=== PATIENT | male | born 1960 | race African-American/Black ===

== ENCOUNTER 2016-10-16 19:53 | Inpatient (IN) | payer MEDICAID ==
[~2016-10-16] VITALS: Ht 182.9 cm; Wt 82.1 kg
[2016-10-16] MEDS ORDERED: Piperacillin/Tazobactam 3.375 GM in NS 110 ML IV ONE (20:00)
[2016-10-16] MEDS ORDERED: Vancomycin 1 GM in NS 275 ML IV ONE (20:00)
[2016-10-16 20:05] VITALS: BP 108/70
[2016-10-16] MEDS ORDERED: Zosyn 3.375gm inj ONE (20:24)
[2016-10-16 20:42] LABS: APPEARANCE,URINE CLEAR; KETONES,URINE NEGATIVE (NEGATIVE); LEUKOCYTE ESTERASE ,URINE NEGATIVE (NEGATIVE); MEAN CORPUSCULAR HEMOGLOBIN 26.2 PG (27.0-31.0); MEAN CORPUSCULAR VOLUME 85 FL (80-99); MEAN PLATELET VOLUME 4.7 FL (6.5-10.1); NITRITE,URINE NEGATIVE (NEGATIVE); PH,URINE 6.5 (4.5-8.0); PLATELET COUNT 478 K/UL (150-450); PROTEIN,URINE 1+ (NEGATIVE); RED BLOOD COUNT 3.12 M/UL (4.70-6.10); UROBILINOGEN,URINE 1 MG/DL (0.0-1.0); WHITE BLOOD COUNT 16.2 K/UL (4.8-10.8)
[2016-10-16 20:55] LABS: BACTERIA,URINE FEW /HPF; RBC,URINE 0-2 /HPF (0 - 0); WBC,URINE 0-2 /HPF (0 - 0)
[2016-10-16 21:00] LABS: ALANINE AMINOTRANSFERASE 39 U/L (3-41); ALBUMIN/GLOBULIN RATIO 0.6 (1.0-2.7); ANION GAP 14 (5-15); ASPARTATE AMINO TRANSFERASE 47 U/L (5-40); CALCIUM 9.1 mg/dL (8.6-10.2); CARBON DIOXIDE 36 mEQ/L (20-30); CHLORIDE 89 mEQ/L (98-107); CREATININE 0.4 mg/dL (0.7-1.2); GLOMERULAR FILTRATION RATE > 60 mL/min (>60); HEMOLYSIS 3; POTASSIUM 2.8 mEQ/L (3.4-4.9); SODIUM 139 mEQ/L (135-145)
[2016-10-16] MEDS ORDERED: Vancomycin 1gm inj IVPB ONE (21:03)
[2016-10-16 21:22] LABS: ANISOCYTOSIS 1+; BAND NEUTROPHILS % (MANUAL) 4 % (0-8); BASOPHILS % (MANUAL) 0 % (0-2); EOSINOPHILS % (MANUAL) 3 % (0-3); HYPOCHROMASIA 1+; LYMPHOCYTES % (MANUAL) 7 % (20-45); NEUTROPHILS % (MANUAL) 80 % (45-75); PLATELET ESTIMATE INCREASED; PLATELET MORPHOLOGY NORMAL; TOTAL CELLS COUNTED 100
--- NOTE | 2016-10-16 21:30 | Emergency Room Report ---
History of Present Illness General Chief Complaint: General Complaint Source: Medical Record, PMD Present Illness HPI 56 YO M sent for evaluation for "worsening pneumonia." Patient aphasic, on trach/vent, not providing HPI. Per review of paperwork from SNF, PMD is Dr Fuentes. Patient on vanc/zosyn already for bibasilar PNA. Last leuks was 25K per Dr Fuentes. Allergies: Coded Allergies: No Known Allergies (Unverified , 10/16/16) Patient History Past Medical History: see triage record, old chart reviewed Past Surgical History: unable to obtain Pertinent Family History: unable to obtain Social History: Denies: alcohol use, drug use, smoking Immunizations: UTD Reviewed Nursing Documentation: PMH: Agreed, PSxH: Agreed Nursing Documentation-PMH Past Medical History: No History, Except For Hx Gastrointestinal Problems: Yes - G tube GERD Review of Systems All Other Systems: limited - unable to obtain, trach/vent Physical Exam Vital Signs Date Time Temp Pulse Resp B/P Pulse Ox O2 Delivery O2 Flow Rate FiO2 10/16/16 19:55 99.0 68 16 108/70 98 Mechanical Ventilator 7.0 10/16/16 20:04 50 Sp02 EP Interpretation: reviewed, normal General Appearance: normal inspection, well appearing, no apparent distress, alert, GCS 15, non-toxic Head: normocephalic, atraumatic Eyes: bilateral eye EOMI, bilateral eye PERRL ENT: normal ENT inspection, hearing grossly normal, normal voice Neck: normal inspection, full range of motion, supple, no bony tend, other - Trach in place. No air leak Respiratory: normal inspection, no respiratory distress, no retraction, no accessory muscle use, no wheezing, rales Cardiovascular #1: normal peripheral pulses, regular rate, rhythm, no edema Gastrointestinal: normal inspection, normal bowel sounds, non tender, soft, no guarding, no hernia, other - protuberant abdomen but not rigid; patient does not wince on palpatio Genitourinary: no CVA tenderness Musculoskeletal: normal inspection, back normal, normal range of motion, Ilda' s Sign negative Neurologic: normal inspection, oriented x3, responsive, furnace charger III-XII nml as tested, motor strength/tone normal, speech normal Psychiatric: normal inspection, judgement/insight normal, mood/affect normal Skin: normal inspection, normal color, no rash Medical Decision Making Medicare Attestation I Yamileth Koenig MD hereby attest that the medical record entry for date of service, 07/26/16 accurately reflects signatures/notations that I made in my capacity as MD when I treated/diagnosed the above listed Medicare beneficiary. I attest that this information is true, accurate and complete to the best of my knowledge. I understand that any falsification, omission, or concealment of material fact may subject me to administrative, civil, or criminal liability. This patient warrants hospital admission for extreme of age and has a condition that cannot be treated as outpatient. Diagnostic Impression: Primary Impression: Pneumonia Qualified Codes: J18.9 - Pneumonia, unspecified organism ER Course Bilateral PNA. CXR interval worse compared to previous despite vanc/zosyn VSS in ED Connected to ventilator Labs: Leuks 16k. H&H stable. K 2.8. UA negative for infection Vanc/zosyn given here K repleted Endorsed to Dr Fuentes for RUBI at 930pm EKG Diagnostic Results Rate: normal Rhythm: NSR ST Segments: no acute changes ASA given to the pt in ED: No Rhythm Strip Diag. Results EP Interpretation: yes Rate: 76 Rhythm: NSR, no PVC's, no ectopy Chest X-Ray Diagnostic Results EP Interpretation: Yes Findings: no pneumothorax, no acute cardiopulmonary disease, other - Bilateral PNA, Left > right Number of Views: 1 Last Vital Signs Date Time Temp Pulse Resp B/P Pulse Ox O2 Delivery O2 Flow Rate FiO2 10/16/16 20:40 98 25 50 10/16/16 20:05 99.0 108/70 98 Mechanical Ventilator 7.0 Status: improved Disposition: ADMITTED INPATIENT Condition: Serious Referrals: NON PHYSICIAN (PCP) YAMILETH KOENIG M.D. Oct 16, 2016 21:30
[2016-10-16] MEDS ORDERED: AMIKACIN IV STA (21:31)
[2016-10-16] MEDS ORDERED: NS IV STA (21:31)
[2016-10-16] MEDS ORDERED: Ertapenem (INVanz) Inj ONE (21:45)
[2016-10-16] MEDS ORDERED: Amikacin 500mg/2mL Inj ONE ×2 (21:45→23:09)
[2016-10-16] MEDS ORDERED: Ertapenem 1 GM in NS 55 ML IV ONE (21:45)
[2016-10-16] MEDS ORDERED: ALBUTEROL2.5 MG/3 M INH (21:51)
[2016-10-16] MEDS ORDERED: DULCOLAX10 MG RC (21:52)
[2016-10-16] MEDS ORDERED: COLACE100 MG ORAL (21:52)
[2016-10-16] MEDS ORDERED: EPOGEN20000 UNI1 SUBQ (21:53)
[2016-10-16] MEDS ORDERED: FERROUS SULFAT325 MG ORAL (21:53)
[2016-10-16] MEDS ORDERED: FLEET ENEMA133 ML RECTAL (21:54)
[2016-10-16] MEDS ORDERED: FUROSEMIDE20 M1 ORAL (21:54)
[2016-10-16] MEDS ORDERED: IRON325 M2 PO (21:54)
[2016-10-16] MEDS ORDERED: MILK OF MA400 MG/51 ORAL (21:55)
[2016-10-16] MEDS ORDERED: MIDODRINE HCL5 MG ORAL (21:55)
[2016-10-16] MEDS ORDERED: MULTIVITAMINS1 EAC8 ORAL (21:56)
[2016-10-16] MEDS ORDERED: PROTONIX40 MG ORAL (21:57)
[2016-10-16] MEDS ORDERED: NEURONTIN100 MG ORAL (21:57)
[2016-10-16] MEDS ORDERED: NORCO 10-325 T1 EACH ORAL (21:57)
[2016-10-16] MEDS ORDERED: ACETAMINOPHEN120 MG GT (21:58)
[2016-10-16] MEDS ORDERED: QUETIAPINE FUMA25 MG ORAL (21:58)
[2016-10-16] MEDS ORDERED: TRAMADOL HCL50 MG ORAL (21:58)
[2016-10-16] MEDS ORDERED: UTI-STAT L3875 MG/31 PO (21:59)
[2016-10-16] MEDS ORDERED: VIT C BIOFLAVO PO (22:00)
[2016-10-16] MEDS ORDERED: LOVENOX10 MG SUBQ (22:01)
[2016-10-16 22:13] VITALS: BP 115/81
[2016-10-17] VITALS: BP 116/79
[2016-10-17] MEDS ORDERED: ZOSYN 3.373.375 GM/1 IVPB (02:20)
[2016-10-17] MEDS ORDERED: tylenol liquid GT (02:20)
[2016-10-17] MEDS ORDERED: [UNRECOGNIZED DRUG - OTHER] GT (02:20)
[2016-10-17] MEDS ORDERED: VANCOMYCIN1 GM/2502 IVPB (02:20)
[2016-10-17] MEDS ORDERED: PROMOD946 ML GT (02:20)
[2016-10-17 04:00] VITALS: BP 118/70
[2016-10-17] MEDS ORDERED: KCl 10% 40mEq/30ml liquid NG ONE ×2 (07:00→11:00)
[2016-10-17] MEDS ORDERED: traMADol 50mg tab ORAL PRN ×2 (07:15→07:27)
[2016-10-17] MEDS ORDERED: Milk of Magnesia 30ml Ud ORAL PRN (07:15)
[2016-10-17] MEDS ORDERED: Albuterol ud Inhalation HHN PRN (07:30)
[2016-10-17] MEDS ORDERED: Norco 10mg/325mg tab ORAL PRN (07:30)
[2016-10-17 08:00] VITALS: BP 115/77
[2016-10-17] MEDS ORDERED: Fleet's Enema 133ml RECTAL SCH (09:00)
[2016-10-17] MEDS ORDERED: Fleet's Enema 133ml RECTAL PRN (09:15)
[2016-10-17] MEDS: Ferrous Sulfate 300 MG/5 ML UDC GT SCH ×3 (09:41→17:52)
[2016-10-17] MEDS: Enoxaparin 30mg Inj SUBQ SCH ×2 (09:41→21:53)
[2016-10-17] MEDS: Zinc Sulfate 220mg cap GT SCH (09:42)
[2016-10-17] MEDS: Multivitamin w/Minerals tab ORAL SCH (09:42)
[2016-10-17] MEDS: Ascorbic Acid 500mg tab GT SCH (09:43)
[2016-10-17] MEDS: Docusate 100mg cap ORAL SCH (09:50)
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
[2016-10-17 12:00] VITALS: BP 111/73
[2016-10-17] MEDS: Vancomycin 1 GM in D5W 275 ML IVPB SCH ×2 (12:02→20:00)
[2016-10-17] MEDS: Piperacillin/Tazobactam 3.375 GM in D5W 110 ML IVPB SCH ×2 (14:14→21:50)
[2016-10-17 16:12] VITALS: BP 112/70
[2016-10-17] MEDS ORDERED: Tubing IV Secondary IV ONE (16:22)
[2016-10-17] MEDS ORDERED: NS 275ml ONE (16:22)
--- NOTE | 2016-10-17 18:17 | Wound Care Consultation ---
Wound Assessment Wound Assessment : Wound Present on Admission: Yes New Wound: No Status Change of Wound: No Wound Location Body Site Modif: mid Wound Location Body Site: sacral Wound Type: pressure ulcer Adriana Test: Does not Adriana Pressure Ulcer Stage: IV/unstageable Wound Thickness: Full Thickness Wound Length: 9.0 Wound Width: 9.0 Wound Depth: utd Percent of Wound Wiggins/Red: 50 Percent of Wound Bed Yellow/Wh: 50 Wound Drainage Description: Serosanguineous Wound Drainage Amount: Moderate Wound Drainage Odor: None/Absent Tissue Surrounding Wound: Macerated Wound General Appearance: Reddened, Draining CARLOS RAINEY RN Oct 17, 2016 18:17
--- NOTE | 2016-10-17 18:45 | Wound Care Consultation ---
Wound Assessment Wound Assessment #1: Wound Present on Admission: Yes New Wound: No Status Change of Wound: No Wound Location Body Site Modif: mid Wound Location Body Site: sacral Wound Type: pressure ulcer Adriana Test: Does not Adriana Pressure Ulcer Stage: IV/unstageable Wound Thickness: Full Thickness Wound Length: 9.0 Wound Width: 9.0 Wound Depth: utd Percent of Wound [place]/Red: 50 Percent of Wound Bed Yellow/Wh: 50 Wound Drainage Description: Serosanguineous Wound Drainage Amount: Moderate Wound Drainage Odor: None/Absent Tissue Surrounding Wound: Macerated Wound Undermining at 3:00: 1.0 Wound Undermining at 9:00: 1.5 Wound General Appearance: Reddened, Draining Wound Assessment #2: Wound Number: #2 Wound Present on Admission: Yes New Wound: No Status Change of Wound: No Wound Location Body Site Modif: right Wound Location Body Site: heel Wound Type: pressure ulcer Adriana Test: Does not Adriana Pressure Ulcer Stage: deep tissue injury Wound Thickness: Full Thickness Wound Length: 4.5 Wound Width: 4.0 Wound Depth: utd Other Colors Identified: brownish Percentage Other Color: 100 Wound Drainage Amount: None Wound Drainage Odor: None/Absent Tissue Surrounding Wound: Intact Wound General Appearance: Asymptomatic Wound Assessment #3: Wound Number: #3 Wound Present on Admission: Yes New Wound: No Status Change of Wound: No Wound Location Body Site Modif: right, lower, lateral Wound Location Body Site: leg Wound Type: scar Adriana Test: Does not Adriana Wound Thickness: Full Thickness Wound Length: 14.5 Wound Width: 4.5 Wound Depth: utd Percent of Wound Black/Brown: 100 Wound Drainage Amount: None Wound Drainage Odor: None/Absent Tissue Surrounding Wound: Intact Wound General Appearance: Asymptomatic Wound Comment #1 Sacral stage IV/unstageable pressure ulcer #2 Right heel DTI pressure ulcer #3 Right lower lateral leg with scar tissue Recommendation -Sacral pressure ulcer Cleanse with saline, pat dry, apply Santyl to wound bed, apply calcium alginate , cover with Biatain silicone foam drg daily and PRN soiled/dislodged -Local wound care for DTI on right heel -Keep clean and dry -Turn and reposition -Offload both heels -Optimize nutrition -Low air loss mattress -Assess and f/u accordingly for any changes CARLOS RAINEY RN Oct 17, 2016 18:44
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
[2016-10-17 20:00] VITALS: BP 122/78
[2016-10-18] VITALS: BP 105/67
[2016-10-18] MEDS: Vancomycin 1 GM in D5W 275 ML IVPB SCH ×3 (03:37→20:20)
[2016-10-18 04:00] VITALS: BP 106/73
[2016-10-18] MEDS: Piperacillin/Tazobactam 3.375 GM in D5W 110 ML IVPB SCH ×3 (05:19→22:05)
[2016-10-18 08:00] VITALS: BP 105/71
--- NOTE | 2016-10-18 08:39 | Diagnostic Imaging Report ---
Indication: Dyspnea Comparison: None A single view chest radiograph was obtained. Findings: Extensive airspace disease noted in the left lung with some noted on the right. There is also prominent vascularity and heart is enlarged. Cervical fusion hardware noted extending into the upper thoracic spine. Bones are osteopenic. Impression: Bilateral airspace disease left worse than right probably on the basis of pulmonary edema although pneumonia is certainly possible. Please correlate clinically
[2016-10-18] MEDS: Multivitamin w/Minerals tab ORAL SCH (08:47)
[2016-10-18] MEDS: Zinc Sulfate 220mg cap GT SCH (08:47)
[2016-10-18] MEDS: Ascorbic Acid 500mg tab GT SCH (08:47)
[2016-10-18] MEDS: Ferrous Sulfate 300 MG/5 ML UDC GT SCH ×3 (08:47→18:22)
[2016-10-18] MEDS: Docusate 100mg cap ORAL SCH (08:48)
[2016-10-18] MEDS: Enoxaparin 30mg Inj SUBQ SCH ×2 (08:50→20:20)
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
--- NOTE | 2016-10-18 09:48 | Infectious Diseases Prog Note ---
Assessment/Plan Assessment/Plan A: Pneumonia VDRF Paraplegia Pressure ulcer Anemia P: continue Zosyn & Vancomycin will f/u culture Subjective ROS Limited/Unobtainable: Yes Constitutional: Reports: no symptoms Musculoskeletal: Reports: pain Allergies: Coded Allergies: No Known Allergies (Unverified , 10/16/16) Objective Vital Signs Last 24 Hour Vital Signs Date Time Temp Pulse Resp B/P Pulse Ox O2 Delivery O2 Flow Rate FiO2 10/18/16 09:03 71 26 50 10/18/16 06:33 74 25 50 10/18/16 05:50 82 23 50 10/18/16 04:00 50 10/18/16 04:00 99.3 73 20 106/73 98 Mechanical Ventilator 50 10/18/16 04:00 73 10/18/16 03:01 70 33 50 10/18/16 00:58 91 32 50 10/18/16 00:00 66 10/18/16 00:00 98.1 64 22 105/67 97 Mechanical Ventilator 50 10/18/16 00:00 50 10/17/16 23:10 81 28 50 10/17/16 21:00 68 33 50 10/17/16 20:00 98.1 71 18 122/78 99 Mechanical Ventilator 10/17/16 20:00 60 10/17/16 20:00 7.0 50 10/17/16 19:01 82 24 50 10/17/16 16:41 58 25 50 10/17/16 16:12 97.5 60 19 112/70 100 Mechanical Ventilator 50 10/17/16 15:38 61 10/17/16 15:38 7.0 50 10/17/16 15:17 61 26 50 10/17/16 13:19 93 27 50 10/17/16 12:13 7.0 50 10/17/16 12:00 97.7 69 27 111/73 97 Mechanical Ventilator 50 10/17/16 11:26 90 29 50 Height (Feet): 6 Height (Inches): 6.00 Weight (Pounds): 181 General Appearance: no acute distress HEENT: status post trach Respiratory/Chest: lungs clear, other - on ventilator Cardiovascular: normal rate Abdomen: soft, non tender, other - GT feeding Extremities: no edema Neurologic/Psychiatric: alert, responsive Microbiology Date/Time Source Procedure Growth Status 10/16/16 20:20 Blood Blood Culture - Preliminary NO GROWTH AFTER 24 HOURS Resulted 10/16/16 20:05 Blood Blood Culture - Preliminary NO GROWTH AFTER 24 HOURS Resulted 10/16/16 21:55 Nasal Nares MRSA Culture - Final NO METHICILLIN RESISTANT STAPH AUREUS... Complete 10/17/16 01:00 Sacral Wound Gram Stain Pending Resulted 10/17/16 01:00 Wound Culture - Preliminary Gram Negative Bacillus 1 Resulted 10/16/16 21:55 Rectum VRE Culture - Final NO VANCOMYCIN RESISTANT ENTEROCOCCUS ... Complete Laboratory Tests Test 10/17/16 10:45 Vancomycin Level Trough 6.9 ug/mL (5.0-12.0) Current Medications Medications (Trade) Dose Ordered Sig/Lucy Route PRN Reason Start Time Stop Time Status Last Admin Dose Admin Acetaminophen (Tylenol) 650 mg Q4H PRN GT Mild Pain/Temp > 100.5 10/17/16 07:45 11/16/16 07:44 Acetaminophen/ Hydrocodone Bitart ([place] 10/325) 1 ea Q4H PRN ORAL Severe Pain (Pain Scale 7-10) 10/17/16 07:30 10/24/16 07:29 Albuterol Sulfate (Proventil) 2.5 mg Q4H PRN HHN Shortness of Breath 10/17/16 07:30 10/22/16 07:29 Ascorbic Acid (Vitamin C) 500 mg DAILY GT 10/17/16 09:00 11/16/16 08:59 10/18/16 08:47 Bisacodyl (Dulcolax) 10 mg DAILY PRN RECTAL Constipation 10/17/16 07:30 11/16/16 07:29 Docusate Sodium (Colace) 100 mg DAILY ORAL 10/17/16 09:00 11/16/16 08:59 10/18/16 08:48 Enoxaparin Sodium (Lovenox) 30 mg EVERY 12 HOURS SUBQ 10/17/16 09:00 11/16/16 08:59 10/18/16 08:50 Ferrous Sulfate (Feosol) 300 mg THREE TIMES A DAY GT 10/17/16 09:00 11/16/16 08:59 10/18/16 08:47 Furosemide (Lasix) 10 mg BID ORAL 10/17/16 09:00 11/16/16 08:59 10/18/16 08:52 Gabapentin (Neurontin) 100 mg EVERY 8 HOURS ORAL 10/17/16 14:00 11/16/16 13:59 10/18/16 05:18 Heparin Sodium/ Sodium Chloride (Heparin 2000 units/Ns 1000ml premix) 2,000 unit ONCE ONCE IV 10/18/16 12:00 10/18/16 12:01 Lidocaine HCl (Xylocaine 1% 30ml) 30 ml ONCE ONCE INJ 10/18/16 12:00 10/18/16 12:01 Magnesium Hydroxide (Mom) 30 ml DAILY PRN ORAL Constipation 10/17/16 07:15 11/16/16 07:14 Midodrine (Pro-[place]) 5 mg THREE TIMES A DAY ORAL 10/17/16 09:00 11/16/16 08:59 10/18/16 08:48 Multivitamins Therapeutic (Therapeutic Multivitamin) 1 ea DAILY ORAL 10/17/16 09:00 11/16/16 08:59 10/18/16 08:47 Pantoprazole (Protonix) 40 mg DAILY ORAL 10/17/16 09:00 11/16/16 08:59 10/18/16 08:48 Piperacillin Sod/ Tazobactam Sod 3.375 gm/Dextrose 110 ml @ 27.5 mls/hr Q8HR IVPB 10/17/16 14:00 10/24/16 13:59 10/18/16 05:19 Quetiapine Fumarate (SEROquel) 25 mg BEDTIME ORAL 10/17/16 21:00 11/16/16 20:59 10/17/16 21:51 Sodium Phosphate (Fleet's Sodium Phosl Enema) 133 ml DAILY PRN RECTAL Constipation 10/17/16 09:15 11/16/16 09:14 Tramadol HCl 50 mg 50 mg Q6H PRN ORAL Moderate Pain (Pain Scale 4-6) 10/17/16 07:27 10/24/16 07:14 10/18/16 03:38 Vancomycin HCl/ Dextrose (Vancomycin/D5W) 275 ml @ 183.708 mls/hr Q8HR@0400,1200,2000 IVPB 10/17/16 12:00 10/22/16 11:59 10/18/16 03:37 Zinc Sulfate (Zinc Sulfate) 220 mg DAILY GT 10/17/16 09:00 10/30/16 09:01 10/18/16 08:47 ISRAEL LANIER Oct 18, 2016 09:48
--- NOTE | 2016-10-18 11:49 | Diagnostic Imaging Report ---
Indications: Shortness of breath Technique: Portable AP chest Findings: Comparison: 10/16/16 Inspiratory effort has improved. Cardiomegaly, pulmonary vascular redistribution, diffuse bilateral interstitial infiltrates, superimposed patchy alveolar consolidation in both lungs, left pleural effusion persists, not significantly changed. No new abnormality identified. IMPRESSION: Stable bilateral congestive changes Bilateral airspace opacities may represent alveolar pulmonary edema or superimposed pneumonias, unchanged
[2016-10-18 12:00] VITALS: BP 111/77
[2016-10-18] MEDS ORDERED: Heparin 2000 units/Ns 1000ml IV ONE (12:00)
[2016-10-18] MEDS ORDERED: Lidocaine 1% Plain 30 ml INJ ONE (12:00)
[2016-10-18 12:17] LABS: MEAN CORPUSCULAR HEMOGLOBIN 25.5 PG (27.0-31.0); MEAN CORPUSCULAR HGB CONC 30.2 G/DL (32.0-36.0); MEAN CORPUSCULAR VOLUME 84 FL (80-99); PLATELET COUNT 659 K/UL (150-450); RED BLOOD COUNT 3.15 M/UL (4.70-6.10); RED CELL DISTRIBUTION WIDTH 17.5 % (11.6-14.8); WHITE BLOOD COUNT 21.7 K/UL (4.8-10.8)
--- NOTE | 2016-10-18 12:36 | Diagnostic Imaging Report ---
Indications: Long-term central IV access required for multiple medications. Technique: The procedure indications, risks, and alternatives were explained to the patient's family who understands and gives consent to proceed. Procedure was performed at bedside. Strict aseptic technique was utilized, including hand washing, use of hat and mask, use of sterile gown and gloves, sterile ultrasound gel and probe cover, prepping of right arm skin with 2% chlorhexidine solution, and application of full body sterile barrier over this area. Skin and subcutaneous soft tissues were infiltrated with 1% lidocaine and sodium bicarbonate. A small dermatotomy was made, through which the larger of two patent, adequate size right brachial veins was punctured percutaneously under direct sonographic guidance with a 21-gauge needle. Exchange was made over a 0.018 inch guidewire for a 5 [place] peel-away sheath. A Bard Power-PICC 5 [place] dual lumen central venous catheter was cut to 40 cm, then advanced through the sheath over the guidewire. Guidewire and sheath were removed. Both catheter ports were aspirated, then flushed with heparinized saline. Catheter was secured the skin with adhesive dressing. Patient tolerated procedure well without immediate complications. Followup chest radiograph performed. Findings: Comparison: Chest radiograph 10/18/16 at 08 20 Both ports aspirate and flush freely. Tip of catheter resides at level of SVC-right atrial junction. No other change from earlier exam. IMPRESSION: Bedside placement of peripherally inserted central venous catheter via right brachial vein, working well, may be used.
[2016-10-18 12:48] LABS: ALANINE AMINOTRANSFERASE 27 U/L (3-41); ALBUMIN/GLOBULIN RATIO 0.7 (1.0-2.7); ANION GAP 9 (5-15); ASPARTATE AMINO TRANSFERASE 27 U/L (5-40); CALCIUM 8.8 mg/dL (8.6-10.2); CARBON DIOXIDE 38 mEQ/L (20-30); CHLORIDE 93 mEQ/L (98-107); CREATININE 0.4 mg/dL (0.7-1.2); GLOMERULAR FILTRATION RATE > 60 mL/min (>60); HEMOLYSIS 3; POTASSIUM 3.2 mEQ/L (3.4-4.9); SODIUM 140 mEQ/L (135-145); TOTAL PROTEIN 5.9 g/dL (6.6-8.7)
[2016-10-18 13:50] LABS: ANISOCYTOSIS 1+; BAND NEUTROPHILS % (MANUAL) 2 % (0-8); BASOPHILS % (MANUAL) 0 % (0-2); EOSINOPHILS % (MANUAL) 0 % (0-3); HYPOCHROMASIA 1+; LYMPHOCYTES % (MANUAL) 5 % (20-45); NEUTROPHILS % (MANUAL) 84 % (45-75); PLATELET ESTIMATE INCREASED; PLATELET MORPHOLOGY NORMAL; TOTAL CELLS COUNTED 100
[2016-10-18 16:00] VITALS: BP 143/79
[2016-10-18 18:15] VITALS: BP 103/72
[2016-10-19] VITALS (8 sets, daily range): BP systolic 95–112; BP diastolic 56–78
[2016-10-19] MEDS: Vancomycin 1 GM in D5W 275 ML IVPB SCH ×3 (04:00→20:41)
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
[2016-10-19 09:41] LABS: MEAN CORPUSCULAR HEMOGLOBIN 25.5 PG (27.0-31.0); MEAN CORPUSCULAR HGB CONC 30.3 G/DL (32.0-36.0); MEAN CORPUSCULAR VOLUME 84 FL (80-99); MEAN PLATELET VOLUME 4.9 FL (6.5-10.1); PLATELET COUNT 624 K/UL (150-450); RED BLOOD COUNT 2.98 M/UL (4.70-6.10); RED CELL DISTRIBUTION WIDTH 17.9 % (11.6-14.8)
[2016-10-19] MEDS: Multivitamin w/Minerals tab ORAL SCH (09:41)
[2016-10-19] MEDS: Docusate 100mg cap ORAL SCH (09:41)
[2016-10-19] MEDS: Ascorbic Acid 500mg tab GT SCH (09:41)
[2016-10-19] MEDS: Ferrous Sulfate 300 MG/5 ML UDC GT SCH ×3 (09:41→17:23)
[2016-10-19] MEDS: Zinc Sulfate 220mg cap GT SCH (09:41)
[2016-10-19] MEDS: Enoxaparin 30mg Inj SUBQ SCH ×2 (09:43→20:43)
[2016-10-19] MEDS: Piperacillin/Tazobactam 3.375 GM in D5W 110 ML IVPB SCH ×3 (09:44→21:23)
[2016-10-19 09:47] LABS: ANION GAP 8 (5-15); CARBON DIOXIDE 38 mEQ/L (20-30); CHLORIDE 93 mEQ/L (98-107); CREATININE 0.4 mg/dL (0.7-1.2); GLOMERULAR FILTRATION RATE > 60 mL/min (>60); HEMOLYSIS 1; POTASSIUM 3.2 mEQ/L (3.4-4.9); SODIUM 139 mEQ/L (135-145)
[2016-10-19 10:15] LABS: EOSINOPHILS % (MANUAL) 1 % (0-3); LYMPHOCYTES % (MANUAL) 5 % (20-45); NEUTROPHILS % (MANUAL) 87 % (45-75); TOTAL CELLS COUNTED 100
[2016-10-19 10:16] LABS: ANISOCYTOSIS 2+; BAND NEUTROPHILS % (MANUAL) 0 % (0-8); BASOPHILS % (MANUAL) 0 % (0-2); PLATELET ESTIMATE INCREASED; PLATELET MORPHOLOGY NORMAL
[2016-10-19 10:18] LABS: HYPOCHROMASIA 2+; STOMATOCYTES OCCASIONAL
--- NOTE | 2016-10-19 12:04 | Infectious Diseases Prog Note ---
Assessment/Plan Assessment/Plan antibiotics : vancomycin iv, zosyn A 1. pneumonia 2. increasing leucocytosis 3. respiratory failure 4. paraplegia P 1. continue vancomycin iv, zosyn 2. start flagyl 3. urine culture 4. sputum culture 5. stool for c.diff 6. will follow up cultures Subjective ROS Limited/Unobtainable: Yes Allergies: Coded Allergies: No Known Allergies (Unverified , 10/16/16) Objective Vital Signs Last 24 Hour Vital Signs Date Time Temp Pulse Resp B/P Pulse Ox O2 Delivery O2 Flow Rate FiO2 10/19/16 10:56 65 25 40 10/19/16 09:26 67 25 40 10/19/16 08:00 50 10/19/16 08:00 65 10/19/16 08:00 98.1 64 30 102/71 96 Mechanical Ventilator 40 10/19/16 07:00 71 24 40 10/19/16 04:56 70 26 40 10/19/16 04:00 68 10/19/16 04:00 50 10/19/16 04:00 98.0 74 29 95/56 96 Mechanical Ventilator 10/19/16 02:43 67 34 40 10/19/16 00:34 68 32 40 10/19/16 00:00 97.7 66 30 99/67 96 Mechanical Ventilator 10/19/16 00:00 50 10/18/16 23:32 66 28 40 10/18/16 23:04 98.2 10/18/16 21:23 67 30 40 10/18/16 20:00 50 10/18/16 20:00 72 10/18/16 19:01 61 32 40 10/18/16 18:15 103/72 10/18/16 17:16 62 32 40 10/18/16 16:35 50 10/18/16 16:00 98.1 66 16 143/79 98 Mechanical Ventilator 50 10/18/16 15:44 60 10/18/16 15:20 64 27 40 10/18/16 13:34 66 27 40 10/18/16 13:21 98.3 Height (Feet): 6 Height (Inches): 6.00 Weight (Pounds): 181 HEENT: status post trach Respiratory/Chest: crackles/rales, rhonchi - bilaterally Cardiovascular: normal rate, regular rhythm, no gallop/murmur Abdomen: soft, non tender, other - GT Extremities: no edema, other - right arm PICC Microbiology Date/Time Source Procedure Growth Status 10/16/16 20:20 Blood Blood Culture - Preliminary NO GROWTH AFTER 48 HOURS Resulted 10/16/16 20:05 Blood Blood Culture - Preliminary NO GROWTH AFTER 48 HOURS Resulted 10/16/16 21:55 Nasal Nares MRSA Culture - Final NO METHICILLIN RESISTANT STAPH AUREUS... Complete 10/17/16 01:00 Sacral Wound Gram Stain - Final Resulted 10/17/16 01:00 Wound Culture - Preliminary Morganella Morg Spp Morganii Resulted 10/16/16 21:55 Rectum VRE Culture - Final NO VANCOMYCIN RESISTANT ENTEROCOCCUS ... Complete Laboratory Tests Test 10/19/16 08:50 White Blood Count 24.0 K/UL (4.8-10.8) *H Red Blood Count 2.98 M/UL (4.70-6.10) L Hemoglobin 7.6 G/DL (14.2-18.0) L Hematocrit 25.0 % (42.0-52.0) L Mean Corpuscular Volume 84 FL (80-99) Mean Corpuscular Hemoglobin 25.5 PG (27.0-31.0) L Mean Corpuscular Hemoglobin Concent 30.3 G/DL (32.0-36.0) L Red Cell Distribution Width 17.9 % (11.6-14.8) H Platelet Count 624 K/UL (150-450) H Mean Platelet Volume 4.9 FL (6.5-10.1) L Neutrophils (%) (Auto) % (45.0-75.0) Lymphocytes (%) (Auto) % (20.0-45.0) Monocytes (%) (Auto) % (1.0-10.0) Eosinophils (%) (Auto) % (0.0-3.0) Basophils (%) (Auto) % (0.0-2.0) Differential Total Cells Counted 100 Neutrophils % (Manual) 87 % (45-75) H Lymphocytes % (Manual) 5 % (20-45) L Monocytes % (Manual) 7 % (1-10) Eosinophils % (Manual) 1 % (0-3) Basophils % (Manual) 0 % (0-2) Band Neutrophils 0 % (0-8) Platelet Estimate Increased H Platelet Morphology Normal Hypochromasia 2+ Anisocytosis 2+ Stomatocytes Occasional Sodium Level 139 mEQ/L (135-145) Potassium Level 3.2 mEQ/L (3.4-4.9) L Chloride Level 93 mEQ/L (98-107) L Carbon Dioxide Level 38 mEQ/L (20-30) H Anion Gap 8 (5-15) Blood Urea Nitrogen 10 mg/dL (7-23) Creatinine 0.4 mg/dL (0.7-1.2) L Estimat Glomerular Filtration Rate > 60 mL/min (>60) Glucose Level 121 mg/dL (74-106) H Calcium Level 9.0 mg/dL (8.6-10.2) SKYLER DUFFY Oct 19, 2016 12:04
[2016-10-19] MEDS ORDERED: Milk of Magnesia 30ml Ud GT PRN (13:26)
[2016-10-19] MEDS: metroNIDAZOLE 500mg tab GT SCH ×2 (14:29→21:23)
[2016-10-19] MEDS: Acetaminophen 650mg/20.3ml GT PRN (17:31)
[2016-10-19] MEDS ORDERED: traMADol 50mg tab GT PRN (19:27)
[2016-10-20] VITALS: BP 107/65
[2016-10-20] MEDS: Vancomycin 1 GM in D5W 275 ML IVPB SCH ×2 (03:50→12:20)
[2016-10-20 04:00] VITALS: BP 104/60
[2016-10-20] MEDS: Piperacillin/Tazobactam 3.375 GM in D5W 110 ML IVPB SCH ×2 (05:22→14:28)
[2016-10-20] MEDS: metroNIDAZOLE 500mg tab GT SCH ×3 (05:22→22:20)
[2016-10-20 05:57] LABS: MEAN CORPUSCULAR HEMOGLOBIN 26.4 PG (27.0-31.0); MEAN CORPUSCULAR HGB CONC 31.2 G/DL (32.0-36.0); MEAN CORPUSCULAR VOLUME 85 FL (80-99); MEAN PLATELET VOLUME 4.9 FL (6.5-10.1); PLATELET COUNT 628 K/UL (150-450); RED BLOOD COUNT 3.52 M/UL (4.70-6.10); RED CELL DISTRIBUTION WIDTH 16.6 % (11.6-14.8)
[2016-10-20 07:25] LABS: ANISOCYTOSIS 1+; BAND NEUTROPHILS % (MANUAL) 0 % (0-8); BASOPHILS % (MANUAL) 0 % (0-2); EOSINOPHILS % (MANUAL) 1 % (0-3); HYPOCHROMASIA 2+; LYMPHOCYTES % (MANUAL) 5 % (20-45); NEUTROPHILS % (MANUAL) 89 % (45-75); PLATELET ESTIMATE INCREASED; PLATELET MORPHOLOGY NORMAL; TOTAL CELLS COUNTED 100
[2016-10-20 07:35] LABS: ANION GAP 11 (5-15); CARBON DIOXIDE 37 mEQ/L (20-30); CHLORIDE 92 mEQ/L (98-107); CREATININE 0.4 mg/dL (0.7-1.2); GLOMERULAR FILTRATION RATE > 60 mL/min (>60); HEMOLYSIS 0; POTASSIUM 2.9 mEQ/L (3.4-4.9); SODIUM 140 mEQ/L (135-145)
[2016-10-20 08:00] VITALS: BP 101/65
[2016-10-20] MEDS: Zinc Sulfate 220mg cap GT SCH (09:27)
[2016-10-20] MEDS: Ascorbic Acid 500mg tab GT SCH (09:27)
[2016-10-20] MEDS: Ferrous Sulfate 300 MG/5 ML UDC GT SCH ×3 (09:27→19:04)
[2016-10-20] MEDS: Multivitamin 5ml Liquid GT SCH (09:28)
[2016-10-20] MEDS: Pantoprazole Inj IVP SCH (09:28)
[2016-10-20] MEDS: Docusate 100mg tablet GT SCH (09:28)
[2016-10-20] MEDS: Enoxaparin 30mg Inj SUBQ SCH ×2 (09:29→22:24)
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
[2016-10-20 12:00] VITALS: BP 110/75
--- NOTE | 2016-10-20 12:34 | Diagnostic Imaging Report ---
Indication: Dyspnea Comparison: 10/18/16 A single view chest radiograph was obtained. Findings: Interstitial and some lobular airspace disease noted with cardiomegaly and some vascular prominence. The findings appear improved and likely reflect CHF. PICC line has been placed. Tip is in the SVC in good position. Impression: PICC line in good position. CHF. Some improvement in this regard
--- NOTE | 2016-10-20 14:21 | Infectious Diseases Prog Note ---
Assessment/Plan Assessment/Plan A: Pneumonia with MDR pseudomonas VDRF Paraplegia Pressure ulcer Anemia P: discontinue Zosyn & Vancomycin start on Amikacin Subjective ROS Limited/Unobtainable: Yes Neurologic: Reports: confusion Allergies: Coded Allergies: No Known Allergies (Unverified , 10/16/16) Objective Vital Signs Last 24 Hour Vital Signs Date Time Temp Pulse Resp B/P Pulse Ox O2 Delivery O2 Flow Rate FiO2 10/20/16 13:23 73 30 40 10/20/16 12:00 98.4 66 23 110/75 98 Mechanical Ventilator 40 10/20/16 11:30 66 29 40 10/20/16 11:22 50 10/20/16 09:30 62 31 40 10/20/16 08:00 50 10/20/16 08:00 97.5 62 30 101/65 99 Mechanical Ventilator 40 10/20/16 08:00 62 10/20/16 07:30 61 21 40 10/20/16 06:21 99.5 10/20/16 05:23 61 27 40 10/20/16 04:00 50 10/20/16 04:00 98.8 63 25 104/60 100 Mechanical Ventilator 40 10/20/16 04:00 66 10/20/16 03:05 63 24 40 10/20/16 01:01 70 26 40 10/20/16 00:00 50 10/20/16 00:00 99.5 71 27 107/65 94 Mechanical Ventilator 40 10/20/16 00:00 70 10/19/16 23:03 75 24 40 10/19/16 21:30 72 24 40 10/19/16 20:00 69 10/19/16 20:00 98.2 72 18 112/69 98 Mechanical Ventilator 40 10/19/16 20:00 50 10/19/16 18:52 72 27 40 10/19/16 18:01 98.4 10/19/16 18:00 98.4 67 18 107/63 99 Mechanical Ventilator 40 10/19/16 17:30 97.1 66 18 110/78 98 Mechanical Ventilator 40 10/19/16 17:03 64 21 40 10/19/16 16:00 50 10/19/16 16:00 97.5 75 28 112/71 98 Mechanical Ventilator 40 10/19/16 16:00 82 10/19/16 15:23 67 22 40 Height (Feet): 6 Height (Inches): 6.00 Weight (Pounds): 181 HEENT: status post trach Respiratory/Chest: rhonchi - bilaterally, other - on ventilator Cardiovascular: normal rate Abdomen: distended, other - GT Extremities: other - R arm PICC line Neurologic/Psychiatric: alert, responsive, disoriented Microbiology Date/Time Source Procedure Growth Status 10/19/16 12:30 Sputum Gram Stain - Final Resulted 10/19/16 12:30 Sputum Sputum Culture Pending Resulted 10/17/16 21:10 Sputum Gram Stain - Final Resulted 10/17/16 21:10 Sputum Culture - Preliminary Pseudomonas Aeruginosa - Mdr Resulted 10/19/16 12:30 Stool Clostridium difficile Toxin Assay - Final Complete 10/19/16 12:30 Urine,Clean Catch Urine Culture - Preliminary NO GROWTH Resulted Laboratory Tests Test 10/20/16 05:00 White Blood Count 25.0 K/UL (4.8-10.8) *H Red Blood Count 3.52 M/UL (4.70-6.10) L Hemoglobin 9.3 G/DL (14.2-18.0) L Hematocrit 29.8 % (42.0-52.0) L Mean Corpuscular Volume 85 FL (80-99) Mean Corpuscular Hemoglobin 26.4 PG (27.0-31.0) L Mean Corpuscular Hemoglobin Concent 31.2 G/DL (32.0-36.0) L Red Cell Distribution Width 16.6 % (11.6-14.8) H Platelet Count 628 K/UL (150-450) H Mean Platelet Volume 4.9 FL (6.5-10.1) L Neutrophils (%) (Auto) % (45.0-75.0) Lymphocytes (%) (Auto) % (20.0-45.0) Monocytes (%) (Auto) % (1.0-10.0) Eosinophils (%) (Auto) % (0.0-3.0) Basophils (%) (Auto) % (0.0-2.0) Differential Total Cells Counted 100 Neutrophils % (Manual) 89 % (45-75) H Lymphocytes % (Manual) 5 % (20-45) L Monocytes % (Manual) 5 % (1-10) Eosinophils % (Manual) 1 % (0-3) Basophils % (Manual) 0 % (0-2) Band Neutrophils 0 % (0-8) Platelet Estimate Increased H Platelet Morphology Normal Hypochromasia 2+ Anisocytosis 1+ Sodium Level 140 mEQ/L (135-145) Potassium Level 2.9 mEQ/L (3.4-4.9) L Chloride Level 92 mEQ/L (98-107) L Carbon Dioxide Level 37 mEQ/L (20-30) H Anion Gap 11 (5-15) Blood Urea Nitrogen 9 mg/dL (7-23) Creatinine 0.4 mg/dL (0.7-1.2) L Estimat Glomerular Filtration Rate > 60 mL/min (>60) Glucose Level 94 mg/dL (74-106) Calcium Level 9.0 mg/dL (8.6-10.2) Current Medications Medications (Trade) Dose Ordered Sig/Lucy Route PRN Reason Start Time Stop Time Status Last Admin Dose Admin Acetaminophen (Tylenol) 650 mg Q4H PRN GT Mild Pain/Temp > 100.5 10/17/16 07:45 11/16/16 07:44 10/19/16 17:31 Acetaminophen/ Hydrocodone Bitart ([place] 10/325) 1 ea Q4H PRN GT Severe Pain (Pain Scale 7-10) 10/19/16 13:25 10/24/16 07:29 Albuterol Sulfate (Proventil) 2.5 mg Q4H PRN HHN Shortness of Breath 10/17/16 07:30 10/22/16 07:29 Ascorbic Acid (Vitamin C) 500 mg DAILY GT 10/17/16 09:00 11/16/16 08:59 10/20/16 09:27 Bisacodyl 10 mg 10 mg DAILY PRN RECTAL Constipation 10/17/16 07:30 11/16/16 07:29 Collagenase (Santyl) 1 applic DAILY TOPIC 10/20/16 12:00 11/19/16 11:59 10/20/16 12:00 Docusate Sodium (Colace) 100 mg DAILY GT 10/20/16 09:00 11/19/16 08:59 10/20/16 09:28 Enoxaparin Sodium (Lovenox) 30 mg EVERY 12 HOURS SUBQ 10/17/16 09:00 11/16/16 08:59 10/20/16 09:29 Ferrous Sulfate (Feosol) 300 mg THREE TIMES A DAY GT 10/17/16 09:00 11/16/16 08:59 10/20/16 09:27 Furosemide (Lasix) 10 mg BID GT 10/19/16 13:25 11/16/16 08:59 10/20/16 09:28 Gabapentin (Neurontin) 100 mg EVERY 8 HOURS GT 10/19/16 13:25 11/16/16 13:59 10/20/16 05:22 Magnesium Hydroxide (Mom) 30 ml DAILY PRN GT Constipation 10/19/16 13:26 11/16/16 07:14 Metronidazole (Flagyl) 500 mg Q8HR GT 10/19/16 14:00 10/26/16 13:59 10/20/16 05:22 Midodrine (Pro-Amatine) 5 mg THREE TIMES A DAY GT 10/19/16 13:26 11/16/16 08:59 10/20/16 09:27 Multivitamins (Multivitamin Hexavitamin) 5 ml DAILY GT 10/20/16 09:00 11/19/16 08:59 10/20/16 09:28 Pantoprazole (Protonix) 40 mg DAILY IVP 10/20/16 09:00 11/19/16 08:59 10/20/16 09:28 Piperacillin Sod/ Tazobactam Sod 3.375 gm/Dextrose 110 ml @ 27.5 mls/hr Q8HR IVPB 10/17/16 14:00 10/24/16 13:59 10/20/16 05:22 Quetiapine Fumarate (SEROquel) 25 mg BEDTIME GT 10/19/16 13:26 11/16/16 20:59 10/19/16 20:41 Sodium Phosphate (Fleet's Sodium Phosl Enema) 133 ml DAILY PRN RECTAL Constipation 10/17/16 09:15 11/16/16 09:14 Tramadol HCl (Ultram) 50 mg Q6H PRN GT Moderate Pain (Pain Scale 4-6) 10/19/16 19:27 10/24/16 07:14 Vancomycin HCl/ Dextrose (Vancomycin/D5W) 275 ml @ 183.708 mls/hr Q8HR@0400,1200,2000 IVPB 10/17/16 12:00 10/22/16 11:59 10/20/16 12:20 Zinc Sulfate (Zinc Sulfate) 220 mg DAILY GT 10/17/16 09:00 10/30/16 09:01 10/20/16 09:27 ISRAEL LANIER Oct 20, 2016 14:21
[2016-10-20] MEDS ORDERED: Amikacin Rx to dose MISC PRN (14:30)
[2016-10-20 16:00] VITALS: BP 116/77
[2016-10-20] MEDS ORDERED: D5W IV SCH (16:00)
[2016-10-20] MEDS ORDERED: AMIKACIN IV SCH (16:00)
[2016-10-20 19:00] VITALS: BP 141/93
[2016-10-20] MEDS: Norco 10mg/325mg tab GT PRN (19:47)
[2016-10-20] MEDS: Acetaminophen 650mg/20.3ml GT PRN (22:25)
[2016-10-21] VITALS: BP 101/70
[2016-10-21 04:00] VITALS: BP 119/76
[2016-10-21 06:25] LABS: BASOPHILS % (AUTO) 0.2 % (0.0-2.0); EOSINOPHILS % (AUTO) 1.1 % (0.0-3.0); LYMPHOCYTES % (AUTO) 9.3 % (20.0-45.0); MEAN CORPUSCULAR HEMOGLOBIN 26.2 PG (27.0-31.0); MEAN CORPUSCULAR HGB CONC 30.9 G/DL (32.0-36.0); MEAN CORPUSCULAR VOLUME 85 FL (80-99); MEAN PLATELET VOLUME 4.8 FL (6.5-10.1); MONOCYTES % (AUTO) 6.1 % (1.0-10.0); NEUTROPHILS % (AUTO) 83.2 % (45.0-75.0); PLATELET COUNT 698 K/UL (150-450); RED BLOOD COUNT 3.65 M/UL (4.70-6.10); WHITE BLOOD COUNT 16.2 K/UL (4.8-10.8)
[2016-10-21 06:44] LABS: ANION GAP 9 (5-15); CALCIUM 9.2 mg/dL (8.6-10.2); CARBON DIOXIDE 37 mEQ/L (20-30); CHLORIDE 94 mEQ/L (98-107); CREATININE 0.5 mg/dL (0.7-1.2); GLOMERULAR FILTRATION RATE > 60 mL/min (>60); HEMOLYSIS 1; POTASSIUM 3.2 mEQ/L (3.4-4.9); SODIUM 140 mEQ/L (135-145)
[2016-10-21] MEDS: metroNIDAZOLE 500mg tab GT SCH ×3 (06:58→21:44)
[2016-10-21 08:00] VITALS: BP 102/46
--- NOTE | 2016-10-21 08:29 | Cardiology Report ---
APPROVED REPORT EKG Measurement Heart [id number] Normal sinus rhythm Non-specific ST abnormality Borderline ECG
--- NOTE | 2016-10-21 08:55 | Infectious Diseases Prog Note ---
Assessment/Plan Assessment/Plan A: Pneumonia with MDR pseudomonas Leukocytosis VDRF Paraplegia Pressure ulcer Anemia P: Continue Amikacin Subjective ROS Limited/Unobtainable: Yes Allergies: Coded Allergies: No Known Allergies (Unverified , 10/16/16) Objective Vital Signs Last 24 Hour Vital Signs Date Time Temp Pulse Resp B/P Pulse Ox O2 Delivery O2 Flow Rate FiO2 10/21/16 04:59 64 26 40 10/21/16 04:00 97.7 70 32 119/76 98 Mechanical Ventilator 40 10/21/16 04:00 66 10/21/16 04:00 40 10/21/16 03:01 70 26 40 10/21/16 00:44 64 25 40 10/21/16 00:00 98.6 61 27 101/70 94 Mechanical Ventilator 40 10/21/16 00:00 65 10/21/16 00:00 40 10/20/16 22:55 84 24 40 10/20/16 21:11 89 21 40 10/20/16 20:00 40 10/20/16 20:00 80 10/20/16 19:25 82 26 40 10/20/16 19:00 101.5 84 20 141/93 98 Mechanical Ventilator 40 10/20/16 17:03 77 23 40 10/20/16 16:00 99.0 77 20 116/77 100 Mechanical Ventilator 40 10/20/16 16:00 80 10/20/16 16:00 40 10/20/16 14:52 77 31 40 10/20/16 13:23 73 30 40 10/20/16 12:00 98.4 66 23 110/75 98 Mechanical Ventilator 40 10/20/16 11:30 66 29 40 10/20/16 11:22 50 10/20/16 09:30 62 31 40 Height (Feet): 6 Height (Inches): 6.00 Weight (Pounds): 181 HEENT: status post trach Respiratory/Chest: rhonchi - bilaterally, expiratory wheezing, other - on ventilator Cardiovascular: normal rate Abdomen: soft, non tender, other - GT feeding Extremities: no edema, other - R arm PICC line Skin: ulcers Neurologic/Psychiatric: alert, responsive Microbiology Date/Time Source Procedure Growth Status 10/19/16 12:30 Sputum Gram Stain - Final Resulted 10/19/16 12:30 Sputum Sputum Culture Pending Resulted 10/19/16 12:30 Stool Clostridium difficile Toxin Assay - Final Complete 10/19/16 12:30 Urine,Clean Catch Urine Culture - Preliminary NO GROWTH Resulted Laboratory Tests Test 10/21/16 04:00 White Blood Count 16.2 K/UL (4.8-10.8) H Red Blood Count 3.65 M/UL (4.70-6.10) L Hemoglobin 9.6 G/DL (14.2-18.0) L Hematocrit 30.9 % (42.0-52.0) L Mean Corpuscular Volume 85 FL (80-99) Mean Corpuscular Hemoglobin 26.2 PG (27.0-31.0) L Mean Corpuscular Hemoglobin Concent 30.9 G/DL (32.0-36.0) L Red Cell Distribution Width 17.0 % (11.6-14.8) H Platelet Count 698 K/UL (150-450) H Mean Platelet Volume 4.8 FL (6.5-10.1) L Neutrophils (%) (Auto) 83.2 % (45.0-75.0) H Lymphocytes (%) (Auto) 9.3 % (20.0-45.0) L Monocytes (%) (Auto) 6.1 % (1.0-10.0) Eosinophils (%) (Auto) 1.1 % (0.0-3.0) Basophils (%) (Auto) 0.2 % (0.0-2.0) Sodium Level 140 mEQ/L (135-145) Potassium Level 3.2 mEQ/L (3.4-4.9) L Chloride Level 94 mEQ/L (98-107) L Carbon Dioxide Level 37 mEQ/L (20-30) H Anion Gap 9 (5-15) Blood Urea Nitrogen 10 mg/dL (7-23) Creatinine 0.5 mg/dL (0.7-1.2) L Estimat Glomerular Filtration Rate > 60 mL/min (>60) Glucose Level 106 mg/dL (74-106) Calcium Level 9.2 mg/dL (8.6-10.2) Random Amikacin Level 5.0 ug/mL Current Medications Medications (Trade) Dose Ordered Sig/Lucy Route PRN Reason Start Time Stop Time Status Last Admin Dose Admin Acetaminophen (Tylenol) 650 mg Q4H PRN GT Mild Pain/Temp > 100.5 10/17/16 07:45 11/16/16 07:44 10/20/16 22:25 Acetaminophen/ Hydrocodone Bitart ([place] 10/325) 1 ea Q4H PRN GT Severe Pain (Pain Scale 7-10) 10/19/16 13:25 10/24/16 07:29 10/20/16 19:47 Albuterol Sulfate (Proventil) 2.5 mg Q4H PRN HHN Shortness of Breath 10/17/16 07:30 10/22/16 07:29 Amikacin Protocol (Amikacin pharmacy to dose) 1 ea DAILY PRN MISC Per rx protocol 10/20/16 14:30 11/19/16 14:29 Ascorbic Acid (Vitamin C) 500 mg DAILY GT 10/17/16 09:00 11/16/16 08:59 10/20/16 09:27 Bisacodyl (Dulcolax) 10 mg DAILY PRN RECTAL Constipation 10/17/16 07:30 11/16/16 07:29 Collagenase (Santyl) 1 applic DAILY TOPIC 10/20/16 12:00 11/19/16 11:59 10/20/16 12:00 Docusate Sodium (Colace) 100 mg DAILY GT 10/20/16 09:00 11/19/16 08:59 10/20/16 09:28 Enoxaparin Sodium (Lovenox) 30 mg EVERY 12 HOURS SUBQ 10/17/16 09:00 11/16/16 08:59 10/20/16 22:24 Ferrous Sulfate (Feosol) 300 mg THREE TIMES A DAY GT 10/17/16 09:00 11/16/16 08:59 10/20/16 19:04 Furosemide (Lasix) 10 mg BID GT 10/19/16 13:25 11/16/16 08:59 10/20/16 19:05 Gabapentin (Neurontin) 100 mg EVERY 8 HOURS GT 10/19/16 13:25 11/16/16 13:59 10/21/16 06:57 Magnesium Hydroxide (Mom) 30 ml DAILY PRN GT Constipation 10/19/16 13:26 11/16/16 07:14 Metronidazole (Flagyl) 500 mg Q8HR GT 10/19/16 14:00 10/26/16 13:59 10/21/16 06:58 Midodrine (Pro-Amatine) 5 mg THREE TIMES A DAY GT 10/19/16 13:26 11/16/16 08:59 10/20/16 19:05 Multivitamins (Multivitamin Hexavitamin) 5 ml DAILY GT 10/20/16 09:00 11/19/16 08:59 10/20/16 09:28 Pantoprazole (Protonix) 40 mg DAILY IVP 10/20/16 09:00 11/19/16 08:59 10/20/16 09:28 Quetiapine Fumarate (SEROquel) 25 mg BEDTIME GT 10/19/16 13:26 11/16/16 20:59 10/20/16 22:18 Sodium Phosphate (Fleet's Sodium Phosl Enema) 133 ml DAILY PRN RECTAL Constipation 10/17/16 09:15 11/16/16 09:14 Tramadol HCl (Ultram) 50 mg Q6H PRN GT Moderate Pain (Pain Scale 4-6) 10/19/16 19:27 10/24/16 07:14 Zinc Sulfate (Zinc Sulfate) 220 mg DAILY GT 10/17/16 09:00 10/30/16 09:01 10/20/16 09:27 ISRAEL LANIER Oct 21, 2016 08:55
[2016-10-21] MEDS: Docusate 100mg tablet GT SCH (09:00)
[2016-10-21] MEDS: Enoxaparin 30mg Inj SUBQ SCH ×2 (10:20→21:03)
[2016-10-21] MEDS: Multivitamin 5ml Liquid GT SCH (10:21)
[2016-10-21] MEDS: Ascorbic Acid 500mg tab GT SCH (10:21)
[2016-10-21] MEDS: Pantoprazole Inj IVP SCH (10:21)
[2016-10-21] MEDS: Ferrous Sulfate 300 MG/5 ML UDC GT SCH ×3 (10:21→17:38)
[2016-10-21] MEDS: Zinc Sulfate 220mg cap GT SCH (10:21)
[2016-10-21] MEDS ORDERED: KCl 10% 40mEq/30ml liquid NG ONE (11:00)
[2016-10-21 12:00] VITALS: BP 114/59
[2016-10-21 16:00] VITALS: BP 99/62
[2016-10-21] MEDS: Norco 10mg/325mg tab GT PRN (17:41)
[2016-10-21] MEDS ORDERED: Amikacin 1,200 MG in NS 110 ML IV SCH (19:00)
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
[2016-10-21 20:00] VITALS: BP 108/57
[2016-10-22] VITALS: BP 105/63
[2016-10-22] MEDS: Norco 10mg/325mg tab GT PRN (00:08)
[2016-10-22] MEDS: LORazepam Inj 2mg/ml 1ml IVP PRN ×2 (02:52→19:40)
[2016-10-22 04:00] VITALS: BP 106/64
[2016-10-22] MEDS: metroNIDAZOLE 500mg tab GT SCH ×3 (06:58→21:15)
[2016-10-22 08:00] VITALS: BP 105/74
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
[2016-10-22] MEDS: Zinc Sulfate 220mg cap GT SCH (08:51)
[2016-10-22] MEDS: Ferrous Sulfate 300 MG/5 ML UDC GT SCH ×3 (08:51→18:37)
[2016-10-22] MEDS: Ascorbic Acid 500mg tab GT SCH (08:51)
[2016-10-22] MEDS: Pantoprazole Inj IVP SCH (08:51)
[2016-10-22] MEDS: Enoxaparin 30mg Inj SUBQ SCH ×2 (08:51→21:22)
[2016-10-22] MEDS: Multivitamin 5ml Liquid GT SCH (08:51)
[2016-10-22] MEDS: Docusate 100mg tablet GT SCH (09:00)
[2016-10-22 10:28] LABS: MEAN CORPUSCULAR HEMOGLOBIN 25.4 PG (27.0-31.0); MEAN CORPUSCULAR HGB CONC 29.4 G/DL (32.0-36.0); MEAN CORPUSCULAR VOLUME 86 FL (80-99); MEAN PLATELET VOLUME 4.8 FL (6.5-10.1); PLATELET COUNT 709 K/UL (150-450); RED BLOOD COUNT 3.44 M/UL (4.70-6.10); RED CELL DISTRIBUTION WIDTH 16.7 % (11.6-14.8)
[2016-10-22 10:35] LABS: WHITE BLOOD COUNT 33.3 K/UL (4.8-10.8)
[2016-10-22 10:59] LABS: ANISOCYTOSIS 1+; BAND NEUTROPHILS % (MANUAL) 3 % (0-8); BASOPHILS % (MANUAL) 0 % (0-2); EOSINOPHILS % (MANUAL) 0 % (0-3); HYPOCHROMASIA 1+; LYMPHOCYTES % (MANUAL) 1 % (20-45); NEUTROPHILS % (MANUAL) 92 % (45-75); PLATELET ESTIMATE INCREASED; PLATELET MORPHOLOGY NORMAL; TOTAL CELLS COUNTED 100
--- NOTE | 2016-10-22 11:29 | Infectious Diseases Prog Note ---
"Assessment/Plan Assessment/Plan antibiotics : amikacin A 1. pseudomonas | stenotrophomonas pneumonia 2. increasing leucocytosis 3. respiratory failure 4. paraplegia P 1. d/c amikacin iv 2. start inhaled amikacin, levoquin 3. will follow up cultures Subjective ROS Limited/Unobtainable: Yes Allergies: Coded Allergies: No Known Allergies (Unverified , 10/16/16) Objective Vital Signs Last 24 Hour Vital Signs Date Time Temp Pulse Resp B/P Pulse Ox O2 Delivery O2 Flow Rate FiO2 10/22/16 10:48 68 24 40 10/22/16 08:44 66 20 40 10/22/16 08:00 40 10/22/16 08:00 65 10/22/16 08:00 97.9 58 19 105/74 97 Mechanical Ventilator 40 10/22/16 06:30 73 24 40 10/22/16 05:21 67 26 40 10/22/16 04:00 40 10/22/16 04:00 67 10/22/16 04:00 98.0 61 35 106/64 95 Mechanical Ventilator 40 10/22/16 03:29 71 24 40 10/22/16 01:14 4 28 40 10/22/16 00:00 40 10/22/16 00:00 98.4 66 26 105/63 98 Mechanical Ventilator 40 10/21/16 23:11 72 25 40 10/21/16 22:43 98.8 10/21/16 21:28 69 24 40 10/21/16 20:00 98.8 66 18 108/57 95 Nasal Cannula 2.0 10/21/16 20:00 64 10/21/16 20:00 40 10/21/16 19:13 70 25 40 10/21/16 18:40 98.5 10/21/16 17:19 81 22 40 10/21/16 16:00 98.5 72 32 99/62 96 Mechanical Ventilator 40 10/21/16 16:00 40 10/21/16 16:00 73 10/21/16 15:06 72 29 40 10/21/16 13:05 67 31 40 10/21/16 12:00 40 10/21/16 12:00 97.3 62 25 114/59 97 Mechanical Ventilator 40 Height (Feet): 6 Height (Inches): 6.00 Weight (Pounds): 181 HEENT: status post trach Respiratory/Chest: crackles/rales, rhonchi - bilaterally Cardiovascular: normal rate, regular rhythm, no gallop/murmur Abdomen: soft, non tender, other - GT Extremities: no edema, other - right arm PICC Microbiology Date/Time Source Procedure Growth Status 10/19/16 12:30 Sputum Gram Stain - Final Resulted 10/19/16 12:30 Sputum Culture - Preliminary Pseudomonas Aeruginosa - Mdr Stenotrophomonas Maltophilia Resulted 10/19/16 12:30 Stool Clostridium difficile Toxin Assay - Final Complete 10/19/16 12:30 Urine,Clean Catch Urine Culture - Final NO GROWTH AFTER 48 HOURS Complete Laboratory Tests Test 10/22/16 08:30 White Blood Count 33.3 K/UL (4.8-10.8) #*H Red Blood Count 3.44 M/UL (4.70-6.10) L Hemoglobin 8.7 G/DL (14.2-18.0) L Hematocrit 29.7 % (42.0-52.0) L Mean Corpuscular Volume 86 FL (80-99) Mean Corpuscular Hemoglobin 25.4 PG (27.0-31.0) L Mean Corpuscular Hemoglobin Concent 29.4 G/DL (32.0-36.0) L Red Cell Distribution Width 16.7 % (11.6-14.8) H Platelet Count 709 K/UL (150-450) H Mean Platelet Volume 4.8 FL (6.5-10.1) L Neutrophils (%) (Auto) % (45.0-75.0) Lymphocytes (%) (Auto) % (20.0-45.0) Monocytes (%) (Auto) % (1.0-10.0) Eosinophils (%) (Auto) % (0.0-3.0) Basophils (%) (Auto) % (0.0-2.0) Differential Total Cells Counted 100 Neutrophils % (Manual) 92 % (45-75) H Lymphocytes % (Manual) 1 % (20-45) L Monocytes % (Manual) 4 % (1-10) Eosinophils % (Manual) 0 % (0-3) Basophils % (Manual) 0 % (0-2) Band Neutrophils 3 % (0-8) Platelet Estimate Increased H Platelet Morphology Normal Hypochromasia 1+ Anisocytosis 1+ CLIVE,SHAKUNTALA Oct 22, 2016 11:29"
[2016-10-22 12:00] VITALS: BP 105/94
[2016-10-22 16:00] VITALS: BP 115/73
--- NOTE | 2016-10-22 16:14 | Diagnostic Imaging Report ---
Indications: Shortness of breath Technique: Portable AP chest Findings: Comparison: 10/20/2016 Diffuse bilateral mixed interstitial and alveolar opacities, small bibasal pleural effusions unchanged. Mediastinal silhouette stable. Lines and tubes remain in place. No new abnormality identified. IMPRESSION: Stable bilateral congestive versus inflammatory changes.
[2016-10-22 20:00] VITALS: BP 126/74
[2016-10-23] VITALS: BP 109/61
[2016-10-23] MEDS: Amikacin for Inhalation 2ML INH SCH ×3 (00:15→21:27)
[2016-10-23 04:00] VITALS: BP 106/60
[2016-10-23] MEDS: metroNIDAZOLE 500mg tab GT SCH ×3 (05:24→21:16)
[2016-10-23 08:00] VITALS: BP 98/61
[2016-10-23] MEDS: Docusate 100mg tablet GT SCH (08:35)
[2016-10-23] MEDS: Ascorbic Acid 500mg tab GT SCH (08:35)
[2016-10-23] MEDS: Ferrous Sulfate 300 MG/5 ML UDC GT SCH ×3 (08:36→16:22)
[2016-10-23] MEDS: Multivitamin 5ml Liquid GT SCH (08:36)
[2016-10-23] MEDS: Pantoprazole Inj IVP SCH (08:36)
[2016-10-23] MEDS: Enoxaparin 30mg Inj SUBQ SCH ×2 (08:37→21:11)
[2016-10-23] MEDS: Zinc Sulfate 220mg cap GT SCH (08:39)
--- NOTE | 2016-10-23 10:58 | Infectious Diseases Prog Note ---
"Assessment/Plan Assessment/Plan antibiotics : inhaled amikacin, levoquin A 1. pseudomonas | stenotrophomonas pneumonia 2. leucocytosis 3. respiratory failure 4. paraplegia P 1. continue inhaled amikacin, levoquin 2. will follow up cultures Subjective ROS Limited/Unobtainable: Yes Allergies: Coded Allergies: No Known Allergies (Unverified , 10/16/16) Objective Vital Signs Last 24 Hour Vital Signs Date Time Temp Pulse Resp B/P Pulse Ox O2 Delivery O2 Flow Rate FiO2 10/23/16 10:47 40 10/23/16 10:47 69 19 100 Mechanical Ventilator 40 10/23/16 08:40 69 16 40 10/23/16 08:00 40 10/23/16 08:00 69 10/23/16 08:00 97.0 70 16 98/61 98 Mechanical Ventilator 98 10/23/16 06:50 69 14 40 10/23/16 06:24 98.4 10/23/16 04:45 73 18 40 10/23/16 04:00 65 10/23/16 04:00 40 10/23/16 04:00 97.0 72 18 106/60 99 Mechanical Ventilator 106.0 40 10/23/16 02:41 77 16 40 10/23/16 01:00 78 20 40 10/23/16 00:15 87 20 98 Mechanical Ventilator 40 10/23/16 00:15 88 20 98 Mechanical Ventilator 40 10/23/16 00:15 40 10/23/16 00:00 40 10/23/16 00:00 98.4 63 17 109/61 95 Mechanical Ventilator 40 10/23/16 00:00 68 10/22/16 23:00 79 21 40 10/22/16 20:39 76 20 40 10/22/16 20:00 40 10/22/16 20:00 75 10/22/16 20:00 99.1 70 24 126/74 100 Mechanical Ventilator 40 10/22/16 19:10 74 22 40 10/22/16 17:10 78 21 40 10/22/16 16:00 68 10/22/16 16:00 98.1 85 36 115/73 96 Mechanical Ventilator 40 10/22/16 16:00 40 10/22/16 14:30 70 26 40 10/22/16 12:50 79 19 40 10/22/16 12:00 98.1 66 26 105/94 94 Mechanical Ventilator 40 10/22/16 12:00 40 Height (Feet): 6 Height (Inches): 6.00 Weight (Pounds): 181 HEENT: status post trach Respiratory/Chest: rhonchi - bilaterally Cardiovascular: normal rate, regular rhythm, no gallop/murmur Abdomen: soft, non tender, other - GT Extremities: no edema, other - right arm PICC SKYLER DUFFY Oct 23, 2016 10:57"
[2016-10-23 12:00] VITALS: BP 112/76
[2016-10-23] MEDS ORDERED: NS 275ml ONE (14:43)
[2016-10-23] MEDS ORDERED: Tubing IV Secondary IV ONE (14:43)
[2016-10-23] MEDS ORDERED: D5NS 1000ml IV ONE (14:43)
[2016-10-23 16:56] VITALS: BP 101/74
[2016-10-23 20:00] VITALS: BP 125/83
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
[2016-10-23] MEDS: LORazepam Inj 2mg/ml 1ml IVP PRN (22:37)
[2016-10-24] VITALS: BP 110/65
[2016-10-24 04:00] VITALS: BP 98/66
[2016-10-24] MEDS: metroNIDAZOLE 500mg tab GT SCH ×3 (05:30→22:26)
[2016-10-24 08:00] VITALS: BP 113/70
[2016-10-24] MEDS: Ferrous Sulfate 300 MG/5 ML UDC GT SCH ×3 (09:18→18:32)
[2016-10-24] MEDS: Zinc Sulfate 220mg cap GT SCH (09:19)
[2016-10-24] MEDS: Ascorbic Acid 500mg tab GT SCH (09:21)
[2016-10-24] MEDS: Pantoprazole Inj IVP SCH (09:22)
[2016-10-24] MEDS: Docusate 100mg tablet GT SCH (09:23)
[2016-10-24] MEDS: Multivitamin 5ml Liquid GT SCH (09:28)
[2016-10-24] MEDS: Enoxaparin 30mg Inj SUBQ SCH ×2 (09:30→21:03)
[2016-10-24] MEDS: Amikacin for Inhalation 2ML INH SCH ×2 (09:57→22:15)
[2016-10-24 12:00] VITALS: BP 123/83
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
[2016-10-24 15:30] LABS: MEAN CORPUSCULAR HEMOGLOBIN 25.8 PG (27.0-31.0); MEAN CORPUSCULAR HGB CONC 29.6 G/DL (32.0-36.0); MEAN CORPUSCULAR VOLUME 87 FL (80-99); MEAN PLATELET VOLUME 4.7 FL (6.5-10.1); PLATELET COUNT 737 K/UL (150-450); RED BLOOD COUNT 3.45 M/UL (4.70-6.10); RED CELL DISTRIBUTION WIDTH 17.9 % (11.6-14.8)
[2016-10-24 16:00] VITALS: BP 117/79
[2016-10-24] MEDS: Acetaminophen 650mg/20.3ml GT PRN (16:32)
[2016-10-24 17:33] LABS: BAND NEUTROPHILS % (MANUAL) 1 % (0-8); LYMPHOCYTES % (MANUAL) 8 % (20-45); NEUTROPHILS % (MANUAL) 88 % (45-75); TOTAL CELLS COUNTED 100
[2016-10-24 17:34] LABS: ANISOCYTOSIS 1+; BASOPHILS % (MANUAL) 0 % (0-2); EOSINOPHILS % (MANUAL) 0 % (0-3); HYPOCHROMASIA 1+; PLATELET ESTIMATE INCREASED; PLATELET MORPHOLOGY NORMAL
[2016-10-24 20:00] VITALS: BP 137/84
[2016-10-25] VITALS (7 sets, daily range): BP systolic 94–125; BP diastolic 63–88
[2016-10-25] MEDS: Acetaminophen 650mg/20.3ml GT PRN ×2 (02:32→13:49)
[2016-10-25] MEDS: metroNIDAZOLE 500mg tab GT SCH ×3 (06:03→21:26)
[2016-10-25 06:13] LABS: MEAN CORPUSCULAR HEMOGLOBIN 25.6 PG (27.0-31.0); MEAN CORPUSCULAR HGB CONC 29.8 G/DL (32.0-36.0); MEAN CORPUSCULAR VOLUME 86 FL (80-99); MEAN PLATELET VOLUME 4.8 FL (6.5-10.1); PLATELET COUNT 745 K/UL (150-450); RED BLOOD COUNT 3.49 M/UL (4.70-6.10); RED CELL DISTRIBUTION WIDTH 17.3 % (11.6-14.8); WHITE BLOOD COUNT 16.1 K/UL (4.8-10.8)
[2016-10-25 06:45] LABS: CHLORIDE 102 mEQ/L (98-107); CREATININE 0.3 mg/dL (0.7-1.2); GLOMERULAR FILTRATION RATE > 60 mL/min (>60); HEMOLYSIS 3; POTASSIUM 3.3 mEQ/L (3.4-4.9); SODIUM 148 mEQ/L (135-145)
[2016-10-25 06:54] LABS: ANION GAP 8 (5-15); CARBON DIOXIDE 38 mEQ/L (20-30)
[2016-10-25 08:02] LABS: ANISOCYTOSIS 1+; BAND NEUTROPHILS % (MANUAL) 0 % (0-8); BASOPHILS % (MANUAL) 0 % (0-2); EOSINOPHILS % (MANUAL) 2 % (0-3); HYPOCHROMASIA 2+; LYMPHOCYTES % (MANUAL) 9 % (20-45); NEUTROPHILS % (MANUAL) 81 % (45-75); PLATELET ESTIMATE INCREASED; PLATELET MORPHOLOGY NORMAL; TOTAL CELLS COUNTED 100
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
[2016-10-25] MEDS: Pantoprazole Inj IVP SCH (09:07)
[2016-10-25] MEDS: Multivitamin 5ml Liquid GT SCH (09:07)
[2016-10-25] MEDS: Ferrous Sulfate 300 MG/5 ML UDC GT SCH ×3 (09:07→18:13)
[2016-10-25] MEDS: Enoxaparin 30mg Inj SUBQ SCH ×2 (09:07→21:31)
[2016-10-25] MEDS: Docusate 100mg tablet GT SCH (09:08)
[2016-10-25] MEDS: Zinc Sulfate 220mg cap GT SCH (09:08)
[2016-10-25] MEDS: Ascorbic Acid 500mg tab GT SCH (09:08)
--- NOTE | 2016-10-25 11:07 | Infectious Diseases Prog Note ---
"Assessment/Plan Assessment/Plan antibiotics : inhaled amikacin, levoquin, flagyl A 1. pseudomonas | stenotrophomonas pneumonia 2. leucocytosis improving 3. respiratory failure 4. paraplegia P 1. continue inhaled amikacin, levoquin, flagyl 3 more days 2. will follow up cultures Subjective ROS Limited/Unobtainable: Yes Allergies: Coded Allergies: No Known Allergies (Unverified , 10/16/16) Objective Vital Signs Last 24 Hour Vital Signs Date Time Temp Pulse Resp B/P Pulse Ox O2 Delivery O2 Flow Rate FiO2 10/25/16 08:00 96.8 56 24 108/69 99 Mechanical Ventilator 40 10/25/16 04:54 59 16 40 10/25/16 04:31 40 10/25/16 04:00 62 10/25/16 04:00 95.7 53 20 117/82 97 Mechanical Ventilator 10/25/16 02:50 61 26 40 10/25/16 00:45 62 25 40 10/25/16 00:17 40 10/25/16 00:00 96.1 58 20 121/88 99 Mechanical Ventilator 40 10/24/16 23:04 58 22 40 10/24/16 22:16 56 20 100 Mechanical Ventilator 40 10/24/16 22:00 58 20 97 Mechanical Ventilator 40 10/24/16 22:00 40 10/24/16 20:49 59 18 40 10/24/16 20:00 96.3 52 22 137/84 99 Mechanical Ventilator 10/24/16 20:00 59 10/24/16 18:50 58 23 40 10/24/16 17:25 59 19 40 10/24/16 17:00 40 10/24/16 16:30 40 10/24/16 16:00 97.7 62 27 117/79 99 Mechanical Ventilator 40 10/24/16 16:00 60 10/24/16 15:03 60 18 40 10/24/16 14:38 97.5 10/24/16 13:05 71 14 40 10/24/16 12:00 97.7 65 14 123/83 100 Mechanical Ventilator 40 10/24/16 12:00 40 10/24/16 12:00 64 Height (Feet): 6 Height (Inches): 6.00 Weight (Pounds): 181 HEENT: status post trach Respiratory/Chest: lungs clear Cardiovascular: normal rate, regular rhythm, no gallop/murmur Abdomen: soft, non tender, other - GT Extremities: no edema, other - right arm PICC Laboratory Tests Test 10/24/16 15:08 10/25/16 05:25 White Blood Count 22.0 K/UL (4.8-10.8) H 16.1 K/UL (4.8-10.8) H Red Blood Count 3.45 M/UL (4.70-6.10) L 3.49 M/UL (4.70-6.10) L Hemoglobin 8.9 G/DL (14.2-18.0) L 8.9 G/DL (14.2-18.0) L Hematocrit 30.1 % (42.0-52.0) L 30.0 % (42.0-52.0) L Mean Corpuscular Volume 87 FL (80-99) 86 FL (80-99) Mean Corpuscular Hemoglobin 25.8 PG (27.0-31.0) L 25.6 PG (27.0-31.0) L Mean Corpuscular Hemoglobin Concent 29.6 G/DL (32.0-36.0) L 29.8 G/DL (32.0-36.0) L Red Cell Distribution Width 17.9 % (11.6-14.8) H 17.3 % (11.6-14.8) H Platelet Count 737 K/UL (150-450) H 745 K/UL (150-450) H Mean Platelet Volume 4.7 FL (6.5-10.1) L 4.8 FL (6.5-10.1) L Neutrophils (%) (Auto) % (45.0-75.0) % (45.0-75.0) Lymphocytes (%) (Auto) % (20.0-45.0) % (20.0-45.0) Monocytes (%) (Auto) % (1.0-10.0) % (1.0-10.0) Eosinophils (%) (Auto) % (0.0-3.0) % (0.0-3.0) Basophils (%) (Auto) % (0.0-2.0) % (0.0-2.0) Differential Total Cells Counted 100 100 Neutrophils % (Manual) 88 % (45-75) H 81 % (45-75) H Lymphocytes % (Manual) 8 % (20-45) L 9 % (20-45) L Monocytes % (Manual) 3 % (1-10) 8 % (1-10) Eosinophils % (Manual) 0 % (0-3) 2 % (0-3) Basophils % (Manual) 0 % (0-2) 0 % (0-2) Band Neutrophils 1 % (0-8) 0 % (0-8) Platelet Estimate Increased H Increased H Platelet Morphology Normal Normal Hypochromasia 1+ 2+ Anisocytosis 1+ 1+ Sodium Level 148 mEQ/L (135-145) H Potassium Level 3.3 mEQ/L (3.4-4.9) L Chloride Level 102 mEQ/L (98-107) Carbon Dioxide Level 38 mEQ/L (20-30) H Anion Gap 8 (5-15) Blood Urea Nitrogen 15 mg/dL (7-23) Creatinine 0.3 mg/dL (0.7-1.2) L Estimat Glomerular Filtration Rate > 60 mL/min (>60) Glucose Level 123 mg/dL (74-106) H Calcium Level 9.0 mg/dL (8.6-10.2) SKYLER DUFFY Oct 25, 2016 11:07"
[2016-10-25] MEDS: Amikacin for Inhalation 2ML INH SCH ×2 (11:37→23:10)
--- NOTE | 2016-10-25 12:08 | Diagnostic Imaging Report ---
Indication: Dyspnea Comparison: 10/22/16 A single view chest radiograph was obtained. Findings: There is enlargement of the cardiac silhouette with pulmonary vascular redistribution and prominence, hazy vessel margins and the suggestion of interstitial edema consistent with CHF. There is suspicion of a left pleural effusion. A PICC line is stable. Tracheostomy again noted. Impression: No radiographically changed over last 3 days. Evidence of CHF
[2016-10-25] MEDS ORDERED: KCl 10% 40mEq/30ml liquid NG ONE (14:00)
[2016-10-25] MEDS: LORazepam Inj 2mg/ml 1ml IVP PRN (15:05)
[2016-10-26] VITALS: BP 124/78
[2016-10-26] MEDS: LORazepam Inj 2mg/ml 1ml IVP PRN ×2 (02:01→21:35)
[2016-10-26 04:00] VITALS: BP 110/76
[2016-10-26] MEDS: metroNIDAZOLE 500mg tab GT SCH ×3 (05:30→21:29)
[2016-10-26 05:53] LABS: BASOPHILS % (AUTO) 0.5 % (0.0-2.0); EOSINOPHILS % (AUTO) 0.4 % (0.0-3.0); LYMPHOCYTES % (AUTO) 18.1 % (20.0-45.0); MEAN CORPUSCULAR HEMOGLOBIN 25.5 PG (27.0-31.0); MEAN CORPUSCULAR HGB CONC 29.7 G/DL (32.0-36.0); MEAN CORPUSCULAR VOLUME 86 FL (80-99); MEAN PLATELET VOLUME 4.6 FL (6.5-10.1); MONOCYTES % (AUTO) 5.6 % (1.0-10.0); NEUTROPHILS % (AUTO) 75.5 % (45.0-75.0); PLATELET COUNT 779 K/UL (150-450); RED BLOOD COUNT 3.65 M/UL (4.70-6.10); RED CELL DISTRIBUTION WIDTH 17.8 % (11.6-14.8); WHITE BLOOD COUNT 10.8 K/UL (4.8-10.8)
[2016-10-26 08:00] VITALS: BP 110/71
[2016-10-26 08:43] LABS: CALCIUM 9.1 mg/dL (8.6-10.2); CHLORIDE 101 mEQ/L (98-107); CREATININE 0.4 mg/dL (0.7-1.2); GLOMERULAR FILTRATION RATE > 60 mL/min (>60); HEMOLYSIS 0; POTASSIUM 3.3 mEQ/L (3.4-4.9); SODIUM 148 mEQ/L (135-145)
[2016-10-26 08:54] LABS: ANION GAP 7 (5-15); CARBON DIOXIDE 40 mEQ/L (20-30)
[2016-10-26] MEDS: Amikacin for Inhalation 2ML INH SCH ×2 (09:27→21:22)
[2016-10-26] MEDS: Ferrous Sulfate 300 MG/5 ML UDC GT SCH ×3 (09:32→17:26)
[2016-10-26] MEDS: Ascorbic Acid 500mg tab GT SCH (09:32)
[2016-10-26] MEDS: Zinc Sulfate 220mg cap GT SCH (09:33)
[2016-10-26] MEDS: Docusate 100mg tablet GT SCH (09:33)
[2016-10-26] MEDS: Multivitamin 5ml Liquid GT SCH (09:33)
[2016-10-26] MEDS: Pantoprazole Inj IVP SCH (09:40)
[2016-10-26] MEDS: Enoxaparin 30mg Inj SUBQ SCH ×2 (09:42→21:37)
--- NOTE | 2016-10-26 10:09 | Wound Care Consultation ---
Wound Assessment Wound Assessment #1: Wound Present on Admission: Yes New Wound: No Status Change of Wound: No Wound Location Body Site Modif: right, lower, lateral Wound Location Body Site: leg Wound Type: scar Adriana Test: Does not Adriana Wound Thickness: Full Thickness Wound Drainage Amount: None Wound Drainage Odor: None/Absent Tissue Surrounding Wound: Intact Wound General Appearance: Open to air, Clean/Dry Wound Assessment #2: Wound Number: #2 Wound Present on Admission: Yes New Wound: No Status Change of Wound: No Wound Location Body Site Modif: right Wound Location Body Site: heel Wound Type: pressure ulcer Adriana Test: Does not Adriana Pressure Ulcer Stage: deep tissue injury Wound Thickness: Full Thickness Wound Length: 4.5 Wound Width: 4.0 Wound Depth: utd Other Colors Identified: kauffman , dry skin intact, soft Wound Drainage Amount: None Wound Drainage Odor: None/Absent Tissue Surrounding Wound: Intact Wound Assessment #3: Wound Number: #3 Wound Present on Admission: Yes New Wound: No Status Change of Wound: No Wound Location Body Site Modif: mid Wound Location Body Site: sacral Wound Type: pressure ulcer Adriana Test: Does not Adriana Pressure Ulcer Stage: IV/unstageable Wound Thickness: Full Thickness Wound Length: 9.0 Wound Width: 9.0 Wound Depth: utd Percent of Wound Petronila/Red: 60 Percent of Wound Bed Yellow/Wh: 40 Wound Drainage Description: Serosanguineous Wound Drainage Amount: Moderate Wound Drainage Odor: None/Absent Tissue Surrounding Wound: noted granulating tissue appearing to left side of wound bed , attaching. Wound Undermining at 12:00: 3.0 - noted decrease in slough to site . undermining to 12:00 is now visible. Wound Undermining at 3:00: 3.0 - noted decreae in slough to site , undermining is now visible. Undermining Location: 12-3 Wound General Appearance: Reddened, Draining, Necrotic Wound Assessment #4: Wound Number: #4 Wound Present on Admission: No New Wound: Yes Status Change of Wound: No Wound Location Body Site Modif: left, lower, lateral Wound Location Body Site: leg Wound Type: scab Adriana Test: Does not Adriana Wound Thickness: Partial Thickness Wound Length: 0.5 Wound Width: 0.5 Percent of Wound Petronila/Red: 50 Percent of Wound Black/Brown: 50 - dry scab. Wound Drainage Amount: None Wound Drainage Odor: None/Absent Tissue Surrounding Wound: Intact Wound General Appearance: Clean/Dry Wound Comment #1 Right heel Deep tissue injury. #2 Mid sacral pressure ulcer stage IV/Unstageable. #3 Right lower extremity intact scar tissue. #4 Left lower lateral leg dry scab. upon reassessment noted good progress to sacral wound site, noted decrease in slough present and increase in pink granulating tissue. noted left side of wound bed beginning to attach. no s/s of infection to site, no maroon color present, moderate serosanguineous drainage noted, no further deterioration noted , current wound care is effective, patient tolerated wound care well, no c/o pain at this time. patient pressure relief mattress intact working properly for wound and skin management. patient remains clean and dry at this time, repositioned to offload affected sacral site. upon reassessment of right heel noted site remains intact, decrease in maroon color , brown / kauffman color, no further deterioration present, current wound care remains effective, both heel offloaded, heel protectors intact. upon reassessment noted dry scab to left lower lateral leg, no s/s of infection , no odor, no drainage. no c/co pain to site, repositioned. keep site clean and dry. upon reassessment right lower leg scar remains intact. JEFFRY MOULTON Oct 26, 2016 10:08
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
--- NOTE | 2016-10-26 10:51 | Infectious Diseases Prog Note ---
"Assessment/Plan Assessment/Plan antibiotics : inhaled amikacin, levoquin, flagyl A 1. pseudomonas | stenotrophomonas pneumonia 2. leucocytosis improving 3. respiratory failure 4. paraplegia P 1. continue inhaled amikacin, flagyl 2 more days 2. d/c iv levoquin, start and continue po levoquin 2 more days 3. will follow up cultures Subjective ROS Limited/Unobtainable: Yes Allergies: Coded Allergies: No Known Allergies (Unverified , 10/16/16) Objective Vital Signs Last 24 Hour Vital Signs Date Time Temp Pulse Resp B/P Pulse Ox O2 Delivery O2 Flow Rate FiO2 10/26/16 09:28 78 20 40 10/26/16 09:28 78 20 97 Mechanical Ventilator 40 10/26/16 08:00 40 10/26/16 08:00 97.0 70 27 110/71 96 Mechanical Ventilator 40 10/26/16 07:14 78 19 40 10/26/16 05:14 68 18 40 10/26/16 04:00 98.1 83 21 110/76 95 Mechanical Ventilator 40 10/26/16 04:00 40 10/26/16 03:39 72 10/26/16 03:08 73 26 40 10/26/16 00:59 71 24 40 10/26/16 00:00 10.0 40 10/26/16 00:00 98.1 70 24 124/78 98 Mechanical Ventilator 40 10/25/16 23:58 68 10/25/16 23:12 69 20 99 Mechanical Ventilator 40 10/25/16 23:12 40 10/25/16 23:11 67 25 99 Mechanical Ventilator 40 10/25/16 23:10 71 22 40 10/25/16 20:41 98.1 64 24 125/82 99 Mechanical Ventilator 40 10/25/16 20:00 10.0 40 10/25/16 20:00 98.1 64 20 125/82 99 Mechanical Ventilator 40 10/25/16 19:55 68 10/25/16 19:14 64 20 40 10/25/16 17:10 69 18 40 10/25/16 16:04 40 10/25/16 16:00 96.8 62 18 94/63 100 Mechanical Ventilator 10/25/16 16:00 64 10/25/16 15:05 71 25 40 10/25/16 14:49 97.7 10/25/16 14:19 97.7 10/25/16 13:22 55 21 40 10/25/16 12:00 40 10/25/16 12:00 66 10/25/16 12:00 97.7 67 19 112/67 100 Mechanical Ventilator 40 Height (Feet): 6 Height (Inches): 6.00 Weight (Pounds): 181 HEENT: status post trach Respiratory/Chest: lungs clear Cardiovascular: normal rate, regular rhythm, no gallop/murmur Abdomen: soft, non tender, other - GT Extremities: no edema, other - right arm PICC Laboratory Tests Test 10/26/16 03:50 10/26/16 06:17 White Blood Count 10.8 K/UL (4.8-10.8) Red Blood Count 3.65 M/UL (4.70-6.10) L Hemoglobin 9.3 G/DL (14.2-18.0) L Hematocrit 31.3 % (42.0-52.0) L Mean Corpuscular Volume 86 FL (80-99) Mean Corpuscular Hemoglobin 25.5 PG (27.0-31.0) L Mean Corpuscular Hemoglobin Concent 29.7 G/DL (32.0-36.0) L Red Cell Distribution Width 17.8 % (11.6-14.8) H Platelet Count 779 K/UL (150-450) H Mean Platelet Volume 4.6 FL (6.5-10.1) L Neutrophils (%) (Auto) 75.5 % (45.0-75.0) H Lymphocytes (%) (Auto) 18.1 % (20.0-45.0) L Monocytes (%) (Auto) 5.6 % (1.0-10.0) Eosinophils (%) (Auto) 0.4 % (0.0-3.0) Basophils (%) (Auto) 0.5 % (0.0-2.0) Sodium Level 148 mEQ/L (135-145) H Potassium Level 3.3 mEQ/L (3.4-4.9) L Chloride Level 101 mEQ/L (98-107) Carbon Dioxide Level 40 mEQ/L (20-30) H Anion Gap 7 (5-15) Blood Urea Nitrogen 12 mg/dL (7-23) Creatinine 0.4 mg/dL (0.7-1.2) L Estimat Glomerular Filtration Rate > 60 mL/min (>60) Glucose Level 137 mg/dL (74-106) H Calcium Level 9.1 mg/dL (8.6-10.2) SKYLER DUFFY Oct 26, 2016 10:51"
[2016-10-26] MEDS ORDERED: Levofloxacin 500mg tab ORAL SCH (11:00)
[2016-10-26 12:00] VITALS: BP 118/77
[2016-10-26] MEDS ORDERED: KCl 10% 20 mEq/15ml liquid NG ONE (12:00)
[2016-10-26 16:00] VITALS: BP 145/93
[2016-10-26] MEDS ORDERED: NS 275ml ONE (16:49)
[2016-10-26] MEDS ORDERED: NS Irrig 1000ml ONE (16:49)
[2016-10-26 20:01] VITALS: BP 144/92
[2016-10-26] MEDS: Acetaminophen 650mg/20.3ml GT PRN (21:29)
--- NOTE | 2016-10-30 11:33 | Discharge Summary ---
Discharge Summary Hospital Course Date of Admission Oct 16, 2016 at 20:47 Date of Discharge Oct 27, 2016 at 00:07 Admitting Diagnosis Pneumonia HPI Kerwin Quezada is a 56 year old male who was admitted on Oct 16, 2016 at 20:47 for Pneumonia Hospital Course [id number] Discharge Discharge Disposition Patient was discharged to subacute Discharge Diagnoses: Milka Ortega NP Oct 30, 2016 11:33
== END 2016-10-27 00:07 | DRG 720 ==
LOC: EDBD 19:53 → EMR 20:30 → 2W 20:47 → EDBEDREQ 22:19 → 2W 23:06
DX: A41.9 Sepsis, unspecified organism (principal); Z99.11 Dependence on respirator [ventilator] status; J15.1 Pneumonia due to Pseudomonas; L89.154 Pressure ulcer of sacral region, stage 4; J96.10 Chronic respiratory failure, unspecified whether with hypoxia or hypercapnia; Z93.0 Tracheostomy status; Z93.1 Gastrostomy status; G82.20 Paraplegia, unspecified; I95.1 Orthostatic hypotension; F32.9 Major depressive disorder, single episode, unspecified; D64.9 Anemia, unspecified
CPT/HCPCS: 36415; 36569; 71010; 76937; 80048; 80053; 80150; 80202; 81003; 82962; 83605; 85007; 85025; 86850; 86900; 86901; 86920; 87040; 87070; 87081; 87086; 87181; 87205; 87493; 93005; 94002; 94003; 94640; J8499

== ENCOUNTER 2017-03-02 22:33 | Inpatient (IN) | payer MEDICAID ==
[~2017-03-02] VITALS: Ht 193 cm; Wt 96.2 kg
[~2017-03-02 22:33] MED LIST: ACETAMINOPHEN120 MG GT; ALBUTEROL2.5 MG/3 M INH; COLACE100 MG ORAL; DULCOLAX10 MG RC; EPOGEN20000 UNI1 SUBQ; FERROUS SULFAT325 MG ORAL; FLEET ENEMA133 ML RECTAL; FUROSEMIDE20 M1 ORAL; IRON325 M2 PO; LOVENOX10 MG SUBQ; MIDODRINE HCL5 MG ORAL; MILK OF MA400 MG/51 ORAL; MULTIVITAMINS1 EAC8 ORAL; NEURONTIN100 MG ORAL; NORCO 10-325 T1 EACH ORAL; PROMOD946 ML GT; PROTONIX40 MG ORAL; QUETIAPINE FUMA25 MG ORAL; TRAMADOL HCL50 MG ORAL; UTI-STAT L3875 MG/31 PO; VANCOMYCIN1 GM/2502 IVPB; VIT C BIOFLAVO PO; ZOSYN 3.373.375 GM/1 IVPB; [UNRECOGNIZED DRUG - OTHER] GT; tylenol liquid GT
[2017-03-02 22:35] VITALS: BP_SYST 73; BP_SYST 80; BP_DIAS 54; BP_DIAS 67
[2017-03-02] MEDS ORDERED: Cefepime HCl 1 GM in D5W 55 ML IVPB ONE (22:45)
[2017-03-02 23:51] LABS: MEAN CORPUSCULAR HEMOGLOBIN 26.1 PG (27.0-31.0); MEAN CORPUSCULAR HGB CONC 30.7 G/DL (32.0-36.0); MEAN CORPUSCULAR VOLUME 85 FL (80-99); MEAN PLATELET VOLUME 4.8 FL (6.5-10.1); PLATELET COUNT 432 K/UL (150-450); RED BLOOD COUNT 3.71 M/UL (4.70-6.10); RED CELL DISTRIBUTION WIDTH 15.9 % (11.6-14.8)
[2017-03-02 23:52] LABS: WHITE BLOOD COUNT 42.8 K/UL (4.8-10.8)
[2017-03-02 23:56] LABS: INR 1.1 (0.9-1.1)
[2017-03-03] VITALS (52 sets, daily range): BP systolic 69–144; BP diastolic 35–97
[2017-03-03] MEDS ORDERED: Cefepime 1gm vial ONE (00:10)
[2017-03-03] MEDS ORDERED: Amikacin 500mg/2mL Inj ONE ×2 (00:15→00:17)
[2017-03-03] MEDS: Amikacin 1,000 MG in NS 110 ML IV SCH ×3 (00:21→04:32)
[2017-03-03 00:24] LABS: REFLEX LACTIC ACID YES OR NO YES
[2017-03-03 00:26] LABS: ALBUMIN/GLOBULIN RATIO 0.7 (1.0-2.7); CALCIUM 8.7 mg/dL (8.6-10.2); CREATININE 2.2 mg/dL (0.7-1.2); GLOMERULAR FILTRATION RATE 37.5 mL/min (>60); POTASSIUM 3.7 mEQ/L (3.4-4.9); TROPONIN I < 0.30 ng/mL (<=0.30)
[2017-03-03 00:37] LABS: CKMB 12.1 ng/mL (< 6.7)
[2017-03-03 00:40] LABS: BAND NEUTROPHILS % (MANUAL) 30 % (0-8); BASOPHILS % (MANUAL) 0 % (0-2); EOSINOPHILS % (MANUAL) 0 % (0-3); LYMPHOCYTES % (MANUAL) 4 % (20-45); NEUTROPHILS % (MANUAL) 61 % (45-75); PLATELET ESTIMATE ADEQUATE; TOTAL CELLS COUNTED 100
[2017-03-03 00:41] LABS: ANISOCYTOSIS 1+; PLATELET MORPHOLOGY NORMAL; POIKILOCYTOSIS 1+
[2017-03-03] MEDS ORDERED: Levophed 4mg/4mL Inj IV ONE (01:10)
[2017-03-03 01:14] LABS: APPEARANCE,URINE TURBID; KETONES,URINE 1+ (NEGATIVE); LEUKOCYTE ESTERASE ,URINE 3+ (NEGATIVE); NITRITE,URINE NEGATIVE (NEGATIVE); PH,URINE 5 (4.5-8.0); PROTEIN,URINE 4+ (NEGATIVE); UROBILINOGEN,URINE 1 MG/DL (0.0-1.0)
[2017-03-03 01:23] LABS: BACTERIA,URINE MANY /HPF; ICTOTEST NEGATIVE; RBC,URINE TNTC /HPF (0 - 0); WBC,URINE TNTC /HPF (0 - 0)
[2017-03-03] MEDS ORDERED: LEVETIRACE100 MG/1 M GT (02:39)
[2017-03-03] MEDS ORDERED: ZINC SULFATE220 M1 ORAL (02:39)
[2017-03-03] MEDS ORDERED: PROMOD946 ML PO (02:39)
[2017-03-03] MEDS ORDERED: NORCO 10-325 T1 EACH ORAL (02:39)
[2017-03-03] MEDS ORDERED: SIMETHICONE80 MG ORAL (02:39)
[2017-03-03] MEDS ORDERED: LOTENSIN20 MG ORAL (02:39)
[2017-03-03] MEDS ORDERED: PRILOSEC OTC20 MG ORAL (02:39)
--- NOTE | 2017-03-03 02:40 | Emergency Room Report ---
History of Present Illness General Chief Complaint: Abnormal Labs Source: Medical Record, EMS Present Illness HPI Is a 56-year-old [facility] patient. He has multiple medical history. He is trach and also has a feeding tube. He presents with chief complaint of abnormal labs. WBC was elevated. On arrival he felt warm and was hypotensive. History is through the [facility] note and also prior hospital admission. Unable to anything else from him. No complaint of cough or congestion. Allergies: Coded Allergies: No Known Allergies (Unverified , 03/02/17) Patient History Past Medical History: see triage record, old chart reviewed Past Surgical History: other Pertinent Family History: other Social History: Denies: smoking Immunizations: other Reviewed Nursing Documentation: PMH: Agreed, PSxH: Agreed Nursing Documentation-PMH Past Medical History: No History, Except For Hx Cardiac Problems: No - sacral ulcer Hx COPD: Yes Hx Cancer: No Hx Gastrointestinal Problems: Yes Hx Neurological Problems: No Hx Cerebrovascular Accident: No - paraplegia Hx Transient Ischemic Attacks: No Hx Dementia: No Hx Alzheimer's Disease: No Hx Parkinson's Disease: No Hx Meningitis: No Hx Encephalitis: No Hx Seizures: No Hx Epilepsy: No Hx Multiple Sclerosis: No Hx Cerebral Palsy: No Hx Amyotrophic Lat Sclerosis: No Hx Guillian-Litt[place] Syndrome: No Hx Paralysis: No Hx Peripheral Neuropathy: No Hx Spinal Cord Injury: No Hx Head Trauma: No Hx Traumatic Brain Injury: No Hx Memory Loss: No Hx Concentration Difficulty: No Hx Speech Problem: No Hx Tremors: No Hx Vertigo: No Hx Dizziness: No Hx Syncope: No Hx Headaches: No Hx Aphasia: No Hx Dysphasia: No Hx Numbness: No Hx Weakness: Yes Hx Fatigue: No Hx Neurologic Surgery: No Hx Brain Shunt: No Review of Systems All Other Systems: limited - Secondary to condition. Patient is nonverbal. Physical Exam Vital Signs Date Time Temp Pulse Resp B/P Pulse Ox O2 Delivery O2 Flow Rate FiO2 03/02/17 22:35 87 25 73/67 100 Mechanical Ventilator 40 vitals with hypotension Sp02 EP Interpretation: reviewed, normal General Appearance: alert, mild distress Head: normocephalic, atraumatic Eyes: bilateral eye EOMI, bilateral eye PERRL ENT: hearing grossly normal, normal pharynx Neck: full range of motion, supple, no meningismus, other - Trach intact Respiratory: chest non-tender, respiratory distress - Mild, decreased breath sounds, rhonchi Cardiovascular #1: regular rate, rhythm, no murmur Gastrointestinal: normal bowel sounds, non tender, no mass, no organomegaly, no bruit, non-distended Musculoskeletal: other - Right-sided weakness Neurologic: alert Psychiatric: mood/affect normal Skin: warm/dry Procedures Critical Care Time Critical Care Time Critical care is mandated in this patient who presented with septic shock. Patient require my urgent intervention to attenuate the risks of metabolic collapse which may lead to cardiovascular collapse and . Critical care time is 75 minutes excluding any reportable procedure. Critical care time included evaluation, multiple reevaluation, looking at old charts, interpreting laboratory and diagnostic data, discussing case with patient and family and consultants, and charting. Central Line Central Line : Consent: Emergent Central Line Lumen: triple Maximal Sterile Barrier Tech: yes cap, yes mask, yes sterile gown, yes sterile gloves, yes large sterile sheet, yes hand hygiene, yes chlorhexidine prep Central Line Postion: femoral (R) Complications: none Central Line Post Position: sutured, good blood return Attempts: One Patient Tolerated: Well Complications: None Medical Decision Making Diagnostic Impression: Primary Impression: Septic shock Additional Impressions: Pneumonia Qualified Codes: J18.1 - Lobar pneumonia, unspecified organism UTI (urinary tract infection) Qualified Codes: N30.00 - Acute cystitis without hematuria Acute kidney failure Qualified Codes: N17.9 - Acute kidney failure, unspecified Anemia Qualified Codes: D64.9 - Anemia, unspecified Proteinuria Qualified Codes: R80.9 - Proteinuria, unspecified ER Course Patient presents with septic shock. Blood pressure does respond somewhat with IV fluid. He continue however to be low so I started him on Levophed. He grew out multidrug-resistant bugs under sputum last admission. Because of insurance , he would be made it to service of Dr. Weiner. Laboratory Tests Test 03/02/17 23:25 03/03/17 00:40 03/03/17 02:00 White Blood Count 42.8 K/UL (4.8-10.8) *H Red Blood Count 3.71 M/UL (4.70-6.10) L Hemoglobin 9.7 G/DL (14.2-18.0) L Hematocrit 31.6 % (42.0-52.0) L Mean Corpuscular Volume 85 FL (80-99) Mean Corpuscular Hemoglobin 26.1 PG (27.0-31.0) L Mean Corpuscular Hemoglobin Concent 30.7 G/DL (32.0-36.0) L Red Cell Distribution Width 15.9 % (11.6-14.8) H Platelet Count 432 K/UL (150-450) Mean Platelet Volume 4.8 FL (6.5-10.1) L Neutrophils (%) (Auto) % (45.0-75.0) Lymphocytes (%) (Auto) % (20.0-45.0) Monocytes (%) (Auto) % (1.0-10.0) Eosinophils (%) (Auto) % (0.0-3.0) Basophils (%) (Auto) % (0.0-2.0) Differential Total Cells Counted 100 Neutrophils % (Manual) 61 % (45-75) Lymphocytes % (Manual) 4 % (20-45) L Monocytes % (Manual) 5 % (1-10) Eosinophils % (Manual) 0 % (0-3) Basophils % (Manual) 0 % (0-2) Band Neutrophils 30 % (0-8) H Platelet Estimate Adequate Platelet Morphology Normal Poikilocytosis 1+ Anisocytosis 1+ Prothrombin Time 11.0 SEC (9.30-11.50) Prothromb Time International Ratio 1.1 (0.9-1.1) Activated Partial Thromboplast Time 31 SEC (23-33) Sodium Level 137 mEQ/L (135-145) Potassium Level 3.7 mEQ/L (3.4-4.9) Chloride Level 99 mEQ/L (98-107) Carbon Dioxide Level 22 mEQ/L (20-30) Anion Gap 16 (5-15) H Blood Urea Nitrogen 37 mg/dL (7-23) H Creatinine 2.2 mg/dL (0.7-1.2) H Estimat Glomerular Filtration Rate 37.5 mL/min (>60) Glucose Level 137 mg/dL (74-106) H Lactic Acid Level 2.20 mmol/L (0.66-2.22) 2.40 mmol/L (0.66-2.22) H Calcium Level 8.7 mg/dL (8.6-10.2) Total Bilirubin 0.3 mg/dL (0.0-1.2) Aspartate Amino Transf (AST/SGOT) 44 U/L (5-40) H Alanine Aminotransferase (ALT/SGPT) 21 U/L (3-41) Alkaline Phosphatase 127 U/L (40-129) Total Creatine Kinase 885 U/L (38-174) H Creatine Kinase MB 12.1 ng/mL (< 6.7) H Creatine Kinase MB Relative Index 1.3 Troponin I < 0.30 ng/mL (<=0.30) Total Protein 7.0 g/dL (6.6-8.7) Albumin 3.1 g/dL (3.5-5.2) L Globulin 3.9 g/dL Albumin/Globulin Ratio 0.7 (1.0-2.7) L Urine Color Brown Urine Appearance Turbid Urine pH 5 (4.5-8.0) Urine Specific [place] 1.020 (1.005-1.035) Urine Protein 4+ (NEGATIVE) H Urine Glucose (UA) Negative (NEGATIVE) Urine Ketones 1+ (NEGATIVE) H Urine Occult Blood 5+ (NEGATIVE) H Urine Nitrite Negative (NEGATIVE) Urine Bilirubin 1+ (NEGATIVE) H Urine Ictotest Negative Urine Urobilinogen 1 MG/DL (0.0-1.0) H Urine Leukocyte Esterase 3+ (NEGATIVE) H Urine RBC Tntc /HPF (0 - 0) H Urine WBC Tntc /HPF (0 - 0) H Urine Squamous Epithelial Cells None /LPF (NONE/OCC) Urine Bacteria Many /HPF (NONE) H Lab Results Impression labs with severe leukocytosis and bandemia EKG Diagnostic Results EKG Time: 02:38 Rate: normal Rhythm: NSR ST Segments: no acute changes Rhythm Strip Diag. Results Rhythm Strip Time: 02:38 EP Interpretation: yes Rate: 102 Rhythm: NSR, no PVC's Chest X-Ray Diagnostic Results Chest X-Ray Diagnostic Results : Chest X-Ray Ordered: Yes # of Views/Limited/Complete: 1 View Indication: Shortness of Breath EP Interpretation: Yes Interpretation: no effusion, no pneumothorax, other - rll atelectasis/ infiltrate Impression: Other - atelectasis, infiltrate Interpreting ER Provider: Electronically signed by Edson Cee MD Last Vital Signs Date Time Temp Pulse Resp B/P Pulse Ox O2 Delivery O2 Flow Rate FiO2 03/03/17 02:04 78/61 03/03/17 01:11 94 22 98 Mechanical Ventilator 40 Status: improved Disposition: ADMITTED INPATIENT Condition: Critical Referrals: NON PHYSICIAN (PCP) EDSON CEE M.D. Mar 03, 2017 02:40
[2017-03-03 06:21] LABS: REFLEX LACTIC ACID YES OR NO YES
[2017-03-03] MEDS ORDERED: LORazepam Inj 2mg/ml 1ml IV PRN (06:30)
[2017-03-03] MEDS ORDERED: Miralax 17gm pkt ORAL PRN (06:30)
[2017-03-03] MEDS ORDERED: DuoNeb 0.5-3(2.5)mg/3ml neb HHN PRN (06:30)
[2017-03-03] MEDS ORDERED: Amikacin Rx to dose MISC PRN (07:15)
[2017-03-03] MEDS: Pantoprazole Inj IVP SCH (08:20)
[2017-03-03] MEDS: levETIRAcetam 500mg/5ml Liquid GT SCH ×2 (08:21→17:45)
[2017-03-03] MEDS: Morphine Sulfate 4mg/ml Inj IVP PRN ×4 (08:22→22:42)
[2017-03-03] MEDS: Heparin 5000 units/ml inj SUBQ SCH ×2 (08:24→20:44)
[2017-03-03] MEDS: Ertapenem 1 GM in NS 55 ML IV SCH (08:30)
--- NOTE | 2017-03-03 08:42 | Diagnostic Imaging Report ---
Indications: AMS Technique: Portable AP chest Findings: Comparison: 10/25/16 Cardiac silhouette has decreased in size, now within normal limits. Pulmonary vascular redistribution, bilateral interstitial infiltrates, bibasal pleural effusions have virtually resolved. Mildly increased interstitial markings persist in both lung bases. Linear density and associated focal hazy opacity persists in the right lung base with associated downward retraction of the right minor fissure, decreased in prominence. Linear density is now also noted in the left lung base. PICC has been removed. Tracheostomy tube remains in place. Cervicothoracic fusion hardware again noted. No other interval change. IMPRESSION: Virtual resolution of previous bilateral congestive changes. Residual bibasal interstitial prominence is nonspecific and may be chronic. Persistent subsegmental atelectasis with volume loss right lung base, decreased. Associated focal pneumonia not entirely excludable. Development versus unmasking of subsegmental atelectasis versus scarring left lung base PICC removal
[2017-03-03] MEDS ORDERED: Vancomycin 1.5 GM/D5W 250ML IVPB ONE (09:00)
[2017-03-03 09:28] LABS: MEAN CORPUSCULAR HEMOGLOBIN 25.8 PG (27.0-31.0); MEAN CORPUSCULAR VOLUME 86 FL (80-99); MEAN PLATELET VOLUME 5.2 FL (6.5-10.1); PLATELET COUNT 362 K/UL (150-450); RED BLOOD COUNT 3.54 M/UL (4.70-6.10); WHITE BLOOD COUNT 44.3 K/UL (4.8-10.8)
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
[2017-03-03 10:05] LABS: ALBUMIN/GLOBULIN RATIO 0.8 (1.0-2.7); CALCIUM 8.5 mg/dL (8.6-10.2); CREATININE 1.7 mg/dL (0.7-1.2); GLOMERULAR FILTRATION RATE 50.4 mL/min (>60); MAGNESIUM 1.5 mg/dL (1.7-2.5); PHOSPHORUS 4.3 mg/dL (2.5-4.8); POTASSIUM 3.3 mEQ/L (3.4-4.9); TOTAL PROTEIN 6.5 g/dL (6.6-8.7)
[2017-03-03 10:28] LABS: ANISOCYTOSIS 1+; BAND NEUTROPHILS % (MANUAL) 13 % (0-8); BASOPHILS % (MANUAL) 0 % (0-2); EOSINOPHILS % (MANUAL) 0 % (0-3); HYPOCHROMASIA 1+; LYMPHOCYTES % (MANUAL) 3 % (20-45); MYELOCYTES % 3 % (0-0); NEUTROPHILS % (MANUAL) 78 % (45-75); PLATELET ESTIMATE ADEQUATE; PLATELET MORPHOLOGY NORMAL; TOTAL CELLS COUNTED 100
[2017-03-03] MEDS: metroNIDAZOLE 500mg 100 ML IVPB SCH ×2 (11:00→17:46)
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
[2017-03-03] MEDS ORDERED: KCl 10% 20 mEq/15ml liquid NG ONE (12:00)
[2017-03-03 12:09] LABS: ABG BASE EXCESS -2.8; ABG PCO2 42.5 mmHg (35.0-45.0)
[2017-03-03] MEDS: D5 1/2NS w/KCl 20mEq 1,000 ML IV SCH ×2 (13:00→22:04)
[2017-03-03 13:14] LABS: MEAN CORPUSCULAR HEMOGLOBIN 24.9 PG (27.0-31.0); MEAN CORPUSCULAR HGB CONC 29.2 G/DL (32.0-36.0); MEAN CORPUSCULAR VOLUME 85 FL (80-99); MEAN PLATELET VOLUME 4.8 FL (6.5-10.1); PLATELET COUNT 339 K/UL (150-450); RED BLOOD COUNT 3.67 M/UL (4.70-6.10); RED CELL DISTRIBUTION WIDTH 15.4 % (11.6-14.8)
[2017-03-03 13:19] LABS: WHITE BLOOD COUNT 43.3 K/UL (4.8-10.8)
[2017-03-03 13:29] LABS: INR 1.2 (0.9-1.1); PROTHROMBIN TIME 12.6 SEC (9.30-11.50)
[2017-03-03 13:30] LABS: CALCIUM 8.1 mg/dL (8.6-10.2); CREATININE 1.6 mg/dL (0.7-1.2); GLOMERULAR FILTRATION RATE 54.1 mL/min (>60); MAGNESIUM 1.5 mg/dL (1.7-2.5); PHOSPHORUS 4.2 mg/dL (2.5-4.8); POTASSIUM 3.3 mEQ/L (3.4-4.9)
[2017-03-03 13:39] LABS: ANISOCYTOSIS 1+; BAND NEUTROPHILS % (MANUAL) 16 % (0-8); BASOPHILS % (MANUAL) 0 % (0-2); EOSINOPHILS % (MANUAL) 0 % (0-3); HYPOCHROMASIA 1+; LYMPHOCYTES % (MANUAL) 4 % (20-45); MYELOCYTES % 1 % (0-0); NEUTROPHILS % (MANUAL) 73 % (45-75); PLATELET ESTIMATE ADEQUATE; PLATELET MORPHOLOGY NORMAL; TOTAL CELLS COUNTED 100
[2017-03-03] MEDS: Acetaminophen 650mg/20.3ml NG PRN ×2 (14:02→17:45)
--- NOTE | 2017-03-03 18:41 | Consultation ---
Consult Note Consult Note ID dic# [id number] DAVID GILBERT M.D. Mar 03, 2017 18:41
[2017-03-03] MEDS: Vancomycin 750mg/D5W 275ml IVPB SCH ×2 (20:43)
[2017-03-03] MEDS ORDERED: Vancomycin 1 GM in D5W 275 ML IV SCH (23:45)
[2017-03-04] VITALS (60 sets, daily range): BP systolic 73–174; BP diastolic 40–100
--- NOTE | 2017-03-04 00:23 | Wound Care Consultation ---
Wound Assessment Wound Assessment #1: Wound Number: #1 Wound Present on Admission: Yes New Wound: No Status Change of Wound: No Wound Location Body Site Modif: left Wound Location Body Site: ischial tuberosity Wound Type: pressure ulcer Adriana Test: Does not Adriana Pressure Ulcer Stage: II Wound Thickness: Partial Thickness Wound Length: 2.0 Wound Width: 2.0 Wound Depth: less than 0.1 Percent of Wound [place]/Red: 100 Wound Drainage Description: Serosanguineous Wound Drainage Amount: Scant Wound Drainage Odor: None/Absent Tissue Surrounding Wound: Erythemic Wound General Appearance: Reddened Wound Assessment #2: Wound Number: #2 Wound Present on Admission: Yes New Wound: No Status Change of Wound: No Wound Location Body Site Modif: mid Wound Location Body Site: sacral Wound Type: pressure ulcer Adriana Test: Does not Adriana Pressure Ulcer Stage: IV/unstageable Wound Thickness: Full Thickness Wound Length: 9.5 Wound Width: 9.5 Wound Depth: 1.5 Percent of Wound [place]/Red: 100 Wound Drainage Description: Serosanguineous Wound Drainage Amount: Moderate Wound Drainage Odor: None/Absent Tissue Surrounding Wound: Macerated Wound General Appearance: Reddened, Draining, Muscle Visible Wound Assessment #3: Wound Number: #3 Wound Present on Admission: Yes New Wound: No Status Change of Wound: No Wound Location Body Site Modif: left, mid, lateral Wound Location Body Site: foot Wound Type: pressure ulcer Adriana Test: Does not Adriana Pressure Ulcer Stage: deep tissue injury Wound Thickness: Full Thickness Wound Length: 3.0 Wound Width: 3.0 Wound Depth: utd Percent of Wound Bed Yellow/Wh: 100 Wound Drainage Amount: None Wound Drainage Odor: None/Absent Tissue Surrounding Wound: Intact Wound Assessment #4: Wound Number: #4 Wound Present on Admission: Yes New Wound: No Status Change of Wound: No Wound Location Body Site Modif: right, lower Wound Location Body Site: leg Wound Type: lesion-etiology unknown Adriana Test: Does not Adriana Wound Thickness: Full Thickness Percent of Wound [place]/Red: 100 Wound Drainage Description: Serosanguineous Wound Drainage Amount: Scant Wound Drainage Odor: None/Absent Tissue Surrounding Wound: Macerated Wound General Appearance: Reddened, Draining Wound Comment #1 Left Ischial tuberosity stage II pressure ulcer #2 Sacral stage IV pressure ulcer #3 Left mid lateral DTI pressure ulcer #4 Left mid lateral DTI pressure ulcer #5 Rash on back Recommendation -Left Ischial tuberosity stage II pressure ulcer and Left mid lateral DTI pressure ulcer Cleanse with saline, pat dry, apply Triad cream, cover with bordered gauze daily and PRN soiled/dislodged -Sacral stage IV pressure ulcer Cleans with saline, pat dry, apply Hydrogel, apply calcium alginate, cover with 4x4, secure with bordered gauze daily and PRN soiled/dislodged -Left mid lateral DTI pressure ulcer and rash on back Local wound care per protocol for DTI -Keep clean and dry -Optimize nutrition -Turn and reposition -Offload both heels -Low air loss mattress -Heel protector on both heels -Assess and f/u accordingly for any changes CARLOS RAINEY RN Mar 04, 2017 00:23
[2017-03-04 05:17] LABS: MEAN CORPUSCULAR HGB CONC 30.3 G/DL (32.0-36.0); MEAN CORPUSCULAR VOLUME 86 FL (80-99); MEAN PLATELET VOLUME 5.2 FL (6.5-10.1); PLATELET COUNT 275 K/UL (150-450); RED BLOOD COUNT 3.52 M/UL (4.70-6.10); RED CELL DISTRIBUTION WIDTH 15.9 % (11.6-14.8)
[2017-03-04] MEDS: Acetaminophen 650mg/20.3ml NG PRN ×2 (05:18→16:50)
[2017-03-04 05:22] LABS: INR 1.1 (0.9-1.1); PROTHROMBIN TIME 11.9 SEC (9.30-11.50)
[2017-03-04 05:37] LABS: ALANINE AMINOTRANSFERASE 19 U/L (3-41); ALBUMIN/GLOBULIN RATIO 0.6 (1.0-2.7); ANION GAP 12 (5-15); ASPARTATE AMINO TRANSFERASE 38 U/L (5-40); CALCIUM 8.7 mg/dL (8.6-10.2); CARBON DIOXIDE 22 mEQ/L (20-30); CHLORIDE 100 mEQ/L (98-107); CREATININE 1.4 mg/dL (0.7-1.2); GLOMERULAR FILTRATION RATE > 60 mL/min (>60); HEMOLYSIS 5; POTASSIUM 3.7 mEQ/L (3.4-4.9); SODIUM 134 mEQ/L (135-145); TOTAL PROTEIN 6.5 g/dL (6.6-8.7)
[2017-03-04 05:41] LABS: MAGNESIUM 1.9 mg/dL (1.7-2.5); PHOSPHORUS 3.3 mg/dL (2.5-4.8)
[2017-03-04 05:43] LABS: WHITE BLOOD COUNT 37.4 K/UL (4.8-10.8)
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
[2017-03-04] MEDS: D5NS 1,000 ML IV SCH ×2 (07:15→20:48)
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
[2017-03-04 07:54] LABS: ABG ALLEN TEST POSITIVE; ABG BASE EXCESS -5.1; ABG PCO2 37.7 mmHg (35.0-45.0)
[2017-03-04 08:02] LABS: ANISOCYTOSIS 1+; BAND NEUTROPHILS % (MANUAL) 12 % (0-8); BASOPHILS % (MANUAL) 0 % (0-2); EOSINOPHILS % (MANUAL) 0 % (0-3); HYPOCHROMASIA 1+; LYMPHOCYTES % (MANUAL) 1 % (20-45); NEUTROPHILS % (MANUAL) 83 % (45-75); PLATELET ESTIMATE ADEQUATE; PLATELET MORPHOLOGY NORMAL; TOTAL CELLS COUNTED 100
--- NOTE | 2017-03-04 08:17 | Infectious Diseases Prog Note ---
Assessment/Plan Assessment/Plan ASSESSMENT: 56 y/o male with: // GNR UTI - UCx pending // GNR bacteremia, m/l urinary source - C&S pending // h/o recurrent PSA PNA - CXR 03/02: Persistent subsegmental atelectasis with volume loss right lung base, decreased. Associated focal pneumonia not entirely excludable. // Negative C.difficile 03/03 // Sepsis // Leukocytosis - improved // Fever - improved // Chronic VDRF SP trach, PEG // Paraplegia // ARF - improved // Chronic FOBT(+) anemia // NKDA // Full Code PLAN: - continue amikacin, invanz d# 2, DC IV vancomycin d# 2 ( no GP orgs identified ) - f/u cultures, adjust ABX accordingly - monitor CBC, temperatures - monitor BMP - monitor CXR - vent support / trach care / aspiration precautions Subjective Allergies: Coded Allergies: No Known Allergies (Unverified , 03/02/17) Subjective fevers improved, on vent BCx, UCx GNR Objective Vital Signs Last 24 Hour Vital Signs Date Time Temp Pulse Resp B/P Pulse Ox O2 Delivery O2 Flow Rate FiO2 03/04/17 07:00 99.1 75 20 123/48 99 Mechanical Ventilator 03/04/17 06:45 75 20 117/57 99 Mechanical Ventilator 03/04/17 06:43 75 20 30 03/04/17 06:30 75 20 106/69 99 Mechanical Ventilator 03/04/17 06:15 76 20 98/70 99 Mechanical Ventilator 03/04/17 06:00 99.7 75 20 102/64 99 Mechanical Ventilator 03/04/17 05:48 99.9 03/04/17 05:45 78 20 103/67 99 Mechanical Ventilator 03/04/17 05:30 100.0 84 20 121/78 99 Mechanical Ventilator 03/04/17 05:15 77 20 104/71 99 Mechanical Ventilator 30 03/04/17 05:13 82 25 30 03/04/17 05:00 100.2 79 20 98/61 99 Mechanical Ventilator 03/04/17 04:45 89 20 113/83 99 Mechanical Ventilator 03/04/17 04:30 82 20 109/75 99 Mechanical Ventilator 03/04/17 04:15 78 20 112/78 99 Mechanical Ventilator 30 03/04/17 04:00 73 03/04/17 04:00 100.0 75 20 93/70 99 Mechanical Ventilator 30 03/04/17 04:00 30 03/04/17 03:45 76 20 113/50 99 Mechanical Ventilator 30 03/04/17 03:30 77 20 108/63 99 Mechanical Ventilator 30 03/04/17 03:26 74 22 30 03/04/17 03:15 75 20 101/55 99 Mechanical Ventilator 30 03/04/17 03:00 74 20 111/74 99 Mechanical Ventilator 30 03/04/17 02:45 72 20 88/51 99 Mechanical Ventilator 30 03/04/17 02:30 98.9 83 20 99/62 99 Mechanical Ventilator 30 03/04/17 02:15 72 20 101/60 99 Mechanical Ventilator 30 03/04/17 02:00 73 20 105/69 99 Mechanical Ventilator 30 03/04/17 01:45 75 20 101/55 99 Mechanical Ventilator 30 03/04/17 01:30 78 20 106/55 99 Mechanical Ventilator 30 03/04/17 01:24 78 22 30 03/04/17 01:15 77 20 124/82 99 Mechanical Ventilator 30 03/04/17 01:08 110/67 03/04/17 01:00 99.3 83 22 110/67 97 Mechanical Ventilator 30 03/04/17 00:45 78 20 98/82 99 Mechanical Ventilator 30 03/04/17 00:30 81 20 106/70 99 Mechanical Ventilator 30 03/04/17 00:15 75 20 104/68 99 Mechanical Ventilator 30 03/04/17 00:00 72 03/04/17 00:00 30 03/04/17 00:00 99.5 85 23 106/60 100 Mechanical Ventilator 30 03/03/17 23:45 75 20 89/70 99 Mechanical Ventilator 30 03/03/17 23:30 74 20 98/62 98 Mechanical Ventilator 30 03/03/17 23:20 73 17 30 03/03/17 23:15 71 20 91/58 99 Mechanical Ventilator 30 03/03/17 23:12 99.5 03/03/17 23:00 73 20 101/76 99 Mechanical Ventilator 30 03/03/17 22:45 78 20 108/76 99 Mechanical Ventilator 30 03/03/17 22:30 81 20 69/35 100 Mechanical Ventilator 30 03/03/17 22:15 77 20 108/76 100 Mechanical Ventilator 30 03/03/17 22:00 75 20 100/65 100 Mechanical Ventilator 30 03/03/17 21:45 99.5 81 23 101/77 100 Mechanical Ventilator 30 03/03/17 21:30 74 20 98/62 100 Mechanical Ventilator 30 03/03/17 21:25 75 18 30 17 21:15 79 20 100/61 100 Mechanical Ventilator 30 03/03/17 21:00 76 20 101/64 100 Mechanical Ventilator 30 03/03/17 20:45 99.7 79 20 104/64 100 Mechanical Ventilator 30 03/03/17 20:30 76 20 104/64 100 Mechanical Ventilator 30 03/03/17 20:15 77 20 101/63 100 Mechanical Ventilator 30 03/03/17 20:03 90/51 03/03/17 20:00 79 03/03/17 20:00 30 03/03/17 20:00 99.9 76 19 101/63 99 Mechanical Ventilator 30 03/03/17 19:45 77 17 97/60 99 Mechanical Ventilator 30 03/03/17 19:30 76 16 107/67 97 Mechanical Ventilator 30 03/03/17 19:18 75 18 30 03/03/17 19:15 78 20 102/55 100 Mechanical Ventilator 40 03/03/17 19:00 100.1 80 20 87/61 100 Mechanical Ventilator 40 03/03/17 18:30 78 20 102/55 100 Mechanical Ventilator 40 03/03/17 18:00 86 20 100/61 100 Mechanical Ventilator 40 03/03/17 17:30 86 19 136/62 100 Mechanical Ventilator 40 03/03/17 17:04 81 20 40 03/03/17 17:00 95 19 121/61 100 Mechanical Ventilator 40 03/03/17 16:00 92 03/03/17 16:00 100.7 90 19 111/61 100 Mechanical Ventilator 40 03/03/17 16:00 40 03/03/17 15:05 87 23 40 03/03/17 15:00 92 19 105/61 100 Mechanical Ventilator 40 03/03/ 14:00 87 20 110/61 100 Mechanical Ventilator 40 03/03/17 13:30 87 19 89/53 100 Mechanical Ventilator 40 03/03/17 13:00 90 21 96/61 100 Mechanical Ventilator 40 03/03/17 12:49 93 22 40 7/13/17 12:30 100.9 90 20 109/74 100 Mechanical Ventilator 40 03/03/17 12:00 90 20 75/47 100 Mechanical Ventilator 40 03/03/17 12:00 90 03/03/17 12:00 101/56 03/03/17 12:00 40 03/03/17 11:30 96 20 123/73 100 Mechanical Ventilator 40 03/03/17 11:00 101.6 93 25 109/61 99 Mechanical Ventilator 40 03/03/17 10:58 96 19 40 03/03/17 10:00 101.7 96 23 104/64 100 Mechanical Ventilator 40 03/03/17 09:20 101.8 03/03/17 09:00 101.8 99 23 99/64 100 Mechanical Ventilator 40 03/03/17 08:50 88 24 40 Height (Feet): 6 Height (Inches): 5.00 Weight (Pounds): 192 General Appearance: no acute distress HEENT: status post trach Respiratory/Chest: decreased breath sounds Cardiovascular: normal rate, regular rhythm Abdomen: normal bowel sounds, soft, non tender, non distended Microbiology Date/Time Source Procedure Growth Status 03/02/17 23:25 Blood Blood Culture - Preliminary Gram Negative Bacillus 1 Resulted 03/02/17 23:20 Blood Blood Culture - Preliminary Gram Negative Bacillus 1 Resulted 03/03/17 03:00 Stool Clostridium difficile Toxin Assay - Final Complete 03/03/17 00:40 Urine,Clean Catch Urine Culture - Preliminary Gram Negative Bacillus 1 Resulted Laboratory Tests Test 03/03/17 09:40 03/03/17 11:40 03/03/17 12:45 03/04/17 04:15 Stool Occult Blood Positive (NEGATIVE) Arterial Blood pH 7.350 (7.350-7.450) Arterial Blood Partial Pressure CO2 42.5 mmHg (35.0-45.0) Arterial Blood Partial Pressure O2 103.3 mmHg (75.0-100.0) H Arterial Blood HCO3 22.7 mmol/L (22.0-26.0) Arterial Blood Oxygen Saturation 97.6 % (92.0-98.0) Arterial Blood Base Excess -2.8 Andrea Test White Blood Count 43.3 K/UL (4.8-10.8) *H 37.4 K/UL (4.8-10.8) *H Red Blood Count 3.67 M/UL (4.70-6.10) L 3.52 M/UL (4.70-6.10) L Hemoglobin 9.1 G/DL (14.2-18.0) L 9.1 G/DL (14.2-18.0) L Hematocrit 31.3 % (42.0-52.0) L 30.2 % (42.0-52.0) L Mean Corpuscular Volume 85 FL (80-99) 86 FL (80-99) Mean Corpuscular Hemoglobin 24.9 PG (27.0-31.0) L 26.0 PG (27.0-31.0) L Mean Corpuscular Hemoglobin Concent 29.2 G/DL (32.0-36.0) L 30.3 G/DL (32.0-36.0) L Red Cell Distribution Width 15.4 % (11.6-14.8) H 15.9 % (11.6-14.8) H Platelet Count 339 K/UL (150-450) 275 K/UL (150-450) Mean Platelet Volume 4.8 FL (6.5-10.1) L 5.2 FL (6.5-10.1) L Neutrophils (%) (Auto) % (45.0-75.0) % (45.0-75.0) Lymphocytes (%) (Auto) % (20.0-45.0) % (20.0-45.0) Monocytes (%) (Auto) % (1.0-10.0) % (1.0-10.0) Eosinophils (%) (Auto) % (0.0-3.0) % (0.0-3.0) Basophils (%) (Auto) % (0.0-2.0) % (0.0-2.0) Differential Total Cells Counted 100 100 Neutrophils % (Manual) 73 % (45-75) 83 % (45-75) H Lymphocytes % (Manual) 4 % (20-45) L 1 % (20-45) L Monocytes % (Manual) 6 % (1-10) 4 % (1-10) Eosinophils % (Manual) 0 % (0-3) 0 % (0-3) Basophils % (Manual) 0 % (0-2) 0 % (0-2) Myelocytes % 1 % (0-0) H Band Neutrophils 16 % (0-8) H 12 % (0-8) H Platelet Estimate Adequate Adequate Platelet Morphology Normal Normal Hypochromasia 1+ 1+ Anisocytosis 1+ 1+ Prothrombin Time 12.6 SEC (9.30-11.50) H 11.9 SEC (9.30-11.50) H Prothromb Time International Ratio 1.2 (0.9-1.1) H 1.1 (0.9-1.1) Activated Partial Thromboplast Time 42 SEC (23-33) H 44 SEC (23-33) H Sodium Level 142 mEQ/L (135-145) 134 mEQ/L (135-145) L Potassium Level 3.3 mEQ/L (3.4-4.9) L 3.7 mEQ/L (3.4-4.9) Chloride Level 105 mEQ/L (98-107) 100 mEQ/L (98-107) Carbon Dioxide Level 22 mEQ/L (20-30) 22 mEQ/L (20-30) Anion Gap 15 (5-15) 12 (5-15) Blood Urea Nitrogen 34 mg/dL (7-23) H 31 mg/dL (7-23) H Creatinine 1.6 mg/dL (0.7-1.2) H 1.4 mg/dL (0.7-1.2) H Estimat Glomerular Filtration Rate 54.1 mL/min (>60) > 60 mL/min (>60) Glucose Level 75 mg/dL (74-106) 92 mg/dL (74-106) Lactic Acid Level 1.30 mmol/L (0.66-2.22) Calcium Level 8.1 mg/dL (8.6-10.2) L 8.7 mg/dL (8.6-10.2) Phosphorus Level 4.2 mg/dL (2.5-4.8) 3.3 mg/dL (2.5-4.8) Magnesium Level 1.5 mg/dL (1.7-2.5) L 1.9 mg/dL (1.7-2.5) Random Amikacin Level 10.3 ug/mL Erythrocyte Sedimentation Rate Pending Reticulocyte Count Pending Iron Level 11 ug/dL (59-158) L Total Iron Binding Capacity 215 ug/dL (250-400) L Percent Iron Saturation 5 % (15-50) L Unsaturated Iron Binding 204 ug/dL (112-346) Total Bilirubin 0.3 mg/dL (0.0-1.2) Aspartate Amino Transf (AST/SGOT) 38 U/L (5-40) Alanine Aminotransferase (ALT/SGPT) 19 U/L (3-41) Alkaline Phosphatase 155 U/L (40-129) H Lactate Dehydrogenase 428 U/L (135-230) H Total Protein 6.5 g/dL (6.6-8.7) L Albumin 2.6 g/dL (3.5-5.2) L Globulin 3.9 g/dL Albumin/Globulin Ratio 0.6 (1.0-2.7) L Carcinoembryonic Antigen 3.7 ng/mL H Vitamin B12 Level 370 pg/mL (211-946) Folate Pending Thyroid Stimulating Hormone (TSH) 1.220 uIU/mL (0.300-4.500) Random Vancomycin Level 18.1 ug/mL Test 03/04/17 07:39 Arterial Blood pH 7.345 (7.350-7.450) Arterial Blood Partial Pressure CO2 37.7 mmHg (35.0-45.0) Arterial Blood Partial Pressure O2 86.8 mmHg (75.0-100.0) Arterial Blood HCO3 20.1 mmol/L (22.0-26.0) L Arterial Blood Oxygen Saturation 96.4 % (92.0-98.0) Arterial Blood Base Excess -5.1 Andrea Test Positive Current Medications Medications (Trade) Dose Ordered Sig/Lucy Route PRN Reason Start Time Stop Time Status Last Admin Dose Admin Acetaminophen 650 mg 650 mg Q4H PRN NG Mild Pain/Temp > 100.5 03/03/17 13:15 04/02/17 13:14 03/04/17 05:18 Albuterol/ Ipratropium 3 ml 3 ml Q4H PRN HHN Shortness of Breath 03/03/17 06:30 03/08/17 06:29 Amikacin Protocol (Amikacin pharmacy to dose) 1 ea DAILY PRN MISC . 03/03/17 07:15 04/02/17 07:14 Amikacin Sulfate/ Sodium Chloride (Amikin/Sodium Chloride) 115 ml @ 230 mls/hr Q36H IV 03/04/17 12:00 03/11/17 11:59 Chlorhexidine Gluconate 1 applic 1 applic BEDTIME TOPIC 03/04/17 21:00 04/03/17 20:59 Dextrose (Dextrose 50%) 50 ml STAT PRN IV Hypoglycemia 03/03/17 12:00 04/02/17 11:59 03/03/17 12:50 Dextrose/Sodium Chloride (D5ns) 1,000 ml @ 75 mls/hr [id number] IV 03/04/17 07:15 04/03/17 07:14 Ertapenem 1 gm/ Sodium Chloride 55 ml @ 110 mls/hr Q24H IV 03/03/17 08:30 03/08/17 08:29 03/03/17 08:30 Heparin Sodium (Porcine) (Heparin 5000 units/ml) 5,000 units EVERY 12 HOURS SUBQ 03/03/17 09:00 04/02/17 08:59 03/03/17 20:44 Levetiracetam (Keppra) 500 mg BID GT 03/03/17 09:00 04/02/17 08:59 03/03/17 17:45 Lorazepam 2 mg 2 mg EVERY 2 HOURS PRN IV For Anxiety 03/03/17 06:30 03/10/17 06:29 Morphine Sulfate (Morphine Sulfate) 4 mg Q4H PRN IVP Severe Pain (Pain Scale 7-10) 03/03/17 06:30 03/10/17 06:29 03/03/17 22:42 Norepinephrine Bitartrate/ Dextrose (Levophed/D5W) 254 ml @ 0 mls/hr Q24H IV 03/03/17 06:30 04/02/17 06:29 03/04/17 01:08 Nystatin (Nystop Powder) 1 applic THREE TIMES A DAY TOPIC 03/04/17 09:00 04/03/17 08:59 Ondansetron HCl (Zofran) 4 mg Q6H PRN IVP Nausea & Vomiting 03/03/17 06:30 04/02/17 06:29 03/03/17 08:21 Pantoprazole (Protonix) 40 mg DAILY IVP 03/03/17 09:00 04/02/17 08:59 03/03/17 08:20 Polyethylene Glycol (Miralax) 17 gm DAILYPRN PRN ORAL Constipation 03/03/17 06:30 04/02/17 06:29 Vancomycin HCl (Vanco rx to dose) 1 ea DAILY PRN MISC . 03/03/17 07:30 04/02/17 07:29 Vancomycin HCl/ Dextrose (Vancomycin/D5W) 275 ml @ 183.708 mls/hr Q12HR IVPB 03/03/17 21:00 03/08/17 20:59 03/03/17 20:43 NA GREGG Mar 04, 2017 08:17
[2017-03-04 08:24] LABS: ERYTHROCYTE SEDIMENTATION RATE 80 MM/HR (0-20); PATH BLOOD SMEAR/OMC SENT TO PATHOLOGIST
[2017-03-04 08:40] LABS: CRP QUANT 34.8 mg/dL (< 0.5); URIC ACID 7.4 mg/dL (3.0-7.5)
[2017-03-04 08:46] LABS: RETICULOCYTE COUNT 0.7 % (0.0-2.0)
[2017-03-04 08:47] LABS: FERRITIN 470 ng/mL (10-230)
[2017-03-04 09:27] LABS: OTHERS PATHOLOGIST COMMENT
--- NOTE | 2017-03-04 10:41 | Diagnostic Imaging Report ---
Indication: DYSPNEA Technique: One view of the chest Comparison: 03/02/2017 Findings: The heart is enlarged. There is increasing interstitial and alveolar parenchymal opacity in the right mid and lower lung. There is suggestion of new or increased right-sided pleural effusion. There is diffusely increased interstitial opacity throughout the left lung. Cervical spine fusion hardware is again demonstrated. Tracheostomy is again demonstrated. Impression: Worsening generalized interstitial congestion, right mid and lower lung parenchymal infiltrates, over 2 days New or increased right-sided pleural effusion Cardiomegaly, more apparent on current than on prior exam, may be in part artifact of different rotation. Other stable findings as described
[2017-03-04] MEDS: Morphine Sulfate 4mg/ml Inj IVP PRN ×2 (11:17→21:13)
[2017-03-04] MEDS: Pantoprazole Inj IVP SCH (11:17)
[2017-03-04] MEDS: Ertapenem 1 GM in NS 55 ML IV SCH (11:17)
[2017-03-04] MEDS: Vancomycin 750mg/D5W 275ml IVPB SCH ×2 (11:17)
[2017-03-04] MEDS: levETIRAcetam 500mg/5ml Liquid GT SCH ×2 (11:18→20:49)
[2017-03-04] MEDS: Heparin 5000 units/ml inj SUBQ SCH ×2 (11:19→20:50)
[2017-03-04] MEDS: Nystatin Powder 100,000 units/gm 15gm TOPIC SCH ×3 (11:21→16:48)
[2017-03-04] MEDS: Amikacin 1,250 MG in NS 110 ML IV SCH (11:55)
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
[2017-03-04 13:03] LABS: OTHERS PATHOLOGIST COMMENT
--- NOTE | 2017-03-04 14:04 | Diagnostic Imaging Report ---
Indication: Abdominal pain and distention Technique: Supine view of the abdomen Comparison: none Findings: There is a nasogastric tube in place. Is in good position, tip projected at the level gastric body. There is extensive gas within large and small bowel, which are all upper limits of normal in caliber but not frankly dilated. There is a right groin central venous catheter, and what is presumably a Whalen catheter in place. No unusual masses or calcifications Impression: Diffusely gas filled upper limits of normal caliber small and large bowel, probably reflects ileus. Satisfactory position of nasogastric tube Findings discussed with ICU nurseReinaldo, at the time of interpretation Other findings as noted
--- NOTE | 2017-03-04 14:11 | GI Initial Consult Note ---
History of Present Illness General Date patient seen: Mar 04, 2017 Time patient seen: 13:57 Reason for Hospitalization: Abnormal Labs Referring physician: AWA NOBLE Reason for Consultation: ABDOMINAL DISTENTION Present Illness HPI Is a 56-year-old care home patient. He has multiple medical history. He is trach and also has a feeding tube. He presents with chief complaint of abnormal labs. WBC was elevated. On arrival he felt warm and was hypotensive. History is through the care home note and also prior hospital admission. Unable to anything else from him. No complaint of cough or congestion. GI Consult. HPI as noted above. GI consulted for abdominal distention. ROS limited, pt seen in ICU. Abdomen distended and firm. Hypoactive bowel sounds present all quads. Pt noted by RN to be passing flatus and producing stool. Presents today with leukocytosis WBC > 37, anemia with positive occult blood stool, hypoalbuminemia and iron deficiency. Unknown history of endoscopic procedures. Noted patient, has NGT and rectal tube present. Home Meds Reported Medications Zinc Sulfate (ZINC SULFATE*) 220 Mg Capsule, 220 MG ORAL DAILY, CAP 0 Refills 03/03/17 Simethicone* (SIMETHICONE*) 80 Mg Tab.chew, 30 MG ORAL Q8H Y for GAS PAIN, #20 TAB 0 Refills 03/03/17 Protein Supplement (PROMOD) 946 Ml Liquid, 946 ML PO, ML 03/03/17 Omeprazole Magnesium (PRILOSEC OTC) 20 Mg Tablet.dr, 20 MG ORAL DAILY, TAB 03/03/17 Hydrocodone Bit/Acetaminophen 10-325* (NORCO 10-325*) 1 Each Tablet, 1 TAB ORAL Q6H Y for For Pain, #10 TAB 0 Refills PRN PAIN 03/03/17 Benazepril Hcl* (LOTENSIN*) 20 Mg Tablet, 5 MG ORAL DAILY, TAB 03/03/17 Levetiracetam* (LEVETIRACETAM*) 100 Mg/1 Ml Solution, 500 MG GT BID 03/03/17 [iron tab combination] No Conflict Check, 325 MG GT DAILY 10/17/16 [tylenol liquid] No Conflict Check, 640 MG GT Q4HR Y for Fever/Headache/Mild Pain 10/17/16 Protein Supplement (PROMOD) 946 Ml Liquid, 30 ML GT BID, ML 10/17/16 Vancomycin Hcl/D5w (VANCOMYCIN-D5W 1 G/250 ML) 1 Gm/250 Ml Plast..bag, 750 GM IVPB Q12HR, BAG 10/17/16 Ggjrohmkajvn-Moeq-Xzijvlph,Iso (ZOSYN 3.375 GM PRE MIX-BAG) 3.375 Gm/50 Ml Froz.piggy, 3.375 GM IVPB Q6HR, BAG 10/17/16 Ascorbic Acid/Bioflavonoids (VIT C-BIOFLAVONOIDS TAB SA) 1 Each Tablet.er, 1 EACH PO DAILY, TAB 10/16/16 Cran/Vitc/Mannose/Inulin/Brom (UTI-STAT LIQUID) 3,875 Mg/30 Ml Liquid, 30 ML PO , ML 10/16/16 Tramadol Hcl* (ULTRAM*) 50 Mg Tablet, 50 MG ORAL Q6H Y for For Pain, #30 TAB 0 Refills 10/16/16 Quetiapine Fumarate* (SEROQUEL*) 25 Mg Tablet, 25 MG ORAL BEDTIME, TAB 10/16/16 Pantoprazole* (PROTONIX*) 40 Mg Tablet.dr, 40 MG ORAL DAILY, TAB 10/16/16 Hydrocodone Bit/Acetaminophen 10-325* (NORCO 10-325*) 1 Each Tablet, 1 TAB ORAL Q4H Y for For Pain, TAB 0 Refills PRN PAIN 10/16/16 Gabapentin* (NEURONTIN*) 100 Mg Capsule, 100 MG ORAL EVERY 8 HOURS, #15 CAP 0 Refills 10/16/16 Multivitamin With Minerals (MULTIVITAMINS WITH MINERALS*) 1 Each Tablet, 1 TAB ORAL DAILY, TAB 10/16/16 Magnesium Hydroxide* (MILK OF MAGNESIA*) 400 Mg/5 Ml Oral.susp, 30 ML ORAL DAILY Y for Constipation, ML 10/16/16 Midodrine* (PROAMATINE*) 5 Mg Tablet, 5 MG ORAL THREE TIMES A DAY, TAB 10/16/16 Furosemide* (LASIX*) 20 Mg Tablet, 10 MG ORAL BID, TAB 10/16/16 Na Phos,M-B/Na Phos,Di-Ba* (FLEET ENEMA*) 133 Ml Enema, 118 ML RECTAL DAILY, ML 0 Refills 10/16/16 Epoetin Juan (EPOGEN) 20,000 Unit/2 Ml Vial, 22733 UNIT SUBQ TWICE A WEEK, VIAL 10/16/16 Bisacodyl (DULCOLAX) 10 Mg Supp.rect, 10 MG RC DAILY Y for Constipation, SUPP 10/16/16 Docusate Sodium* (COLACE*) 100 Mg Capsule, 100 MG ORAL DAILY, CAP 10/16/16 Albuterol Sulfate* (ALBUTEROL SULFATE HHN*) 2.5 Mg/3 Ml Vial.neb, 3 ML INH Q4H Y for Shortness of Breath, EA 10/16/16 Med list reviewed/reconciled: Yes Allergies: Coded Allergies: No Known Allergies (Unverified , 03/02/17) Patient History History Provided By: Patient PMH Narrative Past Medical History: see triage record, old chart reviewed Past Surgical History: other Pertinent Family History: other Social History: Denies: smoking Immunizations: other Reviewed Nursing Documentation: PMH: Agreed, PSxH: Agreed Nursing Documentation-PMH Past Medical History: No History, Except For Hx Cardiac Problems: No - sacral ulcer Hx COPD: Yes Hx Cancer: No Hx Gastrointestinal Problems: Yes Hx Neurological Problems: No Hx Cerebrovascular Accident: No - paraplegia Hx Transient Ischemic Attacks: No Hx Dementia: No Hx Alzheimer's Disease: No Hx Parkinson's Disease: No Hx Meningitis: No Hx Encephalitis: No Hx Seizures: No Hx Epilepsy: No Hx Multiple Sclerosis: No Hx Cerebral Palsy: No Hx Amyotrophic Lat Sclerosis: No Hx [place] Syndrome: No Hx Paralysis: No Hx Peripheral Neuropathy: No Hx Spinal Cord Injury: No Hx Head Trauma: No Hx Traumatic Brain Injury: No Hx Memory Loss: No Hx Concentration Difficulty: No Hx Speech Problem: No Hx Tremors: No Hx Vertigo: No Hx Dizziness: No Hx Syncope: No Hx Headaches: No Hx Aphasia: No Hx Dysphasia: No Hx Numbness: No Hx Weakness: Yes Hx Fatigue: No Hx Neurologic Surgery: No Hx Brain Shunt: No Review of Systems All Other Systems: limited Physical Exam Vital Signs Date Time Temp Pulse Resp B/P Pulse Ox O2 Delivery O2 Flow Rate FiO2 03/02/17 22:35 87 25 73/67 100 Mechanical Ventilator 40 03/03/17 02:20 98.9 Sp02 EP Interpretation: reviewed Labs Laboratory Tests Test 03/04/17 04:15 03/04/17 07:39 White Blood Count 37.4 K/UL (4.8-10.8) *H Red Blood Count 3.52 M/UL (4.70-6.10) L Hemoglobin 9.1 G/DL (14.2-18.0) L Hematocrit 30.2 % (42.0-52.0) L Mean Corpuscular Volume 86 FL (80-99) Mean Corpuscular Hemoglobin 26.0 PG (27.0-31.0) L Mean Corpuscular Hemoglobin Concent 30.3 G/DL (32.0-36.0) L Red Cell Distribution Width 15.9 % (11.6-14.8) H Platelet Count 275 K/UL (150-450) Mean Platelet Volume 5.2 FL (6.5-10.1) L Neutrophils (%) (Auto) % (45.0-75.0) Lymphocytes (%) (Auto) % (20.0-45.0) Monocytes (%) (Auto) % (1.0-10.0) Eosinophils (%) (Auto) % (0.0-3.0) Basophils (%) (Auto) % (0.0-2.0) Differential Total Cells Counted 100 Neutrophils % (Manual) 83 % (45-75) H Lymphocytes % (Manual) 1 % (20-45) L Monocytes % (Manual) 4 % (1-10) Eosinophils % (Manual) 0 % (0-3) Basophils % (Manual) 0 % (0-2) Band Neutrophils 12 % (0-8) H Other Cell Type Pathologist comment Platelet Estimate Adequate Platelet Morphology Normal Hypochromasia 1+ Anisocytosis 1+ Erythrocyte Sedimentation Rate 80 MM/HR (0-20) H Reticulocyte Count 0.7 % (0.0-2.0) Prothrombin Time 11.9 SEC (9.30-11.50) H Prothromb Time International Ratio 1.1 (0.9-1.1) Activated Partial Thromboplast Time 44 SEC (23-33) H Sodium Level 134 mEQ/L (135-145) L Potassium Level 3.7 mEQ/L (3.4-4.9) Chloride Level 100 mEQ/L (98-107) Carbon Dioxide Level 22 mEQ/L (20-30) Anion Gap 12 (5-15) Blood Urea Nitrogen 31 mg/dL (7-23) H Creatinine 1.4 mg/dL (0.7-1.2) H Estimat Glomerular Filtration Rate > 60 mL/min (>60) Glucose Level 92 mg/dL (74-106) Uric Acid 7.4 mg/dL (3.0-7.5) Calcium Level 8.7 mg/dL (8.6-10.2) Phosphorus Level 3.3 mg/dL (2.5-4.8) Magnesium Level 1.9 mg/dL (1.7-2.5) Iron Level 11 ug/dL (59-158) L Total Iron Binding Capacity 215 ug/dL (250-400) L Percent Iron Saturation 5 % (15-50) L Unsaturated Iron Binding 204 ug/dL (112-346) Ferritin 465 ng/mL (10-230) H Total Bilirubin 0.3 mg/dL (0.0-1.2) Gamma Glutamyl Transpeptidase 60 U/L (8-61) Aspartate Amino Transf (AST/SGOT) 38 U/L (5-40) Alanine Aminotransferase (ALT/SGPT) 19 U/L (3-41) Alkaline Phosphatase 155 U/L (40-129) H Lactate Dehydrogenase 428 U/L (135-230) H Total Creatine Kinase 249 U/L (38-174) H C-Reactive Protein, Quantitative 34.8 mg/dL (< 0.5) H Pro-B-Type Natriuretic Peptide 12178 pg/mL (0-125) H Total Protein 6.5 g/dL (6.6-8.7) L Albumin 2.6 g/dL (3.5-5.2) L Globulin 3.9 g/dL Albumin/Globulin Ratio 0.6 (1.0-2.7) L Carcinoembryonic Antigen 3.7 ng/mL H Vitamin B12 Level 370 pg/mL (211-946) Folate Pending Thyroid Stimulating Hormone (TSH) 1.220 uIU/mL (0.300-4.500) Cortisol AM Sample 46.0 ug/dL (6.0-20.0) H Random Vancomycin Level 18.1 ug/mL Arterial Blood pH 7.345 (7.350-7.450) Arterial Blood Partial Pressure CO2 37.7 mmHg (35.0-45.0) Arterial Blood Partial Pressure O2 86.8 mmHg (75.0-100.0) Arterial Blood HCO3 20.1 mmol/L (22.0-26.0) L Arterial Blood Oxygen Saturation 96.4 % (92.0-98.0) Arterial Blood Base Excess -5.1 Andrea Test Positive General Appearance: no apparent distress Head: normocephalic EENT: normal ENT inspection Neck: supple Respiratory: normal breath sounds, no respiratory distress Cardiovascular: normal rate Gastrointestinal: distended - tympanic Rectal: deferred Musculoskeletal: back normal Skin: normal inspection, normal color, no rash, warm/dry Lymphatic: normal inspection, no adenopathy Current Medications Current Medications Medications (Trade) Dose Ordered Sig/Lucy Route PRN Reason Start Time Stop Time Status Last Admin Dose Admin Acetaminophen 650 mg 650 mg Q4H PRN NG Mild Pain/Temp > 100.5 03/03/17 13:15 04/02/17 13:14 03/04/17 05:18 Albuterol/ Ipratropium 3 ml 3 ml Q4H PRN HHN Shortness of Breath 03/03/17 06:30 03/08/17 06:29 Amikacin Protocol (Amikacin pharmacy to dose) 1 ea DAILY PRN MISC . 03/03/17 07:15 04/02/17 07:14 Amikacin Sulfate/ Sodium Chloride (Amikin/Sodium Chloride) 115 ml @ 230 mls/hr Q36H IV 03/04/17 12:00 03/11/17 11:59 03/04/17 11:55 Chlorhexidine Gluconate 1 applic 1 applic BEDTIME TOPIC 03/04/17 21:00 04/03/17 20:59 Dextrose (Dextrose 50%) 50 ml STAT PRN IV Hypoglycemia 03/03/17 12:00 04/02/17 11:59 03/03/17 12:50 Dextrose/Sodium Chloride (D5ns) 1,000 ml @ 75 mls/hr [id number] IV 03/04/17 07:15 04/03/17 07:14 03/04/17 07:15 Ertapenem 1 gm/ Sodium Chloride 55 ml @ 110 mls/hr Q24H IV 03/03/17 08:30 03/08/17 08:29 03/04/17 11:17 Heparin Sodium (Porcine) (Heparin 5000 units/ml) 5,000 units EVERY 12 HOURS SUBQ 03/03/17 09:00 04/02/17 08:59 03/04/17 11:19 Levetiracetam (Keppra) 500 mg Q12HR GT 03/04/17 21:00 04/03/17 20:59 Lorazepam 2 mg 2 mg EVERY 2 HOURS PRN IV For Anxiety 03/03/17 06:30 03/10/17 06:29 Morphine Sulfate (Morphine Sulfate) 4 mg Q4H PRN IVP Severe Pain (Pain Scale 7-10) 03/03/17 06:30 03/10/17 06:29 03/04/17 11:17 Norepinephrine Bitartrate/ Dextrose (Levophed/D5W) 254 ml @ 0 mls/hr Q24H IV 03/03/17 06:30 04/02/17 06:29 03/04/17 01:08 Nystatin (Nystop Powder) 1 applic THREE TIMES A DAY TOPIC 03/04/17 09:00 04/03/17 08:59 03/04/17 12:25 Ondansetron HCl (Zofran) 4 mg Q6H PRN IVP Nausea & Vomiting 03/03/17 06:30 04/02/17 06:29 03/04/17 11:17 Pantoprazole (Protonix) 40 mg DAILY IVP 03/03/17 09:00 04/02/17 08:59 03/04/17 11:17 Polyethylene Glycol (Miralax) 17 gm DAILYPRN PRN ORAL Constipation 03/03/17 06:30 04/02/17 06:29 Vancomycin HCl (Vanco rx to dose) 1 ea DAILY PRN MISC . 03/03/17 07:30 03/04/17 23:59 Vancomycin HCl/ Dextrose (Vancomycin/D5W) 275 ml @ 183.708 mls/hr Q12HR IVPB 03/03/17 21:00 03/04/17 23:59 03/04/17 11:17 GI: Plan Problems: (1) Ileus (2) Abdominal distension (3) Septic shock (4) Paraplegia (5) Anemia (6) Iron deficiency Plan abdominal distention most likely due to ileus 2/2 septic shock bowel rest and decompression >> NGT LCIS maintain NPO + IVFs + electrolyte replacement fu KUB pain mgmt turn patient q2 hours repeat imaging studies prn iron deficient >> venofer ppi fu labs Discussed with Dr. Thompson. Thank you for referring this patient, we will follow. Lou Cee N.P. Mar 04, 2017 14:11
[2017-03-04] MEDS: Iron Sucrose 100 MG in NS 55 ML IVPB SCH (20:49)
[2017-03-04] MEDS: Dyna-Hex 2% Top Sol 8oz TOPIC SCH (20:49)
[2017-03-05] VITALS (59 sets, daily range): BP systolic 82–128; BP diastolic 42–85
[2017-03-05] MEDS: Acetaminophen 650mg/20.3ml NG PRN ×3 (02:35→22:10)
[2017-03-05 05:30] LABS: MEAN CORPUSCULAR HEMOGLOBIN 26.2 PG (27.0-31.0); MEAN CORPUSCULAR HGB CONC 30.6 G/DL (32.0-36.0); MEAN CORPUSCULAR VOLUME 86 FL (80-99); MEAN PLATELET VOLUME 5.5 FL (6.5-10.1); PLATELET COUNT 185 K/UL (150-450); RED BLOOD COUNT 3.59 M/UL (4.70-6.10); RED CELL DISTRIBUTION WIDTH 16.2 % (11.6-14.8)
[2017-03-05 05:41] LABS: WHITE BLOOD COUNT 28.2 K/UL (4.8-10.8)
[2017-03-05 05:50] LABS: ALANINE AMINOTRANSFERASE 14 U/L (3-41); ALBUMIN/GLOBULIN RATIO 0.6 (1.0-2.7); ANION GAP 16 (5-15); ASPARTATE AMINO TRANSFERASE 29 U/L (5-40); CALCIUM 9.2 mg/dL (8.6-10.2); CARBON DIOXIDE 22 mEQ/L (20-30); CHLORIDE 105 mEQ/L (98-107); GLOMERULAR FILTRATION RATE > 60 mL/min (>60); HEMOLYSIS 0; MAGNESIUM 1.8 mg/dL (1.7-2.5); SODIUM 143 mEQ/L (135-145); TOTAL PROTEIN 6.6 g/dL (6.6-8.7)
[2017-03-05] MEDS: Morphine Sulfate 4mg/ml Inj IVP PRN ×3 (06:01→23:02)
[2017-03-05 06:50] LABS: BAND NEUTROPHILS % (MANUAL) 16 % (0-8); BASOPHILS % (MANUAL) 0 % (0-2); EOSINOPHILS % (MANUAL) 0 % (0-3); LYMPHOCYTES % (MANUAL) 3 % (20-45); NEUTROPHILS % (MANUAL) 81 % (45-75); PLATELET ESTIMATE ADEQUATE; PLATELET MORPHOLOGY NORMAL; TOTAL CELLS COUNTED 100
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
[2017-03-05] MEDS: Ertapenem 1 GM in NS 55 ML IV SCH (08:49)
[2017-03-05] MEDS: Pantoprazole Inj IVP SCH (08:50)
[2017-03-05] MEDS: levETIRAcetam 500mg/5ml Liquid GT SCH ×2 (08:50→20:59)
[2017-03-05] MEDS: Heparin 5000 units/ml inj SUBQ SCH ×2 (08:51→21:01)
[2017-03-05] MEDS: Nystatin Powder 100,000 units/gm 15gm TOPIC SCH ×3 (10:39→18:05)
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
--- NOTE | 2017-03-05 20:03 | Infectious Diseases Prog Note ---
Assessment/Plan Assessment/Plan ASSESSMENT: 56 y/o male with: // ESBL(+) E.coli UTI // ESBL(+) E.coli bacteremia, m/l urinary source - repeat BCx GNR - TTE(-) SBE // Probable recurrent HCAP - SCx GNR - CXR 03/04: Worsening generalized interstitial congestion, right mid and lower lung parenchymal infiltrates - h/o PSA // Multiple decubiti POA, not grossly infected - WCx S.aureus, GNR x2 = colonizers // Negative C.difficile 03/03 // Sepsis // Leukocytosis - improved // Fever - persistent // Chronic VDRF SP trach, PEG // Severe pulmonary HTN // Paraplegia // ARF - improved // Chronic FOBT(+) anemia // NKDA // Full Code PLAN: - continue amikacin, invanz d# 3 / 10-14 ( 03/04 SP IV vancomycin d# 2 ) - check echo - f/u cultures, adjust ABX accordingly - monitor CBC, temperatures - monitor BMP - monitor CXR - vent support / trach care / aspiration precautions - wound care Subjective Allergies: Coded Allergies: No Known Allergies (Unverified , 03/02/17) Subjective persistent fevers WBC improved cultures noted Objective Vital Signs Last 24 Hour Vital Signs Date Time Temp Pulse Resp B/P Pulse Ox O2 Delivery O2 Flow Rate FiO2 03/05/17 19:00 70 20 109/78 98 Mechanical Ventilator 03/05/17 18:55 74 23 30 03/05/17 18:30 74 22 92/75 98 Mechanical Ventilator 03/05/17 18:00 74 22 97/75 98 Mechanical Ventilator 03/05/17 17:30 70 19 98/67 97 Mechanical Ventilator 30 03/05/17 17:00 66 19 98/67 97 Mechanical Ventilator 30 03/05/17 16:45 74 20 30 03/05/17 16:30 99.9 73 21 96/58 97 Mechanical Ventilator 30 03/05/17 16:00 75 21 87/57 97 Mechanical Ventilator 30 03/05/17 16:00 73 03/05/17 16:00 30 03/05/17 15:30 73 22 95/58 98 Mechanical Ventilator 03/05/17 15:01 76 23 30 03/05/17 15:00 76 21 104/62 94 Mechanical Ventilator 30 03/05/17 14:30 74 20 102/63 97 Mechanical Ventilator 30 03/05/17 14:00 72 17 100/61 97 Mechanical Ventilator 30 03/05/17 13:14 100.8 03/05/17 13:08 72 20 30 03/05/17 13:00 72 18 95/50 99 Mechanical Ventilator 30 03/05/17 12:30 74 19 99/65 97 Mechanical Ventilator 30 03/05/17 12:00 101.0 78 24 98/63 98 Mechanical Ventilator 30 03/05/17 12:00 79 03/05/17 12:00 30 03/05/17 11:30 77 19 96/57 98 Mechanical Ventilator 30 03/05/17 11:11 76 21 30 03/05/17 11:00 81 24 119/68 98 Mechanical Ventilator 30 03/05/17 10:30 74 24 111/64 97 Mechanical Ventilator 30 03/05/17 10:00 75 25 120/72 97 Mechanical Ventilator 30 03/05/17 09:30 75 25 121/72 97 Mechanical Ventilator 30 03/05/17 09:02 79 21 30 03/05/17 09:00 78 24 119/70 98 Mechanical Ventilator 30 03/05/17 08:30 78 24 128/77 97 Mechanical Ventilator 30 03/05/17 08:15 77 24 115/67 97 Mechanical Ventilator 30 03/05/17 08:00 75 25 108/57 98 Mechanical Ventilator 30 03/05/17 08:00 30 03/05/17 08:00 74 03/05/17 07:45 78 24 95/59 99 Mechanical Ventilator 30 03/05/17 07:30 76 24 95/54 98 Mechanical Ventilator 30 03/05/17 07:15 99.0 75 24 83/48 98 Mechanical Ventilator 30 03/05/17 07:07 60 19 30 03/05/17 07:00 70 24 89/72 99 Mechanical Ventilator 30 03/05/17 06:45 68 24 96/54 99 Mechanical Ventilator 30 03/05/17 06:31 98.9 03/05/17 06:30 61 24 102/50 99 Mechanical Ventilator 30 03/05/17 06:15 68 24 108/68 99 Mechanical Ventilator 30 03/05/17 06:00 68 24 87/60 99 Mechanical Ventilator 30 03/05/17 05:45 71 24 88/57 99 Mechanical Ventilator 30 03/05/17 05:30 68 24 82/42 99 Mechanical Ventilator 30 03/05/17 05:15 98.9 73 24 92/60 99 Mechanical Ventilator 30 03/05/17 05:05 68 18 30 03/05/17 05:00 71 24 88/57 99 Mechanical Ventilator 30 03/05/17 04:45 71 24 87/57 99 Mechanical Ventilator 30 03/05/17 04:30 76 24 113/83 99 Mechanical Ventilator 30 03/05/17 04:15 70 24 100/68 99 Mechanical Ventilator 30 03/05/17 04:00 70 03/05/17 04:00 30 03/05/17 04:00 99.3 69 24 103/58 99 Mechanical Ventilator 30 03/05/17 03:45 70 24 106/68 99 Mechanical Ventilator 30 03/05/17 03:30 72 24 108/70 99 Mechanical Ventilator 30 03/05/17 03:15 70 24 107/71 99 Mechanical Ventilator 30 03/05/17 03:12 73 16 30 03/05/17 03:00 100.0 72 24 103/67 99 Mechanical Ventilator 30 03/05/17 02:45 72 24 98/61 99 Mechanical Ventilator 30 03/05/17 02:30 70 24 98/62 99 Mechanical Ventilator 30 03/05/17 02:15 77 24 96/79 99 Mechanical Ventilator 30 03/05/17 02:00 72 24 102/58 99 Mechanical Ventilator 30 03/05/17 01:45 71 24 97/62 99 Mechanical Ventilator 30 03/05/17 01:30 73 24 97/62 99 Mechanical Ventilator 30 03/05/17 01:15 72 24 108/61 99 Mechanical Ventilator 30 03/05/17 01:00 73 24 108/85 99 Mechanical Ventilator 30 03/05/17 01:00 67 18 30 03/05/17 00:45 70 24 113/66 99 Mechanical Ventilator 30 03/05/17 00:30 77 24 96/79 99 Mechanical Ventilator 30 03/05/17 00:15 68 24 94/75 99 Mechanical Ventilator 30 03/05/17 00:00 73 03/05/17 00:00 99.6 77 21 107/58 99 Mechanical Ventilator 30 03/05/17 00:00 30 03/04/17 23:45 73 24 108/85 99 Mechanical Ventilator 30 03/04/17 23:30 80 24 122/95 99 Mechanical Ventilator 30 03/04/17 23:15 74 24 109/58 99 Mechanical Ventilator 30 03/04/17 23:11 75 20 30 03/04/17 23:00 74 24 91/67 99 Mechanical Ventilator 30 03/04/17 22:45 77 24 99/62 99 Mechanical Ventilator 30 03/04/17 22:30 72 22 82/56 99 Mechanical Ventilator 30 03/04/17 22:15 99.6 77 21 107/58 99 Mechanical Ventilator 30 03/04/17 22:00 72 22 107/63 99 Mechanical Ventilator 30 03/04/17 21:45 71 22 107/58 99 Mechanical Ventilator 30 03/04/17 21:30 99.9 75 21 115/58 99 Mechanical Ventilator 30 03/04/17 21:15 73 22 73/40 99 Mechanical Ventilator 30 03/04/17 21:00 75 22 100/67 99 Mechanical Ventilator 30 03/04/17 21:00 100/67 03/04/17 20:51 76 17 30 03/04/17 20:51 85/42 03/04/17 20:45 76 21 106/60 99 Mechanical Ventilator 30 03/04/17 20:30 75 21 100/60 99 Mechanical Ventilator 30 03/04/17 20:15 76 22 85/42 99 Mechanical Ventilator 30 03/04/17 20:00 100.1 75 21 108/71 99 Mechanical Ventilator 30 03/04/17 20:00 80 03/04/17 20:00 30 Height (Feet): 6 Height (Inches): 5.00 Weight (Pounds): 197 General Appearance: no acute distress HEENT: status post trach Respiratory/Chest: decreased breath sounds Cardiovascular: normal rate, regular rhythm Abdomen: normal bowel sounds, soft, non tender, non distended Microbiology Date/Time Source Procedure Growth Status 03/03/17 12:45 Blood Blood Culture - Preliminary Gram Negative Maxx Resulted 03/03/17 12:30 Blood Blood Culture - Preliminary Gram Negative Maxx Resulted 03/02/17 23:25 Blood Blood Culture - Preliminary Escherichia Coli - Esbl Resulted 03/02/17 23:20 Blood Blood Culture - Preliminary Escherichia Coli - Esbl Resulted 03/03/17 10:00 Sputum Gram Stain - Final Resulted 03/03/17 10:00 Sputum Culture - Preliminary Gram Negative Bacillus 1 Resulted 03/03/17 02:30 Nasal Nares MRSA Culture - Final NO METHICILLIN RESISTANT STAPH AUREUS... Complete 03/03/17 03:00 Stool Clostridium difficile Toxin Assay - Final Complete 03/03/17 00:40 Urine,Clean Catch Urine Culture - Final Escherichia Coli - Esbl Complete 03/03/17 03:00 Sacral Wound Gram Stain - Final Resulted 03/03/17 03:00 Wound Culture - Preliminary Staphylococcus Aureus Gram Negative Bacillus 1 Gram Negative Bacillus 2 Resulted 03/03/17 02:30 Rectum VRE Culture - Final Enterococcus Faecium - Vre Complete Laboratory Tests Test 03/05/17 03:45 White Blood Count 28.2 K/UL (4.8-10.8) *H Red Blood Count 3.59 M/UL (4.70-6.10) L Hemoglobin 9.4 G/DL (14.2-18.0) L Hematocrit 30.7 % (42.0-52.0) L Mean Corpuscular Volume 86 FL (80-99) Mean Corpuscular Hemoglobin 26.2 PG (27.0-31.0) L Mean Corpuscular Hemoglobin Concent 30.6 G/DL (32.0-36.0) L Red Cell Distribution Width 16.2 % (11.6-14.8) H Platelet Count 185 K/UL (150-450) Mean Platelet Volume 5.5 FL (6.5-10.1) L Neutrophils (%) (Auto) % (45.0-75.0) Lymphocytes (%) (Auto) % (20.0-45.0) Monocytes (%) (Auto) % (1.0-10.0) Eosinophils (%) (Auto) % (0.0-3.0) Basophils (%) (Auto) % (0.0-2.0) Differential Total Cells Counted 100 Neutrophils % (Manual) 81 % (45-75) H Lymphocytes % (Manual) 3 % (20-45) L Monocytes % (Manual) 0 % (1-10) L Eosinophils % (Manual) 0 % (0-3) Basophils % (Manual) 0 % (0-2) Band Neutrophils 16 % (0-8) H Platelet Estimate Adequate Platelet Morphology Normal Red Blood Cell Morphology Normal Sodium Level 143 mEQ/L (135-145) Potassium Level 3.0 mEQ/L (3.4-4.9) L Chloride Level 105 mEQ/L (98-107) Carbon Dioxide Level 22 mEQ/L (20-30) Anion Gap 16 (5-15) H Blood Urea Nitrogen 27 mg/dL (7-23) H Creatinine 1.0 mg/dL (0.7-1.2) Estimat Glomerular Filtration Rate > 60 mL/min (>60) Glucose Level 87 mg/dL (74-106) Calcium Level 9.2 mg/dL (8.6-10.2) Magnesium Level 1.8 mg/dL (1.7-2.5) Total Bilirubin 0.4 mg/dL (0.0-1.2) Aspartate Amino Transf (AST/SGOT) 29 U/L (5-40) Alanine Aminotransferase (ALT/SGPT) 14 U/L (3-41) Alkaline Phosphatase 231 U/L (40-129) H Total Protein 6.6 g/dL (6.6-8.7) Albumin 2.6 g/dL (3.5-5.2) L Globulin 4.0 g/dL Albumin/Globulin Ratio 0.6 (1.0-2.7) L Current Medications Medications (Trade) Dose Ordered Sig/Lucy Route PRN Reason Start Time Stop Time Status Last Admin Dose Admin Acetaminophen (Tylenol) 650 mg Q4H PRN NG Mild Pain/Temp > 100.5 03/03/17 13:15 04/02/17 13:14 03/05/17 12:44 Albuterol/ Ipratropium 3 ml 3 ml Q4H PRN HHN Shortness of Breath 03/03/17 06:30 03/08/17 06:29 Amikacin Protocol (Amikacin pharmacy to dose) 1 ea DAILY PRN MISC . 03/03/17 07:15 04/02/17 07:14 Amikacin Sulfate/ Sodium Chloride (Amikin/Sodium Chloride) 115 ml @ 230 mls/hr Q36H IV 03/04/17 12:00 03/11/17 11:59 03/04/17 11:55 Chlorhexidine Gluconate (Kim-Hex 2%) 1 applic BEDTIME TOPIC 03/04/17 21:00 04/03/17 20:59 03/04/17 20:49 Dextrose (Dextrose 50%) 50 ml STAT PRN IV Hypoglycemia 03/03/17 12:00 04/02/17 11:59 03/03/17 12:50 Dextrose/ Electrolytes (D5NS W/KCl 20meq 1000ml) 1,000 ml @ 75 mls/hr [id number] IV 03/05/17 09:30 04/04/17 09:29 03/05/17 10:38 Ertapenem 1 gm/ Sodium Chloride 55 ml @ 110 mls/hr Q24H IV 03/03/17 08:30 03/08/17 08:29 03/05/17 08:49 Heparin Sodium (Porcine) (Heparin 5000 units/ml) 5,000 units EVERY 12 HOURS SUBQ 03/03/17 09:00 04/02/17 08:59 03/05/17 08:51 Iron Sucrose 100 mg/Sodium Chloride 60 ml @ 240 mls/hr BEDTIME IVPB 03/04/17 21:00 03/06/17 21:14 03/04/17 20:49 Levetiracetam 500 mg 500 mg Q12HR GT 03/04/17 21:00 04/03/17 20:59 03/05/17 08:50 Lorazepam 2 mg 2 mg EVERY 2 HOURS PRN IV For Anxiety 03/03/17 06:30 03/10/17 06:29 Morphine Sulfate (Morphine Sulfate) 4 mg Q4H PRN IVP Severe Pain (Pain Scale 7-10) 03/03/17 06:30 03/10/17 06:29 03/05/17 19:02 Norepinephrine Bitartrate/ Dextrose (Levophed/D5W) 254 ml @ 0 mls/hr Q24H IV 03/03/17 06:30 04/02/17 06:29 03/04/17 20:51 Nystatin (Nystop Powder) 1 applic THREE TIMES A DAY TOPIC 03/04/17 09:00 04/03/17 08:59 03/05/17 18:05 Ondansetron HCl (Zofran) 4 mg Q6H PRN IVP Nausea & Vomiting 03/03/17 06:30 04/02/17 06:29 03/04/17 11:17 Pantoprazole (Protonix) 40 mg DAILY IVP 03/03/17 09:00 04/02/17 08:59 03/05/17 08:50 Polyethylene Glycol (Miralax) 17 gm DAILYPRN PRN ORAL Constipation 03/03/17 06:30 04/02/17 06:29 NA GREGG Mar 05, 2017 20:02
[2017-03-05] MEDS: Iron Sucrose 100 MG in NS 55 ML IVPB SCH (21:00)
[2017-03-05] MEDS: Dyna-Hex 2% Top Sol 8oz TOPIC SCH (21:00)
[2017-03-06] VITALS (19 sets, daily range): BP systolic 91–130; BP diastolic 56–90
[2017-03-06] MEDS: Amikacin 1,250 MG in NS 110 ML IV SCH (00:01)
[2017-03-06] MEDS: Morphine Sulfate 4mg/ml Inj IVP PRN ×3 (03:09→19:30)
[2017-03-06 05:10] LABS: MEAN CORPUSCULAR HEMOGLOBIN 25.9 PG (27.0-31.0); MEAN CORPUSCULAR HGB CONC 30.2 G/DL (32.0-36.0); MEAN CORPUSCULAR VOLUME 86 FL (80-99); MEAN PLATELET VOLUME 6.1 FL (6.5-10.1); PLATELET COUNT 158 K/UL (150-450); RED CELL DISTRIBUTION WIDTH 15.8 % (11.6-14.8); WHITE BLOOD COUNT 13.9 K/UL (4.8-10.8)
[2017-03-06 06:01] LABS: ALANINE AMINOTRANSFERASE 12 U/L (3-41); ALBUMIN/GLOBULIN RATIO 0.6 (1.0-2.7); ANION GAP 11 (5-15); ASPARTATE AMINO TRANSFERASE 24 U/L (5-40); CALCIUM 8.8 mg/dL (8.6-10.2); CARBON DIOXIDE 23 mEQ/L (20-30); CHLORIDE 111 mEQ/L (98-107); GLOMERULAR FILTRATION RATE > 60 mL/min (>60); HEMOLYSIS 2; MAGNESIUM 1.7 mg/dL (1.7-2.5); POTASSIUM 3.5 mEQ/L (3.4-4.9); SODIUM 145 mEQ/L (135-145); TOTAL PROTEIN 6.1 g/dL (6.6-8.7)
[2017-03-06 06:02] LABS: CRP QUANT 18.6 mg/dL (< 0.5); PHOSPHORUS 2.8 mg/dL (2.5-4.8); URIC ACID 8.1 mg/dL (3.0-7.5)
--- NOTE | 2017-03-06 07:47 | Infectious Diseases Prog Note ---
Assessment/Plan Assessment/Plan ASSESSMENT: 56 y/o male with: // ESBL(+) E.coli UTI // ESBL(+) E.coli bacteremia, m/l urinary source - repeat BCx GNR - TTE(-) SBE // Probable recurrent HCAP - SCx GNR, ACB - CXR 03/04: Worsening generalized interstitial congestion, right mid and lower lung parenchymal infiltrates - h/o PSA // Multiple decubiti POA, not grossly infected - WCx S.aureus, GNR x2 = colonizers // Negative C.difficile 03/03 // Sepsis // Leukocytosis - improved // Fever - persistent, improved // Chronic VDRF SP trach, PEG // Severe pulmonary HTN // Paraplegia // ARF - improved // Chronic FOBT(+) anemia // NKDA // Full Code PLAN: - continue amikacin, invanz d# 4 / 10-14 ( 03/04 SP IV vancomycin d# 2 ) - f/u echo - f/u cultures - monitor CBC, temperatures - monitor BMP - monitor CXR - vent support / trach care / aspiration precautions - wound care Subjective Allergies: Coded Allergies: No Known Allergies (Unverified , 03/02/17) Subjective persistent fevers improving WBC improved cultures noted Objective Vital Signs Last 24 Hour Vital Signs Date Time Temp Pulse Resp B/P Pulse Ox O2 Delivery O2 Flow Rate FiO2 03/06/17 07:00 62 17 108/68 100 Mechanical Ventilator 30 03/06/17 06:58 66 19 30 03/06/17 06:30 91/58 03/06/17 06:00 63 17 91/58 98 Mechanical Ventilator 30 03/06/17 05:00 63 18 97/62 100 Mechanical Ventilator 30 03/06/17 04:52 60 21 30 03/06/17 04:00 59 03/06/17 04:00 98.7 59 16 95/57 95 Mechanical Ventilator 30 03/06/17 04:00 30 03/06/17 03:00 65 18 98/64 98 Mechanical Ventilator 30 03/06/17 02:37 61 19 30 03/06/17 02:00 61 17 111/57 100 Mechanical Ventilator 30 03/06/17 01:00 60 16 111/57 100 Mechanical Ventilator 30 03/06/17 00:46 61 17 30 03/06/17 00:00 61 03/06/17 00:00 98.6 61 16 92/56 96 Mechanical Ventilator 30 03/06/17 00:00 30 03/05/17 23:00 98.8 64 16 92/56 98 Mechanical Ventilator 30 03/05/17 22:00 60 18 100/70 100 Mechanical Ventilator 30 03/05/17 21:08 74 18 30 03/05/17 21:00 66 17 107/57 98 Mechanical Ventilator 30 03/05/17 20:00 70 03/05/17 20:00 99.1 74 18 102/72 96 Mechanical Ventilator 30 03/05/17 20:00 30 03/05/17 19:00 70 20 109/78 98 Mechanical Ventilator 30 03/05/17 18:55 74 23 30 03/05/17 18:30 74 22 92/75 98 Mechanical Ventilator 30 03/05/17 18:00 74 22 97/75 98 Mechanical Ventilator 30 03/05/17 17:30 70 19 98/67 97 Mechanical Ventilator 30 03/05/17 17:00 66 19 98/67 97 Mechanical Ventilator 30 03/05/17 16:45 74 20 30 03/05/17 16:30 99.9 73 21 96/58 97 Mechanical Ventilator 30 03/05/17 16:00 75 21 87/57 97 Mechanical Ventilator 30 03/05/17 16:00 73 03/05/17 16:00 30 03/05/17 15:30 73 22 95/58 98 Mechanical Ventilator 30 03/05/17 15:01 76 23 30 03/05/17 15:00 76 21 104/62 94 Mechanical Ventilator 30 03/05/17 14:30 74 20 102/63 97 Mechanical Ventilator 30 03/05/17 14:00 72 17 100/61 97 Mechanical Ventilator 30 03/05/17 13:14 100.8 03/05/17 13:08 72 20 30 03/05/17 13:00 72 18 95/50 99 Mechanical Ventilator 30 03/05/17 12:30 74 19 99/65 97 Mechanical Ventilator 30 03/05/17 12:00 101.0 78 24 98/63 98 Mechanical Ventilator 30 03/05/17 12:00 79 03/05/17 12:00 30 03/05/17 11:30 77 19 96/57 98 Mechanical Ventilator 30 03/05/17 11:11 76 21 30 03/05/17 11:00 81 24 119/68 98 Mechanical Ventilator 30 03/05/17 10:30 74 24 111/64 97 Mechanical Ventilator 30 03/05/17 10:00 75 25 120/72 97 Mechanical Ventilator 30 03/05/17 09:30 75 25 121/72 97 Mechanical Ventilator 30 03/05/17 09:02 79 21 30 03/05/17 09:00 78 24 119/70 98 Mechanical Ventilator 30 03/05/17 08:30 78 24 128/77 97 Mechanical Ventilator 30 03/05/17 08:15 77 24 115/67 97 Mechanical Ventilator 30 03/05/17 08:00 75 25 108/57 98 Mechanical Ventilator 30 03/05/17 08:00 30 03/05/17 08:00 74 Height (Feet): 6 Height (Inches): 5.00 Weight (Pounds): 197 General Appearance: no acute distress HEENT: status post trach Respiratory/Chest: decreased breath sounds Cardiovascular: normal rate, regular rhythm Abdomen: normal bowel sounds, soft, non tender, non distended Microbiology Date/Time Source Procedure Growth Status 03/03/17 12:45 Blood Blood Culture - Preliminary Gram Negative Maxx Resulted 03/03/17 12:30 Blood Blood Culture - Preliminary Gram Negative Maxx Resulted 03/03/17 10:00 Sputum Gram Stain - Final Resulted 03/03/17 10:00 Sputum Culture - Preliminary Acinetobacter Baumannii Complx Gram Positive Cocci Resulted Laboratory Tests Test 03/06/17 04:00 White Blood Count 13.9 K/UL (4.8-10.8) #H Red Blood Count 3.30 M/UL (4.70-6.10) L Hemoglobin 8.5 G/DL (14.2-18.0) L Hematocrit 28.3 % (42.0-52.0) L Mean Corpuscular Volume 86 FL (80-99) Mean Corpuscular Hemoglobin 25.9 PG (27.0-31.0) L Mean Corpuscular Hemoglobin Concent 30.2 G/DL (32.0-36.0) L Red Cell Distribution Width 15.8 % (11.6-14.8) H Platelet Count 158 K/UL (150-450) Mean Platelet Volume 6.1 FL (6.5-10.1) L Neutrophils (%) (Auto) % (45.0-75.0) Lymphocytes (%) (Auto) % (20.0-45.0) Monocytes (%) (Auto) % (1.0-10.0) Eosinophils (%) (Auto) % (0.0-3.0) Basophils (%) (Auto) % (0.0-2.0) Neutrophils % (Manual) Pending Lymphocytes % (Manual) Pending Platelet Estimate Pending Platelet Morphology Pending Sodium Level 145 mEQ/L (135-145) Potassium Level 3.5 mEQ/L (3.4-4.9) Chloride Level 111 mEQ/L (98-107) H Carbon Dioxide Level 23 mEQ/L (20-30) Anion Gap 11 (5-15) Blood Urea Nitrogen 24 mg/dL (7-23) H Creatinine 1.0 mg/dL (0.7-1.2) Estimat Glomerular Filtration Rate > 60 mL/min (>60) Glucose Level 89 mg/dL (74-106) Uric Acid 8.1 mg/dL (3.0-7.5) H Calcium Level 8.8 mg/dL (8.6-10.2) Phosphorus Level 2.8 mg/dL (2.5-4.8) Magnesium Level 1.7 mg/dL (1.7-2.5) Total Bilirubin 0.4 mg/dL (0.0-1.2) Aspartate Amino Transf (AST/SGOT) 24 U/L (5-40) Alanine Aminotransferase (ALT/SGPT) 12 U/L (3-41) Alkaline Phosphatase 151 U/L (40-129) H C-Reactive Protein, Quantitative 18.6 mg/dL (< 0.5) H Pro-B-Type Natriuretic Peptide 12538 pg/mL (0-125) H Total Protein 6.1 g/dL (6.6-8.7) L Albumin 2.5 g/dL (3.5-5.2) L Globulin 3.6 g/dL Albumin/Globulin Ratio 0.6 (1.0-2.7) L Current Medications Medications (Trade) Dose Ordered Sig/Lucy Route PRN Reason Start Time Stop Time Status Last Admin Dose Admin Acetaminophen (Tylenol) 650 mg Q4H PRN NG Mild Pain/Temp > 100.5 03/03/17 13:15 04/02/17 13:14 03/05/17 22:10 Albuterol/ Ipratropium 3 ml 3 ml Q4H PRN HHN Shortness of Breath 03/03/17 06:30 03/08/17 06:29 Amikacin Protocol (Amikacin pharmacy to dose) 1 ea DAILY PRN MISC . 03/03/17 07:15 04/02/17 07:14 Amikacin Sulfate/ Sodium Chloride (Amikin/Sodium Chloride) 115 ml @ 230 mls/hr Q36H IV 03/04/17 12:00 03/11/17 11:59 03/06/17 00:01 Chlorhexidine Gluconate (Kim-Hex 2%) 1 applic BEDTIME TOPIC 03/04/17 21:00 04/03/17 20:59 03/05/17 21:00 Dextrose (Dextrose 50%) 50 ml STAT PRN IV Hypoglycemia 03/03/17 12:00 04/02/17 11:59 03/03/17 12:50 Dextrose/ Electrolytes (D5NS W/KCl 20meq 1000ml) 1,000 ml @ 75 mls/hr [id number] IV 03/05/17 09:30 04/04/17 09:29 03/05/17 23:02 Ertapenem 1 gm/ Sodium Chloride 55 ml @ 110 mls/hr Q24H IV 03/03/17 08:30 03/08/17 08:29 03/05/17 08:49 Heparin Sodium (Porcine) (Heparin 5000 units/ml) 5,000 units EVERY 12 HOURS SUBQ 03/03/17 09:00 04/02/17 08:59 03/05/17 21:01 Iron Sucrose 100 mg/Sodium Chloride 60 ml @ 240 mls/hr BEDTIME IVPB 03/04/17 21:00 03/06/17 21:14 03/05/17 21:00 Levetiracetam 500 mg 500 mg Q12HR GT 03/04/17 21:00 04/03/17 20:59 03/05/17 20:59 Lorazepam 2 mg 2 mg EVERY 2 HOURS PRN IV For Anxiety 03/03/17 06:30 03/10/17 06:29 Morphine Sulfate (Morphine Sulfate) 4 mg Q4H PRN IVP Severe Pain (Pain Scale 7-10) 03/03/17 06:30 03/10/17 06:29 03/06/17 03:09 Norepinephrine Bitartrate/ Dextrose (Levophed/D5W) 254 ml @ 0 mls/hr Q24H IV 03/03/17 06:30 04/02/17 06:29 03/04/17 20:51 Nystatin (Nystop Powder) 1 applic THREE TIMES A DAY TOPIC 03/04/17 09:00 04/03/17 08:59 03/05/17 18:05 Ondansetron HCl (Zofran) 4 mg Q6H PRN IVP Nausea & Vomiting 03/03/17 06:30 04/02/17 06:29 03/04/17 11:17 Pantoprazole (Protonix) 40 mg DAILY IVP 03/03/17 09:00 04/02/17 08:59 03/05/17 08:50 Polyethylene Glycol (Miralax) 17 gm DAILYPRN PRN ORAL Constipation 03/03/17 06:30 04/02/17 06:29 NA GREGG Mar 06, 2017 07:47
[2017-03-06 08:04] LABS: ANISOCYTOSIS 1+; BAND NEUTROPHILS % (MANUAL) 5 % (0-8); BASOPHILS % (MANUAL) 0 % (0-2); EOSINOPHILS % (MANUAL) 0 % (0-3); HYPOCHROMASIA 1+; LYMPHOCYTES % (MANUAL) 1 % (20-45); NEUTROPHILS % (MANUAL) 91 % (45-75); PLATELET ESTIMATE ADEQUATE; PLATELET MORPHOLOGY NORMAL; TOTAL CELLS COUNTED 100
[2017-03-06] MEDS: levETIRAcetam 500mg/5ml Liquid GT SCH ×2 (08:13→20:29)
[2017-03-06] MEDS: Ertapenem 1 GM in NS 55 ML IV SCH (08:13)
[2017-03-06] MEDS: Nystatin Powder 100,000 units/gm 15gm TOPIC SCH ×3 (08:14→17:16)
[2017-03-06] MEDS: Pantoprazole Inj IVP SCH (08:14)
[2017-03-06] MEDS: Heparin 5000 units/ml inj SUBQ SCH ×2 (08:14→20:30)
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
[2017-03-06 09:25] LABS: ABG ALLEN TEST POSITIVE; ABG BASE EXCESS -2.8; ABG PCO2 45.9 mmHg (35.0-45.0)
[2017-03-06] MEDS ORDERED: DuoNeb 0.5-3(2.5)mg/3ml neb HHN PRN ×2 (09:30→16:36)
[2017-03-06] MEDS ORDERED: D5NS 1000ml IV ONE (11:17)
[2017-03-06] MEDS ORDERED: Tubing IV Secondary IV ONE ×2 (11:17→15:14)
[2017-03-06] MEDS ORDERED: NS 275ml ONE ×3 (11:17→15:14)
[2017-03-06] MEDS ORDERED: Tubing IV Blood Pump IV ONE (11:18)
[2017-03-06] MEDS ORDERED: Sterile Water Irrig 1000ml IRRIG ONE (11:18)
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
[2017-03-06] MEDS ORDERED: Potassium Phosphate 20 MM in NS 275 ML IV ONE ×2 (13:15→17:00)
[2017-03-06] MEDS ORDERED: Acetaminophen 650mg/20.3ml NG PRN (16:35)
[2017-03-06] MEDS ORDERED: Amikacin Rx to dose MISC PRN (16:36)
[2017-03-06] MEDS ORDERED: Miralax 17gm pkt ORAL PRN (16:37)
[2017-03-06] MEDS: Dyna-Hex 2% Top Sol 8oz TOPIC SCH (20:28)
[2017-03-06] MEDS ORDERED: Iron Sucrose 100 MG in NS 55 ML IVPB SCH (21:00)
[2017-03-06] MEDS: LORazepam Inj 2mg/ml 1ml IV PRN (23:02)
[2017-03-07] MEDS: LORazepam Inj 2mg/ml 1ml IV PRN (02:07)
[2017-03-07 04:00] VITALS: BP 128/88
[2017-03-07 04:28] LABS: MEAN CORPUSCULAR HEMOGLOBIN 26.1 PG (27.0-31.0); MEAN CORPUSCULAR HGB CONC 30.4 G/DL (32.0-36.0); MEAN CORPUSCULAR VOLUME 86 FL (80-99); PLATELET COUNT 155 K/UL (150-450); RED BLOOD COUNT 3.59 M/UL (4.70-6.10); RED CELL DISTRIBUTION WIDTH 15.9 % (11.6-14.8); WHITE BLOOD COUNT 12.5 K/UL (4.8-10.8)
[2017-03-07 04:35] LABS: ANION GAP 14 (5-15); CALCIUM 8.9 mg/dL (8.6-10.2); CARBON DIOXIDE 23 mEQ/L (20-30); CHLORIDE 112 mEQ/L (98-107); CREATININE 0.8 mg/dL (0.7-1.2); GLOMERULAR FILTRATION RATE > 60 mL/min (>60); HEMOLYSIS 0; POTASSIUM 3.5 mEQ/L (3.4-4.9); SODIUM 149 mEQ/L (135-145)
[2017-03-07 07:42] LABS: ANISOCYTOSIS 1+; BAND NEUTROPHILS % (MANUAL) 0 % (0-8); BASOPHILS % (MANUAL) 0 % (0-2); EOSINOPHILS % (MANUAL) 0 % (0-3); HYPOCHROMASIA 1+; LYMPHOCYTES % (MANUAL) 9 % (20-45); NEUTROPHILS % (MANUAL) 86 % (45-75); PLATELET ESTIMATE ADEQUATE; PLATELET MORPHOLOGY NORMAL; TOTAL CELLS COUNTED 100
[2017-03-07] MEDS: Heparin 5000 units/ml inj SUBQ SCH ×2 (07:53→21:53)
[2017-03-07 07:57] LABS: ABG BASE EXCESS -1.5; ABG PCO2 46.3 mmHg (35.0-45.0)
[2017-03-07 07:58] LABS: ABG ALLEN TEST POSITIVE
[2017-03-07 08:00] VITALS: BP 116/81
[2017-03-07] MEDS ORDERED: Lidocaine 1% Plain 30 ml INJ ONE (08:00)
[2017-03-07] MEDS ORDERED: Heparin 2000 units/Ns 1000ml INJ ONE (08:00)
[2017-03-07] MEDS ORDERED: Ertapenem 1 GM in NS 55 ML IV SCH (08:30)
--- NOTE | 2017-03-07 08:40 | Diagnostic Imaging Report ---
Indication: Shortness of breath Technique: XRAY CHEST 1 V Comparison: 03/04/17 Findings: Rotation limits evaluation. Tracheostomy and nasogastric tube are again seen. Cardiomediastinal silhouette is grossly stable given rotation. Bilateral interstitial opacities are seen. There is a left basilar atelectasis. Right basilar volume loss and consolidation or small pleural effusion are present. Osseous structures are stable. Impression: Patient rotation limiting evaluation. Slightly increased consolidation or effusion in the right base. Otherwise stable chest.
[2017-03-07] MEDS: Pantoprazole Inj IVP SCH (08:44)
[2017-03-07] MEDS: Nystatin Powder 100,000 units/gm 15gm TOPIC SCH ×3 (08:44→17:28)
[2017-03-07] MEDS: levETIRAcetam 500mg/5ml Liquid GT SCH ×2 (08:44→21:52)
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
--- NOTE | 2017-03-07 10:58 | Infectious Diseases Prog Note ---
Assessment/Plan Assessment/Plan ASSESSMENT: 56 y/o male with: // ESBL(+) E.coli UTI // ESBL(+) E.coli bacteremia, m/l urinary source - repeat BCx: ESBL(+) E.coli - TTE(-) SBE // Probable recurrent HCAP - SCx MRSA , ACB - CXR 03/04: Worsening generalized interstitial congestion, right mid and lower lung parenchymal infiltrates - h/o PSA // Multiple decubiti POA, not grossly infected - WCx S.aureus, GNR x2 = colonizers // Negative C.difficile 03/03 // Sepsis // Leukocytosis - improved // Fever // Chronic VDRF SP trach, PEG // Severe pulmonary HTN // Paraplegia // ARF - improved // Chronic FOBT(+) anemia // NKDA // Full Code PLAN: - start Merrem , IV Vanco and Colistin INH d# 1 , DC Amikacin, Invanz d# 5 ( 03/04 SP IV vancomycin d# 2 ) - f/u echo - monitor CBC, temperatures - monitor BMP - monitor CXR - vent support / trach care / aspiration precautions - wound care - repeat Cx ( Blood ans Urine ) Subjective Constitutional: Denies: anorexia, chills, drenching sweats, fatigue, fever, no symptoms, other Allergies: Coded Allergies: No Known Allergies (Unverified , 03/02/17) Objective Vital Signs Last 24 Hour Vital Signs Date Time Temp Pulse Resp B/P Pulse Ox O2 Delivery O2 Flow Rate FiO2 03/07/17 08:57 51 21 30 03/07/17 08:00 56 03/07/17 08:00 95.4 54 20 116/81 99 Mechanical Ventilator 30 03/07/17 08:00 30 03/07/17 06:50 54 22 30 03/07/17 05:10 52 20 30 03/07/17 04:00 30 03/07/17 04:00 97.0 56 16 128/88 97 Mechanical Ventilator 30 03/07/17 04:00 63 03/07/17 03:21 53 18 30 03/07/17 00:51 56 20 30 03/07/17 00:00 30 03/07/17 00:00 58 03/06/17 23:54 95.7 58 14 130/90 97 Mechanical Ventilator 30 03/06/17 23:07 60 20 30 03/06/17 21:28 80 22 30 03/06/17 21:00 99.0 03/06/17 20:00 30 03/06/17 20:00 97.3 03/06/17 20:00 79 03/06/17 20:00 101.0 75 19 125/84 97 Mechanical Ventilator 30 03/06/17 19:41 72 24 Mechanical Ventilator 30 03/06/17 19:30 75 23 30 03/06/17 17:18 79 22 30 03/06/17 16:00 30 03/06/17 16:00 97.3 75 19 125/72 100 Mechanical Ventilator 30 03/06/17 16:00 70 03/06/17 15:28 67 22 30 03/06/17 15:00 68 19 116/68 100 Mechanical Ventilator 30 03/06/17 14:00 66 19 114/73 100 Mechanical Ventilator 30 03/06/17 13:20 69 21 30 03/06/17 13:00 69 19 110/86 100 Mechanical Ventilator 30 03/06/17 12:00 62 03/06/17 12:00 99.0 64 15 106/74 100 Mechanical Ventilator 30 03/06/17 12:00 30 03/06/17 11:20 69 20 30 03/06/17 11:00 67 19 91/56 100 Mechanical Ventilator 30 Height (Feet): 6 Height (Inches): 5.00 Weight (Pounds): 197 HEENT: atraumatic Respiratory/Chest: lungs clear Cardiovascular: normal rate Abdomen: non distended Laboratory Tests Test 03/06/17 12:00 03/07/17 03:00 03/07/17 07:46 Amikacin Level Trough 15.8 ug/mL (10.0-15.0) H White Blood Count 12.5 K/UL (4.8-10.8) H Red Blood Count 3.59 M/UL (4.70-6.10) L Hemoglobin 9.4 G/DL (14.2-18.0) L Hematocrit 30.9 % (42.0-52.0) L Mean Corpuscular Volume 86 FL (80-99) Mean Corpuscular Hemoglobin 26.1 PG (27.0-31.0) L Mean Corpuscular Hemoglobin Concent 30.4 G/DL (32.0-36.0) L Red Cell Distribution Width 15.9 % (11.6-14.8) H Platelet Count 155 K/UL (150-450) Mean Platelet Volume 6.0 FL (6.5-10.1) L Neutrophils (%) (Auto) % (45.0-75.0) Lymphocytes (%) (Auto) % (20.0-45.0) Monocytes (%) (Auto) % (1.0-10.0) Eosinophils (%) (Auto) % (0.0-3.0) Basophils (%) (Auto) % (0.0-2.0) Differential Total Cells Counted 100 Neutrophils % (Manual) 86 % (45-75) H Lymphocytes % (Manual) 9 % (20-45) L Monocytes % (Manual) 5 % (1-10) Eosinophils % (Manual) 0 % (0-3) Basophils % (Manual) 0 % (0-2) Band Neutrophils 0 % (0-8) Platelet Estimate Adequate Platelet Morphology Normal Hypochromasia 1+ Anisocytosis 1+ Sodium Level 149 mEQ/L (135-145) H Potassium Level 3.5 mEQ/L (3.4-4.9) Chloride Level 112 mEQ/L (98-107) H Carbon Dioxide Level 23 mEQ/L (20-30) Anion Gap 14 (5-15) Blood Urea Nitrogen 21 mg/dL (7-23) Creatinine 0.8 mg/dL (0.7-1.2) Estimat Glomerular Filtration Rate > 60 mL/min (>60) Glucose Level 112 mg/dL (74-106) H Calcium Level 8.9 mg/dL (8.6-10.2) Arterial Blood pH 7.339 (7.350-7.450) Arterial Blood Partial Pressure CO2 46.3 mmHg (35.0-45.0) H Arterial Blood Partial Pressure O2 76.9 mmHg (75.0-100.0) Arterial Blood HCO3 24.4 mmol/L (22.0-26.0) Arterial Blood Oxygen Saturation 93.9 % (92.0-98.0) Arterial Blood Base Excess -1.5 Andrea Test Positive Current Medications Medications (Trade) Dose Ordered Sig/Lucy Route PRN Reason Start Time Stop Time Status Last Admin Dose Admin Acetaminophen (Tylenol) 650 mg Q4H PRN NG Mild Pain/Temp > 100.5 03/06/17 16:35 04/05/17 16:34 03/06/17 20:28 Albuterol/ Ipratropium (DuoNeb 0.5-3(2.5)mg/3ml) 3 ml Q4H PRN HHN Shortness of Breath 03/06/17 16:36 03/11/17 16:35 Amikacin Protocol (Amikacin pharmacy to dose) 1 ea DAILY PRN MISC .PRN RX PROTOCOL 03/06/17 16:36 04/05/17 16:35 Amikacin Sulfate 1250 mg/Sodium Chloride 115 ml @ 230 mls/hr Q36H IV 03/07/17 12:00 03/14/17 11:59 Chlorhexidine Gluconate (Kim-Hex 2%) 1 applic BEDTIME TOPIC 03/06/17 21:00 04/05/17 20:59 03/06/17 20:28 Dextrose (D5W 1000ml) 1,000 ml @ 75 mls/hr [id number] IV 03/07/17 10:00 04/06/17 09:59 03/07/17 09:35 Dextrose (Dextrose 50%) 50 ml STAT PRN IV Hypoglycemia 03/06/17 16:36 04/05/17 16:35 Ertapenem/Sodium Chloride (INVanz/Sodium Chloride) 55 ml @ 110 mls/hr Q24H IV 03/07/17 08:30 03/12/17 08:29 03/07/17 08:43 Heparin Sodium (Porcine) (Heparin 5000 units/ml) 5,000 units EVERY 12 HOURS SUBQ 03/06/17 21:00 04/05/17 20:59 03/06/17 20:30 Levetiracetam (Keppra) 500 mg Q12HR GT 03/06/17 21:00 04/05/17 20:59 03/07/17 08:44 Lorazepam (Ativan 2mg/ml 1ml) 2 mg Q2H PRN IV For Anxiety 03/06/17 16:00 03/13/17 15:59 03/07/17 02:07 Morphine Sulfate (Morphine Sulfate) 4 mg Q4H PRN IVP Severe Pain (Pain Scale 7-10) 03/06/17 16:37 03/13/17 16:36 03/06/17 19:30 Nystatin (Nystop Powder) 1 applic THREE TIMES A DAY TOPIC 03/06/17 18:00 04/05/17 17:59 03/07/17 08:44 Ondansetron HCl (Zofran) 4 mg Q6H PRN IVP Nausea & Vomiting 03/06/17 16:38 04/05/17 16:37 Pantoprazole (Protonix) 40 mg DAILY IVP 03/07/17 09:00 04/06/17 08:59 03/07/17 08:44 Polyethylene Glycol 17 gm 17 gm DAILYPRN PRN ORAL Constipation 03/06/17 16:37 04/05/17 16:36 DAVID GILBERT M.D. Mar 07, 2017 10:58
[2017-03-07 12:00] VITALS: BP 151/86
[2017-03-07] MEDS ORDERED: Amikacin 1,250 MG in NS 110 ML IV SCH (12:00)
--- NOTE | 2017-03-07 12:51 | Diagnostic Imaging Report ---
Indication: Dyspnea Comparison: 03/06/17 A single view chest radiograph was obtained. Findings: Moderate interstitial edema appears worse. Evidence of right pleural effusion. Cardiomegaly is stable. Impression: Interstitial edema with some worsening
[2017-03-07] MEDS: Meropenem 1 GM in NS 110 ML IVPB SCH ×2 (13:08→21:52)
--- NOTE | 2017-03-07 13:17 | GI Progress Note ---
Assessment/Plan Problems: (1) Iron deficiency ICD Codes: E61.1 - Iron deficiency SNOMED: 88908030 (2) Ileus ICD Codes: K56.7 - Ileus, unspecified SNOMED: 359537056 (3) Abdominal distension ICD Codes: R14.0 - Abdominal distension (gaseous) SNOMED: 68544080 (4) Septic shock ICD Codes: A41.9 - Sepsis, unspecified organism; R65.21 - Severe sepsis with septic shock SNOMED: 09725160 (5) Paraplegia ICD Codes: G82.20 - Paraplegia, unspecified SNOMED: 38065679 (6) Anemia ICD Codes: D64.9 - Anemia, unspecified SNOMED: 716874930 Qualifiers: Qualified Codes: D64.9 - Anemia, unspecified Status: unchanged Status Narrative Discussed with Dr. Thompson. Assessment/Plan KUB reviewed >> ileus abdominal distention most likely due to ileus 2/2 septic shock bowel rest and decompression >> NGT LCIS, low output will monitor for one more day NPO + IVFs + electrolyte replacement video swallow today, consider TPN if patient does not pass pain mgmt turn patient q2 hours iron deficient >> venofer ppi fu labs Subjective Subjective limited Objective Last 24 Hour Vital Signs Date Time Temp Pulse Resp B/P Pulse Ox O2 Delivery O2 Flow Rate FiO2 03/07/17 12:55 53 18 30 03/07/17 12:00 30 03/07/17 12:00 95.4 51 22 151/86 98 Mechanical Ventilator 30 03/07/17 11:11 53 21 30 03/07/17 08:57 51 21 30 03/07/17 08:00 56 03/07/17 08:00 95.4 54 20 116/81 99 Mechanical Ventilator 30 03/07/17 08:00 30 03/07/17 06:50 54 22 30 03/07/17 05:10 52 20 30 03/07/17 04:00 30 03/07/17 04:00 97.0 56 16 128/88 97 Mechanical Ventilator 30 03/07/17 04:00 63 03/07/17 03:21 53 18 30 03/07/17 00:51 56 20 30 03/07/17 00:00 30 03/07/17 00:00 58 03/06/17 23:54 95.7 58 14 130/90 97 Mechanical Ventilator 30 03/06/17 23:07 60 20 30 03/06/17 21:28 80 22 30 03/06/17 21:00 99.0 03/06/17 20:00 30 03/06/17 20:00 97.3 03/06/17 20:00 79 03/06/17 20:00 101.0 75 19 125/84 97 Mechanical Ventilator 30 03/06/17 19:41 72 24 Mechanical Ventilator 03/06/17 19:30 75 23 30 03/06/17 17:18 79 22 30 03/06/17 16:00 30 03/06/17 16:00 97.3 75 19 125/72 100 Mechanical Ventilator 30 03/06/17 16:00 70 03/06/17 15:28 67 22 30 03/06/17 15:00 68 19 116/68 100 Mechanical Ventilator 30 03/06/17 14:00 66 19 114/73 100 Mechanical Ventilator 30 03/06/17 13:20 69 21 30 Intake and Output 03/06/17 03/07/17 19:00 07:00 Intake Total 830.832 ml 958.944 ml Output Total 890 ml 1100 ml Balance -59.168 ml -141.056 ml IV Total 830.832 ml 958.944 ml Output Urine Total 890 ml 1000 ml Stool Total 100 ml Laboratory Tests Test 03/07/17 03:00 03/07/17 07:46 White Blood Count 12.5 K/UL (4.8-10.8) H Red Blood Count 3.59 M/UL (4.70-6.10) L Hemoglobin 9.4 G/DL (14.2-18.0) L Hematocrit 30.9 % (42.0-52.0) L Mean Corpuscular Volume 86 FL (80-99) Mean Corpuscular Hemoglobin 26.1 PG (27.0-31.0) L Mean Corpuscular Hemoglobin Concent 30.4 G/DL (32.0-36.0) L Red Cell Distribution Width 15.9 % (11.6-14.8) H Platelet Count 155 K/UL (150-450) Mean Platelet Volume 6.0 FL (6.5-10.1) L Neutrophils (%) (Auto) % (45.0-75.0) Lymphocytes (%) (Auto) % (20.0-45.0) Monocytes (%) (Auto) % (1.0-10.0) Eosinophils (%) (Auto) % (0.0-3.0) Basophils (%) (Auto) % (0.0-2.0) Differential Total Cells Counted 100 Neutrophils % (Manual) 86 % (45-75) H Lymphocytes % (Manual) 9 % (20-45) L Monocytes % (Manual) 5 % (1-10) Eosinophils % (Manual) 0 % (0-3) Basophils % (Manual) 0 % (0-2) Band Neutrophils 0 % (0-8) Platelet Estimate Adequate Platelet Morphology Normal Hypochromasia 1+ Anisocytosis 1+ Sodium Level 149 mEQ/L (135-145) H Potassium Level 3.5 mEQ/L (3.4-4.9) Chloride Level 112 mEQ/L (98-107) H Carbon Dioxide Level 23 mEQ/L (20-30) Anion Gap 14 (5-15) Blood Urea Nitrogen 21 mg/dL (7-23) Creatinine 0.8 mg/dL (0.7-1.2) Estimat Glomerular Filtration Rate > 60 mL/min (>60) Glucose Level 112 mg/dL (74-106) H Calcium Level 8.9 mg/dL (8.6-10.2) Arterial Blood pH 7.339 (7.350-7.450) Arterial Blood Partial Pressure CO2 46.3 mmHg (35.0-45.0) H Arterial Blood Partial Pressure O2 76.9 mmHg (75.0-100.0) Arterial Blood HCO3 24.4 mmol/L (22.0-26.0) Arterial Blood Oxygen Saturation 93.9 % (92.0-98.0) Arterial Blood Base Excess -1.5 Andrea Test Positive Height (Feet): 6 Height (Inches): 5.00 Weight (Pounds): 197 General Appearance: alert Cardiovascular: normal rate Respiratory/Chest: other - mech vent Abdominal Exam: normal bowel sounds, non tender, soft, distended - better Genitourinary/Rectal: normal rectal exam Lou Cee N.P. Mar 07, 2017 13:17
[2017-03-07] MEDS: Colistin for inhalation INH SCH ×2 (13:37→21:06)
[2017-03-07] MEDS: Vancomycin 1.5 GM/D5W 250ML IVPB SCH (13:53)
[2017-03-07] MEDS ORDERED: Tubing IV Secondary IV ONE (14:43)
[2017-03-07 16:00] VITALS: BP 152/82
[2017-03-07] MEDS: Morphine Sulfate 4mg/ml Inj IVP PRN (19:03)
--- NOTE | 2017-03-07 19:03 | Cardiology Report ---
APPROVED REPORT EKG Measurement Heart [id number] 140P69 [id number] Sinus rhythm with premature atrial complexes ST elevation, probably due to early repolarization Borderline ECG
[2017-03-07 19:42] VITALS: BP 129/73
[2017-03-07] MEDS: Dyna-Hex 2% Top Sol 8oz TOPIC SCH (21:51)
[2017-03-07 23:08] VITALS: BP 102/63
[2017-03-08] MEDS: Vancomycin 1.5 GM/D5W 250ML IVPB SCH ×2 (02:40→16:00)
[2017-03-08] MEDS: Morphine Sulfate 4mg/ml Inj IVP PRN (03:00)
[2017-03-08 03:43] VITALS: BP 114/77
[2017-03-08] MEDS: Meropenem 1 GM in NS 110 ML IVPB SCH ×3 (05:26→22:06)
[2017-03-08 05:35] LABS: BASOPHILS % (AUTO) 0.9 % (0.0-2.0); EOSINOPHILS % (AUTO) 0.2 % (0.0-3.0); LYMPHOCYTES % (AUTO) 6.6 % (20.0-45.0); MEAN CORPUSCULAR HEMOGLOBIN 27.1 PG (27.0-31.0); MEAN CORPUSCULAR VOLUME 87 FL (80-99); MEAN PLATELET VOLUME 6.2 FL (6.5-10.1); MONOCYTES % (AUTO) 8.3 % (1.0-10.0); PLATELET COUNT 152 K/UL (150-450); RED BLOOD COUNT 3.04 M/UL (4.70-6.10); RED CELL DISTRIBUTION WIDTH 16.2 % (11.6-14.8); WHITE BLOOD COUNT 11.5 K/UL (4.8-10.8)
[2017-03-08 06:05] LABS: ALANINE AMINOTRANSFERASE 6 U/L (3-41); ALBUMIN/GLOBULIN RATIO 0.6 (1.0-2.7); ANION GAP 14 (5-15); ASPARTATE AMINO TRANSFERASE 12 U/L (5-40); CALCIUM 8.2 mg/dL (8.6-10.2); CARBON DIOXIDE 23 mEQ/L (20-30); CHLORIDE 99 mEQ/L (98-107); CREATININE 0.7 mg/dL (0.7-1.2); GLOMERULAR FILTRATION RATE > 60 mL/min (>60); HEMOLYSIS 0; MAGNESIUM 1.2 mg/dL (1.7-2.5); PHOSPHORUS 2.9 mg/dL (2.5-4.8); POTASSIUM 2.9 mEQ/L (3.4-4.9); SODIUM 136 mEQ/L (135-145); TOTAL PROTEIN 5.9 g/dL (6.6-8.7)
[2017-03-08] MEDS: Colistin for inhalation INH SCH ×2 (07:28→22:39)
[2017-03-08 08:00] VITALS: BP 130/80
--- NOTE | 2017-03-08 08:25 | Diagnostic Imaging Report ---
Indication: terminal gauger venous access Findings: After the indications, procedure, risks, complications, and alternatives of the procedure were explained, written informed consent was obtained. The right upper extremity was prepped with alcohol. All elements of maximal sterile barrier technique were followed including usage of a cap, mask, sterile gown, sterile gloves, hand hygiene and a large sterile sheet. Sonographic evaluation of the upper extremity was performed demonstrating a patent and compressible brachial vein. Access was obtained under real-time ultrasound guidance and digital image was saved and archived. An .018 wire was introduced. Needle exchanged for a 5 [place] peel-away sheath. Measurements were obtained. A 5 [place] dual-lumen Power PICC line catheter was cut to 35 cm and introduced over the wire. Peel-away sheath and wire were removed.Catheter was secured to the skin using 2-0 Prolene suture. Both ports aspirate and flush easily. Post procedure chest x-ray demonstrates good position of the PICC line catheter within the SVC. Impression: Successful placement of an upper extremity PICC line catheter
[2017-03-08] MEDS: Nystatin Powder 100,000 units/gm 15gm TOPIC SCH ×3 (09:00→17:06)
[2017-03-08] MEDS: levETIRAcetam 500mg/5ml Liquid GT SCH ×2 (09:00→21:57)
[2017-03-08] MEDS: Pantoprazole Inj IVP SCH (09:30)
[2017-03-08] MEDS: Heparin 5000 units/ml inj SUBQ SCH ×2 (09:35→22:01)
--- NOTE | 2017-03-08 11:34 | Cardiology Report ---
APPROVED REPORT EXAM: Two-dimensional and M-mode echocardiogram with Doppler and color Doppler. INDICATION Left Ventricular Function M-Mode DIMENSIONS IVSd1.0 (0.7-1.1cm)Left Atrium (MM)4.3 (1.6-4.0cm) LVDd5.5 (3.5-5.6cm)Aortic Root3.0 (2.0-3.7cm) PWd1.4 (0.7-1.1cm)Aortic Cusp Exc.1.9 (1.5-2.0cm) LVDs2.6 (2.5-4.0cm) PWs1.8 cm Normal left ventricular chamber size, systolic function and wall motion. Left ventricular ejection fraction estimated to be 55 %. Mild left ventricular hypertrophy. No evidence of pericardial fat or effusion. Mild right atrial and right ventricular enlargement. Left atrial cardiac chamber size is within normal limits. Focal aortic valve sclerosis with adequate cusp excursion. Thickened mitral valve leaflets with normal excursion. Mitral annulus and aortic root calcification. Normal pulmonic valve structure. Normal tricuspid valve structure. IVC dilated at 2.2 cm with physiologic collapse, estimated RAP is 15 mmHg. A color flow and spectral Doppler study was performed and revealed: No aortic regurgitation. No mitral regurgitation. Mitral inflow velocities indicates normal left ventricular diastolic function. Trace tricuspid regurgitation. Tricuspid systolic velocities suggests peak right ventricular systolic pressure of 64 mmHg, consistent with severe pulmonary hypertension. No pulmonic regurgitation present.
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
[2017-03-08 12:00] VITALS: BP 125/80
--- NOTE | 2017-03-08 12:29 | Infectious Diseases Prog Note ---
Assessment/Plan Assessment/Plan ASSESSMENT: 56 y/o male with: // ESBL(+) E.coli UTI // ESBL(+) E.coli bacteremia, m/l urinary source - repeat BCx: ESBL(+) E.coli - TTE(-) SBE // Probable recurrent HCAP - SCx MRSA , ACB - CXR 03/04: Worsening generalized interstitial congestion, right mid and lower lung parenchymal infiltrates - h/o PSA // Multiple decubiti POA, not grossly infected - WCx S.aureus, GNR x2 = colonizers // Negative C.difficile 03/03 // Sepsis // Leukocytosis - improved // Fever improving // Chronic VDRF SP trach, PEG // Severe pulmonary HTN // Paraplegia // ARF - improved // Chronic FOBT(+) anemia // NKDA // Full Code PLAN: - start Merrem , IV Vanco and Colistin INH d# 2 / ( 03/07 SP Amikacin, Invanz d# 5 ) ( 03/04 SP IV vancomycin d# 2 ) - f/u echo - monitor CBC, temperatures - monitor BMP - monitor CXR - vent support / trach care / aspiration precautions - wound care - repeat Cx ( Blood ans Urine ) Subjective Constitutional: Denies: anorexia, chills, drenching sweats, fatigue, fever, no symptoms, other Allergies: Coded Allergies: No Known Allergies (Unverified , 03/02/17) Objective Vital Signs Last 24 Hour Vital Signs Date Time Temp Pulse Resp B/P Pulse Ox O2 Delivery O2 Flow Rate FiO2 03/08/17 11:15 60 16 30 03/08/17 09:20 64 16 30 03/08/17 08:00 30 03/08/17 08:00 57 03/08/17 08:00 97.7 56 23 130/80 96 Mechanical Ventilator 30 03/08/17 07:36 57 12 100 Mechanical Ventilator 30 03/08/17 07:28 59 14 30 03/08/17 07:15 52 15 96 Mechanical Ventilator 30 03/08/17 07:15 30 03/08/17 05:22 66 25 30 03/08/17 04:00 69 03/08/17 04:00 30 03/08/17 03:43 97.7 61 22 114/77 99 Mechanical Ventilator 03/08/17 03:30 97.7 03/08/17 02:54 66 29 30 03/08/17 01:17 65 21 30 03/08/17 00:00 59 03/08/17 00:00 30 03/07/17 23:08 96.3 59 18 102/63 97 Mechanical Ventilator 03/07/17 23:07 61 23 30 03/07/17 21:16 60 18 100 Mechanical Ventilator 30 03/07/17 21:06 59 20 96 Mechanical Ventilator 30 03/07/17 21:06 30 03/07/17 21:05 59 21 30 03/07/17 20:00 56 03/07/17 20:00 30 03/07/17 19:45 56 23 30 03/07/17 19:42 79 15 30 03/07/17 19:42 96.9 57 20 129/73 98 Mechanical Ventilator 03/07/17 17:10 57 18 30 03/07/17 16:09 64 18 30 03/07/17 16:00 57 03/07/17 16:00 30 03/07/17 16:00 96.1 55 19 152/82 100 Mechanical Ventilator 30 03/07/17 13:34 53 18 100 Mechanical Ventilator 30 03/07/17 13:31 30 03/07/17 13:31 53 19 100 Mechanical Ventilator 30 03/07/17 12:55 53 18 30 Height (Feet): 6 Height (Inches): 5.00 Weight (Pounds): 238 HEENT: anicteric Respiratory/Chest: no accessory muscle use Cardiovascular: regularly irregular Abdomen: no organomegaly Laboratory Tests Test 03/08/17 04:00 White Blood Count 11.5 K/UL (4.8-10.8) H Red Blood Count 3.04 M/UL (4.70-6.10) L Hemoglobin 8.2 G/DL (14.2-18.0) L Hematocrit 26.6 % (42.0-52.0) L Mean Corpuscular Volume 87 FL (80-99) Mean Corpuscular Hemoglobin 27.1 PG (27.0-31.0) Mean Corpuscular Hemoglobin Concent 31.0 G/DL (32.0-36.0) L Red Cell Distribution Width 16.2 % (11.6-14.8) H Platelet Count 152 K/UL (150-450) Mean Platelet Volume 6.2 FL (6.5-10.1) L Neutrophils (%) (Auto) 84.0 % (45.0-75.0) H Lymphocytes (%) (Auto) 6.6 % (20.0-45.0) L Monocytes (%) (Auto) 8.3 % (1.0-10.0) Eosinophils (%) (Auto) 0.2 % (0.0-3.0) Basophils (%) (Auto) 0.9 % (0.0-2.0) Sodium Level 136 mEQ/L (135-145) Potassium Level 2.9 mEQ/L (3.4-4.9) L Chloride Level 99 mEQ/L (98-107) Carbon Dioxide Level 23 mEQ/L (20-30) Anion Gap 14 (5-15) Blood Urea Nitrogen 17 mg/dL (7-23) Creatinine 0.7 mg/dL (0.7-1.2) Estimat Glomerular Filtration Rate > 60 mL/min (>60) Glucose Level 443 mg/dL (74-106) #H Calcium Level 8.2 mg/dL (8.6-10.2) L Phosphorus Level 2.9 mg/dL (2.5-4.8) Magnesium Level 1.2 mg/dL (1.7-2.5) L Total Bilirubin 0.3 mg/dL (0.0-1.2) Aspartate Amino Transf (AST/SGOT) 12 U/L (5-40) Alanine Aminotransferase (ALT/SGPT) 6 U/L (3-41) Alkaline Phosphatase 113 U/L (40-129) Total Protein 5.9 g/dL (6.6-8.7) L Albumin 2.3 g/dL (3.5-5.2) L Globulin 3.6 g/dL Albumin/Globulin Ratio 0.6 (1.0-2.7) L Current Medications Medications (Trade) Dose Ordered Sig/Lucy Route PRN Reason Start Time Stop Time Status Last Admin Dose Admin Acetaminophen (Tylenol) 650 mg Q4H PRN NG Mild Pain/Temp > 100.5 03/06/17 16:35 04/05/17 16:34 03/06/17 20:28 Albuterol/ Ipratropium (DuoNeb 0.5-3(2.5)mg/3ml) 3 ml Q4H PRN HHN Shortness of Breath 03/06/17 16:36 03/11/17 16:35 Chlorhexidine Gluconate (Kim-Hex 2%) 1 applic BEDTIME TOPIC 03/06/17 21:00 04/05/17 20:59 03/07/17 21:51 Colistimethate Sodium 150 mg 150 mg Q12HR@10,22 INH 03/07/17 12:00 03/14/17 11:59 03/08/17 07:28 Dextrose 1,000 ml @ 75 mls/hr [id number] IV 03/07/17 10:00 04/06/17 09:59 03/07/17 21:55 Dextrose (Dextrose 50%) 50 ml STAT PRN IV Hypoglycemia 03/06/17 16:36 04/05/17 16:35 Heparin Sodium (Porcine) (Heparin 5000 units/ml) 5,000 units EVERY 12 HOURS SUBQ 03/06/17 21:00 04/05/17 20:59 03/08/17 09:35 Levetiracetam (Keppra) 500 mg Q12HR GT 03/06/17 21:00 04/05/17 20:59 03/08/17 09:00 Lorazepam (Ativan 2mg/ml 1ml) 2 mg Q2H PRN IV For Anxiety 03/06/17 16:00 03/13/17 15:59 03/07/17 02:07 Magnesium Sulfate 100 ml @ 100 mls/hr Q1H IVPB 03/08/17 09:30 03/08/17 13:29 03/08/17 12:15 Meropenem/Sodium Chloride (Merrem/Sodium Chloride) 110 ml @ 220 mls/hr Q8HR IVPB 03/07/17 14:00 03/12/17 13:59 03/08/17 05:26 Morphine Sulfate (Morphine Sulfate) 4 mg Q4H PRN IVP Severe Pain (Pain Scale 7-10) 03/06/17 16:37 03/13/17 16:36 03/08/17 03:00 Nystatin (Nystop Powder) 1 applic THREE TIMES A DAY TOPIC 03/06/17 18:00 04/05/17 17:59 03/08/17 09:00 Ondansetron HCl (Zofran) 4 mg Q6H PRN IVP Nausea & Vomiting 03/06/17 16:38 04/05/17 16:37 Pantoprazole (Protonix) 40 mg DAILY IVP 03/07/17 09:00 04/06/17 08:59 03/08/17 09:30 Polyethylene Glycol 17 gm 17 gm DAILYPRN PRN ORAL Constipation 03/06/17 16:37 04/05/17 16:36 Potassium Chloride (KCl 20mEq/100ml Premix) 100 ml @ 50 mls/hr Q2H IVPB 03/08/17 09:30 03/08/17 13:29 03/08/17 12:16 Vancomycin HCl (Vanco rx to dose) 1 ea DAILY PRN MISC Per rx protocol 03/07/17 11:15 04/06/17 11:14 Vancomycin HCl/ Dextrose 250 ml @ 125 mls/hr Q12HR@0200,1400 IVPB 03/07/17 14:00 03/12/17 13:59 03/08/17 02:40 DAVID GILBERT M.D. Mar 08, 2017 12:29
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
--- NOTE | 2017-03-08 14:33 | Diagnostic Imaging Report ---
Indication: Abdominal pain Comparison: 03/04/17 Single view of the abdomen obtained NG tube is present in good position. Bowel gas pattern is nonspecific with mild distention in a generalized fashion of both large and small bowel. Would consider a generalized ileus. There is a Whalen catheter present. Impression: Suspect generalized ileus. NG tube in good position. No significant change
[2017-03-08 16:00] VITALS: BP 143/94
--- NOTE | 2017-03-08 16:21 | GI Progress Note ---
Assessment/Plan Problems: (1) Iron deficiency ICD Codes: E61.1 - Iron deficiency SNOMED: 94359257 (2) Ileus ICD Codes: K56.7 - Ileus, unspecified SNOMED: 790938805 (3) Abdominal distension ICD Codes: R14.0 - Abdominal distension (gaseous) SNOMED: 93081443 (4) Septic shock ICD Codes: A41.9 - Sepsis, unspecified organism; R65.21 - Severe sepsis with septic shock SNOMED: 32752063 (5) Paraplegia ICD Codes: G82.20 - Paraplegia, unspecified SNOMED: 02344724 (6) Anemia ICD Codes: D64.9 - Anemia, unspecified SNOMED: 293578607 Qualifiers: Qualified Codes: D64.9 - Anemia, unspecified Status: unchanged Status Narrative Discussed with Dr. Thompson. Assessment/Plan KUB reviewed >> ileus still present abdominal distention most likely due to ileus 2/2 septic shock start TPN bowel rest and decompression >> NGT LCIS, low output NPO + IVFs + electrolyte replacement pain mgmt turn patient q2 hours iron deficient >> venofer ppi fu labs Subjective Subjective limited Objective Last 24 Hour Vital Signs Date Time Temp Pulse Resp B/P Pulse Ox O2 Delivery O2 Flow Rate FiO2 03/08/17 14:35 52 16 30 03/08/17 12:43 56 16 30 03/08/17 12:00 30 03/08/17 12:00 98.1 65 19 125/80 100 Mechanical Ventilator 30 03/08/17 12:00 65 03/08/17 11:15 60 16 30 03/08/17 09:20 64 16 30 03/08/17 08:00 30 03/08/17 08:00 57 03/08/17 08:00 97.7 56 23 130/80 96 Mechanical Ventilator 30 03/08/17 07:36 57 12 100 Mechanical Ventilator 30 03/08/17 07:28 59 14 30 03/08/17 07:15 52 15 96 Mechanical Ventilator 30 03/08/17 07:15 30 03/08/17 05:22 66 25 30 03/08/17 04:00 69 03/08/17 04:00 30 03/08/17 03:43 97.7 61 22 114/77 99 Mechanical Ventilator 03/08/17 03:30 97.7 03/08/17 02:54 66 29 30 03/08/17 01:17 65 21 30 03/08/17 00:00 59 03/08/17 00:00 30 03/07/17 23:08 96.3 59 18 102/63 97 Mechanical Ventilator 03/07/17 23:07 61 23 30 03/07/17 21:16 60 18 100 Mechanical Ventilator 30 03/07/17 21:06 59 20 96 Mechanical Ventilator 30 03/07/17 21:06 30 03/07/17 21:05 59 21 30 03/07/17 20:00 56 03/07/17 20:00 30 03/07/17 19:45 56 23 30 03/07/17 19:42 79 15 30 03/07/17 19:42 96.9 57 20 129/73 98 Mechanical Ventilator 03/07/17 17:10 57 18 30 Intake and Output 03/07/17 03/08/17 19:00 07:00 Intake Total 1390 ml 1050 ml Output Total 1000 ml 1400 ml Balance 390 ml -350 ml IV Total 1390 ml 1050 ml Output Urine Total 1000 ml 1300 ml Stool Total 100 ml Laboratory Tests Test 03/08/17 04:00 White Blood Count 11.5 K/UL (4.8-10.8) H Red Blood Count 3.04 M/UL (4.70-6.10) L Hemoglobin 8.2 G/DL (14.2-18.0) L Hematocrit 26.6 % (42.0-52.0) L Mean Corpuscular Volume 87 FL (80-99) Mean Corpuscular Hemoglobin 27.1 PG (27.0-31.0) Mean Corpuscular Hemoglobin Concent 31.0 G/DL (32.0-36.0) L Red Cell Distribution Width 16.2 % (11.6-14.8) H Platelet Count 152 K/UL (150-450) Mean Platelet Volume 6.2 FL (6.5-10.1) L Neutrophils (%) (Auto) 84.0 % (45.0-75.0) H Lymphocytes (%) (Auto) 6.6 % (20.0-45.0) L Monocytes (%) (Auto) 8.3 % (1.0-10.0) Eosinophils (%) (Auto) 0.2 % (0.0-3.0) Basophils (%) (Auto) 0.9 % (0.0-2.0) Sodium Level 136 mEQ/L (135-145) Potassium Level 2.9 mEQ/L (3.4-4.9) L Chloride Level 99 mEQ/L (98-107) Carbon Dioxide Level 23 mEQ/L (20-30) Anion Gap 14 (5-15) Blood Urea Nitrogen 17 mg/dL (7-23) Creatinine 0.7 mg/dL (0.7-1.2) Estimat Glomerular Filtration Rate > 60 mL/min (>60) Glucose Level 443 mg/dL (74-106) #H Calcium Level 8.2 mg/dL (8.6-10.2) L Phosphorus Level 2.9 mg/dL (2.5-4.8) Magnesium Level 1.2 mg/dL (1.7-2.5) L Total Bilirubin 0.3 mg/dL (0.0-1.2) Aspartate Amino Transf (AST/SGOT) 12 U/L (5-40) Alanine Aminotransferase (ALT/SGPT) 6 U/L (3-41) Alkaline Phosphatase 113 U/L (40-129) Total Protein 5.9 g/dL (6.6-8.7) L Albumin 2.3 g/dL (3.5-5.2) L Globulin 3.6 g/dL Albumin/Globulin Ratio 0.6 (1.0-2.7) L Height (Feet): 6 Height (Inches): 5.00 Weight (Pounds): 238 General Appearance: no apparent distress, alert Cardiovascular: normal rate Respiratory/Chest: other - mech vent Abdominal Exam: normal bowel sounds, non tender, soft, distended Lou Cee N.P. Mar 08, 2017 16:21
[2017-03-08 20:00] VITALS: BP 133/87
[2017-03-08] MEDS: Dyna-Hex 2% Top Sol 8oz TOPIC SCH (21:57)
[2017-03-09] VITALS: BP 141/76
[2017-03-09] MEDS: Vancomycin 1.5 GM/D5W 250ML IVPB SCH (01:43)
[2017-03-09] MEDS: Morphine Sulfate 4mg/ml Inj IVP PRN ×3 (01:44→14:47)
[2017-03-09 04:00] VITALS: BP 128/78
[2017-03-09] MEDS: Meropenem 1 GM in NS 110 ML IVPB SCH ×3 (05:22→22:08)
[2017-03-09 05:48] LABS: BASOPHILS % (AUTO) 0.9 % (0.0-2.0); EOSINOPHILS % (AUTO) 0.4 % (0.0-3.0); LYMPHOCYTES % (AUTO) 6.8 % (20.0-45.0); MEAN CORPUSCULAR HEMOGLOBIN 26.8 PG (27.0-31.0); MEAN CORPUSCULAR HGB CONC 31.1 G/DL (32.0-36.0); MEAN CORPUSCULAR VOLUME 86 FL (80-99); MEAN PLATELET VOLUME 6.1 FL (6.5-10.1); MONOCYTES % (AUTO) 6.9 % (1.0-10.0); NEUTROPHILS % (AUTO) 84.9 % (45.0-75.0); PLATELET COUNT 199 K/UL (150-450); RED BLOOD COUNT 3.22 M/UL (4.70-6.10); RED CELL DISTRIBUTION WIDTH 16.2 % (11.6-14.8); WHITE BLOOD COUNT 14.8 K/UL (4.8-10.8)
[2017-03-09 06:53] LABS: ALANINE AMINOTRANSFERASE 6 U/L (3-41); ALBUMIN/GLOBULIN RATIO 0.6 (1.0-2.7); ASPARTATE AMINO TRANSFERASE 10 U/L (5-40); CARBON DIOXIDE 25 mEQ/L (20-30); CHLORIDE 100 mEQ/L (98-107); CREATININE 0.7 mg/dL (0.7-1.2); GLOMERULAR FILTRATION RATE > 60 mL/min (>60); HEMOLYSIS 2; SODIUM 133 mEQ/L (135-145); TOTAL PROTEIN 5.6 g/dL (6.6-8.7)
[2017-03-09 07:07] LABS: ANION GAP 8 (5-15); POTASSIUM 2.8 mEQ/L (3.4-4.9)
--- NOTE | 2017-03-09 07:56 | Diagnostic Imaging Report ---
APPROVED REPORT CPT Code: 90399 Present Symptoms Comments: Chronic Respiratory Failure BILATERAL: Imaging reveals a patent deep venous system bilaterally. There is no evidence of thrombus within the femoral, popliteal or tibial segments. The greater saphenous veins are also within normal limits. Doppler indicates normal spontaneous flow within these segments.
[2017-03-09 08:00] VITALS: BP 137/83
[2017-03-09 08:49] LABS: MAGNESIUM 1.5 mg/dL (1.7-2.5)
[2017-03-09] MEDS ORDERED: D5NS w/KCl 40mEq 1000ml 1,000 ML IV SCH (09:00)
[2017-03-09] MEDS: levETIRAcetam 500mg/5ml Liquid GT SCH (09:06)
[2017-03-09] MEDS: Pantoprazole Inj IVP SCH (09:07)
[2017-03-09] MEDS: Heparin 5000 units/ml inj SUBQ SCH ×2 (09:11→20:56)
[2017-03-09] MEDS: Nystatin Powder 100,000 units/gm 15gm TOPIC SCH ×3 (09:28→17:43)
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
[2017-03-09] MEDS: Colistin for inhalation INH SCH ×2 (10:40→21:32)
--- NOTE | 2017-03-09 11:11 | GI Progress Note ---
Assessment/Plan Problems: (1) Iron deficiency ICD Codes: E61.1 - Iron deficiency SNOMED: 07987203 (2) Ileus ICD Codes: K56.7 - Ileus, unspecified SNOMED: 398837298 (3) Abdominal distension ICD Codes: R14.0 - Abdominal distension (gaseous) SNOMED: 79975608 (4) Septic shock ICD Codes: A41.9 - Sepsis, unspecified organism; R65.21 - Severe sepsis with septic shock SNOMED: 73950695 (5) Paraplegia ICD Codes: G82.20 - Paraplegia, unspecified SNOMED: 42459715 (6) Anemia ICD Codes: D64.9 - Anemia, unspecified SNOMED: 578881677 Qualifiers: Qualified Codes: D64.9 - Anemia, unspecified Status: unchanged Status Narrative Discussed with Dr. Thompson. Assessment/Plan KUB reviewed >> ileus still present abdominal distention most likely due to ileus 2/2 septic shock start TPN today bowel rest and decompression >> NGT LCIS, low output NPO + IVFs + electrolyte replacement pain mgmt turn patient q2 hours iron deficient >> venofer ppi fu labs Subjective Subjective limited Objective Last 24 Hour Vital Signs Date Time Temp Pulse Resp B/P Pulse Ox O2 Delivery O2 Flow Rate FiO2 03/09/17 10:40 54 17 100 Mechanical Ventilator 03/09/17 10:40 52 17 99 Mechanical Ventilator 03/09/17 10:38 52 17 30 03/09/17 09:08 55 17 30 03/09/17 08:00 98.3 61 21 137/83 98 Mechanical Ventilator 03/09/17 08:00 30 03/09/17 08:00 58 03/09/17 06:46 60 23 30 03/09/17 04:42 63 25 30 03/09/17 04:00 98.2 59 21 128/78 99 Mechanical Ventilator 03/09/17 04:00 30 03/09/17 04:00 64 03/09/17 03:30 64 34 30 03/09/17 02:14 97.9 03/09/17 01:30 64 23 30 03/09/17 00:00 30 03/09/17 00:00 97.9 61 20 141/76 98 Mechanical Ventilator 30 03/09/17 00:00 61 03/08/17 22:41 63 21 30 03/08/17 21:02 52 18 30 03/08/17 20:00 30 03/08/17 20:00 60 03/08/17 20:00 72 15 100 Mechanical Ventilator 30 03/08/17 20:00 74 15 100 Mechanical Ventilator 30 03/08/17 20:00 98.2 61 28 133/87 97 Mechanical Ventilator 30 03/08/17 19:30 60 23 30 03/08/17 16:40 61 17 30 03/08/17 16:00 30 03/08/17 16:00 97.7 66 20 143/94 100 Mechanical Ventilator 30 03/08/17 16:00 63 03/08/17 14:35 52 16 30 03/08/17 12:43 56 16 30 03/08/17 12:00 30 03/08/17 12:00 98.1 65 19 125/80 100 Mechanical Ventilator 30 03/08/17 12:00 65 03/08/17 11:15 60 16 30 Intake and Output 03/08/17 03/09/17 19:00 07:00 Intake Total 790 ml 616.25 ml Output Total 100 ml 2030 ml Balance 690 ml -1413.75 ml Free Water 30 ml IV Total 760 ml 616.25 ml Output Urine Total 2000 ml Gastric Drainage Total 100 ml 30 ml Laboratory Tests Test 03/09/17 01:40 03/09/17 05:15 Vancomycin Level Trough 21.7 ug/mL (5.0-12.0) H White Blood Count 14.8 K/UL (4.8-10.8) H Red Blood Count 3.22 M/UL (4.70-6.10) L Hemoglobin 8.6 G/DL (14.2-18.0) L Hematocrit 27.7 % (42.0-52.0) L Mean Corpuscular Volume 86 FL (80-99) Mean Corpuscular Hemoglobin 26.8 PG (27.0-31.0) L Mean Corpuscular Hemoglobin Concent 31.1 G/DL (32.0-36.0) L Red Cell Distribution Width 16.2 % (11.6-14.8) H Platelet Count 199 K/UL (150-450) Mean Platelet Volume 6.1 FL (6.5-10.1) L Neutrophils (%) (Auto) 84.9 % (45.0-75.0) H Lymphocytes (%) (Auto) 6.8 % (20.0-45.0) L Monocytes (%) (Auto) 6.9 % (1.0-10.0) Eosinophils (%) (Auto) 0.4 % (0.0-3.0) Basophils (%) (Auto) 0.9 % (0.0-2.0) Sodium Level 133 mEQ/L (135-145) L Potassium Level 2.8 mEQ/L (3.4-4.9) L Chloride Level 100 mEQ/L (98-107) Carbon Dioxide Level 25 mEQ/L (20-30) Anion Gap 8 (5-15) Blood Urea Nitrogen 12 mg/dL (7-23) Creatinine 0.7 mg/dL (0.7-1.2) Estimat Glomerular Filtration Rate > 60 mL/min (>60) Glucose Level 357 mg/dL (74-106) H Calcium Level 8.0 mg/dL (8.6-10.2) L Phosphorus Level 3.0 mg/dL (2.5-4.8) Magnesium Level 1.5 mg/dL (1.7-2.5) L Total Bilirubin 0.3 mg/dL (0.0-1.2) Aspartate Amino Transf (AST/SGOT) 10 U/L (5-40) Alanine Aminotransferase (ALT/SGPT) 6 U/L (3-41) Alkaline Phosphatase 151 U/L (40-129) H Pro-B-Type Natriuretic Peptide 7695 pg/mL (0-125) H Total Protein 5.6 g/dL (6.6-8.7) L Albumin 2.2 g/dL (3.5-5.2) L Globulin 3.4 g/dL Albumin/Globulin Ratio 0.6 (1.0-2.7) L Triglycerides Level 257 mg/dL (< 150) H Height (Feet): 6 Height (Inches): 5.00 Weight (Pounds): 210 General Appearance: no apparent distress, alert Cardiovascular: normal rate Respiratory/Chest: normal breath sounds, no respiratory distress, other - mech vent Abdominal Exam: other - NGT Lou Cee N.POliver Mar 09, 2017 11:10
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
[2017-03-09 12:00] VITALS: BP 128/87
[2017-03-09] MEDS ORDERED: NovoLOG Insulin Flexpen SUBQ SCH (12:30)
--- NOTE | 2017-03-09 13:27 | Diagnostic Imaging Report ---
Indication: DYSPNEA Technique: One view of the chest Comparison: 03/07/2017 post PICC radiograph Findings: Right arm PICC again demonstrated, tip projecting at level of the innominate venous confluence. Parenchymal opacities in left lung appear slightly less extensive than on the prior study. There is some patchy opacity at the right lung base this may be improved from the prior study, this is difficult to state due to less optimal inspiration currently. There is suggestion of decreased pleural fluid on the right.. There is persistent elevation right hemidiaphragm and probable right lung volume loss. Nasogastric tube is no longer evident. The heart is enlarged. Surgical fusion hardware is again demonstrated in the cervical and upper thoracic spine Impression: Possible decrease in right basilar pleural and parenchymal opacities, over 2 days. Improved but persistent left lung diffuse parenchymal disease. Other stable findings as described
[2017-03-09] MEDS: Vancomycin 1250mg/D5W 250ml IVPB SCH (14:47)
--- NOTE | 2017-03-09 14:55 | Diagnostic Imaging Report ---
Indication: Status post nasogastric tube placement Technique: Supine view of the abdomen Comparison: 1-1/2 hours earlier Findings: Nasogastric tube is visualized, tip projecting at the level of the fundal body junction, proximal port just beyond the expected region of the gastric esophageal junction. Impression: Position of nasogastric tube satisfactory for use, although slight advancement would be preferable. This was discussed with patient's nurse previously
[2017-03-09 16:00] VITALS: BP 136/79
--- NOTE | 2017-03-09 17:35 | Infectious Diseases Prog Note ---
Assessment/Plan Assessment/Plan ASSESSMENT: 56 y/o male with: // ESBL(+) E.coli UTI // ESBL(+) E.coli bacteremia, m/l urinary source - repeat BCx: ESBL(+) E.coli - TTE(-) SBE // Probable recurrent HCAP - SCx MRSA , ACB - CXR 03/04: Worsening generalized interstitial congestion, right mid and lower lung parenchymal infiltrates - h/o PSA // Multiple decubiti POA, not grossly infected - WCx S.aureus, GNR x2 = colonizers // Negative C.difficile 03/03 // Sepsis, SP // Leukocytosis - // Fever SP // Chronic VDRF SP trach, PEG // Severe pulmonary HTN // Paraplegia // ARF - improved // Chronic FOBT(+) anemia // NKDA // Full Code PLAN: - cont Merrem , IV Vanco and Colistin INH d# 3 / ( 03/07 SP Amikacin, Invanz d# 5 ) ( 03/04 SP IV vancomycin d# 2 ) - f/u echo - monitor CBC, temperatures - monitor BMP - monitor CXR - vent support / trach care / aspiration precautions - wound care - repeat Cx ( Blood ans Urine ) - on TPN Subjective Allergies: Coded Allergies: No Known Allergies (Unverified , 03/02/17) Subjective Afebrile , on TPN Objective Vital Signs Last 24 Hour Vital Signs Date Time Temp Pulse Resp B/P Pulse Ox O2 Delivery O2 Flow Rate FiO2 03/09/17 17:07 52 21 30 03/09/17 16:00 98.7 62 22 136/79 99 Mechanical Ventilator 30 03/09/17 16:00 30 03/09/17 15:48 67 03/09/17 14:59 58 17 30 03/09/17 13:00 60 19 30 03/09/17 12:00 98.6 57 22 128/87 98 Mechanical Ventilator 30 03/09/17 12:00 61 03/09/17 12:00 30 03/09/17 10:40 54 17 100 Mechanical Ventilator 30 03/09/17 10:40 52 17 99 Mechanical Ventilator 30 03/09/17 10:38 52 17 30 03/09/17 09:08 55 17 30 03/09/17 08:00 98.3 61 21 137/83 98 Mechanical Ventilator 30 03/09/17 08:00 30 03/09/17 08:00 58 03/09/17 06:46 60 23 30 03/09/17 04:42 63 25 30 03/09/17 04:00 98.2 59 21 128/78 99 Mechanical Ventilator 30 03/09/17 04:00 30 03/09/17 04:00 64 03/09/17 03:30 64 34 30 03/09/17 02:14 97.9 03/09/17 01:30 64 23 30 03/09/17 00:00 30 03/09/17 00:00 97.9 61 20 141/76 98 Mechanical Ventilator 30 03/09/17 00:00 61 03/08/17 22:41 63 21 30 03/08/17 21:02 52 18 30 03/08/17 20:00 30 03/08/17 20:00 60 03/08/17 20:00 72 15 100 Mechanical Ventilator 30 03/08/17 20:00 74 15 100 Mechanical Ventilator 30 03/08/17 20:00 98.2 61 28 133/87 97 Mechanical Ventilator 30 03/08/17 19:30 60 23 30 Height (Feet): 6 Height (Inches): 5.00 Weight (Pounds): 210 HEENT: PERRL Respiratory/Chest: normal breath sounds Cardiovascular: no gallop/murmur Abdomen: no organomegaly Laboratory Tests Test 03/09/17 01:40 03/09/17 05:15 Vancomycin Level Trough 21.7 ug/mL (5.0-12.0) H White Blood Count 14.8 K/UL (4.8-10.8) H Red Blood Count 3.22 M/UL (4.70-6.10) L Hemoglobin 8.6 G/DL (14.2-18.0) L Hematocrit 27.7 % (42.0-52.0) L Mean Corpuscular Volume 86 FL (80-99) Mean Corpuscular Hemoglobin 26.8 PG (27.0-31.0) L Mean Corpuscular Hemoglobin Concent 31.1 G/DL (32.0-36.0) L Red Cell Distribution Width 16.2 % (11.6-14.8) H Platelet Count 199 K/UL (150-450) Mean Platelet Volume 6.1 FL (6.5-10.1) L Neutrophils (%) (Auto) 84.9 % (45.0-75.0) H Lymphocytes (%) (Auto) 6.8 % (20.0-45.0) L Monocytes (%) (Auto) 6.9 % (1.0-10.0) Eosinophils (%) (Auto) 0.4 % (0.0-3.0) Basophils (%) (Auto) 0.9 % (0.0-2.0) Sodium Level 133 mEQ/L (135-145) L Potassium Level 2.8 mEQ/L (3.4-4.9) L Chloride Level 100 mEQ/L (98-107) Carbon Dioxide Level 25 mEQ/L (20-30) Anion Gap 8 (5-15) Blood Urea Nitrogen 12 mg/dL (7-23) Creatinine 0.7 mg/dL (0.7-1.2) Estimat Glomerular Filtration Rate > 60 mL/min (>60) Glucose Level 357 mg/dL (74-106) H Calcium Level 8.0 mg/dL (8.6-10.2) L Phosphorus Level 3.0 mg/dL (2.5-4.8) Magnesium Level 1.5 mg/dL (1.7-2.5) L Total Bilirubin 0.3 mg/dL (0.0-1.2) Aspartate Amino Transf (AST/SGOT) 10 U/L (5-40) Alanine Aminotransferase (ALT/SGPT) 6 U/L (3-41) Alkaline Phosphatase 151 U/L (40-129) H Pro-B-Type Natriuretic Peptide 7695 pg/mL (0-125) H Total Protein 5.6 g/dL (6.6-8.7) L Albumin 2.2 g/dL (3.5-5.2) L Globulin 3.4 g/dL Albumin/Globulin Ratio 0.6 (1.0-2.7) L Triglycerides Level 257 mg/dL (< 150) H Current Medications Medications (Trade) Dose Ordered Sig/Lucy Route PRN Reason Start Time Stop Time Status Last Admin Dose Admin Acetaminophen (Tylenol) 650 mg Q4H PRN NG Mild Pain/Temp > 100.5 03/06/17 16:35 04/05/17 16:34 03/06/17 20:28 Albuterol/ Ipratropium (DuoNeb 0.5-3(2.5)mg/3ml) 3 ml Q4H PRN HHN Shortness of Breath 03/06/17 16:36 03/11/17 16:35 Chlorhexidine Gluconate (Kim-Hex 2%) 1 applic BEDTIME TOPIC 03/06/17 21:00 04/05/17 20:59 03/08/17 21:57 Colistimethate Sodium 150 mg 150 mg Q12HR@10,22 INH 03/07/17 12:00 03/14/17 11:59 03/09/17 10:40 Dextrose 1,000 ml @ 75 mls/hr [id number] PRN IV IF TPN INTERRUPTED 03/09/17 21:00 04/08/17 20:59 Dextrose (Dextrose 50%) 50 ml STAT PRN IV Hypoglycemia 03/09/17 16:15 04/08/17 16:14 Fat Emulsion Intravenous/Amino Acids/ Electrolytes/ Dextrose (Intralipids/Tpn) 1,800 ml @ 75 mls/hr Q24H IV 03/09/17 21:00 04/07/17 20:59 Heparin Sodium (Porcine) (Heparin 5000 units/ml) 5,000 units EVERY 12 HOURS SUBQ 03/06/17 21:00 04/05/17 20:59 03/09/17 09:11 Insulin Aspart (NovoLOG) Q6HR SUBQ 03/09/17 18:00 04/08/17 17:59 Levetiracetam (Keppra) 500 mg Q12HR GT 03/06/17 21:00 04/05/17 20:59 03/09/17 09:06 Lorazepam (Ativan 2mg/ml 1ml) 2 mg Q2H PRN IV For Anxiety 03/06/17 16:00 03/13/17 15:59 03/07/17 02:07 Meropenem/Sodium Chloride (Merrem/Sodium Chloride) 110 ml @ 220 mls/hr Q8HR IVPB 03/07/17 14:00 03/12/17 13:59 03/09/17 14:46 Morphine Sulfate (Morphine Sulfate) 4 mg Q4H PRN IVP Severe Pain (Pain Scale 7-10) 03/06/17 16:37 03/13/17 16:36 03/09/17 14:47 Nystatin (Nystop Powder) 1 applic THREE TIMES A DAY TOPIC 03/06/17 18:00 04/05/17 17:59 03/09/17 12:21 Ondansetron HCl (Zofran) 4 mg Q6H PRN IVP Nausea & Vomiting 03/06/17 16:38 04/05/17 16:37 Pantoprazole (Protonix) 40 mg DAILY IVP 03/07/17 09:00 04/06/17 08:59 03/09/17 09:07 Phytonadione 10 mg 10 mg QWEEK SUBQ 03/09/17 21:00 04/07/17 20:59 Polyethylene Glycol 17 gm 17 gm DAILYPRN PRN ORAL Constipation 03/06/17 16:37 04/05/17 16:36 Vancomycin HCl (Vanco rx to dose) 1 ea DAILY PRN MISC Per rx protocol 03/07/17 11:15 04/06/17 11:14 Vancomycin HCl/ Dextrose (Vancomycin 1250mg/D5W 250ml) 250 ml @ 166.667 mls/hr Q12H IVPB 03/09/17 14:00 03/14/17 13:59 03/09/17 14:47 DAVID GILBERT M.D. Mar 09, 2017 17:35
[2017-03-09] MEDS: NovoLOG Insulin Flexpen SUBQ SCH ×2 (17:36→23:57)
[2017-03-09] MEDS: LORazepam Inj 2mg/ml 1ml IV PRN (17:37)
[2017-03-09 20:09] VITALS: BP 119/68
--- NOTE | 2017-03-09 20:21 | Cardiology Progress Note ---
Assessment/Plan Assessment/Plan [id number] possible vagal induce episodes of sig cyn and pauses durign turing avoid neg chronotropic agent avoid vagal induction watch trach Objective Last 24 Hour Vital Signs Date Time Temp Pulse Resp B/P Pulse Ox O2 Delivery O2 Flow Rate FiO2 03/09/17 19:25 62 25 30 03/09/17 17:07 52 21 30 03/09/17 16:00 98.7 62 22 136/79 99 Mechanical Ventilator 30 03/09/17 16:00 30 03/09/17 15:48 67 03/09/17 14:59 58 17 30 03/09/17 13:00 60 19 30 03/09/17 12:00 98.6 57 22 128/87 98 Mechanical Ventilator 30 03/09/17 12:00 61 03/09/17 12:00 30 03/09/17 10:40 54 17 100 Mechanical Ventilator 30 03/09/17 10:40 52 17 99 Mechanical Ventilator 30 03/09/17 10:38 52 17 30 03/09/17 09:08 55 17 30 03/09/17 08:00 98.3 61 21 137/83 98 Mechanical Ventilator 30 03/09/17 08:00 30 03/09/17 08:00 58 03/09/17 06:46 60 23 30 03/09/17 04:42 63 25 30 03/09/17 04:00 98.2 59 21 128/78 99 Mechanical Ventilator 30 03/09/17 04:00 30 03/09/17 04:00 64 03/09/17 03:30 64 34 30 03/09/17 02:14 97.9 03/09/17 01:30 64 23 30 03/09/17 00:00 30 03/09/17 00:00 97.9 61 20 141/76 98 Mechanical Ventilator 30 03/09/17 00:00 61 03/08/17 22:41 63 21 30 03/08/17 21:02 52 18 30 Intake and Output 03/08/17 03/09/17 19:00 07:00 Intake Total 790 ml 616.25 ml Output Total 100 ml 2030 ml Balance 690 ml -1413.75 ml Free Water 30 ml IV Total 760 ml 616.25 ml Output Urine Total 2000 ml Gastric Drainage Total 100 ml 30 ml Laboratory Tests Test 03/09/17 01:40 03/09/17 05:15 Vancomycin Level Trough 21.7 ug/mL (5.0-12.0) H White Blood Count 14.8 K/UL (4.8-10.8) H Red Blood Count 3.22 M/UL (4.70-6.10) L Hemoglobin 8.6 G/DL (14.2-18.0) L Hematocrit 27.7 % (42.0-52.0) L Mean Corpuscular Volume 86 FL (80-99) Mean Corpuscular Hemoglobin 26.8 PG (27.0-31.0) L Mean Corpuscular Hemoglobin Concent 31.1 G/DL (32.0-36.0) L Red Cell Distribution Width 16.2 % (11.6-14.8) H Platelet Count 199 K/UL (150-450) Mean Platelet Volume 6.1 FL (6.5-10.1) L Neutrophils (%) (Auto) 84.9 % (45.0-75.0) H Lymphocytes (%) (Auto) 6.8 % (20.0-45.0) L Monocytes (%) (Auto) 6.9 % (1.0-10.0) Eosinophils (%) (Auto) 0.4 % (0.0-3.0) Basophils (%) (Auto) 0.9 % (0.0-2.0) Sodium Level 133 mEQ/L (135-145) L Potassium Level 2.8 mEQ/L (3.4-4.9) L Chloride Level 100 mEQ/L (98-107) Carbon Dioxide Level 25 mEQ/L (20-30) Anion Gap 8 (5-15) Blood Urea Nitrogen 12 mg/dL (7-23) Creatinine 0.7 mg/dL (0.7-1.2) Estimat Glomerular Filtration Rate > 60 mL/min (>60) Glucose Level 357 mg/dL (74-106) H Calcium Level 8.0 mg/dL (8.6-10.2) L Phosphorus Level 3.0 mg/dL (2.5-4.8) Magnesium Level 1.5 mg/dL (1.7-2.5) L Total Bilirubin 0.3 mg/dL (0.0-1.2) Aspartate Amino Transf (AST/SGOT) 10 U/L (5-40) Alanine Aminotransferase (ALT/SGPT) 6 U/L (3-41) Alkaline Phosphatase 151 U/L (40-129) H Pro-B-Type Natriuretic Peptide 7695 pg/mL (0-125) H Total Protein 5.6 g/dL (6.6-8.7) L Albumin 2.2 g/dL (3.5-5.2) L Globulin 3.4 g/dL Albumin/Globulin Ratio 0.6 (1.0-2.7) L Triglycerides Level 257 mg/dL (< 150) H IHSAN WALLER Mar 09, 2017 20:21
[2017-03-09] MEDS: Dyna-Hex 2% Top Sol 8oz TOPIC SCH (20:53)
[2017-03-09] MEDS: Phytonadione 10 mg/mL 1ml amp SUBQ SCH (20:55)
[2017-03-09] MEDS ORDERED: FAT EMULSION 20% IV SCH (21:00)
[2017-03-09] MEDS ORDERED: Dextrose 10% 1,000 ML IV PRN (21:00)
[2017-03-09] MEDS ORDERED: TPN IV SCH (21:00)
[2017-03-09] MEDS: LEVETIRACETAM 500 MG IVPB SCH (21:16)
[2017-03-09 21:52] LABS: ABG ALLEN TEST POSITIVE; ABG BASE EXCESS 4.7
[2017-03-10 00:33] VITALS: BP 118/69
[2017-03-10] MEDS: Vancomycin 1250mg/D5W 250ml IVPB SCH ×2 (01:40→14:35)
[2017-03-10 04:00] VITALS: BP 129/80
[2017-03-10 05:10] LABS: MEAN CORPUSCULAR HEMOGLOBIN 28.7 PG (27.0-31.0); MEAN CORPUSCULAR HGB CONC 30.9 G/DL (32.0-36.0); MEAN CORPUSCULAR VOLUME 93 FL (80-99); MEAN PLATELET VOLUME 6.1 FL (6.5-10.1); PLATELET COUNT 227 K/UL (150-450); RED BLOOD COUNT 3.18 M/UL (4.70-6.10); WHITE BLOOD COUNT 16.9 K/UL (4.8-10.8)
[2017-03-10 05:35] LABS: ALBUMIN/GLOBULIN RATIO 0.7 (1.0-2.7); ANION GAP 9 (5-15); CALCIUM 8.4 mg/dL (8.6-10.2); CARBON DIOXIDE 28 mEQ/L (20-30); CHLORIDE 101 mEQ/L (98-107); CREATININE 0.7 mg/dL (0.7-1.2); CRP QUANT 9.4 mg/dL (< 0.5); GLOMERULAR FILTRATION RATE > 60 mL/min (>60); HEMOLYSIS 7; MAGNESIUM 1.8 mg/dL (1.7-2.5); PHOSPHORUS 5.8 mg/dL (2.5-4.8); POTASSIUM 4.8 mEQ/L (3.4-4.9); SODIUM 138 mEQ/L (135-145); URIC ACID 6.2 mg/dL (3.0-7.5)
[2017-03-10] MEDS: Meropenem 1 GM in NS 110 ML IVPB SCH ×3 (06:13→21:11)
[2017-03-10] MEDS: NovoLOG Insulin Flexpen SUBQ SCH ×4 (06:14→23:29)
[2017-03-10 06:18] LABS: ALANINE AMINOTRANSFERASE 5 U/L (3-41); ASPARTATE AMINO TRANSFERASE 9 U/L (5-40)
[2017-03-10 08:00] VITALS: BP 139/85
[2017-03-10] MEDS: Pantoprazole Inj IVP SCH (08:55)
[2017-03-10] MEDS: LEVETIRACETAM 500 MG IVPB SCH ×2 (08:55→20:22)
[2017-03-10] MEDS: Nystatin Powder 100,000 units/gm 15gm TOPIC SCH ×3 (08:57→17:47)
[2017-03-10] MEDS: Heparin 5000 units/ml inj SUBQ SCH ×2 (08:59→20:24)
--- NOTE | 2017-03-10 09:46 | Diagnostic Imaging Report ---
Indication: As well as nasogastric tube placement Technique: Supine view of the abdomen Comparison: 03/08/2017 Findings: Again demonstrated is a nasogastric tube, position of the distal end of which is difficult to visualize, probably at the level gastric fundus body junction with the proximal port at or just beyond the gastroesophageal junction. Considerable gas is seen in nondilated large and small bowel loops. Right-sided pleural effusion is again demonstrated. The tip of a central venous catheter is noted in the expected region of the superior vena cava Impression: Somewhat indeterminate but suspect slightly high position of nasogastric tube. Recommend repeat radiograph Other findings as noted
--- NOTE | 2017-03-10 09:50 | Cardiac Electrophysiology PN ---
Subjective Subjective EP consult dictated. Multiple pauses at 5.50 pm yesterday including an 8 second pause was positional while he was being turned to his left and likely vagal in view of his Ileus.Septic at this time and permanent pacer can not be done even if has recurrent episodes. If episodes continue to recur will place temporary pacer until infection resolves. GISELA Snider. [id number] Objective Last 24 Hour Vital Signs Date Time Temp Pulse Resp B/P Pulse Ox O2 Delivery O2 Flow Rate FiO2 03/10/17 09:11 70 21 45 03/10/17 08:00 67 03/10/17 08:00 98.4 65 20 139/85 99 Mechanical Ventilator 45 03/10/17 08:00 45 03/10/17 06:34 69 18 45 03/10/17 05:27 71 26 45 03/10/17 04:00 97.9 65 17 129/80 99 Mechanical Ventilator 03/10/17 04:00 30 03/10/17 04:00 69 03/10/17 03:15 62 20 45 03/10/17 01:11 68 20 45 03/10/17 00:33 97.5 67 16 118/69 97 Mechanical Ventilator 03/10/17 00:00 30 03/10/17 00:00 70 03/09/17 23:17 67 20 45 03/09/17 21:55 65 19 100 Mechanical Ventilator 30 03/09/17 21:32 64 24 96 Mechanical Ventilator 30 03/09/17 21:00 64 24 30 03/09/17 20:09 98.1 62 18 119/68 96 Mechanical Ventilator 03/09/17 20:00 30 03/09/17 20:00 66 03/09/17 19:25 62 25 30 03/09/17 17:07 52 21 30 03/09/17 16:00 98.7 62 22 136/79 99 Mechanical Ventilator 30 03/09/17 16:00 30 03/09/17 15:48 67 03/09/17 14:59 58 17 30 03/09/17 13:00 60 19 30 03/09/17 12:00 98.6 57 22 128/87 98 Mechanical Ventilator 30 03/09/17 12:00 61 03/09/17 12:00 30 03/09/17 10:40 54 17 100 Mechanical Ventilator 30 03/09/17 10:40 52 17 99 Mechanical Ventilator 30 03/09/17 10:38 52 17 30 Intake and Output 03/09/17 03/10/17 19:00 07:00 Intake Total 810.000 ml 1080 ml Output Total 1750 ml 1625 ml Balance -940.000 ml -545 ml IV Total 810.000 ml 1080 ml Output Urine Total 1750 ml 1625 ml # Voids 1 # Bowel Movements 1 Laboratory Tests Test 03/09/17 21:41 03/10/17 04:20 Arterial Blood pH 7.380 (7.350-7.450) Arterial Blood Partial Pressure CO2 53.0 mmHg (35.0-45.0) H Arterial Blood Partial Pressure O2 78.6 mmHg (75.0-100.0) Arterial Blood HCO3 30.6 mmol/L (22.0-26.0) H Arterial Blood Oxygen Saturation 94.0 % (92.0-98.0) Arterial Blood Base Excess 4.7 Andrea Test Positive White Blood Count 16.9 K/UL (4.8-10.8) H Red Blood Count 3.18 M/UL (4.70-6.10) L Hemoglobin 9.1 G/DL (14.2-18.0) L Hematocrit 29.5 % (42.0-52.0) L Mean Corpuscular Volume 93 FL (80-99) # Mean Corpuscular Hemoglobin 28.7 PG (27.0-31.0) Mean Corpuscular Hemoglobin Concent 30.9 G/DL (32.0-36.0) L Red Cell Distribution Width 17.0 % (11.6-14.8) H Platelet Count 227 K/UL (150-450) Mean Platelet Volume 6.1 FL (6.5-10.1) L Neutrophils (%) (Auto) % (45.0-75.0) Lymphocytes (%) (Auto) % (20.0-45.0) Monocytes (%) (Auto) % (1.0-10.0) Eosinophils (%) (Auto) % (0.0-3.0) Basophils (%) (Auto) % (0.0-2.0) Neutrophils % (Manual) Pending Lymphocytes % (Manual) Pending Platelet Estimate Pending Platelet Morphology Pending Sodium Level 138 mEQ/L (135-145) Potassium Level 4.8 mEQ/L (3.4-4.9) # Chloride Level 101 mEQ/L (98-107) Carbon Dioxide Level 28 mEQ/L (20-30) Anion Gap 9 (5-15) Blood Urea Nitrogen 11 mg/dL (7-23) Creatinine 0.7 mg/dL (0.7-1.2) Estimat Glomerular Filtration Rate > 60 mL/min (>60) Glucose Level 807 mg/dL (74-106) #*H Hemoglobin A1c 4.9 % (< 6.0) Uric Acid 6.2 mg/dL (3.0-7.5) Calcium Level 8.4 mg/dL (8.6-10.2) L Phosphorus Level 5.8 mg/dL (2.5-4.8) H Magnesium Level 1.8 mg/dL (1.7-2.5) Total Bilirubin 0.3 mg/dL (0.0-1.2) Aspartate Amino Transf (AST/SGOT) 9 U/L (5-40) Alanine Aminotransferase (ALT/SGPT) 5 U/L (3-41) Alkaline Phosphatase 106 U/L (40-129) C-Reactive Protein, Quantitative 9.4 mg/dL (< 0.5) H Pro-B-Type Natriuretic Peptide 8976 pg/mL (0-125) H Total Protein 6.0 g/dL (6.6-8.7) L Albumin 2.5 g/dL (3.5-5.2) L Globulin 3.5 g/dL Albumin/Globulin Ratio 0.7 (1.0-2.7) L ELIF ESCOBAR Mar 10, 2017 09:50
[2017-03-10 09:55] LABS: BAND NEUTROPHILS % (MANUAL) 1 % (0-8); BASOPHILS % (MANUAL) 0 % (0-2); EOSINOPHILS % (MANUAL) 2 % (0-3); LYMPHOCYTES % (MANUAL) 7 % (20-45); NEUTROPHILS % (MANUAL) 89 % (45-75); PLATELET ESTIMATE ADEQUATE; PLATELET MORPHOLOGY NORMAL; TOTAL CELLS COUNTED 100
[2017-03-10 09:56] LABS: HYPOCHROMASIA 2+
[2017-03-10 09:57] LABS: ANISOCYTOSIS 1+
[2017-03-10] MEDS: Colistin for inhalation INH SCH ×2 (10:41→21:05)
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
[2017-03-10] MEDS ORDERED: Tubing IV Secondary IV ONE (11:41)
[2017-03-10] MEDS ORDERED: NS 275ml ONE (11:41)
--- NOTE | 2017-03-10 11:48 | GI Progress Note ---
Assessment/Plan Problems: (1) Iron deficiency ICD Codes: E61.1 - Iron deficiency SNOMED: 38856294 (2) Ileus ICD Codes: K56.7 - Ileus, unspecified SNOMED: 836253398 (3) Abdominal distension ICD Codes: R14.0 - Abdominal distension (gaseous) SNOMED: 52786960 (4) Septic shock ICD Codes: A41.9 - Sepsis, unspecified organism; R65.21 - Severe sepsis with septic shock SNOMED: 08889281 (5) Paraplegia ICD Codes: G82.20 - Paraplegia, unspecified SNOMED: 59927690 (6) Anemia ICD Codes: D64.9 - Anemia, unspecified SNOMED: 648416027 Qualifiers: Qualified Codes: D64.9 - Anemia, unspecified Status: unchanged Status Narrative Discussed with Dr. Thompson. Assessment/Plan abdominal distention due to ileus 2/2 septic shock cont TPN bowel rest and decompression >> NGT LCIS, low output NPO + IVFs + electrolyte replacement pain mgmt iron deficient >> venofer ppi fu labs Subjective Subjective limited Objective Last 24 Hour Vital Signs Date Time Temp Pulse Resp B/P Pulse Ox O2 Delivery O2 Flow Rate FiO2 03/10/17 10:41 66 21 45 03/10/17 09:11 70 21 45 03/10/17 08:00 67 03/10/17 08:00 98.4 65 20 139/85 99 Mechanical Ventilator 45 03/10/17 08:00 45 03/10/17 06:34 69 18 45 03/10/17 05:27 71 26 45 03/10/17 04:00 97.9 65 17 129/80 99 Mechanical Ventilator 03/10/17 04:00 30 03/10/17 04:00 69 03/10/17 03:15 62 20 45 03/10/17 01:11 68 20 45 03/10/17 00:33 97.5 67 16 118/69 97 Mechanical Ventilator 03/10/17 00:00 30 03/10/17 00:00 70 03/09/17 23:17 67 20 45 03/09/17 21:55 65 19 100 Mechanical Ventilator 30 03/09/17 21:32 64 24 96 Mechanical Ventilator 30 03/09/17 21:00 64 24 30 03/09/17 20:09 98.1 62 18 119/68 96 Mechanical Ventilator 03/09/17 20:00 30 03/09/17 20:00 66 03/09/17 19:25 62 25 30 03/09/17 17:07 52 21 30 03/09/17 16:00 98.7 62 22 136/79 99 Mechanical Ventilator 30 03/09/17 16:00 30 03/09/17 15:48 67 03/09/17 14:59 58 17 30 03/09/17 13:00 60 19 30 03/09/17 12:00 98.6 57 22 128/87 98 Mechanical Ventilator 30 03/09/17 12:00 61 03/09/17 12:00 30 Intake and Output 03/09/17 03/10/17 19:00 07:00 Intake Total 810.000 ml 1190 ml Output Total 1750 ml 1625 ml Balance -940.000 ml -435 ml IV Total 810.000 ml 1190 ml Output Urine Total 1750 ml 1625 ml # Voids 1 # Bowel Movements 1 Laboratory Tests Test 03/09/17 21:41 03/10/17 04:20 Arterial Blood pH 7.380 (7.350-7.450) Arterial Blood Partial Pressure CO2 53.0 mmHg (35.0-45.0) H Arterial Blood Partial Pressure O2 78.6 mmHg (75.0-100.0) Arterial Blood HCO3 30.6 mmol/L (22.0-26.0) H Arterial Blood Oxygen Saturation 94.0 % (92.0-98.0) Arterial Blood Base Excess 4.7 Andrea Test Positive White Blood Count 16.9 K/UL (4.8-10.8) H Red Blood Count 3.18 M/UL (4.70-6.10) L Hemoglobin 9.1 G/DL (14.2-18.0) L Hematocrit 29.5 % (42.0-52.0) L Mean Corpuscular Volume 93 FL (80-99) # Mean Corpuscular Hemoglobin 28.7 PG (27.0-31.0) Mean Corpuscular Hemoglobin Concent 30.9 G/DL (32.0-36.0) L Red Cell Distribution Width 17.0 % (11.6-14.8) H Platelet Count 227 K/UL (150-450) Mean Platelet Volume 6.1 FL (6.5-10.1) L Neutrophils (%) (Auto) % (45.0-75.0) Lymphocytes (%) (Auto) % (20.0-45.0) Monocytes (%) (Auto) % (1.0-10.0) Eosinophils (%) (Auto) % (0.0-3.0) Basophils (%) (Auto) % (0.0-2.0) Differential Total Cells Counted 100 Neutrophils % (Manual) 89 % (45-75) H Lymphocytes % (Manual) 7 % (20-45) L Monocytes % (Manual) 1 % (1-10) Eosinophils % (Manual) 2 % (0-3) Basophils % (Manual) 0 % (0-2) Band Neutrophils 1 % (0-8) Platelet Estimate Adequate Platelet Morphology Normal Hypochromasia 2+ Anisocytosis 1+ Sodium Level 138 mEQ/L (135-145) Potassium Level 4.8 mEQ/L (3.4-4.9) # Chloride Level 101 mEQ/L (98-107) Carbon Dioxide Level 28 mEQ/L (20-30) Anion Gap 9 (5-15) Blood Urea Nitrogen 11 mg/dL (7-23) Creatinine 0.7 mg/dL (0.7-1.2) Estimat Glomerular Filtration Rate > 60 mL/min (>60) Glucose Level 807 mg/dL (74-106) #*H Hemoglobin A1c 4.9 % (< 6.0) Uric Acid 6.2 mg/dL (3.0-7.5) Calcium Level 8.4 mg/dL (8.6-10.2) L Phosphorus Level 5.8 mg/dL (2.5-4.8) H Magnesium Level 1.8 mg/dL (1.7-2.5) Total Bilirubin 0.3 mg/dL (0.0-1.2) Aspartate Amino Transf (AST/SGOT) 9 U/L (5-40) Alanine Aminotransferase (ALT/SGPT) 5 U/L (3-41) Alkaline Phosphatase 106 U/L (40-129) C-Reactive Protein, Quantitative 9.4 mg/dL (< 0.5) H Pro-B-Type Natriuretic Peptide 8976 pg/mL (0-125) H Total Protein 6.0 g/dL (6.6-8.7) L Albumin 2.5 g/dL (3.5-5.2) L Globulin 3.5 g/dL Albumin/Globulin Ratio 0.7 (1.0-2.7) L Height (Feet): 6 Height (Inches): 5.00 Weight (Pounds): 234 General Appearance: no apparent distress Cardiovascular: normal rate Respiratory/Chest: other - mech vent Abdominal Exam: distended Lou Cee N.P. Mar 10, 2017 11:48
[2017-03-10 12:00] VITALS: BP 155/97
--- NOTE | 2017-03-10 12:18 | Infectious Diseases Prog Note ---
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 , ACB - CXR 03/04: Worsening generalized interstitial congestion, right mid and lower lung parenchymal infiltrates - h/o PSA // Multiple decubiti POA, not grossly infected - WCx S.aureus, GNR x2 = colonizers // Negative C.difficile 03/03 // Sepsis, SP // Leukocytosis - // Fever SP // Chronic VDRF SP trach, PEG // Severe pulmonary HTN // Paraplegia // ARF - improved // Chronic FOBT(+) anemia // NKDA // Full Code PLAN: - cont Merrem , IV Vanco and Colistin INH d# 4 / ( 03/07 SP Amikacin, Invanz d# 5 ) ( 03/04 SP IV vancomycin d# 2 ) - monitor CBC, temperatures - monitor BMP - monitor CXR - vent support / trach care / aspiration precautions - wound care - on TPN Subjective Constitutional: Denies: anorexia, chills, drenching sweats, fatigue, fever, no symptoms, other Allergies: Coded Allergies: No Known Allergies (Unverified , 03/02/17) Subjective Afebrile , on TPN Objective Vital Signs Last 24 Hour Vital Signs Date Time Temp Pulse Resp B/P Pulse Ox O2 Delivery O2 Flow Rate FiO2 03/10/17 12:06 45 03/10/17 10:41 66 21 45 03/10/17 09:11 70 21 45 03/10/17 08:00 67 03/10/17 08:00 98.4 65 20 139/85 99 Mechanical Ventilator 45 03/10/17 08:00 45 03/10/17 06:34 69 18 45 03/10/17 05:27 71 26 45 03/10/17 04:00 97.9 65 17 129/80 99 Mechanical Ventilator 03/10/17 04:00 30 03/10/17 04:00 69 03/10/17 03:15 62 20 45 03/10/17 01:11 68 20 45 03/10/17 00:33 97.5 67 16 118/69 97 Mechanical Ventilator 03/10/17 00:00 30 03/10/17 00:00 70 03/09/17 23:17 67 20 45 03/09/17 21:55 65 19 100 Mechanical Ventilator 30 03/09/17 21:32 64 24 96 Mechanical Ventilator 30 03/09/17 21:00 64 24 30 03/09/17 20:09 98.1 62 18 119/68 96 Mechanical Ventilator 03/09/17 20:00 30 03/09/17 20:00 66 03/09/17 19:25 62 25 30 03/09/17 17:07 52 21 30 03/09/17 16:00 98.7 62 22 136/79 99 Mechanical Ventilator 30 03/09/17 16:00 30 03/09/17 15:48 67 03/09/17 14:59 58 17 30 03/09/17 13:00 60 19 30 Height (Feet): 6 Height (Inches): 5.00 Weight (Pounds): 234 HEENT: anicteric Respiratory/Chest: normal breath sounds Cardiovascular: no gallop/murmur Abdomen: no mass Laboratory Tests Test 03/09/17 21:41 03/10/17 04:20 Arterial Blood pH 7.380 (7.350-7.450) Arterial Blood Partial Pressure CO2 53.0 mmHg (35.0-45.0) H Arterial Blood Partial Pressure O2 78.6 mmHg (75.0-100.0) Arterial Blood HCO3 30.6 mmol/L (22.0-26.0) H Arterial Blood Oxygen Saturation 94.0 % (92.0-98.0) Arterial Blood Base Excess 4.7 Andrae Test Positive White Blood Count 16.9 K/UL (4.8-10.8) H Red Blood Count 3.18 M/UL (4.70-6.10) L Hemoglobin 9.1 G/DL (14.2-18.0) L Hematocrit 29.5 % (42.0-52.0) L Mean Corpuscular Volume 93 FL (80-99) # Mean Corpuscular Hemoglobin 28.7 PG (27.0-31.0) Mean Corpuscular Hemoglobin Concent 30.9 G/DL (32.0-36.0) L Red Cell Distribution Width 17.0 % (11.6-14.8) H Platelet Count 227 K/UL (150-450) Mean Platelet Volume 6.1 FL (6.5-10.1) L Neutrophils (%) (Auto) % (45.0-75.0) Lymphocytes (%) (Auto) % (20.0-45.0) Monocytes (%) (Auto) % (1.0-10.0) Eosinophils (%) (Auto) % (0.0-3.0) Basophils (%) (Auto) % (0.0-2.0) Differential Total Cells Counted 100 Neutrophils % (Manual) 89 % (45-75) H Lymphocytes % (Manual) 7 % (20-45) L Monocytes % (Manual) 1 % (1-10) Eosinophils % (Manual) 2 % (0-3) Basophils % (Manual) 0 % (0-2) Band Neutrophils 1 % (0-8) Platelet Estimate Adequate Platelet Morphology Normal Hypochromasia 2+ Anisocytosis 1+ Sodium Level 138 mEQ/L (135-145) Potassium Level 4.8 mEQ/L (3.4-4.9) # Chloride Level 101 mEQ/L (98-107) Carbon Dioxide Level 28 mEQ/L (20-30) Anion Gap 9 (5-15) Blood Urea Nitrogen 11 mg/dL (7-23) Creatinine 0.7 mg/dL (0.7-1.2) Estimat Glomerular Filtration Rate > 60 mL/min (>60) Glucose Level 807 mg/dL (74-106) #*H Hemoglobin A1c 4.9 % (< 6.0) Uric Acid 6.2 mg/dL (3.0-7.5) Calcium Level 8.4 mg/dL (8.6-10.2) L Phosphorus Level 5.8 mg/dL (2.5-4.8) H Magnesium Level 1.8 mg/dL (1.7-2.5) Total Bilirubin 0.3 mg/dL (0.0-1.2) Aspartate Amino Transf (AST/SGOT) 9 U/L (5-40) Alanine Aminotransferase (ALT/SGPT) 5 U/L (3-41) Alkaline Phosphatase 106 U/L (40-129) C-Reactive Protein, Quantitative 9.4 mg/dL (< 0.5) H Pro-B-Type Natriuretic Peptide 8976 pg/mL (0-125) H Total Protein 6.0 g/dL (6.6-8.7) L Albumin 2.5 g/dL (3.5-5.2) L Globulin 3.5 g/dL Albumin/Globulin Ratio 0.7 (1.0-2.7) L Current Medications Medications (Trade) Dose Ordered Sig/Lucy Route PRN Reason Start Time Stop Time Status Last Admin Dose Admin Acetaminophen (Tylenol) 650 mg Q4H PRN NG Mild Pain/Temp > 100.5 03/06/17 16:35 04/05/17 16:34 03/06/17 20:28 Albuterol/ Ipratropium (DuoNeb 0.5-3(2.5)mg/3ml) 3 ml Q4H PRN HHN Shortness of Breath 03/06/17 16:36 03/11/17 16:35 Chlorhexidine Gluconate (Kim-Hex 2%) 1 applic BEDTIME TOPIC 03/06/17 21:00 04/05/17 20:59 03/09/17 20:53 Colistimethate Sodium 150 mg 150 mg Q12HR@10,22 INH 03/07/17 12:00 03/14/17 11:59 03/10/17 10:41 Dextrose 1,000 ml @ 75 mls/hr [id number] PRN IV IF TPN INTERRUPTED 03/09/17 21:00 04/08/17 20:59 Dextrose 50 ml 50 ml STAT PRN IV Hypoglycemia 03/09/17 16:15 04/08/17 16:14 Fat Emulsion Intravenous/Amino Acids/ Electrolytes/ Dextrose (Intralipids/Tpn) 1,800 ml @ 75 mls/hr Q24H IV 03/09/17 21:00 04/07/17 20:59 03/09/17 20:55 Heparin Sodium (Porcine) (Heparin 5000 units/ml) 5,000 units EVERY 12 HOURS SUBQ 03/06/17 21:00 04/05/17 20:59 03/10/17 08:59 Insulin Aspart (NovoLOG) Q6HR SUBQ 03/09/17 18:00 04/08/17 17:59 03/10/17 11:43 Levetiracetam (Keppra 500mg Premix) 100 ml @ 400 mls/hr Q12HR IVPB 03/09/17 21:00 04/08/17 20:59 03/10/17 08:55 Lorazepam (Ativan 2mg/ml 1ml) 2 mg Q2H PRN IV For Anxiety 03/06/17 16:00 03/13/17 15:59 03/09/17 17:37 Meropenem/Sodium Chloride (Merrem/Sodium Chloride) 110 ml @ 220 mls/hr Q8HR IVPB 03/07/17 14:00 03/12/17 13:59 03/10/17 06:13 Morphine Sulfate (Morphine Sulfate) 4 mg Q4H PRN IVP Severe Pain (Pain Scale 7-10) 03/06/17 16:37 03/13/17 16:36 03/09/17 14:47 Nystatin (Nystop Powder) 1 applic THREE TIMES A DAY TOPIC 03/06/17 18:00 04/05/17 17:59 03/10/17 08:57 Ondansetron HCl (Zofran) 4 mg Q6H PRN IVP Nausea & Vomiting 03/06/17 16:38 04/05/17 16:37 Pantoprazole (Protonix) 40 mg DAILY IVP 03/07/17 09:00 04/06/17 08:59 03/10/17 08:55 Phytonadione 10 mg 10 mg QWEEK SUBQ 03/09/17 21:00 04/07/17 20:59 03/09/17 20:55 Polyethylene Glycol 17 gm 17 gm DAILYPRN PRN ORAL Constipation 03/06/17 16:37 04/05/17 16:36 Vancomycin HCl (Vanco rx to dose) 1 ea DAILY PRN MISC Per rx protocol 03/07/17 11:15 04/06/17 11:14 Vancomycin HCl/ Dextrose (Vancomycin 1250mg/D5W 250ml) 250 ml @ 166.667 mls/hr Q12H IVPB 03/09/17 14:00 03/14/17 13:59 03/10/17 01:40 DAVID GILBERT M.D. Mar 10, 2017 12:18
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
[2017-03-10 16:00] VITALS: BP 151/97
--- NOTE | 2017-03-10 16:03 | Diagnostic Imaging Report ---
Clinical Indication: Abdominal distention, sepsis Technique: No oral contrast utilized, referring physician request IV administration nonionic contrast. Venous phase spiral acquisition obtained through the abdomen and pelvis. Multiplanar reconstructions were generated. Total dose length product 1192 mGycm. CTDIvol(s) 19 mGy. Dose reduction achieved using automated exposure control Comparison: None Findings: Lack of enteric contrast limits assessment. There is considerable presacral edema. The sigmoid colon is gas-filled, somewhat distended. There is gradual tapering to normal caliber distal sigmoid, without evidence of obstructive pathology. The transverse colon is gas filled, upper limits of normal in caliber. Considerable stool is seen in the ascending colon. The appendix is normal. Small bowel loops are diffusely gas filled, nondilated. There is trace ascites fluid. No free intraperitoneal air. There is a rectal tube in place. The liver demonstrates a few cysts, as well as subcentimeter low-attenuation lesions which are too small to characterize. The gallbladder, bile ducts pancreas are unremarkable. The spleen demonstrates a peripheral somewhat irregular low-attenuation lesion that measures approximately 2.1 cm in diameter. A smaller similar lesion is also seen slightly more cephalad. The adrenals are unremarkable. The right kidney demonstrates somewhat heterogeneous somewhat diminished perfusion as compared to the left. Both kidneys demonstrate unusual appearing peripheral irregular areas of low attenuation. These are more numerous on the right than on the left. These are fairly well-circumscribed. The right kidney demonstrates a 6 mm nonobstructive calculus within the interpolar collecting system. There is a subcentimeter right lower pole low-attenuation lesion which is too small to characterize. The bladder is mildly distended. No pelvic mass or adenopathy. There is diffuse edema of the subcutaneous fat, particularly in the bilateral flanks and buttocks, as well is in the lumbar region. The included lung bases demonstrate bilateral pleural effusions. There is complete atelectasis of the right lower lobe. There is also complete atelectasis of the right middle lobe. There is evidence of endobronchial obstruction of the right bronchus intermedius at its origin, with low attenuation material, probably debris. There is consolidation and atelectasis of portions of the right upper lobe Some compressive atelectatic changes of the left lower lobe are also noted. Patchy consolidation is seen in the periphery of the left upper lobe. The bones are unremarkable. The tip of a PICC is seen in the superior vena cava Impression: Mildly distended sigmoid without evidence of distal obstruction. Diffusely gas-filled upper limits normal caliber colon and small bowel, without evidence of obstructive pathology. Suspect functional in nature or on the basis of ileus Unusual appearance of the kidneys, with overall somewhat relative decreased opacification of the right kidney, unusual irregular peripheral low-attenuation lesions bilaterally. Suspect that the peripheral lesions represent cysts in various stages of evolution, although the possibility of peripheral infarcts should also be considered. The generalized right renal abnormality could represent renal inflammation, such as pyelonephritis Anasarca, with bilateral pleural effusions, generalized subcutaneous soft tissue edema, trace ascites, edema of the presacral fat. Nonspecific low-attenuation splenic lesions. Possibly cysts but in view of the renal abnormalities of possibility of small splenic infarct should also be considered Complete atelectasis of the right pulmonary lower and middle lobes. Evidence of endobronchial obstruction, likely by debris, of the bronchus intermedius. Atelectatic changes of the left upper lobe and consolidative changes of the right upper lobe are also noted. Incidental f -- inding of liver cysts. In addition, there are subtle low-attenuation liver lesions, too small to characterize, most likely benign simple cysts or bile hamartomas. No further followup necessary Subcentimeter right lower pole renal lesion, too small to characterize, most likely benign simple cortical cysts. No further followup needed Other findings as noted, including PICC, nonobstructive right renal calculus, rectal tube The CT scanner at [facility] is accredited by the [employer] and the scans are performed using protocols designed to limit radiation exposure to as low as reasonably achievable to attain images of sufficient resolution adequate for diagnostic evaluation.
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
[2017-03-10 20:00] VITALS: BP 142/88
[2017-03-10] MEDS: Dyna-Hex 2% Top Sol 8oz TOPIC SCH (20:22)
[2017-03-10] MEDS: TPN IV SCH (20:59)
[2017-03-10] MEDS: FAT EMULSION 20% IV SCH (20:59)
[2017-03-11] VITALS: BP 144/83
[2017-03-11] MEDS: Vancomycin 1250mg/D5W 250ml IVPB SCH ×2 (02:01→15:00)
[2017-03-11 04:00] VITALS: BP 145/85
[2017-03-11 05:09] LABS: MEAN CORPUSCULAR HEMOGLOBIN 26.8 PG (27.0-31.0); MEAN CORPUSCULAR HGB CONC 31.3 G/DL (32.0-36.0); MEAN CORPUSCULAR VOLUME 86 FL (80-99); PLATELET COUNT 267 K/UL (150-450); RED BLOOD COUNT 3.44 M/UL (4.70-6.10); RED CELL DISTRIBUTION WIDTH 15.8 % (11.6-14.8); WHITE BLOOD COUNT 21.4 K/UL (4.8-10.8)
[2017-03-11] MEDS: Meropenem 1 GM in NS 110 ML IVPB SCH ×3 (05:21→21:40)
[2017-03-11] MEDS: NovoLOG Insulin Flexpen SUBQ SCH ×4 (05:24→23:11)
[2017-03-11 06:10] LABS: ALANINE AMINOTRANSFERASE 7 U/L (3-41); ALBUMIN/GLOBULIN RATIO 0.6 (1.0-2.7); ANION GAP 11 (5-15); ASPARTATE AMINO TRANSFERASE 14 U/L (5-40); CALCIUM 8.5 mg/dL (8.6-10.2); CARBON DIOXIDE 30 mEQ/L (20-30); CHLORIDE 105 mEQ/L (98-107); CREATININE 0.7 mg/dL (0.7-1.2); GLOMERULAR FILTRATION RATE > 60 mL/min (>60); HEMOLYSIS 8; POTASSIUM 2.9 mEQ/L (3.4-4.9); SODIUM 146 mEQ/L (135-145); TOTAL PROTEIN 6.6 g/dL (6.6-8.7)
[2017-03-11 07:49] LABS: BAND NEUTROPHILS % (MANUAL) 0 % (0-8); BASOPHILS % (MANUAL) 0 % (0-2); EOSINOPHILS % (MANUAL) 2 % (0-3); LYMPHOCYTES % (MANUAL) 8 % (20-45); NEUTROPHILS % (MANUAL) 85 % (45-75); PLATELET ESTIMATE ADEQUATE; PLATELET MORPHOLOGY NORMAL; TOTAL CELLS COUNTED 100
[2017-03-11 08:00] VITALS: BP 157/89
[2017-03-11 08:39] LABS: MAGNESIUM 1.4 mg/dL (1.7-2.5); PHOSPHORUS 2.9 mg/dL (2.5-4.8)
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
[2017-03-11] MEDS: Colistin for inhalation INH SCH ×2 (09:56→22:51)
[2017-03-11] MEDS: Pantoprazole Inj IVP SCH (10:05)
[2017-03-11] MEDS: LEVETIRACETAM 500 MG IVPB SCH ×2 (10:05→20:22)
[2017-03-11] MEDS: Nystatin Powder 100,000 units/gm 15gm TOPIC SCH ×3 (10:06→17:07)
[2017-03-11] MEDS: Heparin 5000 units/ml inj SUBQ SCH ×2 (10:08→20:27)
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
[2017-03-11 12:00] VITALS: BP 151/79
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
--- NOTE | 2017-03-11 13:53 | GI Progress Note ---
Assessment/Plan Problems: (1) Iron deficiency ICD Codes: E61.1 - Iron deficiency SNOMED: 29947147 (2) Ileus ICD Codes: K56.7 - Ileus, unspecified SNOMED: 644324264 (3) Abdominal distension ICD Codes: R14.0 - Abdominal distension (gaseous) SNOMED: 13241628 (4) Septic shock ICD Codes: A41.9 - Sepsis, unspecified organism; R65.21 - Severe sepsis with septic shock SNOMED: 60172995 (5) Paraplegia ICD Codes: G82.20 - Paraplegia, unspecified SNOMED: 64120807 (6) Anemia ICD Codes: D64.9 - Anemia, unspecified SNOMED: 723611822 Qualifiers: Qualified Codes: D64.9 - Anemia, unspecified Status: unchanged Status Narrative Discussed with Dr. Thompson. Assessment/Plan CT AP reviewed >> Mildly distended sigmoid without evidence of distal obstruction. Diffusely gas-filled upper limits normal caliber colon and small bowel, without evidence of obstructive pathology. Suspect functional in nature or on the basis of ileus abdominal distention due to ileus 2/2 septic shock cont TPN bowel rest and decompression >> NGT removed NPO + IVFs + electrolyte replacement >> will order ST evalu pain mgmt iron deficient >> venofer ppi fu labs Subjective Subjective limited, more alert today Objective Last 24 Hour Vital Signs Date Time Temp Pulse Resp B/P Pulse Ox O2 Delivery O2 Flow Rate FiO2 03/11/17 12:00 45 03/11/17 12:00 98.4 61 22 151/79 100 Mechanical Ventilator 45 03/11/17 11:52 63 03/11/17 11:10 60 18 45 03/11/17 10:12 64 19 99 Mechanical Ventilator 30 03/11/17 10:00 71 21 100 Mechanical Ventilator 45 03/11/17 08:40 49 16 45 03/11/17 08:00 30 03/11/17 08:00 98.2 55 18 157/89 100 Mechanical Ventilator 45 03/11/17 07:53 61 03/11/17 07:13 59 19 45 03/11/17 05:25 68 17 45 03/11/17 04:00 62 03/11/17 04:00 98.6 57 16 145/85 100 Mechanical Ventilator 45 03/11/17 04:00 45 03/11/17 03:10 63 17 45 03/11/17 01:07 63 18 45 03/11/17 00:00 45 03/11/17 00:00 98.7 62 22 144/83 100 Mechanical Ventilator 45 03/11/17 00:00 60 03/10/17 23:06 61 18 45 03/10/17 21:15 78 17 100 Mechanical Ventilator 30 03/10/17 21:05 63 19 100 Mechanical Ventilator 30 03/10/17 21:04 63 19 45 03/10/17 20:00 45 03/10/17 20:00 65 03/10/17 20:00 98.9 60 18 142/88 100 Mechanical Ventilator 45 03/10/17 19:48 62 18 45 03/10/17 17:28 63 19 45 03/10/17 16:00 98.1 64 21 151/97 100 Mechanical Ventilator 45 03/10/17 16:00 65 03/10/17 16:00 45 03/10/17 15:23 60 16 45 Intake and Output 03/10/17 03/11/17 19:00 07:00 Intake Total 1435.000 ml 1633.2 ml Output Total 3180 ml 2000 ml Balance -1745.000 ml -366.8 ml IV Total 1435.000 ml 1633.2 ml Output Urine Total 3000 ml 2000 ml Stool Total 180 ml Laboratory Tests Test 03/11/17 04:00 White Blood Count 21.4 K/UL (4.8-10.8) H Red Blood Count 3.44 M/UL (4.70-6.10) L Hemoglobin 9.2 G/DL (14.2-18.0) L Hematocrit 29.5 % (42.0-52.0) L Mean Corpuscular Volume 86 FL (80-99) Mean Corpuscular Hemoglobin 26.8 PG (27.0-31.0) L Mean Corpuscular Hemoglobin Concent 31.3 G/DL (32.0-36.0) L Red Cell Distribution Width 15.8 % (11.6-14.8) H Platelet Count 267 K/UL (150-450) Mean Platelet Volume 6.0 FL (6.5-10.1) L Neutrophils (%) (Auto) % (45.0-75.0) Lymphocytes (%) (Auto) % (20.0-45.0) Monocytes (%) (Auto) % (1.0-10.0) Eosinophils (%) (Auto) % (0.0-3.0) Basophils (%) (Auto) % (0.0-2.0) Differential Total Cells Counted 100 Neutrophils % (Manual) 85 % (45-75) H Lymphocytes % (Manual) 8 % (20-45) L Monocytes % (Manual) 5 % (1-10) Eosinophils % (Manual) 2 % (0-3) Basophils % (Manual) 0 % (0-2) Band Neutrophils 0 % (0-8) Platelet Estimate Adequate Platelet Morphology Normal Red Blood Cell Morphology Normal Sodium Level 146 mEQ/L (135-145) H Potassium Level 2.9 mEQ/L (3.4-4.9) L Chloride Level 105 mEQ/L (98-107) Carbon Dioxide Level 30 mEQ/L (20-30) Anion Gap 11 (5-15) Blood Urea Nitrogen 12 mg/dL (7-23) Creatinine 0.7 mg/dL (0.7-1.2) Estimat Glomerular Filtration Rate > 60 mL/min (>60) Glucose Level 115 mg/dL (74-106) #H Calcium Level 8.5 mg/dL (8.6-10.2) L Phosphorus Level 2.9 mg/dL (2.5-4.8) Magnesium Level 1.4 mg/dL (1.7-2.5) L Total Bilirubin 0.3 mg/dL (0.0-1.2) Aspartate Amino Transf (AST/SGOT) 14 U/L (5-40) Alanine Aminotransferase (ALT/SGPT) 7 U/L (3-41) Alkaline Phosphatase 102 U/L (40-129) Pro-B-Type Natriuretic Peptide 8018 pg/mL (0-125) H Total Protein 6.6 g/dL (6.6-8.7) Albumin 2.5 g/dL (3.5-5.2) L Globulin 4.1 g/dL Albumin/Globulin Ratio 0.6 (1.0-2.7) L Height (Feet): 6 Height (Inches): 5.00 Weight (Pounds): 230 General Appearance: no apparent distress, alert Cardiovascular: normal rate Respiratory/Chest: normal breath sounds, no respiratory distress, other - mech vent Abdominal Exam: distended Lou Cee N.P. Mar 11, 2017 13:53
--- NOTE | 2017-03-11 14:32 | Cardiac Electrophysiology PN ---
Assessment/Plan Assessment/Plan 1. Sinus arrest with multiple pauses of more than 3 seconds including pauses of 8 seconds. This happened only when the patient was being turned, likely vagal.Keep off any sinus claudette blocking agents. In view of the patient's current sepsis, on IV antibiotics. The patient is not a candidate at this time for permanent pacemaker implantation. 2. Ventilator-dependent respiratory failure, status post tracheostomy. 3. Status post septic shock. 4. Dysphagia with history of PEG placement in the past and currently does not have a PEG. He is on TPN. 5. Iron deficiency 6. Ileus with abdominal distention . DW Dr William Subjective Subjective No further Asystole. Lowest HR 45. On Vent. Objective Last 24 Hour Vital Signs Date Time Temp Pulse Resp B/P Pulse Ox O2 Delivery O2 Flow Rate FiO2 03/11/17 12:00 45 03/11/17 12:00 98.4 61 22 151/79 100 Mechanical Ventilator 45 03/11/17 11:52 63 03/11/17 11:10 60 18 45 03/11/17 10:12 64 19 99 Mechanical Ventilator 30 03/11/17 10:00 71 21 100 Mechanical Ventilator 45 03/11/17 08:40 49 16 45 03/11/17 08:00 30 03/11/17 08:00 98.2 55 18 157/89 100 Mechanical Ventilator 45 03/11/17 07:53 61 03/11/17 07:13 59 19 45 03/11/17 05:25 68 17 45 03/11/17 04:00 62 03/11/17 04:00 98.6 57 16 145/85 100 Mechanical Ventilator 45 03/11/17 04:00 45 03/11/17 03:10 63 17 45 03/11/17 01:07 63 18 45 03/11/17 00:00 45 03/11/17 00:00 98.7 62 22 144/83 100 Mechanical Ventilator 45 03/11/17 00:00 60 03/10/17 23:06 61 18 45 03/10/17 21:15 78 17 100 Mechanical Ventilator 30 03/10/17 21:05 63 19 100 Mechanical Ventilator 30 03/10/17 21:04 63 19 45 03/10/17 20:00 45 03/10/17 20:00 65 03/10/17 20:00 98.9 60 18 142/88 100 Mechanical Ventilator 45 03/10/17 19:48 62 18 45 03/10/17 17:28 63 19 45 03/10/17 16:00 98.1 64 21 151/97 100 Mechanical Ventilator 45 03/10/17 16:00 65 03/10/17 16:00 45 03/10/17 15:23 60 16 45 Intake and Output 03/10/17 03/11/17 19:00 07:00 Intake Total 1435.000 ml 1633.2 ml Output Total 3180 ml 2000 ml Balance -1745.000 ml -366.8 ml IV Total 1435.000 ml 1633.2 ml Output Urine Total 3000 ml 2000 ml Stool Total 180 ml Laboratory Tests Test 03/11/17 04:00 White Blood Count 21.4 K/UL (4.8-10.8) H Red Blood Count 3.44 M/UL (4.70-6.10) L Hemoglobin 9.2 G/DL (14.2-18.0) L Hematocrit 29.5 % (42.0-52.0) L Mean Corpuscular Volume 86 FL (80-99) Mean Corpuscular Hemoglobin 26.8 PG (27.0-31.0) L Mean Corpuscular Hemoglobin Concent 31.3 G/DL (32.0-36.0) L Red Cell Distribution Width 15.8 % (11.6-14.8) H Platelet Count 267 K/UL (150-450) Mean Platelet Volume 6.0 FL (6.5-10.1) L Neutrophils (%) (Auto) % (45.0-75.0) Lymphocytes (%) (Auto) % (20.0-45.0) Monocytes (%) (Auto) % (1.0-10.0) Eosinophils (%) (Auto) % (0.0-3.0) Basophils (%) (Auto) % (0.0-2.0) Differential Total Cells Counted 100 Neutrophils % (Manual) 85 % (45-75) H Lymphocytes % (Manual) 8 % (20-45) L Monocytes % (Manual) 5 % (1-10) Eosinophils % (Manual) 2 % (0-3) Basophils % (Manual) 0 % (0-2) Band Neutrophils 0 % (0-8) Platelet Estimate Adequate Platelet Morphology Normal Red Blood Cell Morphology Normal Sodium Level 146 mEQ/L (135-145) H Potassium Level 2.9 mEQ/L (3.4-4.9) L Chloride Level 105 mEQ/L (98-107) Carbon Dioxide Level 30 mEQ/L (20-30) Anion Gap 11 (5-15) Blood Urea Nitrogen 12 mg/dL (7-23) Creatinine 0.7 mg/dL (0.7-1.2) Estimat Glomerular Filtration Rate > 60 mL/min (>60) Glucose Level 115 mg/dL (74-106) #H Calcium Level 8.5 mg/dL (8.6-10.2) L Phosphorus Level 2.9 mg/dL (2.5-4.8) Magnesium Level 1.4 mg/dL (1.7-2.5) L Total Bilirubin 0.3 mg/dL (0.0-1.2) Aspartate Amino Transf (AST/SGOT) 14 U/L (5-40) Alanine Aminotransferase (ALT/SGPT) 7 U/L (3-41) Alkaline Phosphatase 102 U/L (40-129) Pro-B-Type Natriuretic Peptide 8018 pg/mL (0-125) H Total Protein 6.6 g/dL (6.6-8.7) Albumin 2.5 g/dL (3.5-5.2) L Globulin 4.1 g/dL Albumin/Globulin Ratio 0.6 (1.0-2.7) L Objective HEAD AND NECK: Shows no JVD. Tracheostomy. LUNGS: Have decreased breath sounds. CARDIOVASCULAR: Shows regular S1 and S2 with no gallop. ABDOMEN: Distended. EXTREMITIES: 2+ pitting edema. ELIF ESCOBAR Mar 11, 2017 14:32
[2017-03-11 16:00] VITALS: BP 142/83
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
[2017-03-11 20:00] VITALS: BP 153/89
[2017-03-11] MEDS: Dyna-Hex 2% Top Sol 8oz TOPIC SCH (20:22)
[2017-03-11] MEDS: Acetaminophen 650 MG SUPP RECTAL PRN (20:38)
[2017-03-11] MEDS: FAT EMULSION 20% IV SCH (21:01)
[2017-03-11] MEDS: TPN IV SCH (21:01)
--- NOTE | 2017-03-11 23:37 | Wound Nurse Progress Note ---
Wound RN Progress Note Wound Consult Reassessed this pt no further deterioration noted at his time. will cont same wound treatment #1 Left Ischial tuberosity stage II pressure ulcer. same in size and color #2 Sacral stage IV pressure ulcer. same in size and color #3 Left mid lateral DTI pressure ulcer. still intact #4 Left lower leg open wound. #5 Rash on back Recommendation -Left Ischial tuberosity stage II pressure ulcer and Left mid lateral DTI pressure ulcer Cleanse with saline, pat dry, apply Triad cream, cover with bordered gauze daily and PRN soiled/dislodged -Sacral stage IV pressure ulcer Cleans with saline, pat dry, apply Hydrogel, apply calcium alginate, cover with 4x4, secure with bordered gauze daily and PRN soiled/dislodged -Left mid lateral DTI pressure ulcer and rash on back Local wound care per protocol for DTI -Keep clean and dry -Optimize nutrition -Turn and reposition -Offload both heels -Low air loss mattress -Heel protector on both heels -Assess and f/u accordingly for any changes CARLOS RAINEY RN Mar 11, 2017 23:37
[2017-03-12] VITALS: BP 152/83
[2017-03-12] MEDS: Vancomycin 1250mg/D5W 250ml IVPB SCH ×2 (01:21→14:15)
[2017-03-12 04:00] VITALS: BP 150/75
[2017-03-12] MEDS: Meropenem 1 GM in NS 110 ML IVPB SCH ×3 (05:16→22:07)
[2017-03-12] MEDS: NovoLOG Insulin Flexpen SUBQ SCH ×4 (05:18→21:00)
[2017-03-12 08:00] VITALS: BP 139/95
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
[2017-03-12] MEDS: Pantoprazole Inj IVP SCH (09:25)
[2017-03-12] MEDS: LEVETIRACETAM 500 MG IVPB SCH ×2 (09:25→21:24)
[2017-03-12] MEDS: Nystatin Powder 100,000 units/gm 15gm TOPIC SCH ×3 (09:26→17:46)
[2017-03-12] MEDS: Heparin 5000 units/ml inj SUBQ SCH ×2 (09:27→21:24)
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
[2017-03-12] MEDS: Colistin for inhalation INH SCH ×2 (10:26→21:14)
[2017-03-12] MEDS ORDERED: Tubing IV Secondary IV ONE ×2 (11:15→16:14)
[2017-03-12] MEDS ORDERED: NS 275ml ONE ×2 (11:15→16:14)
[2017-03-12 11:16] LABS: MEAN CORPUSCULAR HGB CONC 30.9 G/DL (32.0-36.0); MEAN CORPUSCULAR VOLUME 84 FL (80-99); MEAN PLATELET VOLUME 6.6 FL (6.5-10.1); PLATELET COUNT 288 K/UL (150-450); RED BLOOD COUNT 3.85 M/UL (4.70-6.10); RED CELL DISTRIBUTION WIDTH 15.4 % (11.6-14.8); WHITE BLOOD COUNT 20.9 K/UL (4.8-10.8)
[2017-03-12 11:40] LABS: ALANINE AMINOTRANSFERASE 8 U/L (3-41); ALBUMIN/GLOBULIN RATIO 0.6 (1.0-2.7); ANION GAP 8 (5-15); ASPARTATE AMINO TRANSFERASE 21 U/L (5-40); CALCIUM 8.6 mg/dL (8.6-10.2); CARBON DIOXIDE 37 mEQ/L (20-30); CHLORIDE 101 mEQ/L (98-107); CREATININE 0.5 mg/dL (0.7-1.2); CRP QUANT 10.8 mg/dL (< 0.5); GLOMERULAR FILTRATION RATE > 60 mL/min (>60); HEMOLYSIS 2; MAGNESIUM 1.6 mg/dL (1.7-2.5); PHOSPHORUS 2.3 mg/dL (2.5-4.8); SODIUM 146 mEQ/L (135-145); TOTAL PROTEIN 6.9 g/dL (6.6-8.7); URIC ACID 4.7 mg/dL (3.0-7.5)
[2017-03-12 11:49] LABS: POTASSIUM 2.5 mEQ/L (3.4-4.9)
[2017-03-12 12:00] VITALS: BP 152/84
[2017-03-12 12:02] LABS: ANISOCYTOSIS 1+; BAND NEUTROPHILS % (MANUAL) 0 % (0-8); BASOPHILS % (MANUAL) 0 % (0-2); EOSINOPHILS % (MANUAL) 1 % (0-3); LYMPHOCYTES % (MANUAL) 10 % (20-45); NEUTROPHILS % (MANUAL) 87 % (45-75); PLATELET ESTIMATE ADEQUATE; PLATELET MORPHOLOGY NORMAL; TOTAL CELLS COUNTED 100
[2017-03-12 12:03] LABS: HYPOCHROMASIA 1+
--- NOTE | 2017-03-12 12:36 | Nephrology Progress Note ---
Assessment/Plan Problem List: (1) Hypokalemia (2) Hypomagnesemia (3) Ileus (4) Iron deficiency (5) Pneumonia (6) Acute kidney failure (7) Anemia Plan Replete K and Mag Increase K in TPN Discussed with Dr Thompson and RN follow labs Subjective Subjective In NAD Objective Objective Last 24 Hour Vital Signs Date Time Temp Pulse Resp B/P Pulse Ox O2 Delivery O2 Flow Rate FiO2 03/12/17 10:36 53 20 99 Mechanical Ventilator 45 03/12/17 10:30 53 16 45 03/12/17 10:26 53 16 100 Mechanical Ventilator 45 03/12/17 09:07 51 17 45 03/12/17 08:00 49 03/12/17 08:00 97.9 54 25 139/95 100 Mechanical Ventilator 45 03/12/17 08:00 45 03/12/17 07:10 57 18 45 03/12/17 04:42 54 19 45 03/12/17 04:00 45 03/12/17 04:00 99.5 70 20 150/75 Mechanical Ventilator 45 03/12/17 04:00 45 03/12/17 03:04 67 22 45 03/12/17 01:10 62 22 45 03/12/17 00:34 97.8 03/12/17 00:00 67 03/12/17 00:00 100.2 56 20 152/83 100 Mechanical Ventilator 45 03/12/17 00:00 45 03/11/17 23:30 64 20 99 Mechanical Ventilator 30 03/11/17 22:52 63 18 100 Mechanical Ventilator 45 03/11/17 22:50 58 18 45 03/11/17 21:08 98.9 03/11/17 21:08 98.9 03/11/17 20:45 62 22 Mechanical Ventilator 30 03/11/17 20:45 66 22 45 03/11/17 20:00 100.4 65 18 153/89 100 Mechanical Ventilator 45 03/11/17 20:00 45 03/11/17 20:00 72 03/11/17 19:01 67 23 45 03/11/17 17:14 61 21 45 03/11/17 16:00 99.1 60 18 142/83 100 Mechanical Ventilator 45 03/11/17 16:00 45 03/11/17 15:44 77 03/11/17 15:02 64 20 45 03/11/17 12:37 60 22 45 Intake and Output 03/11/17 03/12/17 19:00 07:00 Intake Total 1650.000 ml 1953.2 ml Output Total 1650 ml 3650 ml Balance 0 ml -1696.8 ml IV Total 1650.000 ml 1953.2 ml Output Urine Total 1500 ml 2950 ml Stool Total 150 ml 700 ml Laboratory Tests 03/12/17 10:15: White Blood Count 20.9H, Red Blood Count 3.85L, Hemoglobin 10.0L, Hematocrit 32.3L, Mean Corpuscular Volume 84, Mean Corpuscular Hemoglobin 26.0L, Mean Corpuscular Hemoglobin Concent 30.9L, Red Cell Distribution Width 15.4H, Platelet Count 288, Mean Platelet Volume 6.6, Neutrophils (%) (Auto) , Lymphocytes (%) (Auto) , Monocytes (%) (Auto) , Eosinophils (%) (Auto) , Basophils (%) (Auto) , Differential Total Cells Counted 100, Neutrophils % ( Manual) 87H, Lymphocytes % (Manual) 10L, Monocytes % (Manual) 2, Eosinophils % ( Manual) 1, Basophils % (Manual) 0, Band Neutrophils 0, Platelet Estimate Adequate, Platelet Morphology Normal, Hypochromasia 1+, Anisocytosis 1+, Sodium Level 146H, Potassium Level 2.5*L, Chloride Level 101, Carbon Dioxide Level 37H , Anion Gap 8, Blood Urea Nitrogen 14, Creatinine 0.5L, Estimat Glomerular Filtration Rate > 60, Glucose Level 102, Uric Acid 4.7, Calcium Level 8.6, Phosphorus Level 2.3L, Magnesium Level 1.6L, Total Bilirubin 0.3, Gamma Glutamyl Transpeptidase 43, Aspartate Amino Transf (AST/SGOT) 21, Alanine Aminotransferase (ALT/SGPT) 8, Alkaline Phosphatase 102, C-Reactive Protein, Quantitative 10.8H, Pro-B-Type Natriuretic Peptide 4625H, Total Protein 6.9, Albumin 2.8L, Globulin 4.1, Albumin/Globulin Ratio 0.6L Height (Feet): 6 Height (Inches): 5.00 Weight (Pounds): 219 Cardiovascular: normal rate Respiratory/Chest: rhonchi - bilaterally Extremities: trace edema, moderate edema REEMA LANIER Mar 12, 2017 12:36
--- NOTE | 2017-03-12 12:37 | General Surgery Progress Note ---
General Surgery-Progress Note Subjective Additional Comments pt seen and examined. no acute events. exam unchanged. leukocytosis 20k today Objective Last 24 Hour Vital Signs Date Time Temp Pulse Resp B/P Pulse Ox O2 Delivery O2 Flow Rate FiO2 03/12/17 10:36 53 20 99 Mechanical Ventilator 45 03/12/17 10:30 53 16 45 03/12/17 10:26 53 16 100 Mechanical Ventilator 45 03/12/17 09:07 51 17 45 03/12/17 08:00 49 03/12/17 08:00 97.9 54 25 139/95 100 Mechanical Ventilator 45 03/12/17 08:00 45 03/12/17 07:10 57 18 45 03/12/17 04:42 54 19 45 03/12/17 04:00 45 03/12/17 04:00 99.5 70 20 150/75 Mechanical Ventilator 45 03/12/17 04:00 45 03/12/17 03:04 67 22 45 03/12/17 01:10 62 22 45 03/12/17 00:34 97.8 03/12/17 00:00 67 03/12/17 00:00 100.2 56 20 152/83 100 Mechanical Ventilator 45 03/12/17 00:00 45 03/11/17 23:30 64 20 99 Mechanical Ventilator 30 03/11/17 22:52 63 18 100 Mechanical Ventilator 45 03/11/17 22:50 58 18 45 03/11/17 21:08 98.9 03/11/17 21:08 98.9 03/11/17 20:45 62 22 Mechanical Ventilator 30 03/11/17 20:45 66 22 45 03/11/17 20:00 100.4 65 18 153/89 100 Mechanical Ventilator 45 03/11/17 20:00 45 03/11/17 20:00 72 03/11/17 19:01 67 23 45 03/11/17 17:14 61 21 45 03/11/17 16:00 99.1 60 18 142/83 100 Mechanical Ventilator 45 03/11/17 16:00 45 03/11/17 15:44 77 03/11/17 15:02 64 20 45 03/11/17 12:37 60 22 45 I&O Intake and Output 03/11/17 03/12/17 19:00 07:00 Intake Total 1650.000 ml 1953.2 ml Output Total 1650 ml 3650 ml Balance 0 ml -1696.8 ml IV Total 1650.000 ml 1953.2 ml Output Urine Total 1500 ml 2950 ml Stool Total 150 ml 700 ml Cardiovascular: RSR Respiratory: clear Abdomen: soft, distended, non-tender, present bowel sounds Laboratory Tests Test 03/12/17 10:15 White Blood Count 20.9 K/UL (4.8-10.8) H Red Blood Count 3.85 M/UL (4.70-6.10) L Hemoglobin 10.0 G/DL (14.2-18.0) L Hematocrit 32.3 % (42.0-52.0) L Mean Corpuscular Volume 84 FL (80-99) Mean Corpuscular Hemoglobin 26.0 PG (27.0-31.0) L Mean Corpuscular Hemoglobin Concent 30.9 G/DL (32.0-36.0) L Red Cell Distribution Width 15.4 % (11.6-14.8) H Platelet Count 288 K/UL (150-450) Mean Platelet Volume 6.6 FL (6.5-10.1) Neutrophils (%) (Auto) % (45.0-75.0) Lymphocytes (%) (Auto) % (20.0-45.0) Monocytes (%) (Auto) % (1.0-10.0) Eosinophils (%) (Auto) % (0.0-3.0) Basophils (%) (Auto) % (0.0-2.0) Differential Total Cells Counted 100 Neutrophils % (Manual) 87 % (45-75) H Lymphocytes % (Manual) 10 % (20-45) L Monocytes % (Manual) 2 % (1-10) Eosinophils % (Manual) 1 % (0-3) Basophils % (Manual) 0 % (0-2) Band Neutrophils 0 % (0-8) Platelet Estimate Adequate Platelet Morphology Normal Hypochromasia 1+ Anisocytosis 1+ Sodium Level 146 mEQ/L (135-145) H Potassium Level 2.5 mEQ/L (3.4-4.9) *L Chloride Level 101 mEQ/L (98-107) Carbon Dioxide Level 37 mEQ/L (20-30) H Anion Gap 8 (5-15) Blood Urea Nitrogen 14 mg/dL (7-23) Creatinine 0.5 mg/dL (0.7-1.2) L Estimat Glomerular Filtration Rate > 60 mL/min (>60) Glucose Level 102 mg/dL (74-106) Uric Acid 4.7 mg/dL (3.0-7.5) Calcium Level 8.6 mg/dL (8.6-10.2) Phosphorus Level 2.3 mg/dL (2.5-4.8) L Magnesium Level 1.6 mg/dL (1.7-2.5) L Total Bilirubin 0.3 mg/dL (0.0-1.2) Gamma Glutamyl Transpeptidase 43 U/L (8-61) Aspartate Amino Transf (AST/SGOT) 21 U/L (5-40) Alanine Aminotransferase (ALT/SGPT) 8 U/L (3-41) Alkaline Phosphatase 102 U/L (40-129) C-Reactive Protein, Quantitative 10.8 mg/dL (< 0.5) H Pro-B-Type Natriuretic Peptide 4625 pg/mL (0-125) H Total Protein 6.9 g/dL (6.6-8.7) Albumin 2.8 g/dL (3.5-5.2) L Globulin 4.1 g/dL Albumin/Globulin Ratio 0.6 (1.0-2.7) L Plan Problems: (1) Ileus Assessment & Plan: 56M with likely ileus. CT scan ordered yesterday and reviewed. Some distention of sigmoid colon with caliber change. No obvious obstruction noted. Trial oral liquid diet Swallow study will follow with abdominal exams thank you for this consultation. Gian Gilmore Mar 12, 2017 12:37
--- NOTE | 2017-03-12 12:48 | Infectious Diseases Prog Note ---
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 , ACB - CXR 03/04: Worsening generalized interstitial congestion, right mid and lower lung parenchymal infiltrates - h/o PSA // Multiple decubiti POA, not grossly infected - WCx S.aureus, GNR x2 = colonizers // Negative C.difficile 03/03 // Sepsis, SP // Leukocytosis - persistent // Fever low grade // Chronic VDRF SP trach, PEG // Severe pulmonary HTN // Paraplegia // ARF - improved // Chronic FOBT(+) anemia // NKDA // Full Code PLAN: - cont Merrem , IV Vanco and Colistin INH d# 6 / ( 03/07 SP Amikacin, Invanz d# 5 ) ( 03/04 SP IV vancomycin d# 2 ) - monitor CBC, temperatures - monitor BMP - monitor CXR - vent support / trach care / aspiration precautions - wound care - on TPN - repeat Cx ( Bl,Ur ,SP ) Subjective Allergies: Coded Allergies: No Known Allergies (Unverified , 03/02/17) Subjective low garde fever Objective Vital Signs Last 24 Hour Vital Signs Date Time Temp Pulse Resp B/P Pulse Ox O2 Delivery O2 Flow Rate FiO2 03/12/17 12:00 45 03/12/17 10:36 53 20 99 Mechanical Ventilator 45 03/12/17 10:30 53 16 45 03/12/17 10:26 53 16 100 Mechanical Ventilator 45 03/12/17 09:07 51 17 45 03/12/17 08:00 49 03/12/17 08:00 97.9 54 25 139/95 100 Mechanical Ventilator 45 03/12/17 08:00 45 03/12/17 07:10 57 18 45 03/12/17 04:42 54 19 45 03/12/17 04:00 45 03/12/17 04:00 99.5 70 20 150/75 Mechanical Ventilator 45 03/12/17 04:00 45 03/12/17 03:04 67 22 45 03/12/17 01:10 62 22 45 03/12/17 00:34 97.8 03/12/17 00:00 67 03/12/17 00:00 100.2 56 20 152/83 100 Mechanical Ventilator 45 03/12/17 00:00 45 03/11/17 23:30 64 20 99 Mechanical Ventilator 30 03/11/17 22:52 63 18 100 Mechanical Ventilator 45 03/11/17 22:50 58 18 45 03/11/17 21:08 98.9 03/11/17 21:08 98.9 03/11/17 20:45 62 22 Mechanical Ventilator 30 03/11/17 20:45 66 22 45 03/11/17 20:00 100.4 65 18 153/89 100 Mechanical Ventilator 45 03/11/17 20:00 45 03/11/17 20:00 72 03/11/17 19:01 67 23 45 03/11/17 17:14 61 21 45 03/11/17 16:00 99.1 60 18 142/83 100 Mechanical Ventilator 45 03/11/17 16:00 45 03/11/17 15:44 77 03/11/17 15:02 64 20 45 Height (Feet): 6 Height (Inches): 5.00 Weight (Pounds): 219 HEENT: anicteric Respiratory/Chest: no accessory muscle use Cardiovascular: regular rhythm Abdomen: no organomegaly Laboratory Tests Test 03/12/17 10:15 White Blood Count 20.9 K/UL (4.8-10.8) H Red Blood Count 3.85 M/UL (4.70-6.10) L Hemoglobin 10.0 G/DL (14.2-18.0) L Hematocrit 32.3 % (42.0-52.0) L Mean Corpuscular Volume 84 FL (80-99) Mean Corpuscular Hemoglobin 26.0 PG (27.0-31.0) L Mean Corpuscular Hemoglobin Concent 30.9 G/DL (32.0-36.0) L Red Cell Distribution Width 15.4 % (11.6-14.8) H Platelet Count 288 K/UL (150-450) Mean Platelet Volume 6.6 FL (6.5-10.1) Neutrophils (%) (Auto) % (45.0-75.0) Lymphocytes (%) (Auto) % (20.0-45.0) Monocytes (%) (Auto) % (1.0-10.0) Eosinophils (%) (Auto) % (0.0-3.0) Basophils (%) (Auto) % (0.0-2.0) Differential Total Cells Counted 100 Neutrophils % (Manual) 87 % (45-75) H Lymphocytes % (Manual) 10 % (20-45) L Monocytes % (Manual) 2 % (1-10) Eosinophils % (Manual) 1 % (0-3) Basophils % (Manual) 0 % (0-2) Band Neutrophils 0 % (0-8) Platelet Estimate Adequate Platelet Morphology Normal Hypochromasia 1+ Anisocytosis 1+ Sodium Level 146 mEQ/L (135-145) H Potassium Level 2.5 mEQ/L (3.4-4.9) *L Chloride Level 101 mEQ/L (98-107) Carbon Dioxide Level 37 mEQ/L (20-30) H Anion Gap 8 (5-15) Blood Urea Nitrogen 14 mg/dL (7-23) Creatinine 0.5 mg/dL (0.7-1.2) L Estimat Glomerular Filtration Rate > 60 mL/min (>60) Glucose Level 102 mg/dL (74-106) Uric Acid 4.7 mg/dL (3.0-7.5) Calcium Level 8.6 mg/dL (8.6-10.2) Phosphorus Level 2.3 mg/dL (2.5-4.8) L Magnesium Level 1.6 mg/dL (1.7-2.5) L Total Bilirubin 0.3 mg/dL (0.0-1.2) Gamma Glutamyl Transpeptidase 43 U/L (8-61) Aspartate Amino Transf (AST/SGOT) 21 U/L (5-40) Alanine Aminotransferase (ALT/SGPT) 8 U/L (3-41) Alkaline Phosphatase 102 U/L (40-129) C-Reactive Protein, Quantitative 10.8 mg/dL (< 0.5) H Pro-B-Type Natriuretic Peptide 4625 pg/mL (0-125) H Total Protein 6.9 g/dL (6.6-8.7) Albumin 2.8 g/dL (3.5-5.2) L Globulin 4.1 g/dL Albumin/Globulin Ratio 0.6 (1.0-2.7) L Current Medications Medications (Trade) Dose Ordered Sig/Lucy Route PRN Reason Start Time Stop Time Status Last Admin Dose Admin Acetaminophen (Tylenol) 650 mg Q4H PRN RECTAL Mild Pain/Temp > 100.5 03/11/17 20:35 04/10/17 20:34 03/11/17 20:38 Chlorhexidine Gluconate (Kim-Hex 2%) 1 applic BEDTIME TOPIC 03/06/17 21:00 04/05/17 20:59 03/11/17 20:22 Colistimethate Sodium (Colistin *inhalation use only*) 150 mg Q12HR@10,22 INH 03/07/17 12:00 03/14/17 11:59 03/12/17 10:26 Dextrose 1,000 ml @ 75 mls/hr [id number] PRN IV IF TPN INTERRUPTED 03/09/17 21:00 04/08/17 20:59 Dextrose 50 ml 50 ml STAT PRN IV Hypoglycemia 03/09/17 16:15 04/08/17 16:14 Fat Emulsion Intravenous/Amino Acids/ Electrolytes/ Dextrose (Intralipids/Tpn) 1,800 ml @ 75 mls/hr Q24H IV 03/10/17 21:00 03/12/17 20:59 03/11/17 21:01 Fat Emulsion Intravenous/Amino Acids/ Electrolytes/ Dextrose (Intralipids/Tpn) 1,800 ml @ 75 mls/hr Q24H IV 03/12/17 21:00 04/11/17 20:59 Heparin Sodium (Porcine) (Heparin 5000 units/ml) 5,000 units EVERY 12 HOURS SUBQ 03/06/17 21:00 04/05/17 20:59 03/12/17 09:27 Insulin Aspart AC+HS SUBQ 03/12/17 11:30 04/11/17 11:29 Levetiracetam 100 ml @ 400 mls/hr Q12HR IVPB 03/09/17 21:00 04/08/17 20:59 03/12/17 09:25 Lorazepam (Ativan 2mg/ml 1ml) 2 mg Q2H PRN IV For Anxiety 03/06/17 16:00 03/13/17 15:59 03/09/17 17:37 Magnesium Sulfate 100 ml @ 100 mls/hr Q1H IV 03/12/17 13:30 03/12/17 16:29 UNV Meropenem/Sodium Chloride (Merrem/Sodium Chloride) 110 ml @ 220 mls/hr Q8HR IVPB 03/07/17 14:00 03/20/17 13:59 03/12/17 05:16 Morphine Sulfate (Morphine Sulfate) 4 mg Q4H PRN IVP Severe Pain (Pain Scale 7-10) 03/06/17 16:37 03/13/17 16:36 03/09/17 14:47 Nystatin (Nystop Powder) 1 applic THREE TIMES A DAY TOPIC 03/06/17 18:00 04/05/17 17:59 03/12/17 09:26 Ondansetron HCl (Zofran) 4 mg Q6H PRN IVP Nausea & Vomiting 03/06/17 16:38 04/05/17 16:37 Pantoprazole (Protonix) 40 mg DAILY IVP 03/07/17 09:00 04/06/17 08:59 03/12/17 09:25 Phytonadione 10 mg 10 mg QWEEK SUBQ 03/09/17 21:00 04/07/17 20:59 03/09/17 20:55 Polyethylene Glycol 17 gm 17 gm DAILYPRN PRN ORAL Constipation 03/06/17 16:37 04/05/17 16:36 Potassium Chloride 100 ml @ 50 mls/hr Q1H STAT IVPB 03/12/17 12:24 03/12/17 14:23 UNV Simethicone (Mylicon) 40 mg EVERY 6 HOURS ORAL 03/12/17 12:00 04/11/17 11:59 Vancomycin HCl (Vanco rx to dose) 1 ea DAILY PRN MISC Per rx protocol 03/07/17 11:15 04/06/17 11:14 Vancomycin HCl/ Dextrose (Vancomycin 1250mg/D5W 250ml) 250 ml @ 166.667 mls/hr Q12H IVPB 03/09/17 14:00 03/14/17 13:59 03/12/17 01:21 DAVID GILBERT M.D. Mar 12, 2017 12:48
[2017-03-12] MEDS: Simethicone Drops 80mg/1.2ml ORAL SCH ×2 (13:25→17:45)
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
[2017-03-12] MEDS: Morphine Sulfate 4mg/ml Inj IVP PRN ×2 (15:26→21:56)
[2017-03-12 16:00] VITALS: BP 109/69
--- NOTE | 2017-03-12 18:13 | Cardiology Progress Note ---
Assessment/Plan Assessment/Plan patient is stable from cardiac standpoint hypokaliemia is managed by nephrology will follow closely Subjective Subjective the patient is on vent and he has trach, he is alert and asking for food Objective Last 24 Hour Vital Signs Date Time Temp Pulse Resp B/P Pulse Ox O2 Delivery O2 Flow Rate FiO2 03/12/17 16:54 59 21 45 03/12/17 16:00 45 03/12/17 16:00 99.2 65 22 109/69 100 Mechanical Ventilator 45 03/12/17 16:00 69 03/12/17 14:53 65 23 45 03/12/17 12:35 58 16 45 03/12/17 12:00 97.5 55 16 152/84 100 Mechanical Ventilator 45 03/12/17 12:00 65 03/12/17 12:00 45 03/12/17 10:36 53 20 99 Mechanical Ventilator 45 03/12/17 10:30 53 16 45 03/12/17 10:26 53 16 100 Mechanical Ventilator 45 03/12/17 09:07 51 17 45 03/12/17 08:00 49 03/12/17 08:00 97.9 54 25 139/95 100 Mechanical Ventilator 45 03/12/17 08:00 45 03/12/17 07:10 57 18 45 03/12/17 04:42 54 19 45 03/12/17 04:00 45 03/12/17 04:00 99.5 70 20 150/75 Mechanical Ventilator 45 03/12/17 04:00 45 03/12/17 03:04 67 22 45 03/12/17 01:10 62 22 45 03/12/17 00:34 97.8 03/12/17 00:00 67 03/12/17 00:00 100.2 56 20 152/83 100 Mechanical Ventilator 45 03/12/17 00:00 45 03/11/17 23:30 64 20 99 Mechanical Ventilator 30 03/11/17 22:52 63 18 100 Mechanical Ventilator 45 03/11/17 22:50 58 18 45 03/11/17 21:08 98.9 03/11/17 21:08 98.9 03/11/17 20:45 62 22 Mechanical Ventilator 30 03/11/17 20:45 66 22 45 03/11/17 20:00 100.4 65 18 153/89 100 Mechanical Ventilator 45 03/11/17 20:00 45 03/11/17 20:00 72 03/11/17 19:01 67 23 45 General Appearance: alert, on vent EENT: PERRL/EOMI Neck: other - trach Rhythm: NSR Cardiovascular: normal rate Respiratory/Chest: crackles/rales Abdomen: decreased bowel sounds, distended - severe distention Intake and Output 03/11/17 03/12/17 19:00 07:00 Intake Total 1650.000 ml 1953.2 ml Output Total 1650 ml 3650 ml Balance 0 ml -1696.8 ml IV Total 1650.000 ml 1953.2 ml Output Urine Total 1500 ml 2950 ml Stool Total 150 ml 700 ml Laboratory Tests Test 03/12/17 10:15 White Blood Count 20.9 K/UL (4.8-10.8) H Red Blood Count 3.85 M/UL (4.70-6.10) L Hemoglobin 10.0 G/DL (14.2-18.0) L Hematocrit 32.3 % (42.0-52.0) L Mean Corpuscular Volume 84 FL (80-99) Mean Corpuscular Hemoglobin 26.0 PG (27.0-31.0) L Mean Corpuscular Hemoglobin Concent 30.9 G/DL (32.0-36.0) L Red Cell Distribution Width 15.4 % (11.6-14.8) H Platelet Count 288 K/UL (150-450) Mean Platelet Volume 6.6 FL (6.5-10.1) Neutrophils (%) (Auto) % (45.0-75.0) Lymphocytes (%) (Auto) % (20.0-45.0) Monocytes (%) (Auto) % (1.0-10.0) Eosinophils (%) (Auto) % (0.0-3.0) Basophils (%) (Auto) % (0.0-2.0) Differential Total Cells Counted 100 Neutrophils % (Manual) 87 % (45-75) H Lymphocytes % (Manual) 10 % (20-45) L Monocytes % (Manual) 2 % (1-10) Eosinophils % (Manual) 1 % (0-3) Basophils % (Manual) 0 % (0-2) Band Neutrophils 0 % (0-8) Platelet Estimate Adequate Platelet Morphology Normal Hypochromasia 1+ Anisocytosis 1+ Sodium Level 146 mEQ/L (135-145) H Potassium Level 2.5 mEQ/L (3.4-4.9) *L Chloride Level 101 mEQ/L (98-107) Carbon Dioxide Level 37 mEQ/L (20-30) H Anion Gap 8 (5-15) Blood Urea Nitrogen 14 mg/dL (7-23) Creatinine 0.5 mg/dL (0.7-1.2) L Estimat Glomerular Filtration Rate > 60 mL/min (>60) Glucose Level 102 mg/dL (74-106) Uric Acid 4.7 mg/dL (3.0-7.5) Calcium Level 8.6 mg/dL (8.6-10.2) Phosphorus Level 2.3 mg/dL (2.5-4.8) L Magnesium Level 1.6 mg/dL (1.7-2.5) L Total Bilirubin 0.3 mg/dL (0.0-1.2) Gamma Glutamyl Transpeptidase 43 U/L (8-61) Aspartate Amino Transf (AST/SGOT) 21 U/L (5-40) Alanine Aminotransferase (ALT/SGPT) 8 U/L (3-41) Alkaline Phosphatase 102 U/L (40-129) C-Reactive Protein, Quantitative 10.8 mg/dL (< 0.5) H Pro-B-Type Natriuretic Peptide 4625 pg/mL (0-125) H Total Protein 6.9 g/dL (6.6-8.7) Albumin 2.8 g/dL (3.5-5.2) L Globulin 4.1 g/dL Albumin/Globulin Ratio 0.6 (1.0-2.7) L noted sinus rhythm on telemetry LACEY CONNOR Mar 12, 2017 18:12
[2017-03-12 20:00] VITALS: BP 131/72
[2017-03-12] MEDS ORDERED: FAT EMULSION 20% IV SCH (21:00)
[2017-03-12] MEDS ORDERED: TPN IV SCH (21:00)
[2017-03-12] MEDS: Dyna-Hex 2% Top Sol 8oz TOPIC SCH (21:24)
[2017-03-13] MEDS: Simethicone Drops 80mg/1.2ml ORAL SCH ×5 (00:04→23:31)
[2017-03-13 00:20] VITALS: BP 137/87
[2017-03-13] MEDS: Vancomycin 1250mg/D5W 250ml IVPB SCH (02:00)
[2017-03-13] MEDS: Morphine Sulfate 4mg/ml Inj IVP PRN ×3 (02:12→21:38)
[2017-03-13 04:00] VITALS: BP 149/87
[2017-03-13 05:33] LABS: ANION GAP 4 (5-15); CALCIUM 8.7 mg/dL (8.6-10.2); CARBON DIOXIDE 37 mEQ/L (20-30); CHLORIDE 102 mEQ/L (98-107); CREATININE 0.5 mg/dL (0.7-1.2); GLOMERULAR FILTRATION RATE > 60 mL/min (>60); HEMOLYSIS 0; MAGNESIUM 1.6 mg/dL (1.7-2.5); PHOSPHORUS 1.8 mg/dL (2.5-4.8); POTASSIUM 3.3 mEQ/L (3.4-4.9); SODIUM 143 mEQ/L (135-145)
[2017-03-13] MEDS: Meropenem 1 GM in NS 110 ML IVPB SCH ×3 (06:23→21:35)
[2017-03-13] MEDS: NovoLOG Insulin Flexpen SUBQ SCH ×4 (06:24→20:36)
--- NOTE | 2017-03-13 07:48 | Infectious Diseases Prog Note ---
Assessment/Plan Assessment/Plan A; E coli sepsis E. coli UTI Pneumonia, MRSA & Acinetobacter VDRF Paraplegia Anemia P: ont Merrem , IV Vancomycin and Colistin INH d# Subjective ROS Limited/Unobtainable: Yes Constitutional: Reports: fever, other - Bsnb=699.3 Gastrointestinal/Abdominal: Reports: other - on TPN Allergies: Coded Allergies: No Known Allergies (Unverified , 03/02/17) Objective Vital Signs Last 24 Hour Vital Signs Date Time Temp Pulse Resp B/P Pulse Ox O2 Delivery O2 Flow Rate FiO2 03/13/17 05:03 67 17 45 03/13/17 04:00 63 03/13/17 04:00 99.0 74 18 149/87 100 Mechanical Ventilator 45 03/13/17 04:00 45 03/13/17 03:03 67 20 45 03/13/17 01:17 60 22 45 03/13/17 00:20 99.5 63 20 137/87 100 Mechanical Ventilator 45 03/13/17 00:00 77 03/13/17 00:00 45 03/12/17 23:17 70 22 45 03/12/17 21:31 74 21 100 Mechanical Ventilator 45 03/12/17 21:17 64 24 45 03/12/17 21:17 64 24 100 Mechanical Ventilator 45 03/12/17 20:00 30 03/12/17 20:00 68 03/12/17 20:00 100.3 63 25 131/72 100 Mechanical Ventilator 45 03/12/17 19:10 60 23 45 03/12/17 16:54 59 21 45 03/12/17 16:00 45 03/12/17 16:00 99.2 65 22 109/69 100 Mechanical Ventilator 45 03/12/17 16:00 69 03/12/17 14:53 65 23 45 03/12/17 12:35 58 16 45 03/12/17 12:00 97.5 55 16 152/84 100 Mechanical Ventilator 45 03/12/17 12:00 65 03/12/17 12:00 45 03/12/17 10:36 53 20 99 Mechanical Ventilator 45 03/12/17 10:30 53 16 45 03/12/17 10:26 53 16 100 Mechanical Ventilator 45 03/12/17 09:07 51 17 45 03/12/17 08:00 49 03/12/17 08:00 97.9 54 25 139/95 100 Mechanical Ventilator 45 03/12/17 08:00 45 Height (Feet): 6 Height (Inches): 5.00 Weight (Pounds): 224 General Appearance: no acute distress HEENT: status post trach Respiratory/Chest: lungs clear, other - on ventilator Cardiovascular: normal rate Abdomen: distended Extremities: other - edema of legs, R arm PICC line Neurologic/Psychiatric: alert, responsive Laboratory Tests Test 03/12/17 10:15 03/13/17 04:00 White Blood Count 20.9 K/UL (4.8-10.8) H Red Blood Count 3.85 M/UL (4.70-6.10) L Hemoglobin 10.0 G/DL (14.2-18.0) L Hematocrit 32.3 % (42.0-52.0) L Mean Corpuscular Volume 84 FL (80-99) Mean Corpuscular Hemoglobin 26.0 PG (27.0-31.0) L Mean Corpuscular Hemoglobin Concent 30.9 G/DL (32.0-36.0) L Red Cell Distribution Width 15.4 % (11.6-14.8) H Platelet Count 288 K/UL (150-450) Mean Platelet Volume 6.6 FL (6.5-10.1) Neutrophils (%) (Auto) % (45.0-75.0) Lymphocytes (%) (Auto) % (20.0-45.0) Monocytes (%) (Auto) % (1.0-10.0) Eosinophils (%) (Auto) % (0.0-3.0) Basophils (%) (Auto) % (0.0-2.0) Differential Total Cells Counted 100 Neutrophils % (Manual) 87 % (45-75) H Lymphocytes % (Manual) 10 % (20-45) L Monocytes % (Manual) 2 % (1-10) Eosinophils % (Manual) 1 % (0-3) Basophils % (Manual) 0 % (0-2) Band Neutrophils 0 % (0-8) Platelet Estimate Adequate Platelet Morphology Normal Hypochromasia 1+ Anisocytosis 1+ Sodium Level 146 mEQ/L (135-145) H 143 mEQ/L (135-145) Potassium Level 2.5 mEQ/L (3.4-4.9) *L 3.3 mEQ/L (3.4-4.9) L Chloride Level 101 mEQ/L (98-107) 102 mEQ/L (98-107) Carbon Dioxide Level 37 mEQ/L (20-30) H 37 mEQ/L (20-30) H Anion Gap 8 (5-15) 4 (5-15) L Blood Urea Nitrogen 14 mg/dL (7-23) 14 mg/dL (7-23) Creatinine 0.5 mg/dL (0.7-1.2) L 0.5 mg/dL (0.7-1.2) L Estimat Glomerular Filtration Rate > 60 mL/min (>60) > 60 mL/min (>60) Glucose Level 102 mg/dL (74-106) 101 mg/dL (74-106) Uric Acid 4.7 mg/dL (3.0-7.5) Calcium Level 8.6 mg/dL (8.6-10.2) 8.7 mg/dL (8.6-10.2) Phosphorus Level 2.3 mg/dL (2.5-4.8) L 1.8 mg/dL (2.5-4.8) L Magnesium Level 1.6 mg/dL (1.7-2.5) L 1.6 mg/dL (1.7-2.5) L Total Bilirubin 0.3 mg/dL (0.0-1.2) Gamma Glutamyl Transpeptidase 43 U/L (8-61) Aspartate Amino Transf (AST/SGOT) 21 U/L (5-40) Alanine Aminotransferase (ALT/SGPT) 8 U/L (3-41) Alkaline Phosphatase 102 U/L (40-129) C-Reactive Protein, Quantitative 10.8 mg/dL (< 0.5) H Pro-B-Type Natriuretic Peptide 4625 pg/mL (0-125) H Total Protein 6.9 g/dL (6.6-8.7) Albumin 2.8 g/dL (3.5-5.2) L Globulin 4.1 g/dL Albumin/Globulin Ratio 0.6 (1.0-2.7) L Current Medications Medications (Trade) Dose Ordered Sig/Lucy Route PRN Reason Start Time Stop Time Status Last Admin Dose Admin Acetaminophen (Tylenol) 650 mg Q4H PRN RECTAL Mild Pain/Temp > 100.5 03/11/17 20:35 04/10/17 20:34 03/11/17 20:38 Chlorhexidine Gluconate (Kim-Hex 2%) 1 applic BEDTIME TOPIC 03/06/17 21:00 04/05/17 20:59 03/12/17 21:24 Colistimethate Sodium (Colistin *inhalation use only*) 150 mg Q12HR@10,22 INH 03/07/17 12:00 03/19/17 11:59 03/12/17 21:14 Dextrose 1,000 ml @ 75 mls/hr [id number] PRN IV IF TPN INTERRUPTED 03/09/17 21:00 04/08/17 20:59 Dextrose 50 ml 50 ml STAT PRN IV Hypoglycemia 03/09/17 16:15 04/08/17 16:14 Fat Emulsion Intravenous 192 ml/Amino Acids/ Electrolytes/ Dextrose 1,800 ml @ 75 mls/hr Q24H IV 03/12/17 21:00 04/11/17 20:59 03/12/17 21:23 Heparin Sodium (Porcine) (Heparin 5000 units/ml) 5,000 units EVERY 12 HOURS SUBQ 03/06/17 21:00 04/05/17 20:59 03/12/17 21:24 Insulin Aspart AC+HS SUBQ 03/12/17 11:30 04/11/17 11:29 03/12/17 16:42 Levetiracetam (Keppra 500mg Premix) 100 ml @ 400 mls/hr Q12HR IVPB 03/09/17 21:00 04/08/17 20:59 03/12/17 21:24 Lorazepam (Ativan 2mg/ml 1ml) 2 mg Q2H PRN IV For Anxiety 03/06/17 16:00 03/13/17 15:59 03/09/17 17:37 Magnesium Sulfate (Magnesium Sulfate 1gm/100ml) 100 ml @ 100 mls/hr Q1H IVPB 03/13/17 09:00 03/13/17 10:59 Meropenem/Sodium Chloride (Merrem/Sodium Chloride) 110 ml @ 220 mls/hr Q8HR IVPB 03/07/17 14:00 03/20/17 13:59 03/13/17 06:23 Morphine Sulfate (Morphine Sulfate) 4 mg Q4H PRN IVP Severe Pain (Pain Scale 7-10) 03/06/17 16:37 03/13/17 16:36 03/13/17 02:12 Nystatin (Nystop Powder) 1 applic THREE TIMES A DAY TOPIC 03/06/17 18:00 04/05/17 17:59 03/12/17 17:46 Ondansetron HCl (Zofran) 4 mg Q6H PRN IVP Nausea & Vomiting 03/06/17 16:38 04/05/17 16:37 Pantoprazole (Protonix) 40 mg DAILY IVP 03/07/17 09:00 04/06/17 08:59 03/12/17 09:25 Phytonadione 10 mg 10 mg QWEEK SUBQ 03/09/17 21:00 04/07/17 20:59 03/09/17 20:55 Polyethylene Glycol 17 gm 17 gm DAILYPRN PRN ORAL Constipation 03/06/17 16:37 04/05/17 16:36 Potassium Phosphate 20 mm/ Sodium Chloride 281.6667 ml @ 46.944 m... ONCE ONCE IV 03/13/17 09:00 03/13/17 14:59 Simethicone (Mylicon) 40 mg EVERY 6 HOURS ORAL 03/12/17 12:00 04/11/17 11:59 03/13/17 06:23 Vancomycin HCl (Vanco rx to dose) 1 ea DAILY PRN MISC Per rx protocol 03/07/17 11:15 04/06/17 11:14 Vancomycin HCl/ Dextrose (Vancomycin 1250mg/D5W 250ml) 250 ml @ 166.667 mls/hr Q12H IVPB 03/09/17 14:00 03/19/17 13:59 03/13/17 02:00 ISRAEL LANIER Mar 13, 2017 07:47
[2017-03-13 08:00] VITALS: BP 119/76
[2017-03-13] MEDS ORDERED: Potassium Phosphate 20 MM in NS 275 ML IV ONE (09:00)
[2017-03-13] MEDS: LEVETIRACETAM 500 MG IVPB SCH ×2 (09:56→20:37)
[2017-03-13] MEDS: Pantoprazole Inj IVP SCH (09:56)
[2017-03-13] MEDS: Heparin 5000 units/ml inj SUBQ SCH ×2 (09:57→20:39)
[2017-03-13] MEDS: Nystatin Powder 100,000 units/gm 15gm TOPIC SCH ×3 (09:58→17:40)
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
[2017-03-13] MEDS: Colistin for inhalation INH SCH ×2 (10:33→22:28)
[2017-03-13] MEDS ORDERED: Tubing IV Secondary IV ONE (11:05)
[2017-03-13] MEDS ORDERED: NS 275ml ONE (11:05)
[2017-03-13 11:39] VITALS: BP 119/76
--- NOTE | 2017-03-13 13:59 | Nephrology Progress Note ---
Assessment/Plan Problem List: (1) Hypokalemia Assessment: better (2) Hypomagnesemia (3) Ileus (4) Iron deficiency (5) Pneumonia (6) Acute kidney failure (7) Anemia Plan Replete K cont TPN Discussed with Dr Thompson follow labs Subjective Subjective In NAD Objective Objective Last 24 Hour Vital Signs Date Time Temp Pulse Resp B/P Pulse Ox O2 Delivery O2 Flow Rate FiO2 03/13/17 13:14 51 16 45 03/13/17 11:39 98.2 64 16 119/76 100 Mechanical Ventilator 45 03/13/17 11:39 56 03/13/17 11:39 45 03/13/17 10:50 51 16 45 03/13/17 10:43 51 16 100 Mechanical Ventilator 45 03/13/17 10:33 51 16 100 Mechanical Ventilator 45 03/13/17 09:21 46 16 45 03/13/17 08:00 56 03/13/17 08:00 45 03/13/17 08:00 98.2 64 16 119/76 100 Mechanical Ventilator 45 03/13/17 07:15 53 16 45 03/13/17 05:03 67 17 45 03/13/17 04:00 63 03/13/17 04:00 99.0 74 18 149/87 100 Mechanical Ventilator 45 03/13/17 04:00 45 03/13/17 03:03 67 20 45 03/13/17 01:17 60 22 45 03/13/17 00:20 99.5 63 20 137/87 100 Mechanical Ventilator 45 03/13/17 00:00 77 03/13/17 00:00 45 03/12/17 23:17 70 22 45 03/12/17 21:31 74 21 100 Mechanical Ventilator 45 03/12/17 21:17 64 24 45 03/12/17 21:17 64 24 100 Mechanical Ventilator 45 03/12/17 20:00 30 03/12/17 20:00 68 03/12/17 20:00 100.3 63 25 131/72 100 Mechanical Ventilator 45 03/12/17 19:10 60 23 45 03/12/17 16:54 59 21 45 03/12/17 16:00 45 03/12/17 16:00 99.2 65 22 109/69 100 Mechanical Ventilator 45 03/12/17 16:00 69 03/12/17 14:53 65 23 45 Intake and Output 03/12/17 03/13/17 19:00 07:00 Intake Total 1980.000 ml 1861.250 ml Output Total 1725 ml 850 ml Balance 255.000 ml 1011.250 ml Intake Oral 220 ml 120 ml IV Total 1760.000 ml 1741.250 ml Output Urine Total 1725 ml 850 ml Laboratory Tests 03/13/17 04:00: Sodium Level 143, Potassium Level 3.3L, Chloride Level 102, Carbon Dioxide Level 37H, Anion Gap 4L, Blood Urea Nitrogen 14, Creatinine 0.5L, Estimat Glomerular Filtration Rate > 60, Glucose Level 101, Calcium Level 8.7, Phosphorus Level 1.8L, Magnesium Level 1.6L 03/13/17 13:30: Vancomycin Level Trough [Pending] Height (Feet): 6 Height (Inches): 5.00 Weight (Pounds): 224 Cardiovascular: normal rate Respiratory/Chest: rhonchi - bilaterally Extremities: moderate edema REEMA LANIER Mar 13, 2017 13:59
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
[2017-03-13 16:00] VITALS: BP 115/70
[2017-03-13] MEDS: Vancomycin 1gm in D5W 275ml IVPB SCH (20:00)
--- NOTE | 2017-03-13 20:28 | Cardiology Progress Note ---
Assessment/Plan Assessment/Plan K is managed by nephrology cardiac status unchanged Subjective Subjective the patient is on vent and he has trach, he is alert and asking for food Objective Last 24 Hour Vital Signs Date Time Temp Pulse Resp B/P Pulse Ox O2 Delivery O2 Flow Rate FiO2 03/13/17 18:54 63 21 45 03/13/17 16:42 69 18 45 03/13/17 16:00 99.1 77 20 115/70 100 Mechanical Ventilator 45 03/13/17 16:00 45 03/13/17 16:00 62 03/13/17 15:07 71 19 45 03/13/17 13:14 51 16 45 03/13/17 11:39 98.2 64 16 119/76 100 Mechanical Ventilator 45 03/13/17 11:39 56 03/13/17 11:39 45 03/13/17 10:50 51 16 45 03/13/17 10:43 51 16 100 Mechanical Ventilator 45 03/13/17 10:33 51 16 100 Mechanical Ventilator 45 03/13/17 09:21 46 16 45 03/13/17 08:00 56 03/13/17 08:00 45 03/13/17 08:00 98.2 64 16 119/76 100 Mechanical Ventilator 45 03/13/17 07:15 53 16 45 03/13/17 05:03 67 17 45 03/13/17 04:00 63 03/13/17 04:00 99.0 74 18 149/87 100 Mechanical Ventilator 45 03/13/17 04:00 45 03/13/17 03:03 67 20 45 03/13/17 01:17 60 22 45 03/13/17 00:20 99.5 63 20 137/87 100 Mechanical Ventilator 45 03/13/17 00:00 77 03/13/17 00:00 45 03/12/17 23:17 70 22 45 03/12/17 21:31 74 21 100 Mechanical Ventilator 45 03/12/17 21:17 64 24 45 03/12/17 21:17 64 24 100 Mechanical Ventilator 45 General Appearance: alert, other - on vent, trach EENT: PERRL/EOMI Cardiovascular: normal rate Respiratory/Chest: crackles/rales Abdomen: distended Extremities: non-pitting Intake and Output 03/12/17 03/13/17 19:00 07:00 Intake Total 1980.000 ml 1861.250 ml Output Total 1725 ml 850 ml Balance 255.000 ml 1011.250 ml Intake Oral 220 ml 120 ml IV Total 1760.000 ml 1741.250 ml Output Urine Total 1725 ml 850 ml Laboratory Tests Test 03/13/17 04:00 03/13/17 13:30 Sodium Level 143 mEQ/L (135-145) Potassium Level 3.3 mEQ/L (3.4-4.9) L Chloride Level 102 mEQ/L (98-107) Carbon Dioxide Level 37 mEQ/L (20-30) H Anion Gap 4 (5-15) L Blood Urea Nitrogen 14 mg/dL (7-23) Creatinine 0.5 mg/dL (0.7-1.2) L Estimat Glomerular Filtration Rate > 60 mL/min (>60) Glucose Level 101 mg/dL (74-106) Calcium Level 8.7 mg/dL (8.6-10.2) Phosphorus Level 1.8 mg/dL (2.5-4.8) L Magnesium Level 1.6 mg/dL (1.7-2.5) L Vancomycin Level Trough 20.2 ug/mL (5.0-12.0) H Microbiology Date/Time Source Procedure Growth Status 03/12/17 15:00 Sputum Gram Stain - Final Resulted 03/12/17 15:00 Sputum Sputum Culture Pending Resulted 03/12/17 15:00 Urine,Clean Catch Urine Culture - Preliminary Resulted LACEY CONNOR Mar 13, 2017 20:28
[2017-03-13] MEDS: Dyna-Hex 2% Top Sol 8oz TOPIC SCH (20:36)
[2017-03-13] MEDS: FAT EMULSION 20% IV SCH (20:41)
[2017-03-13] MEDS: TPN IV SCH (20:41)
[2017-03-13 20:56] VITALS: BP 132/75
[2017-03-14] VITALS: BP 156/87
[2017-03-14] MEDS: Morphine Sulfate 4mg/ml Inj IVP PRN ×3 (01:26→10:40)
[2017-03-14 04:00] VITALS: BP 128/79
[2017-03-14] MEDS: Meropenem 1 GM in NS 110 ML IVPB SCH ×3 (05:34→21:03)
[2017-03-14] MEDS: Simethicone Drops 80mg/1.2ml ORAL SCH ×4 (05:34→23:58)
[2017-03-14] MEDS: NovoLOG Insulin Flexpen SUBQ SCH ×4 (06:06→20:08)
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
[2017-03-14 08:00] VITALS: BP 134/64
[2017-03-14] MEDS: Vancomycin 1gm in D5W 275ml IVPB SCH ×2 (08:00→22:24)
[2017-03-14] MEDS: Pantoprazole Inj IVP SCH (08:57)
[2017-03-14] MEDS: Nystatin Powder 100,000 units/gm 15gm TOPIC SCH ×3 (08:58→17:01)
[2017-03-14] MEDS: LEVETIRACETAM 500 MG IVPB SCH ×2 (09:00→20:07)
--- NOTE | 2017-03-14 09:04 | General Surgery Progress Note ---
General Surgery-Progress Note Subjective Additional Comments no acute events. exam stable. Objective Last 24 Hour Vital Signs Date Time Temp Pulse Resp B/P Pulse Ox O2 Delivery O2 Flow Rate FiO2 03/14/17 08:37 45 03/14/17 06:58 52 16 45 03/14/17 05:21 54 16 45 03/14/17 04:00 45 03/14/17 04:00 59 03/14/17 04:00 98.1 58 16 128/79 100 Mechanical Ventilator 45 03/14/17 03:15 58 19 45 03/14/17 01:00 55 18 45 03/14/17 00:00 99.2 92 20 156/87 100 Mechanical Ventilator 45 03/14/17 00:00 45 03/13/17 23:36 64 03/13/17 23:22 56 18 45 03/13/17 22:42 53 16 100 Mechanical Ventilator 45 03/13/17 22:32 58 16 100 Mechanical Ventilator 45 03/13/17 21:11 53 19 45 03/13/17 20:56 99.1 53 20 132/75 100 Mechanical Ventilator 45 03/13/17 20:10 64 03/13/17 20:00 45 03/13/17 18:54 63 21 45 03/13/17 16:42 69 18 45 03/13/17 16:00 99.1 77 20 115/70 100 Mechanical Ventilator 45 03/13/17 16:00 45 03/13/17 16:00 62 03/13/17 15:07 71 19 45 03/13/17 13:14 51 16 45 03/13/17 11:39 98.2 64 16 119/76 100 Mechanical Ventilator 45 03/13/17 11:39 56 03/13/17 11:39 45 03/13/17 10:50 51 16 45 03/13/17 10:43 51 16 100 Mechanical Ventilator 45 03/13/17 10:33 51 16 100 Mechanical Ventilator 45 03/13/17 09:21 46 16 45 I&O Intake and Output 03/13/17 03/14/17 19:00 07:00 Intake Total 1240 ml 1760.000 ml Output Total 750 ml 2800 ml Balance 490 ml -1040.000 ml Intake Oral 240 ml 340 ml IV Total 1000 ml 1420.000 ml Output Urine Total 750 ml 2800 ml Cardiovascular: RSR Respiratory: decreased breath sounds Abdomen: soft, distended, non-tender, present bowel sounds Laboratory Tests Test 03/13/17 13:30 Vancomycin Level Trough 20.2 ug/mL (5.0-12.0) H Plan Problems: (1) Ileus Assessment & Plan: 56M with likely ileus. CT scan ordered pior and reviewed. Some distention of sigmoid colon with caliber change. No obvious obstruction noted. Barium enema to evaluate caliber change in sigmoid colon. Trial oral liquid diet Swallow study will follow with abdominal exams thank you for this consultation. Gian Gilmore Mar 14, 2017 09:04
--- NOTE | 2017-03-14 09:13 | Diagnostic Imaging Report ---
Indication: Dyspnea Comparison: 03/09/70 A single view chest radiograph was obtained. Findings: There is interstitial edema suspected. There is atelectasis of most of the right lung and concomitant suspected pleural effusion. Partial imaging of lower cervical upper thoracic fusion hardware and a right-sided PICC line are again noted. Impression: Increasing atelectasis of the right lung and suspected increasing pleural effusion. Interstitial pulmonary edema again noted grossly unchanged.
[2017-03-14] MEDS: Heparin 5000 units/ml inj SUBQ SCH ×2 (09:15→20:09)
[2017-03-14 09:33] LABS: ANION GAP 9 (5-15); CALCIUM 8.5 mg/dL (8.6-10.2); CARBON DIOXIDE 34 mEQ/L (20-30); CHLORIDE 98 mEQ/L (98-107); CREATININE 0.5 mg/dL (0.7-1.2); GLOMERULAR FILTRATION RATE > 60 mL/min (>60); HEMOLYSIS 6; PHOSPHORUS 2.4 mg/dL (2.5-4.8); POTASSIUM 4.5 mEQ/L (3.4-4.9); SODIUM 141 mEQ/L (135-145)
--- NOTE | 2017-03-14 10:00 | Infectious Diseases Prog Note ---
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 , ACB repeat Scx: GNR - CXR 03/04: Worsening generalized interstitial congestion, right mid and lower lung parenchymal infiltrates - h/o PSA // Multiple decubiti POA, not grossly infected - WCx S.aureus, GNR x2 = colonizers // Negative C.difficile 03/03 // Sepsis, SP // Leukocytosis - persistent // Fever low grade , SP // Chronic VDRF SP trach, PEG // Severe pulmonary HTN // Paraplegia // ARF - improved // Chronic FOBT(+) anemia // NKDA // Full Code PLAN: - cont Merrem , IV Vanco and Colistin INH d# 8 / ( 03/07 SP Amikacin, Invanz d# 5 ) ( 03/04 SP IV vancomycin d# 2 ) - monitor CBC, temperatures - monitor BMP - monitor CXR - vent support / trach care / aspiration precautions - wound care - on TPN - repeat Cx ( Bl,Ur ,SP ) Subjective Constitutional: Denies: anorexia, chills, drenching sweats, fatigue, fever, no symptoms, other Allergies: Coded Allergies: No Known Allergies (Unverified , 03/02/17) Subjective afebrile Objective Vital Signs Last 24 Hour Vital Signs Date Time Temp Pulse Resp B/P Pulse Ox O2 Delivery O2 Flow Rate FiO2 03/14/17 08:43 62 16 45 03/14/17 08:37 45 03/14/17 08:00 97.9 64 17 134/64 100 Mechanical Ventilator 45 03/14/17 06:58 52 16 45 03/14/17 05:21 54 16 45 03/14/17 04:00 45 03/14/17 04:00 59 03/14/17 04:00 98.1 58 16 128/79 100 Mechanical Ventilator 45 03/14/17 03:15 58 19 45 03/14/17 01:00 55 18 45 03/14/17 00:00 99.2 92 20 156/87 100 Mechanical Ventilator 45 03/14/17 00:00 45 03/13/17 23:36 64 03/13/17 23:22 56 18 45 03/13/17 22:42 53 16 100 Mechanical Ventilator 45 03/13/17 22:32 58 16 100 Mechanical Ventilator 45 03/13/17 21:11 53 19 45 03/13/17 20:56 99.1 53 20 132/75 100 Mechanical Ventilator 45 03/13/17 20:10 64 03/13/17 20:00 45 03/13/17 18:54 63 21 45 03/13/17 16:42 69 18 45 03/13/17 16:00 99.1 77 20 115/70 100 Mechanical Ventilator 45 03/13/17 16:00 45 03/13/17 16:00 62 03/13/17 15:07 71 19 45 03/13/17 13:14 51 16 45 03/13/17 11:39 98.2 64 16 119/76 100 Mechanical Ventilator 45 03/13/17 11:39 56 03/13/17 11:39 45 03/13/17 10:50 51 16 45 03/13/17 10:43 51 16 100 Mechanical Ventilator 45 03/13/17 10:33 51 16 100 Mechanical Ventilator 45 Height (Feet): 6 Height (Inches): 5.00 Weight (Pounds): 224 HEENT: anicteric Respiratory/Chest: normal breath sounds Cardiovascular: regular rhythm Abdomen: no organomegaly Microbiology Date/Time Source Procedure Growth Status 03/12/17 15:00 Blood Blood Culture - Preliminary NO GROWTH AFTER 24 HOURS Resulted 03/12/17 15:00 Blood Blood Culture - Preliminary NO GROWTH AFTER 24 HOURS Resulted 03/12/17 15:00 Sputum Gram Stain - Final Resulted 03/12/17 15:00 Sputum Culture - Preliminary Gram Negative Bacillus 1 Resulted 03/12/17 15:00 Urine,Clean Catch Urine Culture - Preliminary YEAST Resulted Laboratory Tests Test 03/13/17 13:30 03/14/17 05:45 Vancomycin Level Trough 20.2 ug/mL (5.0-12.0) H Pending Sodium Level 141 mEQ/L (135-145) Potassium Level 4.5 mEQ/L (3.4-4.9) Chloride Level 98 mEQ/L (98-107) Carbon Dioxide Level 34 mEQ/L (20-30) H Anion Gap 9 (5-15) Blood Urea Nitrogen 12 mg/dL (7-23) Creatinine 0.5 mg/dL (0.7-1.2) L Estimat Glomerular Filtration Rate > 60 mL/min (>60) Glucose Level 102 mg/dL (74-106) Calcium Level 8.5 mg/dL (8.6-10.2) L Phosphorus Level 2.4 mg/dL (2.5-4.8) L Magnesium Level 1.7 mg/dL (1.7-2.5) Current Medications Medications (Trade) Dose Ordered Sig/Lucy Route PRN Reason Start Time Stop Time Status Last Admin Dose Admin Acetaminophen (Tylenol) 650 mg Q4H PRN RECTAL Mild Pain/Temp > 100.5 03/11/17 20:35 04/10/17 20:34 03/11/17 20:38 Chlorhexidine Gluconate (Kim-Hex 2%) 1 applic BEDTIME TOPIC 03/06/17 21:00 04/05/17 20:59 03/13/17 20:36 Colistimethate Sodium (Colistin *inhalation use only*) 150 mg Q12HR@10,22 INH 03/07/17 12:00 03/19/17 11:59 03/13/17 22:28 Dextrose (D10w) 1,000 ml @ 75 mls/hr [id number] PRN IV IF TPN INTERRUPTED 03/09/17 21:00 04/08/17 20:59 Dextrose 50 ml 50 ml STAT PRN IV Hypoglycemia 03/09/17 16:15 04/08/17 16:14 Fat Emulsion Intravenous 192 ml/Amino Acids/ Electrolytes/ Dextrose 1,800 ml @ 75 mls/hr Q24H IV 03/13/17 21:00 04/12/17 20:59 03/13/17 20:41 Heparin Sodium (Porcine) (Heparin 5000 units/ml) 5,000 units EVERY 12 HOURS SUBQ 03/06/17 21:00 04/05/17 20:59 03/14/17 09:15 Insulin Aspart AC+HS SUBQ 03/12/17 11:30 04/11/17 11:29 03/12/17 16:42 Levetiracetam (Keppra 500mg Premix) 100 ml @ 400 mls/hr Q12HR IVPB 03/09/17 21:00 04/08/17 20:59 03/13/17 20:37 Meropenem/Sodium Chloride (Merrem/Sodium Chloride) 110 ml @ 220 mls/hr Q8HR IVPB 03/07/17 14:00 03/20/17 13:59 03/14/17 05:34 Morphine Sulfate (Morphine Sulfate) 4 mg Q4H PRN IVP Severe Pain (Pain Scale 7-10) 03/13/17 20:45 03/20/17 20:44 03/14/17 05:35 Nystatin (Nystop Powder) 1 applic THREE TIMES A DAY TOPIC 03/06/17 18:00 04/05/17 17:59 03/14/17 08:58 Ondansetron HCl (Zofran) 4 mg Q6H PRN IVP Nausea & Vomiting 03/06/17 16:38 04/05/17 16:37 Pantoprazole (Protonix) 40 mg DAILY IVP 03/07/17 09:00 04/06/17 08:59 03/14/17 08:57 Phytonadione 10 mg 10 mg QWEEK SUBQ 03/09/17 21:00 04/07/17 20:59 03/09/17 20:55 Polyethylene Glycol 17 gm 17 gm DAILYPRN PRN ORAL Constipation 03/06/17 16:37 04/05/17 16:36 Simethicone (Mylicon) 40 mg EVERY 6 HOURS ORAL 03/12/17 12:00 04/11/17 11:59 03/14/17 05:34 Vancomycin HCl (Vanco rx to dose) 1 ea DAILY PRN MISC Per rx protocol 03/07/17 11:15 04/06/17 11:14 Vancomycin HCl/ Dextrose (Vancomycin/D5W) 275 ml @ 183.708 mls/hr Q12H IVPB 03/13/17 20:00 03/18/17 19:59 03/14/17 08:00 DAVID GILBERT M.D. Mar 14, 2017 10:00
[2017-03-14] MEDS: Colistin for inhalation INH SCH ×2 (10:35→21:34)
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
--- NOTE | 2017-03-14 11:44 | GI Progress Note ---
Assessment/Plan Problems: (1) Iron deficiency ICD Codes: E61.1 - Iron deficiency SNOMED: 85081555 (2) Ileus ICD Codes: K56.7 - Ileus, unspecified SNOMED: 730775466 (3) Abdominal distension ICD Codes: R14.0 - Abdominal distension (gaseous) SNOMED: 30205573 (4) Septic shock ICD Codes: A41.9 - Sepsis, unspecified organism; R65.21 - Severe sepsis with septic shock SNOMED: 30397824 (5) Paraplegia ICD Codes: G82.20 - Paraplegia, unspecified SNOMED: 75399774 (6) Anemia ICD Codes: D64.9 - Anemia, unspecified SNOMED: 406570116 Qualifiers: Qualified Codes: D64.9 - Anemia, unspecified Status: unchanged Status Narrative Discussed with Dr. Thompson. Assessment/Plan CT AP reviewed >> Mildly distended sigmoid without evidence of distal obstruction. Diffusely gas-filled upper limits normal caliber colon and small bowel, without evidence of obstructive pathology. Suspect functional in nature or on the basis of ileus abdominal distention due to ileus 2/2 septic shock vs colonic ileus fu colonic barium enema >> will consider colonic decompression FLD ST swallow eval today cont TPN pain mgmt iron deficient >> venofer ppi fu labs Subjective Subjective limited, more alert today Objective Last 24 Hour Vital Signs Date Time Temp Pulse Resp B/P Pulse Ox O2 Delivery O2 Flow Rate FiO2 03/14/17 10:41 61 16 100 Mechanical Ventilator 45 03/14/17 10:33 62 16 100 Mechanical Ventilator 45 03/14/17 10:30 61 16 45 03/14/17 08:43 62 16 45 03/14/17 08:37 45 03/14/17 08:00 68 03/14/17 08:00 97.9 64 17 134/64 100 Mechanical Ventilator 45 03/14/17 06:58 52 16 45 03/14/17 05:21 54 16 45 03/14/17 04:00 45 03/14/17 04:00 59 03/14/17 04:00 98.1 58 16 128/79 100 Mechanical Ventilator 45 03/14/17 03:15 58 19 45 03/14/17 01:00 55 18 45 03/14/17 00:00 99.2 92 20 156/87 100 Mechanical Ventilator 45 03/14/17 00:00 45 03/13/17 23:36 64 03/13/17 23:22 56 18 45 03/13/17 22:42 53 16 100 Mechanical Ventilator 45 03/13/17 22:32 58 16 100 Mechanical Ventilator 45 03/13/17 21:11 53 19 45 03/13/17 20:56 99.1 53 20 132/75 100 Mechanical Ventilator 45 03/13/17 20:10 64 03/13/17 20:00 45 03/13/17 18:54 63 21 45 03/13/17 16:42 69 18 45 03/13/17 16:00 99.1 77 20 115/70 100 Mechanical Ventilator 45 03/13/17 16:00 45 03/13/17 16:00 62 03/13/17 15:07 71 19 45 03/13/17 13:14 51 16 45 Intake and Output 03/13/17 03/14/17 19:00 07:00 Intake Total 1240 ml 1760.000 ml Output Total 750 ml 2800 ml Balance 490 ml -1040.000 ml Intake Oral 240 ml 340 ml IV Total 1000 ml 1420.000 ml Output Urine Total 750 ml 2800 ml Laboratory Tests Test 03/13/17 13:30 03/14/17 05:45 Vancomycin Level Trough 20.2 ug/mL (5.0-12.0) H Pending Sodium Level 141 mEQ/L (135-145) Potassium Level 4.5 mEQ/L (3.4-4.9) Chloride Level 98 mEQ/L (98-107) Carbon Dioxide Level 34 mEQ/L (20-30) H Anion Gap 9 (5-15) Blood Urea Nitrogen 12 mg/dL (7-23) Creatinine 0.5 mg/dL (0.7-1.2) L Estimat Glomerular Filtration Rate > 60 mL/min (>60) Glucose Level 102 mg/dL (74-106) Calcium Level 8.5 mg/dL (8.6-10.2) L Phosphorus Level 2.4 mg/dL (2.5-4.8) L Magnesium Level 1.7 mg/dL (1.7-2.5) Height (Feet): 6 Height (Inches): 5.00 Weight (Pounds): 224 General Appearance: alert, lethargic Cardiovascular: normal rate Respiratory/Chest: other - trach Abdominal Exam: distended Lou Cee N.P. Mar 14, 2017 11:44
--- NOTE | 2017-03-14 12:16 | Diagnostic Imaging Report ---
Indication: Abdominal pain and distention Technique: Supine view of the abdomen Comparison: 03/09/2017 Findings: Previously demonstrated nasogastric tube as been removed. Again demonstrated is gas throughout upper limits of normal caliber large and small bowel, pattern unchanged. There is distention of the sigmoid, which is not definitely evident previously, although this the lower portions of the abdomen were excluded from the prior imaging volume Impression: Interim nasogastric tube removal Mildly dilated distal sigmoid Diffusely gas filled upper limits of normal caliber large and small bowel elsewhere
[2017-03-14 14:47] LABS: ABG BASE EXCESS 12.8; ABG PCO2 63.2 mmHg (35.0-45.0)
[2017-03-14 14:48] LABS: ABG ALLEN TEST POSITIVE
--- NOTE | 2017-03-14 15:34 | Diagnostic Imaging Report ---
Indication: Abdominal distention Technique: Water-soluble contrast instilled into the colon under fluoroscopic supervision. Spot images were obtained. Patient became unresponsive, however, before overhead images could be obtained, and the procedure was therefore aborted and patient returned to the nursing unit. Total fluoroscopy time 4.8 minutes. Total dose area product 408 dGycm2 Comparison: Space Engineer image compared to abdomen radiograph dated 03/13/2017 Findings: Space Engineer image again demonstrates dilated distal sigmoid, diffusely gas filled large and small bowel elsewhere. Contrast images are limited, due to very limited ability to position the patient, as well as large capacity and redundancy and overlap of the colonic structures. Contrast was slowly instilled as it passed retrograde, partially due to large capacity of the colon. However, contrast essentially filled the sigmoid colon, which is dilated, but demonstrates no evidence of distal obstructing lesion. Proximal sigmoid, ascending, transverse colon, all of which are upper limits normal in caliber or borderline dilated. A small amount of contrast is seen within the ascending colon, but this is sufficient to confirm absence obstruction to retrograde passage. As mentioned earlier, no overhead images could be obtained Impression: Very limited exam, as described. Upper limits of normal caliber to borderline distended transverse, descending, and proximal sigmoid colon. Dilated distal sigmoid, without evidence of distal anatomic obstructive lesion. Dilatation is presumed to be on a functional basis.
--- NOTE | 2017-03-14 15:46 | Diagnostic Imaging Report ---
Indication: Shortness of breath Technique: One view of the chest Comparison: 09/11/2016 Findings: Interim complete opacification of the right hemithorax.. Previously demonstrated minimal aerated lung is no longer evident. There is abrupt occlusion of the right mainstem bronchus. There is shift of mediastinum to the right. The left lung and pleural space are clear, and previously demonstrated interstitial opacities are no longer evident. Right arm PICC, tracheostomy, and cervical spine fusion hardware are again demonstrated. Impression: Now complete opacification of the right hemithorax, consistent with complete atelectasis of the right lung. Probably due to endobronchial occlusion at the right mainstem bronchus origin Other findings as noted Dr. Weiner notified at the time of interpretation
--- NOTE | 2017-03-14 15:55 | Cardiac Electrophysiology PN ---
Assessment/Plan Assessment/Plan 1. Sinus arrest with multiple pauses of more than 3 seconds including pauses of 8 seconds. This happened only when the patient was being turned, likely vagal.Off any sinus claudette blocking agents. In view of the patient's current sepsis, on IV antibiotics. The patient is not a candidate at this time for permanent pacemaker implantation. 2. Ventilator-dependent respiratory failure, status post tracheostomy. 3. Status post septic shock. 4. Dysphagia with history of PEG placement in the past and currently does not have a PEG. He is on TPN. 5. Iron deficiency 6. Ileus with abdominal distention .S/P Barium enema today. GISELA RN Subjective Subjective Started vomiting after Barium enema. Now back on RUBI on Vent. Objective Last 24 Hour Vital Signs Date Time Temp Pulse Resp B/P Pulse Ox O2 Delivery O2 Flow Rate FiO2 03/14/17 14:30 65 18 45 03/14/17 13:50 45 03/14/17 13:30 65 18 45 03/14/17 10:41 61 16 100 Mechanical Ventilator 45 03/14/17 10:33 62 16 100 Mechanical Ventilator 45 03/14/17 10:30 61 16 45 03/14/17 08:43 62 16 45 03/14/17 08:37 45 03/14/17 08:00 68 03/14/17 08:00 97.9 64 17 134/64 100 Mechanical Ventilator 45 03/14/17 06:58 52 16 45 03/14/17 05:21 54 16 45 03/14/17 04:00 45 03/14/17 04:00 59 03/14/17 04:00 98.1 58 16 128/79 100 Mechanical Ventilator 45 03/14/17 03:15 58 19 45 03/14/17 01:00 55 18 45 03/14/17 00:00 99.2 92 20 156/87 100 Mechanical Ventilator 45 03/14/17 00:00 45 03/13/17 23:36 64 03/13/17 23:22 56 18 45 03/13/17 22:42 53 16 100 Mechanical Ventilator 45 03/13/17 22:32 58 16 100 Mechanical Ventilator 45 03/13/17 21:11 53 19 45 03/13/17 20:56 99.1 53 20 132/75 100 Mechanical Ventilator 45 03/13/17 20:10 64 03/13/17 20:00 45 03/13/17 18:54 63 21 45 03/13/17 16:42 69 18 45 03/13/17 16:00 99.1 77 20 115/70 100 Mechanical Ventilator 45 03/13/17 16:00 45 03/13/17 16:00 62 Intake and Output 03/13/17 03/14/17 19:00 07:00 Intake Total 1240 ml 1760.000 ml Output Total 750 ml 2800 ml Balance 490 ml -1040.000 ml Intake Oral 240 ml 340 ml IV Total 1000 ml 1420.000 ml Output Urine Total 750 ml 2800 ml Laboratory Tests Test 03/14/17 05:45 03/14/17 14:35 Sodium Level 141 mEQ/L (135-145) Potassium Level 4.5 mEQ/L (3.4-4.9) Chloride Level 98 mEQ/L (98-107) Carbon Dioxide Level 34 mEQ/L (20-30) H Anion Gap 9 (5-15) Blood Urea Nitrogen 12 mg/dL (7-23) Creatinine 0.5 mg/dL (0.7-1.2) L Estimat Glomerular Filtration Rate > 60 mL/min (>60) Glucose Level 102 mg/dL (74-106) Calcium Level 8.5 mg/dL (8.6-10.2) L Phosphorus Level 2.4 mg/dL (2.5-4.8) L Magnesium Level 1.7 mg/dL (1.7-2.5) Vancomycin Level Trough Pending Arterial Blood pH 7.410 (7.350-7.450) Arterial Blood Partial Pressure CO2 63.2 mmHg (35.0-45.0) *H Arterial Blood Partial Pressure O2 97.5 mmHg (75.0-100.0) Arterial Blood HCO3 39.3 mmol/L (22.0-26.0) H Arterial Blood Oxygen Saturation 97.1 % (92.0-98.0) Arterial Blood Base Excess 12.8 Andrea Test Positive Microbiology Date/Time Source Procedure Growth Status 03/12/17 15:00 Blood Blood Culture - Preliminary NO GROWTH AFTER 24 HOURS Resulted 03/12/17 15:00 Blood Blood Culture - Preliminary NO GROWTH AFTER 24 HOURS Resulted 03/12/17 15:00 Sputum Gram Stain - Final Resulted 03/12/17 15:00 Sputum Culture - Preliminary Gram Negative Bacillus 1 Resulted 03/12/17 15:00 Urine,Clean Catch Urine Culture - Preliminary YEAST Resulted 03/13/17 05:00 Rectal Mucosa Gram Stain - Final Resulted 03/13/17 05:00 Aerobic Culture - Preliminary Gram Negative Bacillus 1 Resulted Objective HEAD AND NECK: Shows no JVD. Tracheostomy. LUNGS: Have decreased breath sounds. CARDIOVASCULAR: Shows regular S1 and S2 with no gallop. ABDOMEN: Distended. EXTREMITIES: 2+ pitting edema. ELIF ESCOBAR Mar 14, 2017 15:55
[2017-03-14 16:16] VITALS: BP 133/83
[2017-03-14] MEDS ORDERED: Tubing IV Secondary IV ONE (16:25)
[2017-03-14] MEDS ORDERED: NS 275ml ONE (16:25)
--- NOTE | 2017-03-14 16:48 | Nephrology Progress Note ---
Assessment/Plan Problem List: (1) Hypokalemia Assessment: ok (2) Hypomagnesemia (3) Ileus (4) Iron deficiency (5) Pneumonia (6) Acute kidney failure (7) Anemia Plan follow BMP cont TPN Subjective Subjective In NAD Objective Objective Last 24 Hour Vital Signs Date Time Temp Pulse Resp B/P Pulse Ox O2 Delivery O2 Flow Rate FiO2 03/14/17 16:16 97.7 52 16 133/83 100 03/14/17 16:10 45 03/14/17 14:30 65 18 45 03/14/17 13:50 45 03/14/17 13:30 65 18 45 03/14/17 12:00 59 03/14/17 10:41 61 16 100 Mechanical Ventilator 45 03/14/17 10:33 62 16 100 Mechanical Ventilator 45 03/14/17 10:30 61 16 45 03/14/17 08:43 62 16 45 03/14/17 08:37 45 03/14/17 08:00 68 03/14/17 08:00 97.9 64 17 134/64 100 Mechanical Ventilator 45 03/14/17 06:58 52 16 45 03/14/17 05:21 54 16 45 03/14/17 04:00 45 03/14/17 04:00 59 03/14/17 04:00 98.1 58 16 128/79 100 Mechanical Ventilator 45 03/14/17 03:15 58 19 45 03/14/17 01:00 55 18 45 03/14/17 00:00 99.2 92 20 156/87 100 Mechanical Ventilator 45 03/14/17 00:00 45 03/13/17 23:36 64 03/13/17 23:22 56 18 45 03/13/17 22:42 53 16 100 Mechanical Ventilator 45 03/13/17 22:32 58 16 100 Mechanical Ventilator 45 03/13/17 21:11 53 19 45 03/13/17 20:56 99.1 53 20 132/75 100 Mechanical Ventilator 45 03/13/17 20:10 64 03/13/17 20:00 45 03/13/17 18:54 63 21 45 Intake and Output 03/13/17 03/14/17 19:00 07:00 Intake Total 1240 ml 1760.000 ml Output Total 750 ml 2800 ml Balance 490 ml -1040.000 ml Intake Oral 240 ml 340 ml IV Total 1000 ml 1420.000 ml Output Urine Total 750 ml 2800 ml Laboratory Tests 03/14/17 05:45: Sodium Level 141, Potassium Level 4.5, Chloride Level 98, Carbon Dioxide Level 34H, Anion Gap 9, Blood Urea Nitrogen 12, Creatinine 0.5L, Estimat Glomerular Filtration Rate > 60, Glucose Level 102, Calcium Level 8.5L, Phosphorus Level 2.4L, Magnesium Level 1.7, Vancomycin Level Trough [Pending] 03/14/17 14:35: Arterial Blood pH 7.410, Arterial Blood Partial Pressure CO2 63.2*H, Arterial Blood Partial Pressure O2 97.5, Arterial Blood HCO3 39.3H, Arterial Blood Oxygen Saturation 97.1, Arterial Blood Base Excess 12.8, Andrea Test Positive Height (Feet): 6 Height (Inches): 5.00 Weight (Pounds): 224 Cardiovascular: normal rate Respiratory/Chest: lungs clear Extremities: moderate edema REEMA LANIER Mar 14, 2017 16:48
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
[2017-03-14 20:00] VITALS: BP 142/86
[2017-03-14] MEDS: Dyna-Hex 2% Top Sol 8oz TOPIC SCH (20:06)
[2017-03-14] MEDS: TPN IV SCH (21:02)
[2017-03-14] MEDS: FAT EMULSION 20% IV SCH (21:02)
[2017-03-15] VITALS: BP 132/88
[2017-03-15 04:00] VITALS: BP 128/76
[2017-03-15] MEDS: Simethicone Drops 80mg/1.2ml ORAL SCH ×4 (05:30→23:01)
[2017-03-15] MEDS: Meropenem 1 GM in NS 110 ML IVPB SCH ×3 (05:30→22:58)
[2017-03-15] MEDS: NovoLOG Insulin Flexpen SUBQ SCH ×4 (05:32→20:14)
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
[2017-03-15 06:33] LABS: EOSINOPHILS % (AUTO) 2.2 % (0.0-3.0); LYMPHOCYTES % (AUTO) 13.4 % (20.0-45.0); MEAN CORPUSCULAR HEMOGLOBIN 25.7 PG (27.0-31.0); MEAN CORPUSCULAR HGB CONC 30.1 G/DL (32.0-36.0); MEAN CORPUSCULAR VOLUME 85 FL (80-99); MEAN PLATELET VOLUME 6.3 FL (6.5-10.1); MONOCYTES % (AUTO) 9.3 % (1.0-10.0); NEUTROPHILS % (AUTO) 74.1 % (45.0-75.0); PLATELET COUNT 349 K/UL (150-450); RED BLOOD COUNT 3.63 M/UL (4.70-6.10); RED CELL DISTRIBUTION WIDTH 15.3 % (11.6-14.8); WHITE BLOOD COUNT 8.6 K/UL (4.8-10.8)
[2017-03-15 07:14] LABS: ANION GAP 8 (5-15); CALCIUM 9.3 mg/dL (8.6-10.2); CARBON DIOXIDE 33 mEQ/L (20-30); CHLORIDE 103 mEQ/L (98-107); CREATININE 0.5 mg/dL (0.7-1.2); GLOMERULAR FILTRATION RATE > 60 mL/min (>60); HEMOLYSIS 4; MAGNESIUM 1.5 mg/dL (1.7-2.5); PHOSPHORUS 2.4 mg/dL (2.5-4.8); POTASSIUM 4.3 mEQ/L (3.4-4.9); SODIUM 144 mEQ/L (135-145)
--- NOTE | 2017-03-15 07:35 | General Progress Note ---
Progress Note Progress Note Lethargic, no obvious pain or tenderness Abdomen: distended, tympanitic, BS hypoactive but present, no mass or tenderness. Awaiting swallow study, resolution of ileus. WAQAS PEREZ Mar 15, 2017 07:35
[2017-03-15 08:17] VITALS: BP 157/97
[2017-03-15] MEDS: LEVETIRACETAM 500 MG IVPB SCH ×2 (08:21→20:15)
[2017-03-15] MEDS: Pantoprazole Inj IVP SCH (08:21)
[2017-03-15] MEDS: Heparin 5000 units/ml inj SUBQ SCH ×2 (08:22→20:20)
[2017-03-15] MEDS: Nystatin Powder 100,000 units/gm 15gm TOPIC SCH ×3 (08:23→18:14)
--- NOTE | 2017-03-15 08:37 | Infectious Diseases Prog Note ---
Assessment/Plan Assessment/Plan A; E coli sepsis E. coli UTI Pneumonia, MRSA & Acinetobacter VDRF Paraplegia Anemia Ileus R lung atelectasis P: Continue Merrem , IV Vancomycin and Colistin INH d# 9 / Subjective ROS Limited/Unobtainable: Yes Gastrointestinal/Abdominal: Reports: other - pain, on TPN Allergies: Coded Allergies: No Known Allergies (Unverified , 03/02/17) Objective Vital Signs Last 24 Hour Vital Signs Date Time Temp Pulse Resp B/P Pulse Ox O2 Delivery O2 Flow Rate FiO2 03/15/17 08:17 98.2 57 16 157/97 100 03/15/17 07:20 44 16 45 03/15/17 04:45 59 16 45 03/15/17 04:00 98.2 71 17 128/76 100 03/15/17 04:00 45 03/15/17 04:00 61 03/15/17 03:07 83 17 45 03/15/17 01:13 57 16 45 03/15/17 00:00 45 03/15/17 00:00 60 03/15/17 00:00 97.6 68 17 132/88 100 03/14/17 23:01 51 16 45 03/14/17 21:34 60 16 100 Mechanical Ventilator 45 03/14/17 21:34 61 16 100 Mechanical Ventilator 45 03/14/17 21:21 54 16 45 03/14/17 20:00 45 03/14/17 20:00 60 03/14/17 20:00 97.2 62 17 142/86 100 03/14/17 19:03 60 16 45 03/14/17 17:28 61 18 45 03/14/17 16:30 63 18 45 03/14/17 16:16 97.7 52 16 133/83 100 03/14/17 16:10 45 03/14/17 16:00 57 03/14/17 14:30 65 18 45 03/14/17 13:50 45 03/14/17 13:30 65 18 45 03/14/17 12:00 59 03/14/17 10:41 61 16 100 Mechanical Ventilator 45 03/14/17 10:33 62 16 100 Mechanical Ventilator 45 03/14/17 10:30 61 16 45 03/14/17 08:43 62 16 45 03/14/17 08:37 45 Height (Feet): 6 Height (Inches): 5.00 Weight (Pounds): 225 HEENT: status post trach Respiratory/Chest: rhonchi - bilaterally, other - on ventilator Cardiovascular: normal rate Abdomen: distended Extremities: no edema, other - R arm PICC line Microbiology Date/Time Source Procedure Growth Status 03/12/17 15:00 Blood Blood Culture - Preliminary NO GROWTH AFTER 48 HOURS Resulted 03/12/17 15:00 Blood Blood Culture - Preliminary NO GROWTH AFTER 48 HOURS Resulted 03/12/17 15:00 Sputum Gram Stain - Final Resulted 03/12/17 15:00 Sputum Culture - Preliminary Gram Negative Bacillus 1 Resulted 03/12/17 15:00 Urine,Clean Catch Urine Culture - Final Ale Albicans Complete 03/13/17 05:00 Rectal Mucosa Gram Stain - Final Resulted 03/13/17 05:00 Aerobic Culture - Preliminary Gram Negative Bacillus 1 Resulted Laboratory Tests Test 03/14/17 14:35 03/14/17 21:25 03/15/17 05:50 Arterial Blood pH 7.410 (7.350-7.450) Arterial Blood Partial Pressure CO2 63.2 mmHg (35.0-45.0) *H Arterial Blood Partial Pressure O2 97.5 mmHg (75.0-100.0) Arterial Blood HCO3 39.3 mmol/L (22.0-26.0) H Arterial Blood Oxygen Saturation 97.1 % (92.0-98.0) Arterial Blood Base Excess 12.8 Andrea Test Positive Vancomycin Level Trough 18.6 ug/mL (5.0-12.0) H White Blood Count 8.6 K/UL (4.8-10.8) Red Blood Count 3.63 M/UL (4.70-6.10) L Hemoglobin 9.3 G/DL (14.2-18.0) L Hematocrit 31.0 % (42.0-52.0) L Mean Corpuscular Volume 85 FL (80-99) Mean Corpuscular Hemoglobin 25.7 PG (27.0-31.0) L Mean Corpuscular Hemoglobin Concent 30.1 G/DL (32.0-36.0) L Red Cell Distribution Width 15.3 % (11.6-14.8) H Platelet Count 349 K/UL (150-450) Mean Platelet Volume 6.3 FL (6.5-10.1) L Neutrophils (%) (Auto) 74.1 % (45.0-75.0) Lymphocytes (%) (Auto) 13.4 % (20.0-45.0) L Monocytes (%) (Auto) 9.3 % (1.0-10.0) Eosinophils (%) (Auto) 2.2 % (0.0-3.0) Basophils (%) (Auto) 1.0 % (0.0-2.0) Sodium Level 144 mEQ/L (135-145) Potassium Level 4.3 mEQ/L (3.4-4.9) Chloride Level 103 mEQ/L (98-107) Carbon Dioxide Level 33 mEQ/L (20-30) H Anion Gap 8 (5-15) Blood Urea Nitrogen 14 mg/dL (7-23) Creatinine 0.5 mg/dL (0.7-1.2) L Estimat Glomerular Filtration Rate > 60 mL/min (>60) Glucose Level 109 mg/dL (74-106) H Calcium Level 9.3 mg/dL (8.6-10.2) Phosphorus Level 2.4 mg/dL (2.5-4.8) L Magnesium Level 1.5 mg/dL (1.7-2.5) L Current Medications Medications (Trade) Dose Ordered Sig/Lucy Route PRN Reason Start Time Stop Time Status Last Admin Dose Admin Acetaminophen (Tylenol) 650 mg Q4H PRN RECTAL Mild Pain/Temp > 100.5 03/11/17 20:35 04/10/17 20:34 03/11/17 20:38 Chlorhexidine Gluconate (Kim-Hex 2%) 1 applic BEDTIME TOPIC 03/06/17 21:00 04/05/17 20:59 03/14/17 20:06 Colistimethate Sodium (Colistin *inhalation use only*) 150 mg Q12HR@10,22 INH 03/07/17 12:00 03/19/17 11:59 03/14/17 21:34 Dextrose (D10w) 1,000 ml @ 75 mls/hr [id number] PRN IV IF TPN INTERRUPTED 03/09/17 21:00 04/08/17 20:59 Dextrose 50 ml 50 ml STAT PRN IV Hypoglycemia 03/09/17 16:15 04/08/17 16:14 Fat Emulsion Intravenous/Amino Acids/ Electrolytes/ Dextrose (Intralipids/Tpn) 1,800 ml @ 75 mls/hr Q24H IV 03/13/17 21:00 04/12/17 20:59 03/14/17 21:02 Heparin Sodium (Porcine) (Heparin 5000 units/ml) 5,000 units EVERY 12 HOURS SUBQ 03/06/17 21:00 04/05/17 20:59 03/15/17 08:22 Insulin Aspart AC+HS SUBQ 03/12/17 11:30 04/11/17 11:29 03/15/17 05:32 Levetiracetam (Keppra 500mg Premix) 100 ml @ 400 mls/hr Q12HR IVPB 03/09/17 21:00 04/08/17 20:59 03/15/17 08:21 Meropenem/Sodium Chloride (Merrem/Sodium Chloride) 110 ml @ 220 mls/hr Q8HR IVPB 03/07/17 14:00 03/20/17 13:59 03/15/17 05:30 Morphine Sulfate 4 mg 4 mg Q4H PRN IVP Severe Pain (Pain Scale 7-10) 03/13/17 20:45 03/20/17 20:44 03/14/17 10:40 Nystatin (Nystop Powder) 1 applic THREE TIMES A DAY TOPIC 03/06/17 18:00 04/05/17 17:59 03/15/17 08:23 Ondansetron HCl (Zofran) 4 mg Q6H PRN IVP Nausea & Vomiting 03/06/17 16:38 04/05/17 16:37 Pantoprazole (Protonix) 40 mg DAILY IVP 03/07/17 09:00 04/06/17 08:59 03/15/17 08:21 Phytonadione 10 mg 10 mg QWEEK SUBQ 03/09/17 21:00 04/07/17 20:59 03/09/17 20:55 Polyethylene Glycol 17 gm 17 gm DAILYPRN PRN ORAL Constipation 03/06/17 16:37 04/05/17 16:36 Simethicone (Mylicon) 40 mg EVERY 6 HOURS ORAL 03/12/17 12:00 04/11/17 11:59 03/15/17 05:30 Vancomycin HCl (Vanco rx to dose) 1 ea DAILY PRN MISC Per rx protocol 03/07/17 11:15 04/06/17 11:14 Vancomycin HCl/ Dextrose (Vancomycin/D5W) 275 ml @ 183.708 mls/hr Q12H IVPB 03/15/17 10:00 03/20/17 09:59 ISRAEL LANIER Mar 15, 2017 08:37
[2017-03-15] MEDS ORDERED: Vancomycin 1gm in D5W 275ml IVPB SCH (10:00)
[2017-03-15] MEDS: Colistin for inhalation INH SCH ×2 (11:07→22:33)
--- NOTE | 2017-03-15 11:57 | Diagnostic Imaging Report ---
Indication: Shortness of breath Technique: One view of the chest Comparison: 03/14/2017 Findings: Interim partial reexpansion of the right lung. However, there is still significant right hemithorax opacity, likely reflecting combination of pleural fluid and atelectasis. The heart borders obscured, heart size indeterminate. Tracheostomy, cervical spine fusion hardware remain. Left lung and pleural space remain clear. Impression: Partial reexpansion of the right lung, since previous days exam Still significant right lung opacity, likely combination of parenchymal volume loss and pleural fluid
[2017-03-15 12:00] VITALS: BP 137/100
--- NOTE | 2017-03-15 14:57 | GI Progress Note ---
Assessment/Plan Problems: (1) Iron deficiency ICD Codes: E61.1 - Iron deficiency SNOMED: 49342114 (2) Ileus ICD Codes: K56.7 - Ileus, unspecified SNOMED: 137433459 (3) Abdominal distension ICD Codes: R14.0 - Abdominal distension (gaseous) SNOMED: 11133636 (4) Septic shock ICD Codes: A41.9 - Sepsis, unspecified organism; R65.21 - Severe sepsis with septic shock SNOMED: 96191960 (5) Paraplegia ICD Codes: G82.20 - Paraplegia, unspecified SNOMED: 05332825 (6) Anemia ICD Codes: D64.9 - Anemia, unspecified SNOMED: 900049264 Qualifiers: Qualified Codes: D64.9 - Anemia, unspecified Status: unchanged Status Narrative Discussed with Dr. Thompson. Assessment/Plan CT AP reviewed >> Mildly distended sigmoid without evidence of distal obstruction. Diffusely gas-filled upper limits normal caliber colon and small bowel, without evidence of obstructive pathology. Suspect functional in nature or on the basis of ileus fu colonic barium enema >> Dilated distal sigmoid, without evidence of distal anatomic obstructive lesion. abdominal distention due to ileus 2/2 septic shock vs colonic ileus rectal tube for colonic decompression pending ST eval cont TPN pain mgmt iron deficient >> venofer ppi fu labs Subjective Subjective limited, more alert today Objective Last 24 Hour Vital Signs Date Time Temp Pulse Resp B/P Pulse Ox O2 Delivery O2 Flow Rate FiO2 03/15/17 14:10 35 03/15/17 12:50 89 21 45 03/15/17 12:00 97.8 57 17 137/100 100 03/15/17 12:00 35 03/15/17 11:17 55 16 100 Mechanical Ventilator 35 03/15/17 11:07 58 16 100 Mechanical Ventilator 35 03/15/17 11:07 58 16 45 03/15/17 09:27 53 16 45 03/15/17 08:17 98.2 57 16 157/97 100 03/15/17 08:00 40 03/15/17 07:53 52 03/15/17 07:20 44 16 45 03/15/17 04:45 59 16 45 03/15/17 04:00 98.2 71 17 128/76 100 03/15/17 04:00 45 03/15/17 04:00 61 03/15/17 03:07 83 17 45 03/15/17 01:13 57 16 45 03/15/17 00:00 45 03/15/17 00:00 60 03/15/17 00:00 97.6 68 17 132/88 100 03/14/17 23:01 51 16 45 03/14/17 21:34 60 16 100 Mechanical Ventilator 45 03/14/17 21:34 61 16 100 Mechanical Ventilator 45 03/14/17 21:21 54 16 45 03/14/17 20:00 45 03/14/17 20:00 60 03/14/17 20:00 97.2 62 17 142/86 100 03/14/17 19:03 60 16 45 03/14/17 17:28 61 18 45 03/14/17 16:30 63 18 45 03/14/17 16:16 97.7 52 16 133/83 100 03/14/17 16:10 45 03/14/17 16:00 57 Intake and Output 03/14/17 03/15/17 19:00 07:00 Intake Total 370 ml 2450 ml Output Total 1300 ml 5740 ml Balance -930 ml -3290 ml Intake Oral 100 ml Free Water 100 ml IV Total 75 ml 900 ml Tube Feeding 45 ml Other 150 ml 1450 ml Output Urine Total 1300 ml 1740 ml Other 4000 ml # Bowel Movements 1 2 Laboratory Tests Test 03/14/17 21:25 03/15/17 05:50 Vancomycin Level Trough 18.6 ug/mL (5.0-12.0) H White Blood Count 8.6 K/UL (4.8-10.8) Red Blood Count 3.63 M/UL (4.70-6.10) L Hemoglobin 9.3 G/DL (14.2-18.0) L Hematocrit 31.0 % (42.0-52.0) L Mean Corpuscular Volume 85 FL (80-99) Mean Corpuscular Hemoglobin 25.7 PG (27.0-31.0) L Mean Corpuscular Hemoglobin Concent 30.1 G/DL (32.0-36.0) L Red Cell Distribution Width 15.3 % (11.6-14.8) H Platelet Count 349 K/UL (150-450) Mean Platelet Volume 6.3 FL (6.5-10.1) L Neutrophils (%) (Auto) 74.1 % (45.0-75.0) Lymphocytes (%) (Auto) 13.4 % (20.0-45.0) L Monocytes (%) (Auto) 9.3 % (1.0-10.0) Eosinophils (%) (Auto) 2.2 % (0.0-3.0) Basophils (%) (Auto) 1.0 % (0.0-2.0) Sodium Level 144 mEQ/L (135-145) Potassium Level 4.3 mEQ/L (3.4-4.9) Chloride Level 103 mEQ/L (98-107) Carbon Dioxide Level 33 mEQ/L (20-30) H Anion Gap 8 (5-15) Blood Urea Nitrogen 14 mg/dL (7-23) Creatinine 0.5 mg/dL (0.7-1.2) L Estimat Glomerular Filtration Rate > 60 mL/min (>60) Glucose Level 109 mg/dL (74-106) H Calcium Level 9.3 mg/dL (8.6-10.2) Phosphorus Level 2.4 mg/dL (2.5-4.8) L Magnesium Level 1.5 mg/dL (1.7-2.5) L Height (Feet): 6 Height (Inches): 5.00 Weight (Pounds): 225 General Appearance: alert Cardiovascular: normal rate [facility]: [facility] Ab[facility] Exam: other - TPN Lou Cee N.P. Mar 15, 2017 14:57
--- NOTE | 2017-03-15 15:30 | Nephrology Progress Note ---
Assessment/Plan Problem List: (1) Hypokalemia Assessment: ok (2) Hypomagnesemia (3) Ileus (4) Iron deficiency (5) Pneumonia (6) Acute kidney failure (7) Anemia Plan Replete Mag follow BMP cont TPN Discussed with pharmacist Subjective Subjective C/O SOB Objective Objective Last 24 Hour Vital Signs Date Time Temp Pulse Resp B/P Pulse Ox O2 Delivery O2 Flow Rate FiO2 03/15/17 14:10 35 03/15/17 12:50 89 21 45 03/15/17 12:00 97.8 57 17 137/100 100 03/15/17 12:00 35 03/15/17 12:00 67 03/15/17 11:17 55 16 100 Mechanical Ventilator 35 03/15/17 11:07 58 16 100 Mechanical Ventilator 35 03/15/17 11:07 58 16 45 03/15/17 09:27 53 16 45 03/15/17 08:17 98.2 57 16 157/97 100 03/15/17 08:00 40 03/15/17 07:53 52 03/15/17 07:20 44 16 45 03/15/17 04:45 59 16 45 03/15/17 04:00 98.2 71 17 128/76 100 03/15/17 04:00 45 03/15/17 04:00 61 03/15/17 03:07 83 17 45 03/15/17 01:13 57 16 45 03/15/17 00:00 45 03/15/17 00:00 60 03/15/17 00:00 97.6 68 17 132/88 100 03/14/17 23:01 51 16 45 03/14/17 21:34 60 16 100 Mechanical Ventilator 45 03/14/17 21:34 61 16 100 Mechanical Ventilator 45 03/14/17 21:21 54 16 45 03/14/17 20:00 45 03/14/17 20:00 60 03/14/17 20:00 97.2 62 17 142/86 100 03/14/17 19:03 60 16 45 03/14/17 17:28 61 18 45 03/14/17 16:30 63 18 45 03/14/17 16:16 97.7 52 16 133/83 100 03/14/17 16:10 45 03/14/17 16:00 57 Intake and Output 03/14/17 03/15/17 19:00 07:00 Intake Total 370 ml 2450 ml Output Total 1300 ml 5740 ml Balance -930 ml -3290 ml Intake Oral 100 ml Free Water 100 ml IV Total 75 ml 900 ml Tube Feeding 45 ml Other 150 ml 1450 ml Output Urine Total 1300 ml 1740 ml Other 4000 ml # Bowel Movements 1 2 Laboratory Tests 03/14/17 21:25: Vancomycin Level Trough 18.6H 03/15/17 05:50: White Blood Count 8.6, Red Blood Count 3.63L, Hemoglobin 9.3L, Hematocrit 31.0L , Mean Corpuscular Volume 85, Mean Corpuscular Hemoglobin 25.7L, Mean Corpuscular Hemoglobin Concent 30.1L, Red Cell Distribution Width 15.3H, Platelet Count 349, Mean Platelet Volume 6.3L, Neutrophils (%) (Auto) 74.1, Lymphocytes (%) (Auto) 13.4L, Monocytes (%) (Auto) 9.3, Eosinophils (%) (Auto) 2.2, Basophils (%) (Auto) 1.0, Sodium Level 144, Potassium Level 4.3, Chloride Level 103, Carbon Dioxide Level 33H, Anion Gap 8, Blood Urea Nitrogen 14, Creatinine 0.5L, Estimat Glomerular Filtration Rate > 60, Glucose Level 109H, Calcium Level 9.3, Phosphorus Level 2.4L, Magnesium Level 1.5L Height (Feet): 6 Height (Inches): 5.00 Weight (Pounds): 225 Cardiovascular: normal rate Respiratory/Chest: rhonchi - bilaterally Extremities: moderate edema REEMA LANIER Mar 15, 2017 15:30
[2017-03-15 16:00] VITALS: BP_SYST 151; BP_SYST 152; BP_DIAS 101; BP_DIAS 87
--- NOTE | 2017-03-15 17:13 | Cardiac Electrophysiology PN ---
Assessment/Plan Assessment/Plan 1. Sinus arrest with multiple pauses of more than 3 seconds including pauses of 8 seconds. This happened only when the patient was being turned, likely vagal.Off any sinus claudette blocking agents. In view of the patient's current sepsis, on IV antibiotics. The patient is not a candidate at this time for permanent pacemaker implantation. No recurrence. 2. Ventilator-dependent respiratory failure, status post tracheostomy. 3. Status post septic shock. 4. Dysphagia with history of PEG placement in the past and currently does not have a PEG. He is on TPN. 5. Iron deficiency 6. Ileus with abdominal distention .S/P Barium enema yesterday DW RN Subjective Subjective No further bradycardia. Alert in NAD on Vent. Responsive. Objective Last 24 Hour Vital Signs Date Time Temp Pulse Resp B/P Pulse Ox O2 Delivery O2 Flow Rate FiO2 03/15/17 15:20 80 23 45 03/15/17 15:00 69 03/15/17 14:10 35 03/15/17 12:50 89 21 45 03/15/17 12:00 97.8 57 17 137/100 100 03/15/17 12:00 35 03/15/17 12:00 67 03/15/17 11:17 55 16 100 Mechanical Ventilator 35 03/15/17 11:07 58 16 100 Mechanical Ventilator 35 03/15/17 11:07 58 16 45 03/15/17 09:27 53 16 45 03/15/17 08:17 98.2 57 16 157/97 100 03/15/17 08:00 40 03/15/17 07:53 52 03/15/17 07:20 44 16 45 03/15/17 04:45 59 16 45 03/15/17 04:00 98.2 71 17 128/76 100 03/15/17 04:00 45 03/15/17 04:00 61 03/15/17 03:07 83 17 45 03/15/17 01:13 57 16 45 03/15/17 00:00 45 03/15/17 00:00 60 03/15/17 00:00 97.6 68 17 132/88 100 03/14/17 23:01 51 16 45 03/14/17 21:34 60 16 100 Mechanical Ventilator 45 03/14/17 21:34 61 16 100 Mechanical Ventilator 45 7/24/17 21:21 54 16 45 03/14/17 20:00 45 03/14/17 20:00 60 03/14/17 20:00 97.2 62 17 142/86 100 03/14/17 19:03 60 16 45 03/14/17 17:28 61 18 45 Intake and Output 03/14/17 03/15/17 19:00 07:00 Intake Total 370 ml 2450 ml Output Total 1300 ml 5740 ml Balance -930 ml -3290 ml Intake Oral 100 ml Free Water 100 ml IV Total 75 ml 900 ml Tube Feeding 45 ml Other 150 ml 1450 ml Output Urine Total 1300 ml 1740 ml Other 4000 ml # Bowel Movements 1 2 Laboratory Tests Test 03/14/17 21:25 03/15/17 05:50 Vancomycin Level Trough 18.6 ug/mL (5.0-12.0) H White Blood Count 8.6 K/UL (4.8-10.8) Red Blood Count 3.63 M/UL (4.70-6.10) L Hemoglobin 9.3 G/DL (14.2-18.0) L Hematocrit 31.0 % (42.0-52.0) L Mean Corpuscular Volume 85 FL (80-99) Mean Corpuscular Hemoglobin 25.7 PG (27.0-31.0) L Mean Corpuscular Hemoglobin Concent 30.1 G/DL (32.0-36.0) L Red Cell Distribution Width 15.3 % (11.6-14.8) H Platelet Count 349 K/UL (150-450) Mean Platelet Volume 6.3 FL (6.5-10.1) L Neutrophils (%) (Auto) 74.1 % (45.0-75.0) Lymphocytes (%) (Auto) 13.4 % (20.0-45.0) L Monocytes (%) (Auto) 9.3 % (1.0-10.0) Eosinophils (%) (Auto) 2.2 % (0.0-3.0) Basophils (%) (Auto) 1.0 % (0.0-2.0) Sodium Level 144 mEQ/L (135-145) Potassium Level 4.3 mEQ/L (3.4-4.9) Chloride Level 103 mEQ/L (98-107) Carbon Dioxide Level 33 mEQ/L (20-30) H Anion Gap 8 (5-15) Blood Urea Nitrogen 14 mg/dL (7-23) Creatinine 0.5 mg/dL (0.7-1.2) L Estimat Glomerular Filtration Rate > 60 mL/min (>60) Glucose Level 109 mg/dL (74-106) H Calcium Level 9.3 mg/dL (8.6-10.2) Phosphorus Level 2.4 mg/dL (2.5-4.8) L Magnesium Level 1.5 mg/dL (1.7-2.5) L Microbiology Date/Time Source Procedure Growth Status 03/13/17 05:00 Rectal Mucosa Gram Stain - Final Resulted 03/13/17 05:00 Aerobic Culture - Preliminary Klebsiella Pneumoniae Gram Negative Bacillus 2 Strep Species, Gamma-Hemolytic Resulted Objective HEAD AND NECK: Shows no JVD. Tracheostomy. LUNGS: Have decreased breath sounds. CARDIOVASCULAR: Shows regular S1 and S2 with no gallop. ABDOMEN: Distended. EXTREMITIES: 2+ pitting edema. ELIF ESCOBAR Mar 15, 2017 17:13
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
[2017-03-15 20:00] VITALS: BP 142/85
[2017-03-15] MEDS: Dyna-Hex 2% Top Sol 8oz TOPIC SCH (20:15)
[2017-03-15] MEDS: TPN IV SCH (21:10)
[2017-03-15] MEDS: FAT EMULSION 20% IV SCH (21:10)
[2017-03-15] MEDS: Vancomycin 750 MG in D5W 275 ML IVPB SCH (21:18)
[2017-03-16] VITALS: BP 138/82
[2017-03-16 04:00] VITALS: BP 132/88
[2017-03-16] MEDS: Meropenem 1 GM in NS 110 ML IVPB SCH ×3 (05:01→21:36)
[2017-03-16] MEDS: Simethicone Drops 80mg/1.2ml ORAL SCH ×4 (05:01→23:44)
[2017-03-16] MEDS: NovoLOG Insulin Flexpen SUBQ SCH ×4 (05:30→21:00)
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
[2017-03-16 08:00] VITALS: BP 145/91
--- NOTE | 2017-03-16 08:27 | Infectious Diseases Prog Note ---
Assessment/Plan Assessment/Plan A; E coli sepsis E. coli UTI Pneumonia, Achromobacter VDRF Paraplegia Anemia Ileus R lung atelectasis P: Continue Merrem , IV Vancomycin and Colistin INH d# 10 / Subjective ROS Limited/Unobtainable: Yes Allergies: Coded Allergies: No Known Allergies (Unverified , 03/02/17) Objective Vital Signs Last 24 Hour Vital Signs Date Time Temp Pulse Resp B/P Pulse Ox O2 Delivery O2 Flow Rate FiO2 03/16/17 08:00 97.7 56 18 145/91 100 45 03/16/17 08:00 35 03/16/17 07:30 55 15 35 03/16/17 05:17 56 15 45 03/16/17 04:00 98.6 62 18 132/88 100 03/16/17 04:00 35 03/16/17 04:00 62 03/16/17 03:16 64 17 45 03/16/17 01:15 57 16 45 03/16/17 00:00 35 03/16/17 00:00 66 03/16/17 00:00 98.1 68 18 138/82 100 03/15/17 23:20 64 16 45 03/15/17 22:45 62 16 100 Mechanical Ventilator 35 03/15/17 22:34 61 16 100 Mechanical Ventilator 35 03/15/17 21:21 55 17 45 03/15/17 20:00 72 03/15/17 20:00 97.9 65 20 142/85 100 03/15/17 20:00 35 03/15/17 19:26 59 16 45 03/15/17 17:26 65 15 45 03/15/17 16:00 97.7 68 20 152/87 100 03/15/17 15:20 80 23 45 03/15/17 15:00 69 03/15/17 14:10 35 03/15/17 12:50 89 21 45 03/15/17 12:00 97.8 57 17 137/100 100 03/15/17 12:00 35 03/15/17 12:00 67 03/15/17 11:17 55 16 100 Mechanical Ventilator 35 03/15/17 11:07 58 16 100 Mechanical Ventilator 35 03/15/17 11:07 58 16 45 03/15/17 09:27 53 16 45 Height (Feet): 6 Height (Inches): 5.00 Weight (Pounds): 224 General Appearance: no acute distress HEENT: status post trach Respiratory/Chest: decreased breath sounds, other - on ventilator Cardiovascular: bradycardia Abdomen: soft, non tender, other - GT feeding Extremities: no edema, other - R arm PICC line Neurologic/Psychiatric: other - sleeping Current Medications Medications (Trade) Dose Ordered Sig/Lucy Route PRN Reason Start Time Stop Time Status Last Admin Dose Admin Acetaminophen (Tylenol) 650 mg Q4H PRN RECTAL Mild Pain/Temp > 100.5 03/11/17 20:35 04/10/17 20:34 03/11/17 20:38 Chlorhexidine Gluconate (Kim-Hex 2%) 1 applic BEDTIME TOPIC 03/06/17 21:00 04/05/17 20:59 03/15/17 20:15 Colistimethate Sodium (Colistin *inhalation use only*) 150 mg Q12HR@10,22 INH 03/07/17 12:00 03/19/17 11:59 03/15/17 22:33 Dextrose (D10w) 1,000 ml @ 75 mls/hr [id number] PRN IV IF TPN INTERRUPTED 03/09/17 21:00 04/08/17 20:59 Dextrose 50 ml 50 ml STAT PRN IV Hypoglycemia 03/09/17 16:15 04/08/17 16:14 Fat Emulsion Intravenous/Amino Acids/ Electrolytes/ Dextrose (Intralipids/Tpn) 1,800 ml @ 75 mls/hr Q24H IV 03/13/17 21:00 04/12/17 20:59 03/15/17 21:10 Heparin Sodium (Porcine) (Heparin 5000 units/ml) 5,000 units EVERY 12 HOURS SUBQ 03/06/17 21:00 04/05/17 20:59 03/15/17 20:20 Insulin Aspart AC+HS SUBQ 03/12/17 11:30 04/11/17 11:29 03/15/17 05:32 Levetiracetam (Keppra 500mg Premix) 100 ml @ 400 mls/hr Q12HR IVPB 03/09/17 21:00 04/08/17 20:59 03/15/17 20:15 Meropenem/Sodium Chloride (Merrem/Sodium Chloride) 110 ml @ 220 mls/hr Q8HR IVPB 03/07/17 14:00 03/20/17 13:59 03/16/17 05:01 Morphine Sulfate 4 mg 4 mg Q4H PRN IVP Severe Pain (Pain Scale 7-10) 03/13/17 20:45 03/20/17 20:44 03/14/17 10:40 Nystatin (Nystop Powder) 1 applic THREE TIMES A DAY TOPIC 03/06/17 18:00 04/05/17 17:59 03/15/17 18:14 Ondansetron HCl (Zofran) 4 mg Q6H PRN IVP Nausea & Vomiting 03/06/17 16:38 04/05/17 16:37 Pantoprazole (Protonix) 40 mg DAILY IVP 03/07/17 09:00 04/06/17 08:59 03/15/17 08:21 Phytonadione 10 mg 10 mg QWEEK SUBQ 03/09/17 21:00 04/07/17 20:59 03/09/17 20:55 Polyethylene Glycol 17 gm 17 gm DAILYPRN PRN ORAL Constipation 03/06/17 16:37 04/05/17 16:36 Simethicone (Mylicon) 40 mg EVERY 6 HOURS ORAL 03/12/17 12:00 04/11/17 11:59 03/16/17 05:01 Vancomycin HCl (Vanco rx to dose) 1 ea DAILY PRN MISC Per rx protocol 03/07/17 11:15 04/06/17 11:14 Vancomycin HCl/ Dextrose (Vancomycin/D5W) 275 ml @ 183.708 mls/hr Q12HR IVPB 03/15/17 21:00 03/20/17 20:59 03/15/17 21:18 ISRAEL LANIER Mar 16, 2017 08:27
[2017-03-16] MEDS: Pantoprazole Inj IVP SCH (08:54)
[2017-03-16] MEDS: LEVETIRACETAM 500 MG IVPB SCH ×2 (08:54→20:30)
[2017-03-16 09:19] LABS: BASOPHILS % (AUTO) 1.4 % (0.0-2.0); EOSINOPHILS % (AUTO) 3.1 % (0.0-3.0); MEAN CORPUSCULAR HEMOGLOBIN 25.9 PG (27.0-31.0); MEAN CORPUSCULAR HGB CONC 31.2 G/DL (32.0-36.0); MEAN CORPUSCULAR VOLUME 83 FL (80-99); MEAN PLATELET VOLUME 5.8 FL (6.5-10.1); MONOCYTES % (AUTO) 6.9 % (1.0-10.0); NEUTROPHILS % (AUTO) 70.6 % (45.0-75.0); PLATELET COUNT 400 K/UL (150-450); RED BLOOD COUNT 3.58 M/UL (4.70-6.10); RED CELL DISTRIBUTION WIDTH 14.6 % (11.6-14.8); WHITE BLOOD COUNT 9.8 K/UL (4.8-10.8)
[2017-03-16] MEDS: Vancomycin 750 MG in D5W 275 ML IVPB SCH ×2 (09:29→20:30)
[2017-03-16] MEDS: Heparin 5000 units/ml inj SUBQ SCH ×2 (09:30→20:32)
[2017-03-16] MEDS: Nystatin Powder 100,000 units/gm 15gm TOPIC SCH ×3 (09:30→17:34)
[2017-03-16 09:39] LABS: ALANINE AMINOTRANSFERASE 13 U/L (3-41); ALBUMIN/GLOBULIN RATIO 0.6 (1.0-2.7); ANION GAP 12 (5-15); ASPARTATE AMINO TRANSFERASE 28 U/L (5-40); CALCIUM 9.7 mg/dL (8.6-10.2); CARBON DIOXIDE 29 mEQ/L (20-30); CHLORIDE 101 mEQ/L (98-107); CREATININE 0.6 mg/dL (0.7-1.2); GLOMERULAR FILTRATION RATE > 60 mL/min (>60); HEMOLYSIS 12; POTASSIUM 4.4 mEQ/L (3.4-4.9); SODIUM 142 mEQ/L (135-145); TOTAL PROTEIN 7.9 g/dL (6.6-8.7)
--- NOTE | 2017-03-16 10:26 | Diagnostic Imaging Report ---
Indication: DYSPNEA Technique: One view of the chest Comparison: 03/15/2017 Findings: There is slightly decreased pleural fluid on the right and slightly improved aeration of the right lung. Considerable right lung volume loss persists, however, and there is persistent rightward mediastinal shift. Probably chronic prominent interstitial opacities persists on the left, without focal airspace consolidation. The left pleural space remains clear. Tracheostomy, right arm PICC, spine fusion hardware are unchanged Impression: Slightly decreased right pleural fluid and slightly decreased right lung volume loss, over one day Other stable findings as described
--- NOTE | 2017-03-16 10:36 | General Progress Note ---
Progress Note Progress Note Pt needs video swallow study, then likely po feeds if all OK. Passing some flatus, less distention. WAQAS PEREZ Mar 16, 2017 10:36
[2017-03-16 10:55] LABS: MAGNESIUM 1.8 mg/dL (1.7-2.5)
--- NOTE | 2017-03-16 11:35 | Nephrology Progress Note ---
Assessment/Plan Problem List: (1) Hypokalemia Assessment: ok (2) Hypomagnesemia (3) Ileus (4) Iron deficiency (5) Pneumonia (6) Acute kidney failure (7) Anemia Plan Await swallowing study cont TPN follow labs Subjective Subjective In NAD Objective Objective Last 24 Hour Vital Signs Date Time Temp Pulse Resp B/P Pulse Ox O2 Delivery O2 Flow Rate FiO2 03/16/17 09:03 51 16 03/16/17 08:00 62 03/16/17 08:00 97.7 56 18 145/91 100 45 03/16/17 08:00 35 03/16/17 07:30 55 15 35 03/16/17 05:17 56 15 45 03/16/17 04:00 98.6 62 18 132/88 100 03/16/17 04:00 35 03/16/17 04:00 62 03/16/17 03:16 64 17 45 03/16/17 01:15 57 16 45 03/16/17 00:00 35 03/16/17 00:00 66 03/16/17 00:00 98.1 68 18 138/82 100 03/15/17 23:20 64 16 45 03/15/17 22:45 62 16 100 Mechanical Ventilator 35 03/15/17 22:34 61 16 100 Mechanical Ventilator 35 03/15/17 21:21 55 17 45 03/15/17 20:00 72 03/15/17 20:00 97.9 65 20 142/85 100 03/15/17 20:00 35 03/15/17 19:26 59 16 45 03/15/17 17:26 65 15 45 03/15/17 16:00 97.7 68 20 152/87 100 03/15/17 15:20 80 23 45 03/15/17 15:00 69 03/15/17 14:10 35 03/15/17 12:50 89 21 45 03/15/17 12:00 97.8 57 17 137/100 100 03/15/17 12:00 35 03/15/17 12:00 67 Intake and Output 03/15/17 03/16/17 19:00 07:00 Intake Total 1585.000 ml 895 ml Output Total 1370 ml 2680 ml Balance 215.000 ml -1785 ml IV Total 1585.000 ml 895 ml Output Urine Total 1250 ml 2350 ml Stool Total 120 ml 330 ml # Bowel Movements 3 3 Laboratory Tests 03/16/17 08:30: White Blood Count 9.8, Red Blood Count 3.58L, Hemoglobin 9.3L, Hematocrit 29.7L , Mean Corpuscular Volume 83, Mean Corpuscular Hemoglobin 25.9L, Mean Corpuscular Hemoglobin Concent 31.2L, Red Cell Distribution Width 14.6, Platelet Count 400, Mean Platelet Volume 5.8L, Neutrophils (%) (Auto) 70.6, Lymphocytes (%) (Auto) 18.0L, Monocytes (%) (Auto) 6.9, Eosinophils (%) (Auto) 3.1H, Basophils (%) (Auto) 1.4, Sodium Level 142, Potassium Level 4.4, Chloride Level 101, Carbon Dioxide Level 29, Anion Gap 12, Blood Urea Nitrogen 14, Creatinine 0.6L, Estimat Glomerular Filtration Rate > 60, Glucose Level 100, Calcium Level 9.7, Phosphorus Level 3.0, Magnesium Level 1.8, Total Bilirubin 0.4, Aspartate Amino Transf (AST/SGOT) 28, Alanine Aminotransferase (ALT/SGPT) 13, Alkaline Phosphatase 110, Pro-B-Type Natriuretic Peptide 2071H, Total Protein 7.9, Albumin 3.0L, Globulin 4.9, Albumin/Globulin Ratio 0.6L Height (Feet): 6 Height (Inches): 5.00 Weight (Pounds): 224 Cardiovascular: normal rate Respiratory/Chest: rhonchi - bilaterally Extremities: moderate edema REEMA LANIER Mar 16, 2017 11:34
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
[2017-03-16 12:02] VITALS: BP 122/82
--- NOTE | 2017-03-16 12:02 | GI Progress Note ---
Assessment/Plan Problems: (1) Iron deficiency ICD Codes: E61.1 - Iron deficiency SNOMED: 12771067 (2) Ileus ICD Codes: K56.7 - Ileus, unspecified SNOMED: 643079920 (3) Abdominal distension ICD Codes: R14.0 - Abdominal distension (gaseous) SNOMED: 77960072 (4) Septic shock ICD Codes: A41.9 - Sepsis, unspecified organism; R65.21 - Severe sepsis with septic shock SNOMED: 59641671 (5) Paraplegia ICD Codes: G82.20 - Paraplegia, unspecified SNOMED: 99132735 (6) Anemia ICD Codes: D64.9 - Anemia, unspecified SNOMED: 360507283 Qualifiers: Qualified Codes: D64.9 - Anemia, unspecified Status: progressing Status Narrative Discussed with Dr. Thompson. Assessment/Plan CT AP reviewed >> Mildly distended sigmoid without evidence of distal obstruction. Diffusely gas-filled upper limits normal caliber colon and small bowel, without evidence of obstructive pathology. Suspect functional in nature or on the basis of ileus fu colonic barium enema >> Dilated distal sigmoid, without evidence of distal anatomic obstructive lesion. abdominal distention due to ileus 2/2 septic shock vs colonic ileus rectal tube for colonic decompression ST eval >> ok to start diet, see note. cont TPN pain mgmt iron deficient >> venofer ppi fu labs Subjective Subjective limited, more alert today Objective Last 24 Hour Vital Signs Date Time Temp Pulse Resp B/P Pulse Ox O2 Delivery O2 Flow Rate FiO2 03/16/17 09:03 51 16 03/16/17 08:00 62 03/16/17 08:00 97.7 56 18 145/91 100 45 03/16/17 08:00 35 03/16/17 07:30 55 15 35 03/16/17 05:17 56 15 45 03/16/17 04:00 98.6 62 18 132/88 100 03/16/17 04:00 35 03/16/17 04:00 62 03/16/17 03:16 64 17 45 03/16/17 01:15 57 16 45 03/16/17 00:00 35 03/16/17 00:00 66 03/16/17 00:00 98.1 68 18 138/82 100 03/15/17 23:20 64 16 45 03/15/17 22:45 62 16 100 Mechanical Ventilator 35 03/15/17 22:34 61 16 100 Mechanical Ventilator 35 03/15/17 21:21 55 17 45 03/15/17 20:00 72 03/15/17 20:00 97.9 65 20 142/85 100 03/15/17 20:00 35 03/15/17 19:26 59 16 45 03/15/17 17:26 65 15 45 03/15/17 16:00 97.7 68 20 152/87 100 03/15/17 15:20 80 23 45 03/15/17 15:00 69 03/15/17 14:10 35 03/15/17 12:50 89 21 45 Intake and Output 03/15/17 03/16/17 19:00 07:00 Intake Total 1585.000 ml 895 ml Output Total 1370 ml 2680 ml Balance 215.000 ml -1785 ml IV Total 1585.000 ml 895 ml Output Urine Total 1250 ml 2350 ml Stool Total 120 ml 330 ml # Bowel Movements 3 3 Laboratory Tests Test 03/16/17 08:30 White Blood Count 9.8 K/UL (4.8-10.8) Red Blood Count 3.58 M/UL (4.70-6.10) L Hemoglobin 9.3 G/DL (14.2-18.0) L Hematocrit 29.7 % (42.0-52.0) L Mean Corpuscular Volume 83 FL (80-99) Mean Corpuscular Hemoglobin 25.9 PG (27.0-31.0) L Mean Corpuscular Hemoglobin Concent 31.2 G/DL (32.0-36.0) L Red Cell Distribution Width 14.6 % (11.6-14.8) Platelet Count 400 K/UL (150-450) Mean Platelet Volume 5.8 FL (6.5-10.1) L Neutrophils (%) (Auto) 70.6 % (45.0-75.0) Lymphocytes (%) (Auto) 18.0 % (20.0-45.0) L Monocytes (%) (Auto) 6.9 % (1.0-10.0) Eosinophils (%) (Auto) 3.1 % (0.0-3.0) H Basophils (%) (Auto) 1.4 % (0.0-2.0) Sodium Level 142 mEQ/L (135-145) Potassium Level 4.4 mEQ/L (3.4-4.9) Chloride Level 101 mEQ/L (98-107) Carbon Dioxide Level 29 mEQ/L (20-30) Anion Gap 12 (5-15) Blood Urea Nitrogen 14 mg/dL (7-23) Creatinine 0.6 mg/dL (0.7-1.2) L Estimat Glomerular Filtration Rate > 60 mL/min (>60) Glucose Level 100 mg/dL (74-106) Calcium Level 9.7 mg/dL (8.6-10.2) Phosphorus Level 3.0 mg/dL (2.5-4.8) Magnesium Level 1.8 mg/dL (1.7-2.5) Total Bilirubin 0.4 mg/dL (0.0-1.2) Aspartate Amino Transf (AST/SGOT) 28 U/L (5-40) Alanine Aminotransferase (ALT/SGPT) 13 U/L (3-41) Alkaline Phosphatase 110 U/L (40-129) Pro-B-Type Natriuretic Peptide 2071 pg/mL (0-125) H Total Protein 7.9 g/dL (6.6-8.7) Albumin 3.0 g/dL (3.5-5.2) L Globulin 4.9 g/dL Albumin/Globulin Ratio 0.6 (1.0-2.7) L Height (Feet): 6 Height (Inches): 5.00 Weight (Pounds): 224 General Appearance: no apparent distress, alert Cardiovascular: normal rate [facility] Ab[facility] Exam: distended Lou Cee N.POliver Mar 16, 2017 12:02
[2017-03-16] MEDS: Colistin for inhalation INH SCH ×2 (12:03→22:57)
[2017-03-16] MEDS ORDERED: D5 1/2NS 1000ml IV ONE (14:23)
[2017-03-16] MEDS ORDERED: NS 275ml ONE (14:23)
[2017-03-16] MEDS ORDERED: Tubing IV Secondary IV ONE (14:23)
[2017-03-16 16:02] VITALS: BP 122/86
[2017-03-16] MEDS: Morphine Sulfate 4mg/ml Inj IVP PRN ×2 (16:15→20:17)
--- NOTE | 2017-03-16 16:27 | Cardiac Electrophysiology PN ---
Assessment/Plan Assessment/Plan 1. Sinus arrest with multiple pauses of more than 3 seconds including pauses of 8 seconds. This happened only when the patient was being turned, likely vagal.Off any sinus claudette blocking agents. No recurrence. Watch on tele. 2. Ventilator-dependent respiratory failure, status post tracheostomy.Off Vent today on T Tube. 3. Status post septic shock. 4. Dysphagia with history of PEG placement in the past and currently does not have a PEG on TPN. 5. Iron deficiency 6. Ileus with abdominal distention. GISELA RN Subjective Subjective No further bradycardia episodes overnight. Alert in NAD. Off Vent and on T tube. On TPN. Objective Last 24 Hour Vital Signs Date Time Temp Pulse Resp B/P Pulse Ox O2 Delivery O2 Flow Rate FiO2 03/16/17 16:07 35 03/16/17 16:02 97.5 66 18 122/86 94 35 03/16/17 15:00 51 15 03/16/17 13:02 55 16 03/16/17 12:14 55 16 98 Trach Collar 10.0 35 03/16/17 12:05 67 03/16/17 12:04 35 03/16/17 12:03 66 16 97 Trach Collar 10.0 35 03/16/17 12:02 98.7 68 16 122/82 98 35 03/16/17 12:00 62 03/16/17 11:30 66 16 03/16/17 09:03 51 16 03/16/17 08:00 62 03/16/17 08:00 97.7 56 18 145/91 100 45 03/16/17 08:00 35 03/16/17 07:30 55 15 35 03/16/17 05:17 56 15 45 03/16/17 04:00 98.6 62 18 132/88 100 03/16/17 04:00 35 03/16/17 04:00 62 03/16/17 03:16 64 17 45 03/16/17 01:15 57 16 45 03/16/17 00:00 35 03/16/17 00:00 66 03/16/17 00:00 98.1 68 18 138/82 100 03/15/17 23:20 64 16 45 03/15/17 22:45 62 16 100 Mechanical Ventilator 35 03/15/17 22:34 61 16 100 Mechanical Ventilator 35 03/15/17 21:21 55 17 45 7/25/17 20:00 72 03/15/17 20:00 97.9 65 20 142/85 100 03/15/17 20:00 35 03/15/17 19:26 59 16 45 03/15/17 17:26 65 15 45 Intake and Output 03/15/17 03/16/17 19:00 07:00 Intake Total 1585.000 ml 895 ml Output Total 1370 ml 2680 ml Balance 215.000 ml -1785 ml IV Total 1585.000 ml 895 ml Output Urine Total 1250 ml 2350 ml Stool Total 120 ml 330 ml # Bowel Movements 3 3 Laboratory Tests Test 03/16/17 08:30 White Blood Count 9.8 K/UL (4.8-10.8) Red Blood Count 3.58 M/UL (4.70-6.10) L Hemoglobin 9.3 G/DL (14.2-18.0) L Hematocrit 29.7 % (42.0-52.0) L Mean Corpuscular Volume 83 FL (80-99) Mean Corpuscular Hemoglobin 25.9 PG (27.0-31.0) L Mean Corpuscular Hemoglobin Concent 31.2 G/DL (32.0-36.0) L Red Cell Distribution Width 14.6 % (11.6-14.8) Platelet Count 400 K/UL (150-450) Mean Platelet Volume 5.8 FL (6.5-10.1) L Neutrophils (%) (Auto) 70.6 % (45.0-75.0) Lymphocytes (%) (Auto) 18.0 % (20.0-45.0) L Monocytes (%) (Auto) 6.9 % (1.0-10.0) Eosinophils (%) (Auto) 3.1 % (0.0-3.0) H Basophils (%) (Auto) 1.4 % (0.0-2.0) Sodium Level 142 mEQ/L (135-145) Potassium Level 4.4 mEQ/L (3.4-4.9) Chloride Level 101 mEQ/L (98-107) Carbon Dioxide Level 29 mEQ/L (20-30) Anion Gap 12 (5-15) Blood Urea Nitrogen 14 mg/dL (7-23) Creatinine 0.6 mg/dL (0.7-1.2) L Estimat Glomerular Filtration Rate > 60 mL/min (>60) Glucose Level 100 mg/dL (74-106) Calcium Level 9.7 mg/dL (8.6-10.2) Phosphorus Level 3.0 mg/dL (2.5-4.8) Magnesium Level 1.8 mg/dL (1.7-2.5) Total Bilirubin 0.4 mg/dL (0.0-1.2) Aspartate Amino Transf (AST/SGOT) 28 U/L (5-40) Alanine Aminotransferase (ALT/SGPT) 13 U/L (3-41) Alkaline Phosphatase 110 U/L (40-129) Pro-B-Type Natriuretic Peptide 2071 pg/mL (0-125) H Total Protein 7.9 g/dL (6.6-8.7) Albumin 3.0 g/dL (3.5-5.2) L Globulin 4.9 g/dL Albumin/Globulin Ratio 0.6 (1.0-2.7) L Objective HEAD AND NECK: Shows no JVD. Tracheostomy. LUNGS: Have decreased breath sounds. CARDIOVASCULAR: Shows regular S1 and S2 with no gallop. ABDOMEN: Distended. EXTREMITIES: 2+ pitting edema. ELIF ESCOBAR Mar 16, 2017 16:27
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
[2017-03-16 20:00] VITALS: BP 122/74
[2017-03-16] MEDS: Dyna-Hex 2% Top Sol 8oz TOPIC SCH (20:31)
[2017-03-16] MEDS: Phytonadione 10 mg/mL 1ml amp SUBQ SCH (20:31)
[2017-03-16] MEDS: FAT EMULSION 20% IV SCH (20:56)
[2017-03-16] MEDS: TPN IV SCH (20:56)
[2017-03-17] VITALS: BP 147/95
[2017-03-17 04:00] VITALS: BP 150/96
[2017-03-17] MEDS: Morphine Sulfate 4mg/ml Inj IVP PRN ×3 (04:39→15:13)
[2017-03-17] MEDS: Meropenem 1 GM in NS 110 ML IVPB SCH ×3 (05:41→21:14)
[2017-03-17] MEDS: Simethicone Drops 80mg/1.2ml ORAL SCH ×3 (05:41→17:31)
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
[2017-03-17] MEDS: NovoLOG Insulin Flexpen SUBQ SCH ×4 (06:30→20:31)
[2017-03-17 07:58] VITALS: BP 130/70
[2017-03-17] MEDS: Colistin for inhalation INH SCH ×2 (09:26→21:25)
[2017-03-17] MEDS: LEVETIRACETAM 500 MG IVPB SCH ×2 (09:34→20:28)
[2017-03-17] MEDS: Pantoprazole Inj IVP SCH (09:34)
[2017-03-17] MEDS: Vancomycin 750 MG in D5W 275 ML IVPB SCH ×2 (09:34→20:28)
[2017-03-17] MEDS: Heparin 5000 units/ml inj SUBQ SCH ×2 (09:41→20:30)
[2017-03-17] MEDS: Nystatin Powder 100,000 units/gm 15gm TOPIC SCH ×3 (09:42→17:28)
[2017-03-17 10:07] LABS: BASOPHILS % (AUTO) 1.1 % (0.0-2.0); EOSINOPHILS % (AUTO) 3.6 % (0.0-3.0); LYMPHOCYTES % (AUTO) 16.3 % (20.0-45.0); MEAN CORPUSCULAR HEMOGLOBIN 25.2 PG (27.0-31.0); MEAN CORPUSCULAR HGB CONC 29.7 G/DL (32.0-36.0); MEAN CORPUSCULAR VOLUME 85 FL (80-99); MEAN PLATELET VOLUME 6.1 FL (6.5-10.1); MONOCYTES % (AUTO) 6.9 % (1.0-10.0); NEUTROPHILS % (AUTO) 72.1 % (45.0-75.0); PLATELET COUNT 485 K/UL (150-450); RED BLOOD COUNT 3.97 M/UL (4.70-6.10); RED CELL DISTRIBUTION WIDTH 15.2 % (11.6-14.8); WHITE BLOOD COUNT 9.6 K/UL (4.8-10.8)
[2017-03-17 10:29] LABS: ALANINE AMINOTRANSFERASE 13 U/L (3-41); ALBUMIN/GLOBULIN RATIO 0.6 (1.0-2.7); ANION GAP 9 (5-15); ASPARTATE AMINO TRANSFERASE 23 U/L (5-40); CALCIUM 10.1 mg/dL (8.6-10.2); CARBON DIOXIDE 30 mEQ/L (20-30); CHLORIDE 99 mEQ/L (98-107); CREATININE 0.6 mg/dL (0.7-1.2); GLOMERULAR FILTRATION RATE > 60 mL/min (>60); HEMOLYSIS 11; PHOSPHORUS 3.8 mg/dL (2.5-4.8); POTASSIUM 5.2 mEQ/L (3.4-4.9); SODIUM 138 mEQ/L (135-145); TOTAL PROTEIN 7.9 g/dL (6.6-8.7)
[2017-03-17 11:24] VITALS: BP 120/68
--- NOTE | 2017-03-17 11:43 | GI Progress Note ---
Assessment/Plan Problems: (1) Iron deficiency ICD Codes: E61.1 - Iron deficiency SNOMED: 75668901 (2) Ileus ICD Codes: K56.7 - Ileus, unspecified SNOMED: 717651628 (3) Abdominal distension ICD Codes: R14.0 - Abdominal distension (gaseous) SNOMED: 06921428 (4) Septic shock ICD Codes: A41.9 - Sepsis, unspecified organism; R65.21 - Severe sepsis with septic shock SNOMED: 89525024 (5) Paraplegia ICD Codes: G82.20 - Paraplegia, unspecified SNOMED: 62527263 (6) Anemia ICD Codes: D64.9 - Anemia, unspecified SNOMED: 351492939 Qualifiers: Qualified Codes: D64.9 - Anemia, unspecified Status: unchanged Status Narrative Discussed with Dr. Thompson. Assessment/Plan CT AP reviewed >> Mildly distended sigmoid without evidence of distal obstruction. Diffusely gas-filled upper limits normal caliber colon and small bowel, without evidence of obstructive pathology. Suspect functional in nature or on the basis of ileus fu colonic barium enema >> Dilated distal sigmoid, without evidence of distal anatomic obstructive lesion. PO intake >> 100% this morning abdominal distention due to ileus 2/2 septic shock vs colonic ileus rectal tube for colonic decompression ST eval >> LIQUIFIED PUREED, LIKE HONEY THICK SOUP CONSISTENCY. STRICT ASPIRATION/REFLUX PRECAUTIONS WITH 1TO1 FEEDING. taper TPN pain mgmt iron deficient >> venofer ppi fu labs Subjective Subjective hungry Objective Last 24 Hour Vital Signs Date Time Temp Pulse Resp B/P Pulse Ox O2 Delivery O2 Flow Rate FiO2 03/17/17 11:24 97.9 63 18 120/68 98 Mechanical Ventilator 03/17/17 09:54 62 22 35 03/17/17 09:51 71 19 100 Mechanical Ventilator 03/17/17 09:26 61 21 100 Mechanical Ventilator 03/17/17 08:00 56 03/17/17 07:58 97.0 50 14 130/70 100 Mechanical Ventilator 03/17/17 07:42 Mechanical Ventilator 03/17/17 07:41 100 Mechanical Ventilator 03/17/17 07:29 59 14 35 03/17/17 06:05 55 17 35 03/17/17 06:00 35 03/17/17 05:09 97.3 03/17/17 04:00 97.5 57 20 150/96 100 Trach Collar 35 03/17/17 04:00 8.0 03/17/17 04:00 67 03/17/17 01:26 100 Trach Collar 8.0 35 03/17/17 01:26 Trach Collar 8.0 35 03/17/17 00:00 97.3 55 20 147/95 100 Trach Collar 35 03/17/17 00:00 59 03/17/17 00:00 8.0 03/16/17 23:10 59 16 100 Trach Collar 10.0 35 03/16/17 22:57 60 16 100 Trach Collar 10.0 35 03/16/17 20:07 60 18 Trach Collar 8.0 35 03/16/17 20:00 97.5 57 18 122/74 93 Trach Collar 35 03/16/17 20:00 8.0 03/16/17 20:00 58 03/16/17 19:36 98 Trach Collar 8.0 35 03/16/17 19:36 Trach Collar 8.0 35 03/16/17 17:11 63 16 03/16/17 16:07 35 03/16/17 16:02 97.5 66 18 122/86 94 35 03/16/17 16:00 63 03/16/17 15:00 51 15 03/16/17 13:02 55 16 03/16/17 12:14 55 16 98 Trach Collar 10.0 35 03/16/17 12:05 67 03/16/17 12:04 35 03/16/17 12:03 66 16 97 Trach Collar 10.0 35 03/16/17 12:02 98.7 68 16 122/82 98 35 03/16/17 12:00 62 Intake and Output 03/16/17 03/17/17 19:00 07:00 Intake Total 1310.000 ml 1570 ml Output Total 1790 ml 1600 ml Balance -480.000 ml -30 ml IV Total 1310.000 ml 1570 ml Output Urine Total 1750 ml 1400 ml Stool Total 40 ml 200 ml # Bowel Movements 3 3 Laboratory Tests Test 03/17/17 09:15 White Blood Count 9.6 K/UL (4.8-10.8) Red Blood Count 3.97 M/UL (4.70-6.10) L Hemoglobin 10.0 G/DL (14.2-18.0) L Hematocrit 33.7 % (42.0-52.0) L Mean Corpuscular Volume 85 FL (80-99) Mean Corpuscular Hemoglobin 25.2 PG (27.0-31.0) L Mean Corpuscular Hemoglobin Concent 29.7 G/DL (32.0-36.0) L Red Cell Distribution Width 15.2 % (11.6-14.8) H Platelet Count 485 K/UL (150-450) H Mean Platelet Volume 6.1 FL (6.5-10.1) L Neutrophils (%) (Auto) 72.1 % (45.0-75.0) Lymphocytes (%) (Auto) 16.3 % (20.0-45.0) L Monocytes (%) (Auto) 6.9 % (1.0-10.0) Eosinophils (%) (Auto) 3.6 % (0.0-3.0) H Basophils (%) (Auto) 1.1 % (0.0-2.0) Sodium Level 138 mEQ/L (135-145) Potassium Level 5.2 mEQ/L (3.4-4.9) H Chloride Level 99 mEQ/L (98-107) Carbon Dioxide Level 30 mEQ/L (20-30) Anion Gap 9 (5-15) Blood Urea Nitrogen 15 mg/dL (7-23) Creatinine 0.6 mg/dL (0.7-1.2) L Estimat Glomerular Filtration Rate > 60 mL/min (>60) Glucose Level 105 mg/dL (74-106) Calcium Level 10.1 mg/dL (8.6-10.2) Phosphorus Level 3.8 mg/dL (2.5-4.8) Magnesium Level 1.7 mg/dL (1.7-2.5) Total Bilirubin 0.3 mg/dL (0.0-1.2) Aspartate Amino Transf (AST/SGOT) 23 U/L (5-40) Alanine Aminotransferase (ALT/SGPT) 13 U/L (3-41) Alkaline Phosphatase 114 U/L (40-129) Total Protein 7.9 g/dL (6.6-8.7) Albumin 3.2 g/dL (3.5-5.2) L Globulin 4.7 g/dL Albumin/Globulin Ratio 0.6 (1.0-2.7) L Height (Feet): 6 Height (Inches): 5.00 Weight (Pounds): 218 General Appearance: no apparent distress, alert Cardiovascular: normal rate Respiratory/Chest: other - mech vent Abdominal Exam: distended Lou Cee N.P. Mar 17, 2017 11:42
--- NOTE | 2017-03-17 11:48 | Infectious Diseases Prog Note ---
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 - CXR 03/16: Slightly decreased right pleural fluid and slightly decreased right lung volume loss, over one day - h/o PSA // Multiple decubiti POA, not grossly infected - WCx polymicrobial MDRO // Negative C.difficile 03/03 // Sepsis // Leukocytosis - resolved // Fever - resolved // Chronic VDRF SP trach, PEG // Severe pulmonary HTN // Paraplegia // ARF - resolved // Chronic FOBT(+) anemia // NKDA // Full Code PLAN: - continue IV vancomycin, meropenem, INH colistin d# 11 / ( 03/04 SP IV vancomycin d# 2 ) - monitor CBC, temperatures, re-culture if acute change - monitor BMP - monitor CXR - vent support / trach care / aspiration precautions - wound care Subjective Allergies: Coded Allergies: No Known Allergies (Unverified , 03/02/17) Subjective remains afebrile without leukocytosis on vent Objective Vital Signs Last 24 Hour Vital Signs Date Time Temp Pulse Resp B/P Pulse Ox O2 Delivery O2 Flow Rate FiO2 03/17/17 11:24 97.9 63 18 120/68 98 Mechanical Ventilator 35 03/17/17 09:54 62 22 35 03/17/17 09:51 71 19 100 Mechanical Ventilator 03/17/17 09:26 61 21 100 Mechanical Ventilator 03/17/17 08:00 56 03/17/17 07:58 97.0 50 14 130/70 100 Mechanical Ventilator 35 03/17/17 07:42 Mechanical Ventilator 03/17/17 07:41 100 Mechanical Ventilator 35 03/17/17 07:29 59 14 35 03/17/17 06:05 55 17 35 03/17/17 06:00 35 03/17/17 05:09 97.3 03/17/17 04:00 97.5 57 20 150/96 100 Trach Collar 35 03/17/17 04:00 8.0 03/17/17 04:00 67 03/17/17 01:26 100 Trach Collar 8.0 35 03/17/17 01:26 Trach Collar 8.0 35 03/17/17 00:00 97.3 55 20 147/95 100 Trach Collar 35 03/17/17 00:00 59 03/17/17 00:00 8.0 03/16/17 23:10 59 16 100 Trach Collar 10.0 35 03/16/17 22:57 60 16 100 Trach Collar 10.0 35 03/16/17 20:07 60 18 Trach Collar 8.0 35 03/16/17 20:00 97.5 57 18 122/74 93 Trach Collar 35 03/16/17 20:00 8.0 03/16/17 20:00 58 03/16/17 19:36 98 Trach Collar 8.0 35 03/16/17 19:36 Trach Collar 8.0 35 03/16/17 17:11 63 16 03/16/17 16:07 35 03/16/17 16:02 97.5 66 18 122/86 94 35 03/16/17 16:00 63 03/16/17 15:00 51 15 03/16/17 13:02 55 16 03/16/17 12:14 55 16 98 Trach Collar 10.0 35 03/16/17 12:05 67 03/16/17 12:04 35 03/16/17 12:03 66 16 97 Trach Collar 10.0 35 03/16/17 12:02 98.7 68 16 122/82 98 35 03/16/17 12:00 62 Height (Feet): 6 Height (Inches): 5.00 Weight (Pounds): 218 General Appearance: no acute distress HEENT: status post trach Respiratory/Chest: decreased breath sounds Cardiovascular: normal rate, regular rhythm Abdomen: normal bowel sounds, soft, non tender, non distended Laboratory Tests Test 03/17/17 09:15 White Blood Count 9.6 K/UL (4.8-10.8) Red Blood Count 3.97 M/UL (4.70-6.10) L Hemoglobin 10.0 G/DL (14.2-18.0) L Hematocrit 33.7 % (42.0-52.0) L Mean Corpuscular Volume 85 FL (80-99) Mean Corpuscular Hemoglobin 25.2 PG (27.0-31.0) L Mean Corpuscular Hemoglobin Concent 29.7 G/DL (32.0-36.0) L Red Cell Distribution Width 15.2 % (11.6-14.8) H Platelet Count 485 K/UL (150-450) H Mean Platelet Volume 6.1 FL (6.5-10.1) L Neutrophils (%) (Auto) 72.1 % (45.0-75.0) Lymphocytes (%) (Auto) 16.3 % (20.0-45.0) L Monocytes (%) (Auto) 6.9 % (1.0-10.0) Eosinophils (%) (Auto) 3.6 % (0.0-3.0) H Basophils (%) (Auto) 1.1 % (0.0-2.0) Sodium Level 138 mEQ/L (135-145) Potassium Level 5.2 mEQ/L (3.4-4.9) H Chloride Level 99 mEQ/L (98-107) Carbon Dioxide Level 30 mEQ/L (20-30) Anion Gap 9 (5-15) Blood Urea Nitrogen 15 mg/dL (7-23) Creatinine 0.6 mg/dL (0.7-1.2) L Estimat Glomerular Filtration Rate > 60 mL/min (>60) Glucose Level 105 mg/dL (74-106) Calcium Level 10.1 mg/dL (8.6-10.2) Phosphorus Level 3.8 mg/dL (2.5-4.8) Magnesium Level 1.7 mg/dL (1.7-2.5) Total Bilirubin 0.3 mg/dL (0.0-1.2) Aspartate Amino Transf (AST/SGOT) 23 U/L (5-40) Alanine Aminotransferase (ALT/SGPT) 13 U/L (3-41) Alkaline Phosphatase 114 U/L (40-129) Total Protein 7.9 g/dL (6.6-8.7) Albumin 3.2 g/dL (3.5-5.2) L Globulin 4.7 g/dL Albumin/Globulin Ratio 0.6 (1.0-2.7) L Current Medications Medications (Trade) Dose Ordered Sig/Lucy Route PRN Reason Start Time Stop Time Status Last Admin Dose Admin Acetaminophen (Tylenol) 650 mg Q4H PRN RECTAL Mild Pain/Temp > 100.5 7/21/17 20:35 04/10/17 20:34 03/11/17 20:38 Chlorhexidine Gluconate (Kim-Hex 2%) 1 applic BEDTIME TOPIC 03/06/17 21:00 04/05/17 20:59 03/16/17 20:31 Colistimethate Sodium (Colistin *inhalation use only*) 150 mg Q12HR@10,22 INH 03/07/17 12:00 03/19/17 11:59 03/17/17 09:26 Dextrose (D10w) 1,000 ml @ 75 mls/hr [id number] PRN IV IF TPN INTERRUPTED 03/09/17 21:00 04/08/17 20:59 Dextrose 50 ml 50 ml STAT PRN IV Hypoglycemia 03/09/17 16:15 04/08/17 16:14 Fat Emulsion Intravenous/Amino Acids/ Electrolytes/ Dextrose (Intralipids/Tpn) 1,800 ml @ 75 mls/hr Q24H IV 03/13/17 21:00 04/12/17 20:59 03/16/17 20:56 Heparin Sodium (Porcine) (Heparin 5000 units/ml) 5,000 units EVERY 12 HOURS SUBQ 03/06/17 21:00 04/05/17 20:59 03/17/17 09:41 Insulin Aspart AC+HS SUBQ 03/12/17 11:30 04/11/17 11:29 03/16/17 12:28 Levetiracetam (Keppra 500mg Premix) 100 ml @ 400 mls/hr Q12HR IVPB 03/09/17 21:00 04/08/17 20:59 03/17/17 09:34 Meropenem/Sodium Chloride (Merrem/Sodium Chloride) 110 ml @ 220 mls/hr Q8HR IVPB 03/07/17 14:00 03/20/17 13:59 03/17/17 05:41 Morphine Sulfate 4 mg 4 mg Q4H PRN IVP Severe Pain (Pain Scale 7-10) 03/13/17 20:45 03/20/17 20:44 03/17/17 09:40 Nystatin (Nystop Powder) 1 applic THREE TIMES A DAY TOPIC 03/06/17 18:00 04/05/17 17:59 03/17/17 09:42 Ondansetron HCl (Zofran) 4 mg Q6H PRN IVP Nausea & Vomiting 03/06/17 16:38 04/05/17 16:37 Pantoprazole (Protonix) 40 mg DAILY IVP 03/07/17 09:00 04/06/17 08:59 03/17/17 09:34 Phytonadione 10 mg 10 mg QWEEK SUBQ 03/09/17 21:00 04/07/17 20:59 03/16/17 20:31 Polyethylene Glycol 17 gm 17 gm DAILYPRN PRN ORAL Constipation 03/06/17 16:37 04/05/17 16:36 Simethicone (Mylicon) 40 mg EVERY 6 HOURS ORAL 03/12/17 12:00 04/11/17 11:59 03/17/17 05:41 Vancomycin HCl (Vanco rx to dose) 1 ea DAILY PRN MISC Per rx protocol 03/07/17 11:15 04/06/17 11:14 Vancomycin HCl/ Dextrose (Vancomycin/D5W) 275 ml @ 183.708 mls/hr Q12HR IVPB 03/15/17 21:00 03/20/17 20:59 03/17/17 09:34 NA GREGG Mar 17, 2017 11:48
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
--- NOTE | 2017-03-17 14:59 | Nephrology Progress Note ---
Assessment/Plan Problem List: (1) Hypokalemia Assessment: ok (2) Hypomagnesemia (3) Ileus (4) Iron deficiency (5) Pneumonia (6) Acute kidney failure (7) Anemia Plan DC K in TPN Discussed with pharmacist cont TPN follow labs Subjective Subjective In NAD Objective Objective Last 24 Hour Vital Signs Date Time Temp Pulse Resp B/P Pulse Ox O2 Delivery O2 Flow Rate FiO2 03/17/17 13:02 Mechanical Ventilator 35 03/17/17 12:49 100 Mechanical Ventilator 35 03/17/17 12:47 84 17 35 03/17/17 12:44 60 03/17/17 12:00 35 03/17/17 11:30 60 17 35 03/17/17 11:24 97.9 63 18 120/68 98 Mechanical Ventilator 35 03/17/17 09:54 62 22 35 03/17/17 09:51 71 19 100 Mechanical Ventilator 35 03/17/17 09:26 61 21 100 Mechanical Ventilator 35 03/17/17 08:00 56 03/17/17 08:00 35 03/17/17 07:58 97.0 50 14 130/70 100 Mechanical Ventilator 35 03/17/17 07:42 Mechanical Ventilator 35 03/17/17 07:41 100 Mechanical Ventilator 35 03/17/17 07:29 59 14 35 03/17/17 06:05 55 17 35 03/17/17 06:00 35 03/17/17 05:09 97.3 03/17/17 04:00 97.5 57 20 150/96 100 Trach Collar 35 03/17/17 04:00 8.0 03/17/17 04:00 67 03/17/17 01:26 100 Trach Collar 8.0 35 03/17/17 01:26 Trach Collar 8.0 35 03/17/17 00:00 97.3 55 20 147/95 100 Trach Collar 35 03/17/17 00:00 59 03/17/17 00:00 8.0 03/16/17 23:10 59 16 100 Trach Collar 10.0 35 03/16/17 22:57 60 16 100 Trach Collar 10.0 35 03/16/17 20:07 60 18 Trach Collar 8.0 35 03/16/17 20:00 97.5 57 18 122/74 93 Trach Collar 35 03/16/17 20:00 8.0 03/16/17 20:00 58 03/16/17 19:36 98 Trach Collar 8.0 35 03/16/17 19:36 Trach Collar 8.0 35 03/16/17 17:11 63 16 03/16/17 16:07 35 03/16/17 16:02 97.5 66 18 122/86 94 35 03/16/17 16:00 63 03/16/17 15:00 51 15 Intake and Output 03/16/17 03/17/17 19:00 07:00 Intake Total 1310.000 ml 1570 ml Output Total 1790 ml 1600 ml Balance -480.000 ml -30 ml IV Total 1310.000 ml 1570 ml Output Urine Total 1750 ml 1400 ml Stool Total 40 ml 200 ml # Bowel Movements 3 3 Laboratory Tests 03/17/17 09:15: White Blood Count 9.6, Red Blood Count 3.97L, Hemoglobin 10.0L, Hematocrit 33.7L , Mean Corpuscular Volume 85, Mean Corpuscular Hemoglobin 25.2L, Mean Corpuscular Hemoglobin Concent 29.7L, Red Cell Distribution Width 15.2H, Platelet Count 485H, Mean Platelet Volume 6.1L, Neutrophils (%) (Auto) 72.1, Lymphocytes (%) (Auto) 16.3L, Monocytes (%) (Auto) 6.9, Eosinophils (%) (Auto) 3.6H, Basophils (%) (Auto) 1.1, Sodium Level 138, Potassium Level 5.2H, Chloride Level 99, Carbon Dioxide Level 30, Anion Gap 9, Blood Urea Nitrogen 15 , Creatinine 0.6L, Estimat Glomerular Filtration Rate > 60, Glucose Level 105, Calcium Level 10.1, Phosphorus Level 3.8, Magnesium Level 1.7, Total Bilirubin 0.3, Aspartate Amino Transf (AST/SGOT) 23, Alanine Aminotransferase (ALT/SGPT) 13, Alkaline Phosphatase 114, Total Protein 7.9, Albumin 3.2L, Globulin 4.7, Albumin/Globulin Ratio 0.6L Height (Feet): 6 Height (Inches): 5.00 Weight (Pounds): 218 Cardiovascular: normal rate Respiratory/Chest: rhonchi - bilaterally Extremities: moderate edema REEMA LANIER Mar 17, 2017 14:59
[2017-03-17 15:52] VITALS: BP 103/47
--- NOTE | 2017-03-17 17:50 | Cardiac Electrophysiology PN ---
Assessment/Plan Assessment/Plan 1. Sinus arrest with multiple pauses of more than 3 seconds including pauses of 8 seconds. Happened only when the patient was being turned, likely vagal.Off any sinus claudette blocking agents. No recurrence. Watch on tele.Lowest HR last 3 days was 40s. 2. Ventilator-dependent respiratory failure, status post tracheostomy. Back on vent again. 3. Status post septic shock. 4. Dysphagia with history of PEG placement in the past and currently does not have a PEG on TPN. 5. Iron deficiency 6. Ileus with abdominal distention. GISELA RN Subjective Subjective Was bradycardic down to 45 earlier. Alert in NAD. Back on Vent and TPN. Objective Last 24 Hour Vital Signs Date Time Temp Pulse Resp B/P Pulse Ox O2 Delivery O2 Flow Rate FiO2 03/17/17 17:28 59 16 35 03/17/17 16:00 63 03/17/17 16:00 35 03/17/17 15:52 97.3 55 22 103/47 94 Mechanical Ventilator 03/17/17 14:32 58 35 35 03/17/17 13:02 Mechanical Ventilator 35 03/17/17 12:49 100 Mechanical Ventilator 35 03/17/17 12:47 84 17 35 03/17/17 12:44 60 03/17/17 12:00 35 03/17/17 11:30 60 17 35 03/17/17 11:24 97.9 63 18 120/68 98 Mechanical Ventilator 35 03/17/17 09:54 62 22 35 03/17/17 09:51 71 19 100 Mechanical Ventilator 35 03/17/17 09:26 61 21 100 Mechanical Ventilator 03/17/17 08:00 56 03/17/17 08:00 35 03/17/17 07:58 97.0 50 14 130/70 100 Mechanical Ventilator 35 03/17/17 07:42 Mechanical Ventilator 35 03/17/17 07:41 100 Mechanical Ventilator 03/17/17 07:29 59 14 35 03/17/17 06:05 55 17 35 03/17/17 06:00 35 03/17/17 05:09 97.3 03/17/17 04:00 97.5 57 20 150/96 100 Trach Collar 35 03/17/17 04:00 8.0 03/17/17 04:00 67 03/17/17 01:26 100 Trach Collar 8.0 35 03/17/17 01:26 Trach Collar 8.0 35 03/17/17 00:00 97.3 55 20 147/95 100 Trach Collar 35 03/17/17 00:00 59 03/17/17 00:00 8.0 03/16/17 23:10 59 16 100 Trach Collar 10.0 35 03/16/17 22:57 60 16 100 Trach Collar 10.0 35 03/16/17 20:07 60 18 Trach Collar 8.0 35 03/16/17 20:00 97.5 57 18 122/74 93 Trach Collar 35 03/16/17 20:00 8.0 03/16/17 20:00 58 03/16/17 19:36 98 Trach Collar 8.0 35 03/16/17 19:36 Trach Collar 8.0 35 Intake and Output 03/16/17 03/17/17 19:00 07:00 Intake Total 1310.000 ml 1570 ml Output Total 1790 ml 1600 ml Balance -480.000 ml -30 ml IV Total 1310.000 ml 1570 ml Output Urine Total 1750 ml 1400 ml Stool Total 40 ml 200 ml # Bowel Movements 3 3 Laboratory Tests Test 03/17/17 09:15 White Blood Count 9.6 K/UL (4.8-10.8) Red Blood Count 3.97 M/UL (4.70-6.10) L Hemoglobin 10.0 G/DL (14.2-18.0) L Hematocrit 33.7 % (42.0-52.0) L Mean Corpuscular Volume 85 FL (80-99) Mean Corpuscular Hemoglobin 25.2 PG (27.0-31.0) L Mean Corpuscular Hemoglobin Concent 29.7 G/DL (32.0-36.0) L Red Cell Distribution Width 15.2 % (11.6-14.8) H Platelet Count 485 K/UL (150-450) H Mean Platelet Volume 6.1 FL (6.5-10.1) L Neutrophils (%) (Auto) 72.1 % (45.0-75.0) Lymphocytes (%) (Auto) 16.3 % (20.0-45.0) L Monocytes (%) (Auto) 6.9 % (1.0-10.0) Eosinophils (%) (Auto) 3.6 % (0.0-3.0) H Basophils (%) (Auto) 1.1 % (0.0-2.0) Sodium Level 138 mEQ/L (135-145) Potassium Level 5.2 mEQ/L (3.4-4.9) H Chloride Level 99 mEQ/L (98-107) Carbon Dioxide Level 30 mEQ/L (20-30) Anion Gap 9 (5-15) Blood Urea Nitrogen 15 mg/dL (7-23) Creatinine 0.6 mg/dL (0.7-1.2) L Estimat Glomerular Filtration Rate > 60 mL/min (>60) Glucose Level 105 mg/dL (74-106) Calcium Level 10.1 mg/dL (8.6-10.2) Phosphorus Level 3.8 mg/dL (2.5-4.8) Magnesium Level 1.7 mg/dL (1.7-2.5) Total Bilirubin 0.3 mg/dL (0.0-1.2) Aspartate Amino Transf (AST/SGOT) 23 U/L (5-40) Alanine Aminotransferase (ALT/SGPT) 13 U/L (3-41) Alkaline Phosphatase 114 U/L (40-129) Total Protein 7.9 g/dL (6.6-8.7) Albumin 3.2 g/dL (3.5-5.2) L Globulin 4.7 g/dL Albumin/Globulin Ratio 0.6 (1.0-2.7) L Objective HEAD AND NECK: Shows no JVD. Tracheostomy connected to vent. LUNGS: Have decreased breath sounds. CARDIOVASCULAR: Shows regular S1 and S2 with no gallop. ABDOMEN: Distended. EXTREMITIES: 2+ pitting edema. ELIF ESCOBAR Mar 17, 2017 17:50
[2017-03-17 20:09] VITALS: BP 125/83
[2017-03-17] MEDS: Dyna-Hex 2% Top Sol 8oz TOPIC SCH (20:27)
[2017-03-17] MEDS ORDERED: TPN IV SCH (21:00)
[2017-03-17] MEDS ORDERED: FAT EMULSION 20% IV SCH (21:00)
[2017-03-18] VITALS (7 sets, daily range): BP systolic 103–153; BP diastolic 67–93
[2017-03-18] MEDS: Morphine Sulfate 4mg/ml Inj IVP PRN ×5 (04:45→21:49)
[2017-03-18] MEDS: Simethicone Drops 80mg/1.2ml ORAL SCH ×5 (06:00→23:18)
[2017-03-18] MEDS: Meropenem 1 GM in NS 110 ML IVPB SCH ×3 (06:22→21:54)
[2017-03-18] MEDS: NovoLOG Insulin Flexpen SUBQ SCH ×4 (06:23→21:00)
[2017-03-18 07:56] LABS: ALANINE AMINOTRANSFERASE 13 U/L (3-41); ANION GAP 12 (5-15); ASPARTATE AMINO TRANSFERASE 25 U/L (5-40); CALCIUM 9.7 mg/dL (8.6-10.2); CARBON DIOXIDE 28 mEQ/L (20-30); CHLORIDE 100 mEQ/L (98-107); CREATININE 0.7 mg/dL (0.7-1.2); GLOMERULAR FILTRATION RATE > 60 mL/min (>60); POTASSIUM 4.2 mEQ/L (3.4-4.9); SODIUM 140 mEQ/L (135-145); TOTAL PROTEIN 7.8 g/dL (6.6-8.7)
[2017-03-18 07:57] LABS: ALBUMIN/GLOBULIN RATIO 0.6 (1.0-2.7); BASOPHILS % (AUTO) 1.2 % (0.0-2.0); EOSINOPHILS % (AUTO) 1.3 % (0.0-3.0); HEMOLYSIS 1; MEAN CORPUSCULAR HEMOGLOBIN 25.6 PG (27.0-31.0); MEAN CORPUSCULAR HGB CONC 30.4 G/DL (32.0-36.0); MEAN CORPUSCULAR VOLUME 84 FL (80-99); MEAN PLATELET VOLUME 5.2 FL (6.5-10.1); MONOCYTES % (AUTO) 8.6 % (1.0-10.0); NEUTROPHILS % (AUTO) 75.9 % (45.0-75.0); PLATELET COUNT 451 K/UL (150-450); RED CELL DISTRIBUTION WIDTH 14.9 % (11.6-14.8); WHITE BLOOD COUNT 12.6 K/UL (4.8-10.8)
[2017-03-18 08:09] LABS: MAGNESIUM 1.7 mg/dL (1.7-2.5); PHOSPHORUS 4.1 mg/dL (2.5-4.8)
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
[2017-03-18] MEDS: LEVETIRACETAM 500 MG IVPB SCH ×2 (08:50→20:20)
[2017-03-18] MEDS: Pantoprazole Inj IVP SCH (08:51)
[2017-03-18] MEDS: Vancomycin 750 MG in D5W 275 ML IVPB SCH ×2 (08:51→20:19)
[2017-03-18] MEDS: Nystatin Powder 100,000 units/gm 15gm TOPIC SCH ×3 (08:53→17:55)
[2017-03-18] MEDS: Heparin 5000 units/ml inj SUBQ SCH ×2 (08:53→20:22)
--- NOTE | 2017-03-18 09:20 | General Progress Note ---
Progress Note Progress Note Surgery: doing well. states comfortable and no pain. no n/v/f/c. stable. abdomen distended but tolerating feeds and good output from rectal tube (soft stool). continue diet as tolerated. no surgical intervention planned at this time. Gian Gilmore Mar 18, 2017 09:20
[2017-03-18] MEDS: Colistin for inhalation INH SCH ×2 (09:46→20:46)
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
--- NOTE | 2017-03-18 10:58 | GI Progress Note ---
Assessment/Plan Problems: (1) Iron deficiency ICD Codes: E61.1 - Iron deficiency SNOMED: 53774793 (2) Ileus ICD Codes: K56.7 - Ileus, unspecified SNOMED: 546500748 (3) Abdominal distension ICD Codes: R14.0 - Abdominal distension (gaseous) SNOMED: 79216086 (4) Septic shock ICD Codes: A41.9 - Sepsis, unspecified organism; R65.21 - Severe sepsis with septic shock SNOMED: 96973368 (5) Paraplegia ICD Codes: G82.20 - Paraplegia, unspecified SNOMED: 86942797 (6) Anemia ICD Codes: D64.9 - Anemia, unspecified SNOMED: 517355146 Qualifiers: Qualified Codes: D64.9 - Anemia, unspecified Status: unchanged Status Narrative Discussed with Dr. Thompson. Assessment/Plan CT AP reviewed >> Mildly distended sigmoid without evidence of distal obstruction. Diffusely gas-filled upper limits normal caliber colon and small bowel, without evidence of obstructive pathology. Suspect functional in nature or on the basis of ileus colonic barium enema >> Dilated distal sigmoid, without evidence of distal anatomic obstructive lesion. abdominal distention due to ileus 2/2 septic shock vs colonic ileus colonoscopy for decompression scheduled for tuesday - CLD, NPO @ [facility] day prior to procedure - hold any blood thinners night prior. rectal tube for colonic decompression dietary per ST >> LIQUIFIED PUREED, LIKE HONEY THICK SOUP CONSISTENCY. STRICT ASPIRATION/REFLUX PRECAUTIONS WITH 1TO1 FEEDING. dc TPN today pain mgmt iron deficient >> venofer ppi fu labs Subjective Subjective limited Objective Last 24 Hour Vital Signs Date Time Temp Pulse Resp B/P Pulse Ox O2 Delivery O2 Flow Rate FiO2 03/18/17 09:56 56 16 100 Mechanical Ventilator 35 03/18/17 09:45 50 21 100 Mechanical Ventilator 35 03/18/17 09:24 50 21 35 03/18/17 08:40 97.6 51 16 153/86 100 Mechanical Ventilator 03/18/17 08:00 69 03/18/17 07:14 60 16 35 03/18/17 05:28 55 17 35 03/18/17 04:00 35 03/18/17 04:00 89 03/18/17 04:00 98.1 67 20 113/69 100 Mechanical Ventilator 03/18/17 02:25 64 17 35 03/18/17 01:08 63 16 35 03/18/17 00:00 63 03/18/17 00:00 97.9 57 16 113/70 100 Mechanical Ventilator 03/18/17 00:00 35 03/17/17 23:38 65 16 35 03/17/17 21:32 59 16 100 Mechanical Ventilator 35 03/17/17 21:19 61 16 100 Mechanical Ventilator 35 03/17/17 21:19 61 16 35 03/17/17 20:09 99.7 67 16 125/83 100 Mechanical Ventilator 03/17/17 20:00 67 03/17/17 20:00 35 03/17/17 19:16 Mechanical Ventilator 35 03/17/17 19:16 100 Mechanical Ventilator 35 03/17/17 19:15 67 18 35 03/17/17 17:28 59 16 35 03/17/17 16:00 63 03/17/17 16:00 35 03/17/17 15:52 97.3 55 22 103/47 94 Mechanical Ventilator 03/17/17 14:32 58 35 35 03/17/17 13:02 Mechanical Ventilator 35 03/17/17 12:49 100 Mechanical Ventilator 35 03/17/17 12:47 84 17 35 03/17/17 12:44 60 03/17/17 12:00 35 03/17/17 11:30 60 17 35 03/17/17 11:24 97.9 63 18 120/68 98 Mechanical Ventilator 35 Intake and Output 03/17/17 03/18/17 19:00 07:00 Intake Total 1484.000 ml 1715.498 ml Output Total 2150 ml 1550 ml Balance -666.000 ml 165.498 ml Intake Oral 100 ml IV Total 1384.000 ml 1715.498 ml Output Urine Total 1950 ml 1250 ml Stool Total 200 ml 300 ml # Bowel Movements 3 3 Laboratory Tests Test 03/18/17 06:45 White Blood Count 12.6 K/UL (4.8-10.8) H Red Blood Count 3.60 M/UL (4.70-6.10) L Hemoglobin 9.2 G/DL (14.2-18.0) L Hematocrit 30.3 % (42.0-52.0) L Mean Corpuscular Volume 84 FL (80-99) Mean Corpuscular Hemoglobin 25.6 PG (27.0-31.0) L Mean Corpuscular Hemoglobin Concent 30.4 G/DL (32.0-36.0) L Red Cell Distribution Width 14.9 % (11.6-14.8) H Platelet Count 451 K/UL (150-450) H Mean Platelet Volume 5.2 FL (6.5-10.1) L Neutrophils (%) (Auto) 75.9 % (45.0-75.0) H Lymphocytes (%) (Auto) 13.0 % (20.0-45.0) L Monocytes (%) (Auto) 8.6 % (1.0-10.0) Eosinophils (%) (Auto) 1.3 % (0.0-3.0) Basophils (%) (Auto) 1.2 % (0.0-2.0) Sodium Level 140 mEQ/L (135-145) Potassium Level 4.2 mEQ/L (3.4-4.9) Chloride Level 100 mEQ/L (98-107) Carbon Dioxide Level 28 mEQ/L (20-30) Anion Gap 12 (5-15) Blood Urea Nitrogen 20 mg/dL (7-23) Creatinine 0.7 mg/dL (0.7-1.2) Estimat Glomerular Filtration Rate > 60 mL/min (>60) Glucose Level 108 mg/dL (74-106) H Calcium Level 9.7 mg/dL (8.6-10.2) Phosphorus Level 4.1 mg/dL (2.5-4.8) Magnesium Level 1.7 mg/dL (1.7-2.5) Total Bilirubin 0.3 mg/dL (0.0-1.2) Aspartate Amino Transf (AST/SGOT) 25 U/L (5-40) Alanine Aminotransferase (ALT/SGPT) 13 U/L (3-41) Alkaline Phosphatase 112 U/L (40-129) Total Protein 7.8 g/dL (6.6-8.7) Albumin 3.1 g/dL (3.5-5.2) L Globulin 4.7 g/dL Albumin/Globulin Ratio 0.6 (1.0-2.7) L Height (Feet): 6 Height (Inches): 5.00 Weight (Pounds): 219 General Appearance: no apparent distress, alert Cardiovascular: normal rate Respiratory/Chest: normal breath sounds, no respiratory distress, other - mech vent Abdominal Exam: distended Lou Cee N.P. Mar 18, 2017 10:58
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
--- NOTE | 2017-03-18 12:30 | Infectious Diseases Prog Note ---
Assessment/Plan Assessment/Plan ASSESSMENT: 56 y/o male with: // Diarrhea r/o C.difficile vs ABX vs feeds // ESBL(+) E.coli UTI // ESBL(+) E.coli bacteremia, m/l urinary source - repeat BCx 03/12 Negative - TTE(-) SBE // Probable recurrent HCAP - SCx A.xylosidans - CXR 03/16: Slightly decreased right pleural fluid and slightly decreased right lung volume loss, over one day - h/o PSA // Multiple decubiti POA, not grossly infected - WCx polymicrobial MDRO // Negative C.difficile 03/03 // Sepsis // Leukocytosis - recurrent // Fever - resolved // Chronic VDRF SP trach, PEG // Severe pulmonary HTN // Paraplegia // ARF - resolved // Chronic FOBT(+) anemia // NKDA // Full Code PLAN: - continue IV vancomycin, meropenem, INH colistin d# / 14. Add PO vanco if C.diff+ ( 03/04 SP IV vancomycin d# 2 ) - check C.diff, if negative, then immodium - monitor CBC, temperatures, re-culture if acute change - monitor BMP - monitor CXR - vent support / trach care / aspiration precautions - wound care Subjective Allergies: Coded Allergies: No Known Allergies (Unverified , 03/02/17) Subjective remains afebrile without leukocytosis on vent massive diarrhea Objective Vital Signs Last 24 Hour Vital Signs Date Time Temp Pulse Resp B/P Pulse Ox O2 Delivery O2 Flow Rate FiO2 03/18/17 11:05 58 17 35 03/18/17 09:56 56 16 100 Mechanical Ventilator 35 03/18/17 09:45 50 21 100 Mechanical Ventilator 35 03/18/17 09:24 50 21 35 03/18/17 08:40 97.6 51 16 153/86 100 Mechanical Ventilator 03/18/17 08:00 69 03/18/17 07:14 60 16 35 03/18/17 05:28 55 17 35 03/18/17 04:00 35 03/18/17 04:00 89 03/18/17 04:00 98.1 67 20 113/69 100 Mechanical Ventilator 03/18/17 02:25 64 17 35 03/18/17 01:08 63 16 35 03/18/17 00:00 63 03/18/17 00:00 97.9 57 16 113/70 100 Mechanical Ventilator 03/18/17 00:00 35 03/17/17 23:38 65 16 35 03/17/17 21:32 59 16 100 Mechanical Ventilator 03/17/17 21:19 61 16 100 Mechanical Ventilator 35 03/17/17 21:19 61 16 35 03/17/17 20:09 99.7 67 16 125/83 100 Mechanical Ventilator 03/17/17 20:00 67 03/17/17 20:00 35 03/17/17 19:16 Mechanical Ventilator 03/17/17 19:16 100 Mechanical Ventilator 35 03/17/17 19:15 67 18 35 03/17/17 17:28 59 16 35 03/17/17 16:00 63 03/17/17 16:00 35 03/17/17 15:52 97.3 55 22 103/47 94 Mechanical Ventilator 03/17/17 14:32 58 35 35 03/17/17 13:02 Mechanical Ventilator 03/17/17 12:49 100 Mechanical Ventilator 03/17/17 12:47 84 17 35 03/17/17 12:44 60 Height (Feet): 6 Height (Inches): 5.00 Weight (Pounds): 219 General Appearance: no acute distress HEENT: status post trach Respiratory/Chest: decreased breath sounds Cardiovascular: normal rate, regular rhythm Abdomen: normal bowel sounds, soft, non tender, non distended Laboratory Tests Test 03/18/17 06:45 White Blood Count 12.6 K/UL (4.8-10.8) H Red Blood Count 3.60 M/UL (4.70-6.10) L Hemoglobin 9.2 G/DL (14.2-18.0) L Hematocrit 30.3 % (42.0-52.0) L Mean Corpuscular Volume 84 FL (80-99) Mean Corpuscular Hemoglobin 25.6 PG (27.0-31.0) L Mean Corpuscular Hemoglobin Concent 30.4 G/DL (32.0-36.0) L Red Cell Distribution Width 14.9 % (11.6-14.8) H Platelet Count 451 K/UL (150-450) H Mean Platelet Volume 5.2 FL (6.5-10.1) L Neutrophils (%) (Auto) 75.9 % (45.0-75.0) H Lymphocytes (%) (Auto) 13.0 % (20.0-45.0) L Monocytes (%) (Auto) 8.6 % (1.0-10.0) Eosinophils (%) (Auto) 1.3 % (0.0-3.0) Basophils (%) (Auto) 1.2 % (0.0-2.0) Sodium Level 140 mEQ/L (135-145) Potassium Level 4.2 mEQ/L (3.4-4.9) Chloride Level 100 mEQ/L (98-107) Carbon Dioxide Level 28 mEQ/L (20-30) Anion Gap 12 (5-15) Blood Urea Nitrogen 20 mg/dL (7-23) Creatinine 0.7 mg/dL (0.7-1.2) Estimat Glomerular Filtration Rate > 60 mL/min (>60) Glucose Level 108 mg/dL (74-106) H Calcium Level 9.7 mg/dL (8.6-10.2) Phosphorus Level 4.1 mg/dL (2.5-4.8) Magnesium Level 1.7 mg/dL (1.7-2.5) Total Bilirubin 0.3 mg/dL (0.0-1.2) Aspartate Amino Transf (AST/SGOT) 25 U/L (5-40) Alanine Aminotransferase (ALT/SGPT) 13 U/L (3-41) Alkaline Phosphatase 112 U/L (40-129) Total Protein 7.8 g/dL (6.6-8.7) Albumin 3.1 g/dL (3.5-5.2) L Globulin 4.7 g/dL Albumin/Globulin Ratio 0.6 (1.0-2.7) L Current Medications Medications (Trade) Dose Ordered Sig/Lucy Route PRN Reason Start Time Stop Time Status Last Admin Dose Admin Acetaminophen (Tylenol) 650 mg Q4H PRN RECTAL Mild Pain/Temp > 100.5 03/11/17 20:35 04/10/17 20:34 03/11/17 20:38 Chlorhexidine Gluconate (Kim-Hex 2%) 1 applic BEDTIME TOPIC 03/06/17 21:00 04/05/17 20:59 03/17/17 20:27 Colistimethate Sodium (Colistin *inhalation use only*) 150 mg Q12HR@10,22 INH 03/07/17 12:00 03/19/17 11:59 03/18/17 09:46 Dextrose (D10w) 1,000 ml @ 75 mls/hr [id number] PRN IV IF TPN INTERRUPTED 03/09/17 21:00 04/08/17 20:59 Dextrose 50 ml 50 ml STAT PRN IV Hypoglycemia 03/09/17 16:15 04/08/17 16:14 Fat Emulsion Intravenous/Amino Acids/ Electrolytes/ Dextrose (Intralipids/Tpn) 1,800 ml @ 75 mls/hr Q24H IV 03/17/17 21:00 03/18/17 20:59 03/17/17 17:26 Heparin Sodium (Porcine) (Heparin 5000 units/ml) 5,000 units EVERY 12 HOURS SUBQ 03/06/17 21:00 04/05/17 20:59 03/18/17 08:53 Insulin Aspart (NovoLOG) AC+HS SUBQ 03/12/17 11:30 04/11/17 11:29 03/18/17 06:23 Levetiracetam (Keppra 500mg Premix) 100 ml @ 400 mls/hr Q12HR IVPB 03/09/17 21:00 04/08/17 20:59 03/18/17 08:50 Meropenem/Sodium Chloride (Merrem/Sodium Chloride) 110 ml @ 220 mls/hr Q8HR IVPB 03/07/17 14:00 03/20/17 13:59 03/18/17 06:22 Morphine Sulfate 4 mg 4 mg Q4H PRN IVP Severe Pain (Pain Scale 7-10) 03/13/17 20:45 03/20/17 20:44 03/18/17 10:44 Nystatin (Nystop Powder) 1 applic THREE TIMES A DAY TOPIC 03/06/17 18:00 04/05/17 17:59 03/18/17 08:53 Ondansetron HCl (Zofran) 4 mg Q6H PRN IVP Nausea & Vomiting 03/06/17 16:38 04/05/17 16:37 Pantoprazole (Protonix) 40 mg DAILY IVP 03/07/17 09:00 04/06/17 08:59 03/18/17 08:51 Phytonadione 10 mg 10 mg QWEEK SUBQ 03/09/17 21:00 04/07/17 20:59 03/16/17 20:31 Polyethylene Glycol 17 gm 17 gm DAILYPRN PRN ORAL Constipation 03/06/17 16:37 04/05/17 16:36 Simethicone (Mylicon) 40 mg EVERY 6 HOURS ORAL 03/12/17 12:00 04/11/17 11:59 03/17/17 17:31 Vancomycin HCl (Vanco rx to dose) 1 ea DAILY PRN MISC Per rx protocol 03/07/17 11:15 04/06/17 11:14 Vancomycin HCl 750 mg/Dextrose 275 ml @ 183.708 mls/hr Q12HR IVPB 03/15/17 21:00 03/20/17 20:59 03/18/17 08:51 NA GREGG Mar 18, 2017 12:30
[2017-03-18] MEDS ORDERED: NS 275ml ONE (13:50)
[2017-03-18] MEDS ORDERED: Tubing IV Secondary IV ONE (13:50)
--- NOTE | 2017-03-18 16:26 | Cardiac Electrophysiology PN ---
Assessment/Plan Assessment/Plan 1. Sinus arrest with multiple pauses of more than 3 seconds including pauses of 8 seconds.Only when the patient being turned, likely vagal.Off any sinus claudette blocking agents. Lowest HR last 3 days was High 30s. 2. Ventilator-dependent respiratory failure, status post tracheostomy. Back on vent again. 3. Status post septic shock. 4. Dysphagia with history of PEG placement in the past and currently does not have a PEG on TPN. 5. Iron deficiency 6. Ileus with abdominal distention.Colonoscopy in am? DW RN Subjective Subjective Was bradycardic down to high 30s earlier transiently when he was moved. Alert in NAD. On Vent and TPN. Objective Last 24 Hour Vital Signs Date Time Temp Pulse Resp B/P Pulse Ox O2 Delivery O2 Flow Rate FiO2 03/18/17 16:00 35 03/18/17 15:14 64 18 35 03/18/17 13:04 59 24 35 03/18/17 12:00 35 03/18/17 12:00 62 03/18/17 12:00 97.7 63 17 135/93 100 Mechanical Ventilator 03/18/17 11:05 58 17 35 03/18/17 09:56 56 16 100 Mechanical Ventilator 35 03/18/17 09:45 50 21 100 Mechanical Ventilator 35 03/18/17 09:24 50 21 35 03/18/17 08:40 97.6 51 16 153/86 100 Mechanical Ventilator 03/18/17 08:00 69 03/18/17 08:00 35 03/18/17 07:14 60 16 35 03/18/17 05:28 55 17 35 03/18/17 04:00 35 03/18/17 04:00 89 03/18/17 04:00 98.1 67 20 113/69 100 Mechanical Ventilator 03/18/17 02:25 64 17 35 03/18/17 01:08 63 16 35 03/18/17 00:00 63 03/18/17 00:00 97.9 57 16 113/70 100 Mechanical Ventilator 03/18/17 00:00 35 03/17/17 23:38 65 16 35 03/17/17 21:32 59 16 100 Mechanical Ventilator 35 03/17/17 21:19 61 16 100 Mechanical Ventilator 35 03/17/17 21:19 61 16 35 03/17/17 20:09 99.7 67 16 125/83 100 Mechanical Ventilator 03/17/17 20:00 67 03/17/17 20:00 35 03/17/17 19:16 Mechanical Ventilator 35 03/17/17 19:16 100 Mechanical Ventilator 35 03/17/17 19:15 67 18 35 03/17/17 17:28 59 16 35 Intake and Output 03/17/17 03/18/17 19:00 07:00 Intake Total 1484.000 ml 1715.498 ml Output Total 2150 ml 1550 ml Balance -666.000 ml 165.498 ml Intake Oral 100 ml IV Total 1384.000 ml 1715.498 ml Output Urine Total 1950 ml 1250 ml Stool Total 200 ml 300 ml # Bowel Movements 3 3 Laboratory Tests Test 03/18/17 06:45 White Blood Count 12.6 K/UL (4.8-10.8) H Red Blood Count 3.60 M/UL (4.70-6.10) L Hemoglobin 9.2 G/DL (14.2-18.0) L Hematocrit 30.3 % (42.0-52.0) L Mean Corpuscular Volume 84 FL (80-99) Mean Corpuscular Hemoglobin 25.6 PG (27.0-31.0) L Mean Corpuscular Hemoglobin Concent 30.4 G/DL (32.0-36.0) L Red Cell Distribution Width 14.9 % (11.6-14.8) H Platelet Count 451 K/UL (150-450) H Mean Platelet Volume 5.2 FL (6.5-10.1) L Neutrophils (%) (Auto) 75.9 % (45.0-75.0) H Lymphocytes (%) (Auto) 13.0 % (20.0-45.0) L Monocytes (%) (Auto) 8.6 % (1.0-10.0) Eosinophils (%) (Auto) 1.3 % (0.0-3.0) Basophils (%) (Auto) 1.2 % (0.0-2.0) Sodium Level 140 mEQ/L (135-145) Potassium Level 4.2 mEQ/L (3.4-4.9) Chloride Level 100 mEQ/L (98-107) Carbon Dioxide Level 28 mEQ/L (20-30) Anion Gap 12 (5-15) Blood Urea Nitrogen 20 mg/dL (7-23) Creatinine 0.7 mg/dL (0.7-1.2) Estimat Glomerular Filtration Rate > 60 mL/min (>60) Glucose Level 108 mg/dL (74-106) H Calcium Level 9.7 mg/dL (8.6-10.2) Phosphorus Level 4.1 mg/dL (2.5-4.8) Magnesium Level 1.7 mg/dL (1.7-2.5) Total Bilirubin 0.3 mg/dL (0.0-1.2) Aspartate Amino Transf (AST/SGOT) 25 U/L (5-40) Alanine Aminotransferase (ALT/SGPT) 13 U/L (3-41) Alkaline Phosphatase 112 U/L (40-129) Total Protein 7.8 g/dL (6.6-8.7) Albumin 3.1 g/dL (3.5-5.2) L Globulin 4.7 g/dL Albumin/Globulin Ratio 0.6 (1.0-2.7) L Objective HEAD AND NECK: Shows no JVD. Tracheostomy connected to vent. LUNGS: Have decreased breath sounds. CARDIOVASCULAR: Shows regular S1 and S2 with no gallop. ABDOMEN: Distended. EXTREMITIES: 2+ pitting edema. ELIF ESCOBAR Mar 18, 2017 16:26
[2017-03-18] MEDS: Dyna-Hex 2% Top Sol 8oz TOPIC SCH (20:19)
--- NOTE | 2017-03-18 21:38 | Wound Nurse Progress Note ---
Wound RN Progress Note Wound Consult #1 Left Ischial tuberosity stage II pressure ulcer. Resolving. Good progress noted. #2 Sacral stage IV pressure ulcer. No further deterioration noted #3 Left mid lateral DTI pressure ulcer. Still intact #4 Right lower lateral leg open wound. Good progress noted #5 Rash on back. No further deterioration noted Reassessed this Pt. No deterioration noted. Will cont same treatment and recommendation noted. Recommendation -Left Ischial tuberosity stage II pressure ulcer and Left mid lateral DTI pressure ulcer Cleanse with saline, pat dry, apply Triad cream, cover with bordered gauze daily and PRN soiled/dislodged -Sacral stage IV pressure ulcer Cleans with saline, pat dry, apply Hydrogel, apply calcium alginate, cover with 4x4, secure with bordered gauze daily and PRN soiled/dislodged -Left mid lateral DTI pressure ulcer and rash on back Local wound care per protocol for DTI -Keep clean and dry -Optimize nutrition -Turn and reposition -Offload both heels -Low air loss mattress -Heel protector on both heels -Assess and f/u accordingly for any changes CARLOS RAINEY RN Mar 18, 2017 21:38
[2017-03-19 04:00] VITALS: BP 91/54
[2017-03-19] MEDS: Morphine Sulfate 4mg/ml Inj IVP PRN ×3 (04:12→12:29)
[2017-03-19 05:48] LABS: BASOPHILS % (AUTO) 1.1 % (0.0-2.0); EOSINOPHILS % (AUTO) 3.4 % (0.0-3.0); LYMPHOCYTES % (AUTO) 24.3 % (20.0-45.0); MEAN CORPUSCULAR HEMOGLOBIN 26.5 PG (27.0-31.0); MEAN CORPUSCULAR HGB CONC 31.4 G/DL (32.0-36.0); MEAN CORPUSCULAR VOLUME 84 FL (80-99); MEAN PLATELET VOLUME 5.5 FL (6.5-10.1); MONOCYTES % (AUTO) 4.9 % (1.0-10.0); NEUTROPHILS % (AUTO) 66.3 % (45.0-75.0); PLATELET COUNT 503 K/UL (150-450); RED BLOOD COUNT 3.39 M/UL (4.70-6.10); RED CELL DISTRIBUTION WIDTH 15.1 % (11.6-14.8); WHITE BLOOD COUNT 8.6 K/UL (4.8-10.8)
[2017-03-19] MEDS: Meropenem 1 GM in NS 110 ML IVPB SCH ×3 (05:58→22:18)
[2017-03-19] MEDS: Simethicone Drops 80mg/1.2ml ORAL SCH ×4 (05:58→23:49)
[2017-03-19] MEDS: NovoLOG Insulin Flexpen SUBQ SCH ×4 (06:01→21:00)
[2017-03-19 06:06] LABS: ANION GAP 8 (5-15); CALCIUM 9.5 mg/dL (8.6-10.2); CARBON DIOXIDE 30 mEQ/L (20-30); CHLORIDE 99 mEQ/L (98-107); CREATININE 0.7 mg/dL (0.7-1.2); GLOMERULAR FILTRATION RATE > 60 mL/min (>60); HEMOLYSIS 1; MAGNESIUM 1.6 mg/dL (1.7-2.5); PHOSPHORUS 3.9 mg/dL (2.5-4.8); POTASSIUM 3.9 mEQ/L (3.4-4.9); SODIUM 137 mEQ/L (135-145)
[2017-03-19 08:00] VITALS: BP 111/59
[2017-03-19] MEDS: Colistin for inhalation INH SCH (09:11)
[2017-03-19] MEDS: Pantoprazole Inj IVP SCH (09:17)
[2017-03-19] MEDS: Heparin 5000 units/ml inj SUBQ SCH ×2 (09:21→21:14)
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
[2017-03-19] MEDS: Nystatin Powder 100,000 units/gm 15gm TOPIC SCH ×3 (09:27→17:08)
[2017-03-19] MEDS: LEVETIRACETAM 500 MG IVPB SCH ×2 (09:39→21:11)
[2017-03-19] MEDS: Vancomycin 750 MG in D5W 275 ML IVPB SCH ×2 (10:38→21:11)
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
[2017-03-19 12:00] VITALS: BP 114/70
--- NOTE | 2017-03-19 13:21 | General Progress Note ---
Progress Note Progress Note sleepy, no pain, tolerating full liquids, rectal tube 100 cc last pm. Will offer pureed diet as misty WAQAS PEREZ Mar 19, 2017 13:21
[2017-03-19] MEDS ORDERED: Tubing IV Secondary IV ONE (14:00)
[2017-03-19] MEDS ORDERED: NS 275ml ONE (14:00)
--- NOTE | 2017-03-19 14:26 | Cardiology Progress Note ---
Assessment/Plan Problem List: (1) Pneumonia (2) Chronic respiratory failure (3) Paraplegia (4) Ileus Status: stable, not improved, unchanged Status Narrative Pt hemodynamically stable, on vent No further bradyarrhythmias noted on telemetry. Abd distension noted - functional ileus. GI evaluation noted. Assessment/Plan continue antibiotics for pneumonia/ resp failure Trach support. continue telemetry monitoring Cardiac status stable for planned decompression colonoscopy procedure by GI on Tuesday. Subjective Subjective Pt awake, on vent. Objective Last 24 Hour Vital Signs Date Time Temp Pulse Resp B/P Pulse Ox O2 Delivery O2 Flow Rate FiO2 03/19/17 13:15 51 16 35 03/19/17 12:59 97.5 03/19/17 12:00 97.5 61 17 114/70 100 Mechanical Ventilator 03/19/17 11:42 60 03/19/17 11:08 54 16 35 03/19/17 09:19 52 16 100 Mechanical Ventilator 03/19/17 09:08 57 16 100 Mechanical Ventilator 03/19/17 09:07 57 16 35 03/19/17 08:00 35 03/19/17 08:00 97.0 54 16 111/59 100 Mechanical Ventilator 35 03/19/17 08:00 60 03/19/17 07:27 49 16 35 03/19/17 05:00 66 16 35 03/19/17 04:00 35 03/19/17 04:00 96.8 63 16 91/54 97 Mechanical Ventilator 03/19/17 03:34 64 03/19/17 02:41 58 16 35 03/19/17 01:17 59 16 35 03/19/17 00:00 35 03/18/17 23:48 97.7 59 16 115/71 99 Mechanical Ventilator 03/18/17 23:37 65 03/18/17 22:39 58 16 35 03/18/17 20:55 60 16 100 Mechanical Ventilator 35 03/18/17 20:47 56 16 35 03/18/17 20:46 56 16 100 Mechanical Ventilator 35 03/18/17 20:00 63 03/18/17 20:00 35 03/18/17 20:00 98.2 53 17 103/70 100 Mechanical Ventilator 03/18/17 19:00 66 14 35 03/18/17 17:24 65 17 35 03/18/17 16:00 35 03/18/17 16:00 98.1 56 17 117/67 98 Mechanical Ventilator 03/18/17 16:00 69 03/18/17 15:14 64 18 35 General Appearance: WD/WN, no apparent distress Neck: no JVD, other - trach Rhythm: NSR Cardiovascular: normal rate, regular rhythm, no gallop/murmur Respiratory/Chest: rhonchi - bilaterally Abdomen: soft, decreased bowel sounds, distended Extremities: no swelling Neurologic: other - 0/5 motor LUE, R and L LE Intake and Output 03/18/17 03/19/17 19:00 07:00 Intake Total 1499.500 ml 1314.578 ml Output Total 900 ml 675 ml Balance 599.500 ml 639.578 ml Intake Oral 240 ml 300 ml IV Total 1259.500 ml 1014.578 ml Output Urine Total 900 ml 575 ml Stool Total 0 ml 100 ml # Bowel Movements 3 3 Laboratory Tests Test 03/19/17 05:00 White Blood Count 8.6 K/UL (4.8-10.8) Red Blood Count 3.39 M/UL (4.70-6.10) L Hemoglobin 9.0 G/DL (14.2-18.0) L Hematocrit 28.6 % (42.0-52.0) L Mean Corpuscular Volume 84 FL (80-99) Mean Corpuscular Hemoglobin 26.5 PG (27.0-31.0) L Mean Corpuscular Hemoglobin Concent 31.4 G/DL (32.0-36.0) L Red Cell Distribution Width 15.1 % (11.6-14.8) H Platelet Count 503 K/UL (150-450) H Mean Platelet Volume 5.5 FL (6.5-10.1) L Neutrophils (%) (Auto) 66.3 % (45.0-75.0) Lymphocytes (%) (Auto) 24.3 % (20.0-45.0) Monocytes (%) (Auto) 4.9 % (1.0-10.0) Eosinophils (%) (Auto) 3.4 % (0.0-3.0) H Basophils (%) (Auto) 1.1 % (0.0-2.0) Sodium Level 137 mEQ/L (135-145) Potassium Level 3.9 mEQ/L (3.4-4.9) Chloride Level 99 mEQ/L (98-107) Carbon Dioxide Level 30 mEQ/L (20-30) Anion Gap 8 (5-15) Blood Urea Nitrogen 20 mg/dL (7-23) Creatinine 0.7 mg/dL (0.7-1.2) Estimat Glomerular Filtration Rate > 60 mL/min (>60) Glucose Level 85 mg/dL (74-106) Calcium Level 9.5 mg/dL (8.6-10.2) Phosphorus Level 3.9 mg/dL (2.5-4.8) Magnesium Level 1.6 mg/dL (1.7-2.5) AMADEO WINCHESTER Mar 19, 2017 14:26
[2017-03-19 16:00] VITALS: BP 110/68
--- NOTE | 2017-03-19 16:21 | Cardiac Electrophysiology PN ---
Assessment/Plan Assessment/Plan 1. Sinus arrest with multiple pauses of more than 3 seconds including pauses of 8 seconds.Only when the patient being turned, likely vagal.Off any sinus claudette blocking agents. 2. Ventilator-dependent respiratory failure, status post tracheostomy. 3. Status post septic shock. 4. Dysphagia with history of PEG placement in the past 5. Iron deficiency 6. Ileus with abdominal distention decompression colonoscopy procedure by GI on Tuesday. GISELA RN Subjective Subjective Alert in NAD. On Vent. HR better. Objective Last 24 Hour Vital Signs Date Time Temp Pulse Resp B/P Pulse Ox O2 Delivery O2 Flow Rate FiO2 03/19/17 16:00 98.4 50 20 110/68 Mechanical Ventilator 35 03/19/17 15:05 63 16 35 03/19/17 13:15 51 16 35 03/19/17 12:59 97.5 03/19/17 12:00 97.5 61 17 114/70 100 Mechanical Ventilator 35 03/19/17 12:00 35 03/19/17 11:42 60 03/19/17 11:08 54 16 35 03/19/17 09:19 52 16 100 Mechanical Ventilator 35 03/19/17 09:08 57 16 100 Mechanical Ventilator 35 03/19/17 09:07 57 16 35 03/19/17 08:00 35 03/19/17 08:00 97.0 54 16 111/59 100 Mechanical Ventilator 35 03/19/17 08:00 60 03/19/17 07:27 49 16 35 03/19/17 05:00 66 16 35 03/19/17 04:00 35 03/19/17 04:00 96.8 63 16 91/54 97 Mechanical Ventilator 35 03/19/17 03:34 64 03/19/17 02:41 58 16 35 03/19/17 01:17 59 16 35 03/19/17 00:00 35 03/18/17 23:48 97.7 59 16 115/71 99 Mechanical Ventilator 03/18/17 23:37 65 03/18/17 22:39 58 16 35 03/18/17 20:55 60 16 100 Mechanical Ventilator 35 03/18/17 20:47 56 16 35 03/18/17 20:46 56 16 100 Mechanical Ventilator 35 03/18/17 20:00 63 03/18/17 20:00 35 03/18/17 20:00 98.2 53 17 103/70 100 Mechanical Ventilator 03/18/17 19:00 66 14 35 03/18/17 17:24 65 17 35 Intake and Output 03/18/17 03/19/17 19:00 07:00 Intake Total 1499.500 ml 1314.578 ml Output Total 900 ml 675 ml Balance 599.500 ml 639.578 ml Intake Oral 240 ml 300 ml IV Total 1259.500 ml 1014.578 ml Output Urine Total 900 ml 575 ml Stool Total 0 ml 100 ml # Bowel Movements 3 3 Laboratory Tests Test 03/19/17 05:00 White Blood Count 8.6 K/UL (4.8-10.8) Red Blood Count 3.39 M/UL (4.70-6.10) L Hemoglobin 9.0 G/DL (14.2-18.0) L Hematocrit 28.6 % (42.0-52.0) L Mean Corpuscular Volume 84 FL (80-99) Mean Corpuscular Hemoglobin 26.5 PG (27.0-31.0) L Mean Corpuscular Hemoglobin Concent 31.4 G/DL (32.0-36.0) L Red Cell Distribution Width 15.1 % (11.6-14.8) H Platelet Count 503 K/UL (150-450) H Mean Platelet Volume 5.5 FL (6.5-10.1) L Neutrophils (%) (Auto) 66.3 % (45.0-75.0) Lymphocytes (%) (Auto) 24.3 % (20.0-45.0) Monocytes (%) (Auto) 4.9 % (1.0-10.0) Eosinophils (%) (Auto) 3.4 % (0.0-3.0) H Basophils (%) (Auto) 1.1 % (0.0-2.0) Sodium Level 137 mEQ/L (135-145) Potassium Level 3.9 mEQ/L (3.4-4.9) Chloride Level 99 mEQ/L (98-107) Carbon Dioxide Level 30 mEQ/L (20-30) Anion Gap 8 (5-15) Blood Urea Nitrogen 20 mg/dL (7-23) Creatinine 0.7 mg/dL (0.7-1.2) Estimat Glomerular Filtration Rate > 60 mL/min (>60) Glucose Level 85 mg/dL (74-106) Calcium Level 9.5 mg/dL (8.6-10.2) Phosphorus Level 3.9 mg/dL (2.5-4.8) Magnesium Level 1.6 mg/dL (1.7-2.5) L Objective HEAD AND NECK: Shows no JVD. Tracheostomy intact LUNGS: Have decreased breath sounds. CARDIOVASCULAR: Shows regular S1 and S2 with no gallop. ABDOMEN: Distended. EXTREMITIES: 2+ pitting edema. ELIF ESCOBAR Mar 19, 2017 16:21
[2017-03-19 20:40] VITALS: BP 145/57
[2017-03-19] MEDS: Dyna-Hex 2% Top Sol 8oz TOPIC SCH (21:14)
[2017-03-19] MEDS ORDERED: Colistin for inhalation INH SCH (22:00)
[2017-03-19 23:28] VITALS: BP 95/61
[2017-03-20 04:47] VITALS: BP 108/71
[2017-03-20] MEDS: Meropenem 1 GM in NS 110 ML IVPB SCH (05:42)
[2017-03-20] MEDS: Simethicone Drops 80mg/1.2ml ORAL SCH ×4 (05:42→23:29)
[2017-03-20] MEDS: NovoLOG Insulin Flexpen SUBQ SCH ×4 (06:30→20:33)
--- NOTE | 2017-03-20 07:53 | Infectious Diseases Prog Note ---
Assessment/Plan Assessment/Plan A; E coli sepsis s/p Rx E. coli UTI s/p Rx Pneumonia, Achromobacter s/p Rx VDRF Paraplegia Anemia Ileus R lung atelectasis P: discontinue Merrem , IV Vancomycin and Colistin INH Subjective ROS Limited/Unobtainable: Yes Gastrointestinal/Abdominal: Reports: diarrhea Allergies: Coded Allergies: No Known Allergies (Unverified , 03/02/17) Objective Vital Signs Last 24 Hour Vital Signs Date Time Temp Pulse Resp B/P Pulse Ox O2 Delivery O2 Flow Rate FiO2 03/20/17 07:21 53 16 35 03/20/17 05:03 55 16 35 03/20/17 04:47 97.7 55 16 108/71 100 Mechanical Ventilator 35 03/20/17 04:00 35 03/20/17 04:00 55 03/20/17 02:55 54 16 35 03/20/17 01:22 55 16 35 03/20/17 00:00 35 03/20/17 00:00 67 03/19/17 23:28 99.7 66 19 95/61 99 Mechanical Ventilator 03/19/17 23:01 61 23 35 03/19/17 21:17 57 21 100 Mechanical Ventilator 03/19/17 21:03 55 20 98 Mechanical Ventilator 03/19/17 21:02 55 20 35 03/19/17 20:40 98.8 62 20 145/57 100 Mechanical Ventilator 03/19/17 20:00 35 03/19/17 19:48 61 03/19/17 19:05 53 18 35 03/19/17 16:46 57 15 35 03/19/17 16:00 98.4 50 20 110/68 Mechanical Ventilator 35 03/19/17 16:00 35 03/19/17 15:21 63 03/19/17 15:05 63 16 35 03/19/17 13:15 51 16 35 03/19/17 12:59 97.5 03/19/17 12:00 97.5 61 17 114/70 100 Mechanical Ventilator 03/19/17 12:00 35 03/19/17 11:42 60 03/19/17 11:08 54 16 35 03/19/17 09:19 52 16 100 Mechanical Ventilator 03/19/17 09:08 57 16 100 Mechanical Ventilator 03/19/17 09:07 57 16 35 03/19/17 08:00 35 03/19/17 08:00 97.0 54 16 111/59 100 Mechanical Ventilator 35 03/19/17 08:00 60 Height (Feet): 6 Height (Inches): 5.00 Weight (Pounds): 212 General Appearance: no acute distress HEENT: status post trach Respiratory/Chest: other - on ventilator , coarse sounds Cardiovascular: normal rate Abdomen: distended Extremities: no edema Skin: other - pressure ulcers Neurologic/Psychiatric: other - sleeping Current Medications Medications (Trade) Dose Ordered Sig/Lucy Route PRN Reason Start Time Stop Time Status Last Admin Dose Admin Acetaminophen (Tylenol) 650 mg Q4H PRN RECTAL Mild Pain/Temp > 100.5 03/11/17 20:35 04/10/17 20:34 03/11/17 20:38 Bisacodyl (Dulcolax) 10 mg ONCE ONCE ORAL 03/20/17 16:00 03/20/17 16:01 Chlorhexidine Gluconate (Kim-Hex 2%) 1 applic BEDTIME TOPIC 03/06/17 21:00 04/05/17 20:59 03/19/17 21:14 Colistimethate Sodium (Colistin *inhalation use only*) 150 mg Q12HR@10,22 INH 03/19/17 22:00 03/20/17 21:59 03/19/17 21:03 Dextrose 50 ml 50 ml STAT PRN IV Hypoglycemia 03/09/17 16:15 04/08/17 16:14 Heparin Sodium (Porcine) (Heparin 5000 units/ml) 5,000 units EVERY 12 HOURS SUBQ 03/06/17 21:00 04/05/17 20:59 03/19/17 21:14 Insulin Aspart (NovoLOG) AC+HS SUBQ 03/12/17 11:30 04/11/17 11:29 03/18/17 06:23 Levetiracetam (Keppra 500mg Premix) 100 ml @ 400 mls/hr Q12HR IVPB 03/09/17 21:00 04/08/17 20:59 03/19/17 21:11 Magnesium Citrate (Citrate Of Magnesia) 300 ml ONCE ONCE ORAL 03/20/17 16:00 03/20/17 16:01 Meropenem/Sodium Chloride (Merrem/Sodium Chloride) 110 ml @ 220 mls/hr Q8HR IVPB 03/07/17 14:00 03/20/17 13:59 03/20/17 05:42 Morphine Sulfate 4 mg 4 mg Q4H PRN IVP Severe Pain (Pain Scale 7-10) 03/13/17 20:45 03/20/17 20:44 03/19/17 12:29 Nystatin (Nystop Powder) 1 applic THREE TIMES A DAY TOPIC 03/06/17 18:00 04/05/17 17:59 03/19/17 17:08 Ondansetron HCl (Zofran) 4 mg Q6H PRN IVP Nausea & Vomiting 03/06/17 16:38 04/05/17 16:37 Pantoprazole (Protonix) 40 mg DAILY IVP 03/07/17 09:00 04/06/17 08:59 03/19/17 09:17 Polyethylene Glycol (Miralax) 238 gm ONCE ONCE ORAL 03/20/17 16:00 03/20/17 16:01 Polyethylene Glycol 17 gm 17 gm DAILYPRN PRN ORAL Constipation 03/06/17 16:37 04/05/17 16:36 Simethicone (Mylicon) 40 mg EVERY 6 HOURS ORAL 03/12/17 12:00 04/11/17 11:59 03/20/17 05:42 Vancomycin HCl (Vanco rx to dose) 1 ea DAILY PRN MISC Per rx protocol 03/07/17 11:15 04/06/17 11:14 Vancomycin HCl/ Dextrose (Vancomycin/D5W) 275 ml @ 183.708 mls/hr Q12HR IVPB 03/15/17 21:00 03/20/17 20:59 03/19/17 21:11 ISRAEL LANIER Mar 20, 2017 07:53
[2017-03-20 07:58] VITALS: BP 132/82
[2017-03-20] MEDS: LEVETIRACETAM 500 MG IVPB SCH ×2 (08:04→20:30)
[2017-03-20] MEDS: Pantoprazole Inj IVP SCH (08:04)
[2017-03-20] MEDS: Nystatin Powder 100,000 units/gm 15gm TOPIC SCH ×3 (08:05→17:34)
[2017-03-20] MEDS: Heparin 5000 units/ml inj SUBQ SCH ×2 (08:06→20:30)
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
[2017-03-20 11:54] VITALS: BP 108/68
--- NOTE | 2017-03-20 13:22 | General Progress Note ---
Progress Note Progress Note Distention same, no pain, tolerating pureed diet. Abdomen; nontender, distended , soft. rectal tube; moderate loose stool. WAQAS PEREZ Mar 20, 2017 13:22
[2017-03-20] MEDS ORDERED: NS 275ml ONE (13:59)
--- NOTE | 2017-03-20 14:16 | General Progress Note ---
Assessment/Plan Assessment/Plan Assessment/Plan Problems: (1) Iron deficiency ICD Codes: E61.1 - Iron deficiency SNOMED: 98626229 (2) Ileus ICD Codes: K56.7 - Ileus, unspecified SNOMED: 574124326 (3) Abdominal distension ICD Codes: R14.0 - Abdominal distension (gaseous) SNOMED: 46635351 (4) Septic shock ICD Codes: A41.9 - Sepsis, unspecified organism; R65.21 - Severe sepsis with septic shock SNOMED: 89283875 (5) Paraplegia ICD Codes: G82.20 - Paraplegia, unspecified SNOMED: 15761359 (6) Anemia ICD Codes: D64.9 - Anemia, unspecified SNOMED: 671277141 Qualifiers: Qualified Codes: D64.9 - Anemia, unspecified Status: unchanged Assessment/Plan CT AP reviewed >> Mildly distended sigmoid without evidence of distal obstruction. Diffusely gas-filled upper limits normal caliber colon and small bowel, without evidence of obstructive pathology. Suspect functional in nature or on the basis of ileus colonic barium enema >> Dilated distal sigmoid, without evidence of distal anatomic obstructive lesion. abdominal distention due to ileus 2/2 septic shock vs colonic ileus colonoscopy for decompression scheduled for tuesday - CLD, NPO @ [place] day prior to procedure - hold any blood thinners night prior. rectal tube for colonic decompression dietary per ST >> LIQUIFIED PUREED, LIKE HONEY THICK SOUP CONSISTENCY. STRICT ASPIRATION/REFLUX PRECAUTIONS WITH 1TO1 FEEDING. dc TPN today pain mgmt iron deficient >> venofer ppi fu labs Subjective Allergies: Coded Allergies: No Known Allergies (Unverified , 03/02/17) Subjective seen with RN at bedside (+) rectal tube --> diarrhea for colonoscopy in am Objective Last 24 Hour Vital Signs Date Time Temp Pulse Resp B/P Pulse Ox O2 Delivery O2 Flow Rate FiO2 03/20/17 13:09 47 17 35 03/20/17 12:00 35 03/20/17 11:54 98.1 52 18 108/68 100 Mechanical Ventilator 35 03/20/17 11:51 54 03/20/17 11:08 50 16 35 03/20/17 08:56 58 17 35 03/20/17 08:00 35 03/20/17 07:58 97.9 50 18 132/82 100 Mechanical Ventilator 35 03/20/17 07:52 54 03/20/17 07:21 53 16 35 03/20/17 05:03 55 16 35 03/20/17 04:47 97.7 55 16 108/71 100 Mechanical Ventilator 03/20/17 04:00 35 03/20/17 04:00 55 03/20/17 02:55 54 16 35 03/20/17 01:22 55 16 35 03/20/17 00:00 35 03/20/17 00:00 67 03/19/17 23:28 99.7 66 19 95/61 99 Mechanical Ventilator 03/19/17 23:01 61 23 35 03/19/17 21:17 57 21 100 Mechanical Ventilator 03/19/17 21:03 55 20 98 Mechanical Ventilator 03/19/17 21:02 55 20 35 03/19/17 20:40 98.8 62 20 145/57 100 Mechanical Ventilator 03/19/17 20:00 35 03/19/17 19:48 61 03/19/17 19:05 53 18 35 03/19/17 16:46 57 15 35 03/19/17 16:00 98.4 50 20 110/68 Mechanical Ventilator 35 03/19/17 16:00 35 03/19/17 15:21 63 03/19/17 15:05 63 16 35 Intake and Output 03/19/17 03/20/17 19:00 07:00 Intake Total 1255.000 ml 595.000 ml Output Total 650 ml 900 ml Balance 605.000 ml -305.000 ml Intake Oral 570 ml IV Total 685.000 ml 595.000 ml Output Urine Total 600 ml 850 ml Stool Total 50 ml 50 ml # Bowel Movements 3 3 Height (Feet): 6 Height (Inches): 5.00 Weight (Pounds): 212 Objective Debilitated AA man NCAT (+) trach CTA RRR Soft but distended no edema WAGNER HEADLEY Mar 20, 2017 14:16
[2017-03-20 16:00] VITALS: BP 118/69
[2017-03-20] MEDS ORDERED: Bisacodyl EC 5mg tab ORAL ONE (16:00)
[2017-03-20] MEDS ORDERED: Magnesium Citrate Liq Btl ORAL ONE (16:00)
[2017-03-20] MEDS ORDERED: Polyethylene Glycol 238gm bottle ORAL ONE (16:00)
[2017-03-20 20:00] VITALS: BP 120/89
[2017-03-20] MEDS: Dyna-Hex 2% Top Sol 8oz TOPIC SCH (20:30)
[2017-03-21] VITALS: BP 130/69
[2017-03-21 04:00] VITALS: BP 123/69
[2017-03-21 04:47] LABS: BASOPHILS % (AUTO) 0.9 % (0.0-2.0); EOSINOPHILS % (AUTO) 1.3 % (0.0-3.0); LYMPHOCYTES % (AUTO) 18.7 % (20.0-45.0); MEAN CORPUSCULAR HEMOGLOBIN 26.4 PG (27.0-31.0); MEAN CORPUSCULAR HGB CONC 31.5 G/DL (32.0-36.0); MEAN CORPUSCULAR VOLUME 84 FL (80-99); MEAN PLATELET VOLUME 5.4 FL (6.5-10.1); MONOCYTES % (AUTO) 10.4 % (1.0-10.0); NEUTROPHILS % (AUTO) 68.8 % (45.0-75.0); PLATELET COUNT 514 K/UL (150-450); RED BLOOD COUNT 3.54 M/UL (4.70-6.10); RED CELL DISTRIBUTION WIDTH 15.2 % (11.6-14.8); WHITE BLOOD COUNT 8.4 K/UL (4.8-10.8)
[2017-03-21 04:58] LABS: PROTHROMBIN TIME 10.9 SEC (9.30-11.50)
[2017-03-21 05:13] LABS: ALANINE AMINOTRANSFERASE 17 U/L (3-41); ALBUMIN/GLOBULIN RATIO 0.7 (1.0-2.7); ANION GAP 12 (5-15); ASPARTATE AMINO TRANSFERASE 32 U/L (5-40); CALCIUM 9.8 mg/dL (8.6-10.2); CARBON DIOXIDE 27 mEQ/L (20-30); CHLORIDE 105 mEQ/L (98-107); CREATININE 0.7 mg/dL (0.7-1.2); GLOMERULAR FILTRATION RATE > 60 mL/min (>60); HEMOLYSIS 0; POTASSIUM 3.1 mEQ/L (3.4-4.9); SODIUM 144 mEQ/L (135-145); TOTAL PROTEIN 7.9 g/dL (6.6-8.7)
[2017-03-21] MEDS: NovoLOG Insulin Flexpen SUBQ SCH ×4 (05:59→20:38)
[2017-03-21] MEDS: Simethicone Drops 80mg/1.2ml ORAL SCH ×3 (05:59→18:07)
--- NOTE | 2017-03-21 06:22 | Anethesia Preoperative Eval ---
Anesthesia Pre-op PMH/ROS General Date of Evaluation: Mar 21, 2017 Time of Evaluation: 06:18 Anesthesiologist: zack ASA Score: ASA 4 Mallampati Score Class I : Soft palate, uvula, fauces, pillars visible Class II: Soft palate, uvula, fauces visible Class III: Soft palate, base of uvula visible Class IV: Only hard plate visible Mallampati Classification: Class I Surgeon: stoney Diagnosis: abdominal distention, ileus, anemia Surgical Procedure: colonoscopy Allergies: Coded Allergies: No Known Allergies (Unverified , 03/02/17) Medications: see eMAR Past Medical History Cardiovascular: Reports: HTN Pulmonary: Reports: COPD, other - tracheostomy, on vent Gastrointestinal/Genitourinary: Reports: GERD Neurologic/Psychiatric: Reports: CVA, depression/anxiety, other - seizure disorder, paraplegia Hematology/Immune: Reports: anemia Musculoskeletal/Integumentary: Reports: other - osteomyelitis Anesthesia Pre-op Phys. Exam Physician Exam Last Vital Signs Date Time Temp Pulse Resp B/P Pulse Ox O2 Delivery O2 Flow Rate FiO2 03/21/17 05:26 57 16 35 03/21/17 04:00 98.1 123/69 100 Mechanical Ventilator 03/17/17 04:00 8.0 Constitutional: NAD Neurologic: other Cardiovascular: RRR Respiratory: CTA, other - trach on vent Gastrointestinal: other - distended, rectal tube in place Airway Exam MO: limited Neck: tracheostomy on vent ROM: limited Teeth: missing Anesthesia Pre-op A/P Labs Hematology Test 03/21/17 04:00 White Blood Count 8.4 K/UL (4.8-10.8) Red Blood Count 3.54 M/UL (4.70-6.10) L Hemoglobin 9.3 G/DL (14.2-18.0) L Hematocrit 29.6 % (42.0-52.0) L Mean Corpuscular Volume 84 FL (80-99) Mean Corpuscular Hemoglobin 26.4 PG (27.0-31.0) L Mean Corpuscular Hemoglobin Concent 31.5 G/DL (32.0-36.0) L Red Cell Distribution Width 15.2 % (11.6-14.8) H Platelet Count 514 K/UL (150-450) H Mean Platelet Volume 5.4 FL (6.5-10.1) L Neutrophils (%) (Auto) 68.8 % (45.0-75.0) Lymphocytes (%) (Auto) 18.7 % (20.0-45.0) L Monocytes (%) (Auto) 10.4 % (1.0-10.0) H Eosinophils (%) (Auto) 1.3 % (0.0-3.0) Basophils (%) (Auto) 0.9 % (0.0-2.0) Coagulation Test 03/21/17 04:00 Prothrombin Time 10.9 SEC (9.30-11.50) Prothromb Time International Ratio 1.0 (0.9-1.1) Activated Partial Thromboplast Time 34 SEC (23-33) H Chemistry Test 03/21/17 04:00 Sodium Level 144 mEQ/L (135-145) Potassium Level 3.1 mEQ/L (3.4-4.9) L Chloride Level 105 mEQ/L (98-107) Carbon Dioxide Level 27 mEQ/L (20-30) Anion Gap 12 (5-15) Blood Urea Nitrogen 13 mg/dL (7-23) Creatinine 0.7 mg/dL (0.7-1.2) Estimat Glomerular Filtration Rate > 60 mL/min (>60) Glucose Level 88 mg/dL (74-106) Calcium Level 9.8 mg/dL (8.6-10.2) Total Bilirubin 0.4 mg/dL (0.0-1.2) Aspartate Amino Transf (AST/SGOT) 32 U/L (5-40) Alanine Aminotransferase (ALT/SGPT) 17 U/L (3-41) Alkaline Phosphatase 133 U/L (40-129) H Pro-B-Type Natriuretic Peptide 569 pg/mL (0-125) H Total Protein 7.9 g/dL (6.6-8.7) Albumin 3.4 g/dL (3.5-5.2) L Globulin 4.5 g/dL Albumin/Globulin Ratio 0.7 (1.0-2.7) L Risk Assessment & Plan Assessment: [email or web address] Plan: mac Status Change Before Surgery: No Pre-Antibiotics Drug: NALINI García Mar 21, 2017 06:22
[2017-03-21 08:00] VITALS: BP 135/91
--- NOTE | 2017-03-21 08:49 | Infectious Diseases Prog Note ---
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 - CXR 03/16: Slightly decreased right pleural fluid and slightly decreased right lung volume loss, over one day - h/o PSA // Multiple decubiti POA, not grossly infected - WCx polymicrobial MDRO // Negative C.difficile 03/03, // Sepsis SP // Leukocytosis - resolved // Fever - resolved // Chronic VDRF SP trach, PEG // Severe pulmonary HTN // Paraplegia // ARF - resolved // Chronic FOBT(+) anemia // NKDA // Full Code PLAN: - monitor pt off of ABX ( 03/20 SP IV vancomycin, meropenem, INH colistin d# 14 / 14 ) ( 03/04 SP IV vancomycin d# 2 ) - monitor CBC, temperatures, re-culture if acute change - monitor BMP - monitor CXR - vent support / trach care / aspiration precautions - wound care Subjective Allergies: Coded Allergies: No Known Allergies (Unverified , 03/02/17) Subjective remains afebrile without leukocytosis on vent Objective Vital Signs Last 24 Hour Vital Signs Date Time Temp Pulse Resp B/P Pulse Ox O2 Delivery O2 Flow Rate FiO2 03/21/17 08:40 54 16 35 03/21/17 08:00 97.9 51 20 135/91 100 Mechanical Ventilator 35 03/21/17 08:00 35 03/21/17 08:00 58 03/21/17 06:50 67 16 35 03/21/17 05:26 57 16 35 03/21/17 04:00 35 03/21/17 04:00 98.1 68 18 123/69 100 Mechanical Ventilator 35 03/21/17 03:45 65 03/21/17 03:17 60 16 35 03/21/17 01:07 58 16 35 03/21/17 00:00 99.3 61 18 130/69 100 Mechanical Ventilator 35 03/21/17 00:00 35 03/21/17 00:00 61 03/20/17 22:49 54 16 35 03/20/17 21:10 53 16 35 03/20/17 20:00 35 03/20/17 20:00 98.4 60 18 120/89 100 Mechanical Ventilator 35 03/20/17 20:00 63 03/20/17 18:43 69 17 35 03/20/17 16:44 43 16 35 03/20/17 16:13 58 03/20/17 16:00 35 03/20/17 16:00 97.9 59 18 118/69 100 Mechanical Ventilator 35 03/20/17 15:28 61 16 35 03/20/17 13:09 47 17 35 03/20/17 12:00 35 03/20/17 11:54 98.1 52 18 108/68 100 Mechanical Ventilator 35 03/20/17 11:51 54 03/20/17 11:08 50 16 35 03/20/17 08:56 58 17 35 Height (Feet): 6 Height (Inches): 4.00 Weight (Pounds): 200 General Appearance: no acute distress HEENT: status post trach Respiratory/Chest: decreased breath sounds Cardiovascular: normal rate, regular rhythm Abdomen: normal bowel sounds, soft, non tender, non distended Microbiology Date/Time Source Procedure Growth Status 03/19/17 05:00 Stool Clostridium difficile Toxin Assay - Final Complete Laboratory Tests Test 03/21/17 04:00 White Blood Count 8.4 K/UL (4.8-10.8) Red Blood Count 3.54 M/UL (4.70-6.10) L Hemoglobin 9.3 G/DL (14.2-18.0) L Hematocrit 29.6 % (42.0-52.0) L Mean Corpuscular Volume 84 FL (80-99) Mean Corpuscular Hemoglobin 26.4 PG (27.0-31.0) L Mean Corpuscular Hemoglobin Concent 31.5 G/DL (32.0-36.0) L Red Cell Distribution Width 15.2 % (11.6-14.8) H Platelet Count 514 K/UL (150-450) H Mean Platelet Volume 5.4 FL (6.5-10.1) L Neutrophils (%) (Auto) 68.8 % (45.0-75.0) Lymphocytes (%) (Auto) 18.7 % (20.0-45.0) L Monocytes (%) (Auto) 10.4 % (1.0-10.0) H Eosinophils (%) (Auto) 1.3 % (0.0-3.0) Basophils (%) (Auto) 0.9 % (0.0-2.0) Prothrombin Time 10.9 SEC (9.30-11.50) Prothromb Time International Ratio 1.0 (0.9-1.1) Activated Partial Thromboplast Time 34 SEC (23-33) H Sodium Level 144 mEQ/L (135-145) Potassium Level 3.1 mEQ/L (3.4-4.9) L Chloride Level 105 mEQ/L (98-107) Carbon Dioxide Level 27 mEQ/L (20-30) Anion Gap 12 (5-15) Blood Urea Nitrogen 13 mg/dL (7-23) Creatinine 0.7 mg/dL (0.7-1.2) Estimat Glomerular Filtration Rate > 60 mL/min (>60) Glucose Level 88 mg/dL (74-106) Calcium Level 9.8 mg/dL (8.6-10.2) Total Bilirubin 0.4 mg/dL (0.0-1.2) Aspartate Amino Transf (AST/SGOT) 32 U/L (5-40) Alanine Aminotransferase (ALT/SGPT) 17 U/L (3-41) Alkaline Phosphatase 133 U/L (40-129) H Pro-B-Type Natriuretic Peptide 569 pg/mL (0-125) H Total Protein 7.9 g/dL (6.6-8.7) Albumin 3.4 g/dL (3.5-5.2) L Globulin 4.5 g/dL Albumin/Globulin Ratio 0.7 (1.0-2.7) L Current Medications Medications (Trade) Dose Ordered Sig/Lucy Route PRN Reason Start Time Stop Time Status Last Admin Dose Admin Acetaminophen (Tylenol) 650 mg Q4H PRN RECTAL Mild Pain/Temp > 100.5 03/11/17 20:35 04/10/17 20:34 03/11/17 20:38 Chlorhexidine Gluconate (Kim-Hex 2%) 1 applic BEDTIME TOPIC 03/06/17 21:00 04/05/17 20:59 03/20/17 20:30 Dextrose 50 ml 50 ml STAT PRN IV Hypoglycemia 03/09/17 16:15 04/08/17 16:14 Heparin Sodium (Porcine) (Heparin 5000 units/ml) 5,000 units EVERY 12 HOURS SUBQ 03/06/17 21:00 04/05/17 20:59 03/20/17 08:06 Insulin Aspart (NovoLOG) AC+HS SUBQ 03/12/17 11:30 04/11/17 11:29 03/18/17 06:23 Levetiracetam (Keppra 500mg Premix) 100 ml @ 400 mls/hr Q12HR IVPB 03/09/17 21:00 04/08/17 20:59 03/20/17 20:30 Nystatin (Nystop Powder) 1 applic THREE TIMES A DAY TOPIC 03/06/17 18:00 04/05/17 17:59 03/20/17 17:34 Ondansetron HCl (Zofran) 4 mg Q6H PRN IVP Nausea & Vomiting 03/06/17 16:38 04/05/17 16:37 Pantoprazole (Protonix) 40 mg DAILY IVP 03/07/17 09:00 04/06/17 08:59 03/20/17 08:04 Polyethylene Glycol (Miralax) 17 gm DAILYPRN PRN ORAL Constipation 03/06/17 16:37 04/05/17 16:36 Simethicone (Mylicon) 40 mg EVERY 6 HOURS ORAL 03/12/17 12:00 04/11/17 11:59 03/20/17 23:29 NA GREGG Mar 21, 2017 08:49
[2017-03-21] MEDS: LEVETIRACETAM 500 MG IVPB SCH ×2 (08:55→20:38)
[2017-03-21] MEDS: Heparin 5000 units/ml inj SUBQ SCH ×2 (08:56→20:40)
[2017-03-21] MEDS: Pantoprazole Inj IVP SCH (08:56)
[2017-03-21] MEDS: Nystatin Powder 100,000 units/gm 15gm TOPIC SCH ×3 (08:56→18:07)
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
--- NOTE | 2017-03-21 11:29 | Pre-Procedure Note/Attestation ---
Pre-Procedure Note/Attestation Complete Prior to Procedure Planned Procedure: not applicable Procedure Narrative: colonoscopy Indications for Procedure Pre-Operative Diagnosis: colonic ilus Attestation I attest that I discussed the nature of the procedure; its benefits; risks and complications; and alternatives (and the risks and benefits of such alternatives ), prior to the procedure, with the patient (or the patient's legal public health representative). I attest that, if there was a reasonable possibility of needing a blood transfusion, the patient (or the patient's legal public health representative) was given the [facility] standardized written summary, pursuant to the [employer] Blood Safety Act ([place] Health and Safety Code # 1645, as amended). I attest that I re-evaluated the patient just prior to the surgery and that there has been no change in the patient's H&P, except as documented below: NELLY SHELTON Mar 21, 2017 11:29
[2017-03-21] MEDS ORDERED: Lidocaine 1% MPF 10mg/ml 5ml ONE (11:30)
[2017-03-21] MEDS ORDERED: Propofol 10mg/ml 20ml IV ONE (11:30)
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
[2017-03-21 12:00] VITALS: BP 106/72
--- NOTE | 2017-03-21 12:02 | Immediate Post-Op Evaluation ---
Immediate Post-Op Evalulation Immediate Post-Op Evalulation Procedure: colonoscopy Date of Evaluation: Mar 21, 2017 Time of Evaluation: 12:11 IV Fluids: 0.9ns 50ml Blood Products: none Estimated Blood Loss: negligible Blood Pressure Systolic: 112 Blood Pressure Diastolic: 74 Pulse Rate: 74 Respiratory Rate: 16 O2 Sat by Pulse Oximetry: 100 Pain Score (1-10): 0 Nausea: No Vomiting: No Complications none Patient Status: reacts, ventilated Hydration Status: adequate Drug: NALINI García Mar 21, 2017 12:02
--- NOTE | 2017-03-21 12:03 | Endoscopy Procedure Note ---
Endoscopy Procedure Note Indication for Procedure: colonic distention Procedures Performed: colonoscopy Operative Findings/Diagnosis: hemorrhoids Specimen: none Pt Tolerated Procedure Well: Yes Estimated Blood Loss: none Anesthesiologist: j luis Anesthesia: MAC Implant(s) used?: No 50 yrs or older w/o bx or poly: Not Applicable 10yrs. F/U not recommended: Not Applicable NELLY SHELTON Mar 21, 2017 12:03
--- NOTE | 2017-03-21 12:20 | General Progress Note ---
Progress Note Progress Note Surgery: doing well. no complaints. colonoscopy today. will follow after results of scope available Gian Gilmore Mar 21, 2017 12:20
--- NOTE | 2017-03-21 12:48 | 48 Hour Post Anesthesia Eval ---
Post Anesthesia Evaluation Procedure: colonoscopy Date of Evaluation: Mar 21, 2017 Time of Evaluation: 12:47 Blood Pressure Systolic: 112 0: 74 Pulse Rate: 74 Respiratory Rate: 16 Temperature (Fahrenheit): 98.1 O2 Sat by Pulse Oximetry: 100 Airway: other Nausea: No Vomiting: No Pain Intensity: 0 Hydration Status: adequate Cardiopulmonary Status: stable Mental Status/LOC: patient returned to baseline Post-Anesthesia Complications: none Follow-up care needed: N/A NALINI CASEY Mar 21, 2017 12:48
[2017-03-21] MEDS ORDERED: Tubing IV Secondary IV ONE (14:24)
[2017-03-21] MEDS ORDERED: NS 275ml ONE (14:24)
[2017-03-21 16:00] VITALS: BP 110/67
--- NOTE | 2017-03-21 16:16 | Diagnostic Imaging Report ---
Indication: DYSPNEA Technique: One view of the chest Comparison: 03/16/2017 Findings: Right lung volume loss, pleural fluid persists, unchanged. Tracheostomy, PICC, cervical surgical hardware are unchanged. Left lung and pleural space remain clear. Impression: Unchanged, over 5 days, findings as above.
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
[2017-03-21 20:00] VITALS: BP 127/81
[2017-03-21] MEDS: Dyna-Hex 2% Top Sol 8oz TOPIC SCH (20:38)
--- NOTE | 2017-03-21 20:45 | Cardiac Electrophysiology PN ---
Assessment/Plan Assessment/Plan 1. Sinus arrest with pauses of more than 3 seconds including pause of 8 seconds.Positional likely vagal.Off any sinus claudette blocking agents.No recurrence 2. Ventilator-dependent respiratory failure, status post tracheostomy. 3. Status post septic shock. 4. Dysphagia with history of PEG placement in the past 5. Iron deficiency 6. Ileus with abdominal distention. S/P decompression colonoscopy by Dr Thompson today. DW RN Subjective Subjective Had Colonoscopy by Dr. Thompson today. On Vent. HR better.No further asystole or profound bradycardia reported. Objective Last 24 Hour Vital Signs Date Time Temp Pulse Resp B/P Pulse Ox O2 Delivery O2 Flow Rate FiO2 03/21/17 20:00 60 03/21/17 20:00 97.8 64 16 127/81 98 Endotracheal Tube 60 03/21/17 18:48 63 16 60 03/21/17 18:48 63 17 03/21/17 16:58 50 19 60 03/21/17 16:00 60 03/21/17 16:00 97.5 69 20 110/67 100 Mechanical Ventilator 60 03/21/17 16:00 74 03/21/17 15:15 73 16 60 03/21/17 12:48 74 16 100 03/21/17 12:28 67 17 60 03/21/17 12:02 74 16 100 03/21/17 12:00 35 03/21/17 12:00 53 03/21/17 12:00 98.1 60 20 106/72 100 Mechanical Ventilator 35 03/21/17 11:10 50 16 35 03/21/17 08:40 54 16 35 03/21/17 08:00 97.9 51 20 135/91 100 Mechanical Ventilator 35 03/21/17 08:00 35 03/21/17 08:00 58 03/21/17 06:50 67 16 35 03/21/17 05:26 57 16 35 03/21/17 04:00 35 03/21/17 04:00 98.1 68 18 123/69 100 Mechanical Ventilator 35 03/21/17 03:45 65 03/21/17 03:17 60 16 35 03/21/17 01:07 58 16 35 03/21/17 00:00 99.3 61 18 130/69 100 Mechanical Ventilator 35 03/21/17 00:00 35 03/21/17 00:00 61 7/30/17 22:49 54 16 35 03/20/17 21:10 53 16 35 Intake and Output 03/20/17 03/21/17 19:00 07:00 Intake Total 700 ml 150 ml Output Total 1200 ml 2280 ml Balance -500 ml -2130 ml Intake Oral 600 ml 50 ml IV Total 100 ml 100 ml Output Urine Total 1100 ml 1280 ml Stool Total 100 ml 1000 ml # Bowel Movements 3 3 Laboratory Tests Test 03/21/17 04:00 White Blood Count 8.4 K/UL (4.8-10.8) Red Blood Count 3.54 M/UL (4.70-6.10) L Hemoglobin 9.3 G/DL (14.2-18.0) L Hematocrit 29.6 % (42.0-52.0) L Mean Corpuscular Volume 84 FL (80-99) Mean Corpuscular Hemoglobin 26.4 PG (27.0-31.0) L Mean Corpuscular Hemoglobin Concent 31.5 G/DL (32.0-36.0) L Red Cell Distribution Width 15.2 % (11.6-14.8) H Platelet Count 514 K/UL (150-450) H Mean Platelet Volume 5.4 FL (6.5-10.1) L Neutrophils (%) (Auto) 68.8 % (45.0-75.0) Lymphocytes (%) (Auto) 18.7 % (20.0-45.0) L Monocytes (%) (Auto) 10.4 % (1.0-10.0) H Eosinophils (%) (Auto) 1.3 % (0.0-3.0) Basophils (%) (Auto) 0.9 % (0.0-2.0) Prothrombin Time 10.9 SEC (9.30-11.50) Prothromb Time International Ratio 1.0 (0.9-1.1) Activated Partial Thromboplast Time 34 SEC (23-33) H Sodium Level 144 mEQ/L (135-145) Potassium Level 3.1 mEQ/L (3.4-4.9) L Chloride Level 105 mEQ/L (98-107) Carbon Dioxide Level 27 mEQ/L (20-30) Anion Gap 12 (5-15) Blood Urea Nitrogen 13 mg/dL (7-23) Creatinine 0.7 mg/dL (0.7-1.2) Estimat Glomerular Filtration Rate > 60 mL/min (>60) Glucose Level 88 mg/dL (74-106) Calcium Level 9.8 mg/dL (8.6-10.2) Total Bilirubin 0.4 mg/dL (0.0-1.2) Aspartate Amino Transf (AST/SGOT) 32 U/L (5-40) Alanine Aminotransferase (ALT/SGPT) 17 U/L (3-41) Alkaline Phosphatase 133 U/L (40-129) H Pro-B-Type Natriuretic Peptide 569 pg/mL (0-125) H Total Protein 7.9 g/dL (6.6-8.7) Albumin 3.4 g/dL (3.5-5.2) L Globulin 4.5 g/dL Albumin/Globulin Ratio 0.7 (1.0-2.7) L Microbiology Date/Time Source Procedure Growth Status 03/19/17 05:00 Stool Clostridium difficile Toxin Assay - Final Complete Objective HEAD AND NECK: no JVD. Tracheostomy intact LUNGS: Have decreased breath sounds. CARDIOVASCULAR: Shows regular S1 and S2 with no gallop. ABDOMEN: Distended. EXTREMITIES: 2+ pitting edema. ELIF ESCOBAR Mar 21, 2017 20:45
[2017-03-21] MEDS: Morphine Sulfate 4mg/ml Inj IVP PRN (22:48)
[2017-03-22] VITALS: BP_SYST 106; BP_SYST 110; BP_DIAS 56; BP_DIAS 75
[2017-03-22] MEDS: Simethicone Drops 80mg/1.2ml ORAL SCH ×5 (00:26→23:00)
[2017-03-22 04:00] VITALS: BP 119/58
[2017-03-22 05:35] LABS: BASOPHILS % (AUTO) 0.6 % (0.0-2.0); EOSINOPHILS % (AUTO) 0.8 % (0.0-3.0); LYMPHOCYTES % (AUTO) 15.5 % (20.0-45.0); MEAN CORPUSCULAR HEMOGLOBIN 25.4 PG (27.0-31.0); MEAN CORPUSCULAR HGB CONC 30.2 G/DL (32.0-36.0); MEAN CORPUSCULAR VOLUME 84 FL (80-99); MEAN PLATELET VOLUME 5.2 FL (6.5-10.1); MONOCYTES % (AUTO) 5.4 % (1.0-10.0); NEUTROPHILS % (AUTO) 77.7 % (45.0-75.0); PLATELET COUNT 504 K/UL (150-450); RED BLOOD COUNT 3.36 M/UL (4.70-6.10); RED CELL DISTRIBUTION WIDTH 14.9 % (11.6-14.8); WHITE BLOOD COUNT 12.2 K/UL (4.8-10.8)
[2017-03-22 06:04] LABS: ALANINE AMINOTRANSFERASE 13 U/L (3-41); ALBUMIN/GLOBULIN RATIO 0.7 (1.0-2.7); ANION GAP 11 (5-15); ASPARTATE AMINO TRANSFERASE 24 U/L (5-40); CALCIUM 9.5 mg/dL (8.6-10.2); CARBON DIOXIDE 28 mEQ/L (20-30); CHLORIDE 109 mEQ/L (98-107); CREATININE 0.7 mg/dL (0.7-1.2); CRP QUANT 4.4 mg/dL (< 0.5); GLOMERULAR FILTRATION RATE > 60 mL/min (>60); HEMOLYSIS 1; PHOSPHORUS 3.4 mg/dL (2.5-4.8); POTASSIUM 3.5 mEQ/L (3.4-4.9); SODIUM 148 mEQ/L (135-145); TOTAL PROTEIN 7.4 g/dL (6.6-8.7)
[2017-03-22] MEDS: NovoLOG Insulin Flexpen SUBQ SCH ×4 (06:30→20:32)
[2017-03-22] MEDS: Morphine Sulfate 4mg/ml Inj IVP PRN ×2 (06:31→10:53)
--- NOTE | 2017-03-22 06:45 | Procedure Note ---
DATE OF PROCEDURE: 03/21/2017 SURGEON: Sudhakar Thompson M.D. PROCEDURE: Colonoscopy. ANESTHESIA: Marcy Greenfield M.D. INSTRUMENT: Olympus adult flexible colonoscope. INDICATION: Colonic distention, abdominal pain, and abdominal distention. REASON FOR PROCEDURE: The procedure, risks, benefits, and possible consequences, including hemorrhage, aspiration, perforation and infection, and alternative treatments, were explained to the patient/legal guardian by Dr. Sudhakar Thompson and the patient/legal guardian understood and accepted these risks. PROCEDURE: After informed consent was obtained and the patient was adequately sedated, first rectal exam was performed, which was normal. Then, the scope was advanced rectum into the mid transverse colon. This was a very challenging case. We could not advance the scope beyond the mid transverse colon. The colon was convoluted. This looks like the patient has a lot of pockets of the colon the cause of abdominal distention. At the end of the procedure, we took as much as air we could out and the abdomen was completely decompressed. Retroflexion of rectum showed evidence of few small internal hemorrhoids. SUMMARY FINDINGS: 1. Incomplete colonoscopy examination, only up to mid transverse colon was examined. 2. Internal hemorrhoid. 3. Colonic distention, status post decompression with scope sucking out the air. RECOMMENDATIONS: Resume diet. Follow laboratories. Follow with Surgery. If the patient has colonic ileus not responding to medical management, may benefit from surgical evaluation. Sudhakar Thompson M.D. DR: ESSIE JOB#: [id number] CC: YANG
[2017-03-22 06:54] LABS: ERYTHROCYTE SEDIMENTATION RATE 101 MM/HR (0-20)
[2017-03-22 08:00] VITALS: BP 114/66
[2017-03-22] MEDS: Heparin 5000 units/ml inj SUBQ SCH ×2 (09:00→20:32)
--- NOTE | 2017-03-22 09:00 | GI Progress Note ---
Assessment/Plan Problems: (1) Iron deficiency ICD Codes: E61.1 - Iron deficiency SNOMED: 86812522 (2) Ileus ICD Codes: K56.7 - Ileus, unspecified SNOMED: 308458738 (3) Abdominal distension ICD Codes: R14.0 - Abdominal distension (gaseous) SNOMED: 46704881 (4) Septic shock ICD Codes: A41.9 - Sepsis, unspecified organism; R65.21 - Severe sepsis with septic shock SNOMED: 18119223 (5) Paraplegia ICD Codes: G82.20 - Paraplegia, unspecified SNOMED: 76640025 (6) Anemia ICD Codes: D64.9 - Anemia, unspecified SNOMED: 372334680 Qualifiers: Qualified Codes: D64.9 - Anemia, unspecified Status: unchanged Status Narrative Discussed with Dr. Thompson. Assessment/Plan CT AP reviewed >> Mildly distended sigmoid without evidence of distal obstruction. Diffusely gas-filled upper limits normal caliber colon and small bowel, without evidence of obstructive pathology. Suspect functional in nature or on the basis of ileus colonic barium enema >> Dilated distal sigmoid, without evidence of distal anatomic obstructive lesion. abdominal distention due to ileus 2/2 septic shock vs colonic ileus S/P COLONOSCOPY SUMMARY FINDINGS: 1. Incomplete colonoscopy examination, only up to mid transverse colon was examined. 2. Internal hemorrhoid. 3. Colonic distention, status post decompression with scope sucking out the air. RECOMMENDATIONS: Resume diet. Follow laboratories. Follow with Surgery. If the patient has colonic ileus not responding to medical management, may benefit from surgical evaluation. rectal tube for colonic decompression resume diet per ST >> LIQUIFIED PUREED, LIKE HONEY THICK SOUP CONSISTENCY. STRICT ASPIRATION/REFLUX PRECAUTIONS WITH 1TO1 FEEDING. ppi fu labs Subjective Subjective limited hungry Objective Last 24 Hour Vital Signs Date Time Temp Pulse Resp B/P Pulse Ox O2 Delivery O2 Flow Rate FiO2 03/22/17 08:30 52 18 50 03/22/17 08:00 51 03/22/17 07:54 50 03/22/17 07:01 98.4 03/22/17 06:59 55 17 50 03/22/17 05:28 51 16 60 03/22/17 04:00 60 03/22/17 04:00 98.4 62 20 119/58 99 Mechanical Ventilator 60 03/22/17 04:00 56 03/22/17 02:38 61 19 60 03/22/17 00:30 58 19 60 03/22/17 00:00 97.4 57 20 106/56 98 Endotracheal Tube 60 57 03/22/17 00:00 60 03/22/17 00:00 56 03/21/17 22:41 49 17 60 03/21/17 21:18 50 16 60 03/21/17 20:00 60 03/21/17 20:00 62 03/21/17 20:00 97.8 64 16 127/81 98 Endotracheal Tube 60 03/21/17 18:48 63 16 60 03/21/17 18:48 63 17 03/21/17 16:58 50 19 60 03/21/17 16:00 60 03/21/17 16:00 97.5 69 20 110/67 100 Mechanical Ventilator 60 03/21/17 16:00 74 03/21/17 15:15 73 16 60 03/21/17 12:48 74 16 100 03/21/17 12:28 67 17 60 03/21/17 12:02 74 16 100 03/21/17 12:00 35 03/21/17 12:00 53 03/21/17 12:00 98.1 60 20 106/72 100 Mechanical Ventilator 35 03/21/17 11:10 50 16 35 Intake and Output 03/21/17 03/22/17 19:00 07:00 Intake Total 300 ml 200 ml Output Total 900 ml 600 ml Balance -600 ml -400 ml Intake Oral 100 ml IV Total 300 ml 100 ml Output Urine Total 750 ml 400 ml Stool Total 150 ml 200 ml Laboratory Tests Test 03/22/17 04:00 White Blood Count 12.2 K/UL (4.8-10.8) H Red Blood Count 3.36 M/UL (4.70-6.10) L Hemoglobin 8.5 G/DL (14.2-18.0) L Hematocrit 28.3 % (42.0-52.0) L Mean Corpuscular Volume 84 FL (80-99) Mean Corpuscular Hemoglobin 25.4 PG (27.0-31.0) L Mean Corpuscular Hemoglobin Concent 30.2 G/DL (32.0-36.0) L Red Cell Distribution Width 14.9 % (11.6-14.8) H Platelet Count 504 K/UL (150-450) H Mean Platelet Volume 5.2 FL (6.5-10.1) L Neutrophils (%) (Auto) 77.7 % (45.0-75.0) H Lymphocytes (%) (Auto) 15.5 % (20.0-45.0) L Monocytes (%) (Auto) 5.4 % (1.0-10.0) Eosinophils (%) (Auto) 0.8 % (0.0-3.0) Basophils (%) (Auto) 0.6 % (0.0-2.0) Erythrocyte Sedimentation Rate 101 MM/HR (0-20) H Sodium Level 148 mEQ/L (135-145) H Potassium Level 3.5 mEQ/L (3.4-4.9) Chloride Level 109 mEQ/L (98-107) H Carbon Dioxide Level 28 mEQ/L (20-30) Anion Gap 11 (5-15) Blood Urea Nitrogen 12 mg/dL (7-23) Creatinine 0.7 mg/dL (0.7-1.2) Estimat Glomerular Filtration Rate > 60 mL/min (>60) Glucose Level 85 mg/dL (74-106) Calcium Level 9.5 mg/dL (8.6-10.2) Phosphorus Level 3.4 mg/dL (2.5-4.8) Magnesium Level 2.0 mg/dL (1.7-2.5) Total Bilirubin 0.3 mg/dL (0.0-1.2) Aspartate Amino Transf (AST/SGOT) 24 U/L (5-40) Alanine Aminotransferase (ALT/SGPT) 13 U/L (3-41) Alkaline Phosphatase 122 U/L (40-129) C-Reactive Protein, Quantitative 4.4 mg/dL (< 0.5) H Total Protein 7.4 g/dL (6.6-8.7) Albumin 3.1 g/dL (3.5-5.2) L Globulin 4.3 g/dL Albumin/Globulin Ratio 0.7 (1.0-2.7) L Height (Feet): 6 Height (Inches): 4.00 Weight (Pounds): 212 General Appearance: no apparent distress, alert Cardiovascular: normal rate Respiratory/Chest: other - mech vent Abdominal Exam: distended - softer Lou Cee N.P. Mar 22, 2017 09:00
[2017-03-22] MEDS: Pantoprazole Inj IVP SCH (09:14)
[2017-03-22] MEDS: Nystatin Powder 100,000 units/gm 15gm TOPIC SCH ×3 (09:15→17:28)
[2017-03-22] MEDS: LEVETIRACETAM 500 MG IVPB SCH ×2 (09:15→20:29)
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
[2017-03-22 12:16] VITALS: BP 99/50
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
[2017-03-22] MEDS ORDERED: NS 275ml ONE (15:49)
[2017-03-22 16:23] VITALS: BP 96/56
--- NOTE | 2017-03-22 17:06 | Infectious Diseases Prog Note ---
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 - CXR 03/16: Slightly decreased right pleural fluid and slightly decreased right lung volume loss, over one day - h/o PSA // Multiple decubiti POA, not grossly infected - WCx polymicrobial MDRO // Diarrhea - negative C.difficile - SP incomplete colonoscopy with int hemorrhoid, decompression 03/21 // Sepsis SP // Leukocytosis - recurrent, mild // Fever - resolved // Chronic VDRF SP trach, PEG // Severe pulmonary HTN // Paraplegia // ARF - resolved // Chronic FOBT(+) anemia // NKDA // Full Code PLAN: - monitor pt off of ABX ( 03/20 SP IV vancomycin, meropenem, INH colistin d# 14 / 14 ) ( 03/04 SP IV vancomycin d# 2 ) - monitor CBC, temperatures, re-culture if acute change - monitor BMP - monitor CXR - vent support / trach care / aspiration precautions - wound care Subjective Allergies: Coded Allergies: No Known Allergies (Unverified , 03/02/17) Subjective remains afebrile without leukocytosis on vent SP incomplete colonoscopy with int hemorrhoid, decompression Objective Vital Signs Last 24 Hour Vital Signs Date Time Temp Pulse Resp B/P Pulse Ox O2 Delivery O2 Flow Rate FiO2 03/22/17 16:23 97.0 51 19 96/56 100 Trach Collar 15.0 03/22/17 14:35 61 20 50 03/22/17 12:55 52 18 50 03/22/17 12:16 97.8 90 20 99/50 96 Trach Collar 03/22/17 12:00 46 03/22/17 12:00 45 03/22/17 10:41 58 18 50 03/22/17 08:30 52 18 50 03/22/17 08:00 97.7 72 16 114/66 100 Mechanical Ventilator 50 03/22/17 08:00 51 03/22/17 07:54 50 03/22/17 07:01 98.4 03/22/17 06:59 55 17 50 03/22/17 05:28 51 16 60 03/22/17 04:00 60 03/22/17 04:00 98.4 62 20 119/58 99 Mechanical Ventilator 60 03/22/17 04:00 56 03/22/17 02:38 61 19 60 03/22/17 00:30 58 19 60 03/22/17 00:00 97.4 57 20 106/56 98 Endotracheal Tube 60 57 03/22/17 00:00 60 03/22/17 00:00 56 03/21/17 22:41 49 17 60 03/21/17 21:18 50 16 60 03/21/17 20:00 60 03/21/17 20:00 62 03/21/17 20:00 97.8 64 16 127/81 98 Endotracheal Tube 60 03/21/17 18:48 63 16 60 03/21/17 18:48 63 17 Height (Feet): 6 Height (Inches): 4.00 Weight (Pounds): 212 General Appearance: no acute distress HEENT: status post trach Respiratory/Chest: decreased breath sounds Cardiovascular: normal rate, regular rhythm Abdomen: normal bowel sounds, soft, non tender, non distended Laboratory Tests Test 03/22/17 04:00 White Blood Count 12.2 K/UL (4.8-10.8) H Red Blood Count 3.36 M/UL (4.70-6.10) L Hemoglobin 8.5 G/DL (14.2-18.0) L Hematocrit 28.3 % (42.0-52.0) L Mean Corpuscular Volume 84 FL (80-99) Mean Corpuscular Hemoglobin 25.4 PG (27.0-31.0) L Mean Corpuscular Hemoglobin Concent 30.2 G/DL (32.0-36.0) L Red Cell Distribution Width 14.9 % (11.6-14.8) H Platelet Count 504 K/UL (150-450) H Mean Platelet Volume 5.2 FL (6.5-10.1) L Neutrophils (%) (Auto) 77.7 % (45.0-75.0) H Lymphocytes (%) (Auto) 15.5 % (20.0-45.0) L Monocytes (%) (Auto) 5.4 % (1.0-10.0) Eosinophils (%) (Auto) 0.8 % (0.0-3.0) Basophils (%) (Auto) 0.6 % (0.0-2.0) Erythrocyte Sedimentation Rate 101 MM/HR (0-20) H Sodium Level 148 mEQ/L (135-145) H Potassium Level 3.5 mEQ/L (3.4-4.9) Chloride Level 109 mEQ/L (98-107) H Carbon Dioxide Level 28 mEQ/L (20-30) Anion Gap 11 (5-15) Blood Urea Nitrogen 12 mg/dL (7-23) Creatinine 0.7 mg/dL (0.7-1.2) Estimat Glomerular Filtration Rate > 60 mL/min (>60) Glucose Level 85 mg/dL (74-106) Calcium Level 9.5 mg/dL (8.6-10.2) Phosphorus Level 3.4 mg/dL (2.5-4.8) Magnesium Level 2.0 mg/dL (1.7-2.5) Total Bilirubin 0.3 mg/dL (0.0-1.2) Aspartate Amino Transf (AST/SGOT) 24 U/L (5-40) Alanine Aminotransferase (ALT/SGPT) 13 U/L (3-41) Alkaline Phosphatase 122 U/L (40-129) C-Reactive Protein, Quantitative 4.4 mg/dL (< 0.5) H Total Protein 7.4 g/dL (6.6-8.7) Albumin 3.1 g/dL (3.5-5.2) L Globulin 4.3 g/dL Albumin/Globulin Ratio 0.7 (1.0-2.7) L Current Medications Medications (Trade) Dose Ordered Sig/Lucy Route PRN Reason Start Time Stop Time Status Last Admin Dose Admin Acetaminophen (Tylenol) 650 mg Q4H PRN RECTAL Mild Pain/Temp > 100.5 03/11/17 20:35 04/10/17 20:34 03/11/17 20:38 Chlorhexidine Gluconate (Kim-Hex 2%) 1 applic BEDTIME TOPIC 03/06/17 21:00 04/05/17 20:59 03/21/17 20:38 Dextrose 50 ml 50 ml STAT PRN IV Hypoglycemia 03/09/17 16:15 04/08/17 16:14 Heparin Sodium (Porcine) (Heparin 5000 units/ml) 5,000 units EVERY 12 HOURS SUBQ 03/06/17 21:00 04/05/17 20:59 03/21/17 20:40 Insulin Aspart (NovoLOG) AC+HS SUBQ 03/12/17 11:30 04/11/17 11:29 03/18/17 06:23 Levetiracetam (Keppra 500mg Premix) 100 ml @ 400 mls/hr Q12HR IVPB 03/09/17 21:00 04/08/17 20:59 03/22/17 09:15 Morphine Sulfate (Morphine Sulfate) 4 mg Q4H PRN IVP For Pain 4-10 03/21/17 22:00 03/28/17 21:59 03/22/17 10:53 Nystatin (Nystop Powder) 1 applic THREE TIMES A DAY TOPIC 03/06/17 18:00 04/05/17 17:59 03/22/17 12:36 Ondansetron HCl (Zofran) 4 mg Q6H PRN IVP Nausea & Vomiting 03/06/17 16:38 04/05/17 16:37 Pantoprazole (Protonix) 40 mg DAILY IVP 03/07/17 09:00 04/06/17 08:59 03/22/17 09:14 Polyethylene Glycol (Miralax) 17 gm DAILYPRN PRN ORAL Constipation 03/06/17 16:37 04/05/17 16:36 Simethicone (Mylicon) 40 mg EVERY 6 HOURS ORAL 03/12/17 12:00 04/11/17 11:59 03/22/17 12:36 NA GREGG Mar 22, 2017 17:06
--- NOTE | 2017-03-22 17:14 | Cardiac Electrophysiology PN ---
Assessment/Plan Assessment/Plan 1. Sinus arrest with pauses of more than 3 seconds and pause of 8 seconds.Positional. Likely vagal. Off any sinus claudette blocking agents.No recurrence 2. Ventilator-dependent respiratory failure, status post tracheostomy. 3. Status post septic shock. 4. Dysphagia with history of PEG placement in the past 5. Iron deficiency 6. Ileus with abdominal distention. S/P decompression colonoscopy by Dr Thompson 03/21/17 GISELA RN Subjective Subjective Had Colonoscopy by Dr. Thompson yesterday. On Vent. HR better.No further profound bradycardia reported. Objective Last 24 Hour Vital Signs Date Time Temp Pulse Resp B/P Pulse Ox O2 Delivery O2 Flow Rate FiO2 03/22/17 17:07 55 18 50 03/22/17 16:23 97.0 51 19 96/56 100 Trach Collar 15.0 03/22/17 16:00 48 03/22/17 14:35 61 20 50 03/22/17 12:55 52 18 50 03/22/17 12:16 97.8 90 20 99/50 96 Trach Collar 03/22/17 12:00 46 03/22/17 12:00 45 03/22/17 10:41 58 18 50 03/22/17 08:30 52 18 50 03/22/17 08:00 97.7 72 16 114/66 100 Mechanical Ventilator 50 03/22/17 08:00 51 03/22/17 07:54 50 03/22/17 07:01 98.4 03/22/17 06:59 55 17 50 03/22/17 05:28 51 16 60 03/22/17 04:00 60 03/22/17 04:00 98.4 62 20 119/58 99 Mechanical Ventilator 60 03/22/17 04:00 56 03/22/17 02:38 61 19 60 03/22/17 00:30 58 19 60 03/22/17 00:00 97.4 57 20 106/56 98 Endotracheal Tube 60 57 03/22/17 00:00 60 03/22/17 00:00 56 03/21/17 22:41 49 17 60 03/21/17 21:18 50 16 60 03/21/17 20:00 60 03/21/17 20:00 62 03/21/17 20:00 97.8 64 16 127/81 98 Endotracheal Tube 60 03/21/17 18:48 63 16 60 03/21/17 18:48 63 17 Intake and Output 03/21/17 03/22/17 19:00 07:00 Intake Total 300 ml 200 ml Output Total 900 ml 600 ml Balance -600 ml -400 ml Intake Oral 100 ml IV Total 300 ml 100 ml Output Urine Total 750 ml 400 ml Stool Total 150 ml 200 ml Laboratory Tests Test 03/22/17 04:00 White Blood Count 12.2 K/UL (4.8-10.8) H Red Blood Count 3.36 M/UL (4.70-6.10) L Hemoglobin 8.5 G/DL (14.2-18.0) L Hematocrit 28.3 % (42.0-52.0) L Mean Corpuscular Volume 84 FL (80-99) Mean Corpuscular Hemoglobin 25.4 PG (27.0-31.0) L Mean Corpuscular Hemoglobin Concent 30.2 G/DL (32.0-36.0) L Red Cell Distribution Width 14.9 % (11.6-14.8) H Platelet Count 504 K/UL (150-450) H Mean Platelet Volume 5.2 FL (6.5-10.1) L Neutrophils (%) (Auto) 77.7 % (45.0-75.0) H Lymphocytes (%) (Auto) 15.5 % (20.0-45.0) L Monocytes (%) (Auto) 5.4 % (1.0-10.0) Eosinophils (%) (Auto) 0.8 % (0.0-3.0) Basophils (%) (Auto) 0.6 % (0.0-2.0) Erythrocyte Sedimentation Rate 101 MM/HR (0-20) H Sodium Level 148 mEQ/L (135-145) H Potassium Level 3.5 mEQ/L (3.4-4.9) Chloride Level 109 mEQ/L (98-107) H Carbon Dioxide Level 28 mEQ/L (20-30) Anion Gap 11 (5-15) Blood Urea Nitrogen 12 mg/dL (7-23) Creatinine 0.7 mg/dL (0.7-1.2) Estimat Glomerular Filtration Rate > 60 mL/min (>60) Glucose Level 85 mg/dL (74-106) Calcium Level 9.5 mg/dL (8.6-10.2) Phosphorus Level 3.4 mg/dL (2.5-4.8) Magnesium Level 2.0 mg/dL (1.7-2.5) Total Bilirubin 0.3 mg/dL (0.0-1.2) Aspartate Amino Transf (AST/SGOT) 24 U/L (5-40) Alanine Aminotransferase (ALT/SGPT) 13 U/L (3-41) Alkaline Phosphatase 122 U/L (40-129) C-Reactive Protein, Quantitative 4.4 mg/dL (< 0.5) H Total Protein 7.4 g/dL (6.6-8.7) Albumin 3.1 g/dL (3.5-5.2) L Globulin 4.3 g/dL Albumin/Globulin Ratio 0.7 (1.0-2.7) L Objective HEAD AND NECK: no JVD. Tracheostomy intact LUNGS: Have decreased breath sounds. CARDIOVASCULAR: Shows regular S1 and S2 with no gallop. ABDOMEN: Distended. EXTREMITIES: 2+ pitting edema. ELIF ESCOBAR Mar 22, 2017 17:14
--- NOTE | 2017-03-22 17:27 | General Progress Note ---
Progress Note Progress Note Surgery: patient seen and examined. doing well since scope yesterday. no complaints. Afebrile, HD stable, labs reviewed. Abdomen distended and tympanic today but not as firm as prior Given history and current medical condition I discussed the potential for diverting ostomy with patient. He has a portion of his colon (distal transverse to sigmoid) that is chronically dilated and functionally not active. He has been like this for weeks without improvement. He continues to have constant diarrhea and abdominal distention. He is bed bound and at risk for developing an ulcer as well. In his medical condition he would potentially benefit from diverting ostomy. Patient unsure currently and requests time to think about it. Will allow patient to think about diversion and continue to support him with information as he requests. Gian Gilmore Mar 22, 2017 17:27
[2017-03-22 20:15] VITALS: BP 115/80
[2017-03-22] MEDS: Dyna-Hex 2% Top Sol 8oz TOPIC SCH (20:29)
[2017-03-23] VITALS (8 sets, daily range): BP systolic 120–198; BP diastolic 72–99
[2017-03-23] MEDS: Simethicone Drops 80mg/1.2ml ORAL SCH ×3 (05:18→18:26)
[2017-03-23 05:34] LABS: BASOPHILS % (AUTO) 0.9 % (0.0-2.0); EOSINOPHILS % (AUTO) 4.1 % (0.0-3.0); LYMPHOCYTES % (AUTO) 31.5 % (20.0-45.0); MEAN CORPUSCULAR HEMOGLOBIN 25.5 PG (27.0-31.0); MEAN CORPUSCULAR HGB CONC 30.1 G/DL (32.0-36.0); MEAN CORPUSCULAR VOLUME 85 FL (80-99); MEAN PLATELET VOLUME 4.9 FL (6.5-10.1); MONOCYTES % (AUTO) 5.7 % (1.0-10.0); NEUTROPHILS % (AUTO) 57.7 % (45.0-75.0); PLATELET COUNT 440 K/UL (150-450); RED BLOOD COUNT 3.12 M/UL (4.70-6.10); RED CELL DISTRIBUTION WIDTH 14.8 % (11.6-14.8); WHITE BLOOD COUNT 7.4 K/UL (4.8-10.8)
[2017-03-23] MEDS: NovoLOG Insulin Flexpen SUBQ SCH ×4 (05:53→21:00)
[2017-03-23 06:18] LABS: ALANINE AMINOTRANSFERASE 11 U/L (3-41); ALBUMIN/GLOBULIN RATIO 0.6 (1.0-2.7); ANION GAP 13 (5-15); ASPARTATE AMINO TRANSFERASE 21 U/L (5-40); CALCIUM 9.3 mg/dL (8.6-10.2); CARBON DIOXIDE 25 mEQ/L (20-30); CHLORIDE 109 mEQ/L (98-107); CREATININE 0.7 mg/dL (0.7-1.2); GLOMERULAR FILTRATION RATE > 60 mL/min (>60); HEMOLYSIS 0; SODIUM 147 mEQ/L (135-145); TOTAL PROTEIN 7.5 g/dL (6.6-8.7)
[2017-03-23 06:19] LABS: MAGNESIUM 1.6 mg/dL (1.7-2.5); PHOSPHORUS 2.7 mg/dL (2.5-4.8)
[2017-03-23] MEDS: Nystatin Powder 100,000 units/gm 15gm TOPIC SCH ×3 (09:55→18:22)
[2017-03-23] MEDS: LEVETIRACETAM 500 MG IVPB SCH ×2 (09:56→21:00)
[2017-03-23] MEDS: Pantoprazole Inj IVP SCH (09:56)
[2017-03-23] MEDS: Heparin 5000 units/ml inj SUBQ SCH ×2 (10:00→21:00)
[2017-03-23] MEDS ORDERED: Potassium Phosphate 30 MM in NS 275 ML IV ONE (11:00)
[2017-03-23] MEDS ORDERED: NS 275ml ONE ×2 (11:27→21:29)
--- NOTE | 2017-03-23 11:40 | Infectious Diseases Prog Note ---
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 - CXR 03/16: Slightly decreased right pleural fluid and slightly decreased right lung volume loss, over one day - h/o PSA // Multiple decubiti POA, not grossly infected - WCx polymicrobial MDRO // Diarrhea - negative C.difficile - SP incomplete colonoscopy with int hemorrhoid, decompression 03/21 // Sepsis SP // Leukocytosis - recurrent, again resolved // Fever - resolved // Chronic VDRF SP trach, PEG // Severe pulmonary HTN // Paraplegia // ARF - resolved // Chronic FOBT(+) anemia // NKDA // Full Code PLAN: - monitor pt off of ABX ( 03/20 SP IV vancomycin, meropenem, INH colistin d# 14 / 14 ) ( 03/04 SP IV vancomycin d# 2 ) - monitor CBC, temperatures, re-culture if acute change - monitor BMP - monitor CXR - vent support / trach care / aspiration precautions - wound care Subjective Allergies: Coded Allergies: No Known Allergies (Unverified , 03/02/17) Subjective remains afebrile without leukocytosis on vent Objective Vital Signs Last 24 Hour Vital Signs Date Time Temp Pulse Resp B/P Pulse Ox O2 Delivery O2 Flow Rate FiO2 03/23/17 11:36 52 03/23/17 11:25 70 16 45 03/23/17 08:43 66 16 45 03/23/17 08:00 99.3 68 24 120/79 99 Trach Collar 40 03/23/17 08:00 65 03/23/17 07:23 69 16 03/23/17 05:30 50 16 45 03/23/17 04:00 98.1 61 16 132/74 100 Mechanical Ventilator 45 03/23/17 04:00 48 03/23/17 04:00 45 03/23/17 02:58 59 16 45 03/23/17 01:30 58 16 45 03/23/17 00:47 97.9 56 16 139/72 100 Mechanical Ventilator 45 03/23/17 00:00 51 03/23/17 00:00 45 03/22/17 23:22 51 16 45 03/22/17 21:30 51 16 45 03/22/17 20:15 98.0 65 16 115/80 100 Mechanical Ventilator 45 03/22/17 20:00 56 03/22/17 20:00 45 03/22/17 19:19 63 19 45 03/22/17 17:07 55 18 50 03/22/17 16:23 97.0 51 19 96/56 100 Trach Collar 15.0 03/22/17 16:00 48 03/22/17 16:00 45 03/22/17 14:35 61 20 50 03/22/17 12:55 52 18 50 03/22/17 12:16 97.8 90 20 99/50 96 Trach Collar 03/22/17 12:00 46 03/22/17 12:00 45 Height (Feet): 6 Height (Inches): 4.00 Weight (Pounds): 212 General Appearance: no acute distress HEENT: status post trach Respiratory/Chest: decreased breath sounds Cardiovascular: normal rate, regular rhythm Abdomen: normal bowel sounds, soft, non tender, non distended Laboratory Tests Test 03/23/17 04:00 White Blood Count 7.4 K/UL (4.8-10.8) Red Blood Count 3.12 M/UL (4.70-6.10) L Hemoglobin 8.0 G/DL (14.2-18.0) L Hematocrit 26.5 % (42.0-52.0) L Mean Corpuscular Volume 85 FL (80-99) Mean Corpuscular Hemoglobin 25.5 PG (27.0-31.0) L Mean Corpuscular Hemoglobin Concent 30.1 G/DL (32.0-36.0) L Red Cell Distribution Width 14.8 % (11.6-14.8) Platelet Count 440 K/UL (150-450) Mean Platelet Volume 4.9 FL (6.5-10.1) L Neutrophils (%) (Auto) 57.7 % (45.0-75.0) Lymphocytes (%) (Auto) 31.5 % (20.0-45.0) Monocytes (%) (Auto) 5.7 % (1.0-10.0) Eosinophils (%) (Auto) 4.1 % (0.0-3.0) H Basophils (%) (Auto) 0.9 % (0.0-2.0) Sodium Level 147 mEQ/L (135-145) H Potassium Level 3.0 mEQ/L (3.4-4.9) L Chloride Level 109 mEQ/L (98-107) H Carbon Dioxide Level 25 mEQ/L (20-30) Anion Gap 13 (5-15) Blood Urea Nitrogen 10 mg/dL (7-23) Creatinine 0.7 mg/dL (0.7-1.2) Estimat Glomerular Filtration Rate > 60 mL/min (>60) Glucose Level 83 mg/dL (74-106) Calcium Level 9.3 mg/dL (8.6-10.2) Phosphorus Level 2.7 mg/dL (2.5-4.8) Magnesium Level 1.6 mg/dL (1.7-2.5) L Total Bilirubin 0.3 mg/dL (0.0-1.2) Aspartate Amino Transf (AST/SGOT) 21 U/L (5-40) Alanine Aminotransferase (ALT/SGPT) 11 U/L (3-41) Alkaline Phosphatase 114 U/L (40-129) Total Protein 7.5 g/dL (6.6-8.7) Albumin 2.9 g/dL (3.5-5.2) L Globulin 4.6 g/dL Albumin/Globulin Ratio 0.6 (1.0-2.7) L Current Medications Medications (Trade) Dose Ordered Sig/Lucy Route PRN Reason Start Time Stop Time Status Last Admin Dose Admin Acetaminophen (Tylenol) 650 mg Q4H PRN RECTAL Mild Pain/Temp > 100.5 03/11/17 20:35 04/10/17 20:34 03/11/17 20:38 Chlorhexidine Gluconate (Kim-Hex 2%) 1 applic BEDTIME TOPIC 03/06/17 21:00 04/05/17 20:59 03/22/17 20:29 Dextrose 50 ml 50 ml STAT PRN IV Hypoglycemia 03/09/17 16:15 04/08/17 16:14 Heparin Sodium (Porcine) (Heparin 5000 units/ml) 5,000 units EVERY 12 HOURS SUBQ 03/06/17 21:00 04/05/17 20:59 03/23/17 10:00 Insulin Aspart (NovoLOG) AC+HS SUBQ 03/12/17 11:30 04/11/17 11:29 03/18/17 06:23 Levetiracetam (Keppra 500mg Premix) 100 ml @ 400 mls/hr Q12HR IVPB 03/09/17 21:00 04/08/17 20:59 03/23/17 09:56 Morphine Sulfate 4 mg 4 mg Q4H PRN IVP For Pain 4-10 03/21/17 22:00 03/28/17 21:59 03/22/17 10:53 Nystatin (Nystop Powder) 1 applic THREE TIMES A DAY TOPIC 03/06/17 18:00 04/05/17 17:59 03/23/17 09:55 Ondansetron HCl (Zofran) 4 mg Q6H PRN IVP Nausea & Vomiting 03/06/17 16:38 04/05/17 16:37 Pantoprazole (Protonix) 40 mg DAILY IVP 03/07/17 09:00 04/06/17 08:59 03/23/17 09:56 Polyethylene Glycol (Miralax) 17 gm DAILYPRN PRN ORAL Constipation 03/06/17 16:37 04/05/17 16:36 Potassium Phosphate/Sodium Chloride (Potassium Phosphate/Sodium Chloride) 285 ml @ 47.5 mls/hr ONCE ONCE IV 03/23/17 11:00 03/23/17 16:59 03/23/17 11:00 Simethicone (Mylicon) 40 mg EVERY 6 HOURS ORAL 03/12/17 12:00 04/11/17 11:59 03/23/17 05:18 NA GREGG Mar 23, 2017 11:40
--- NOTE | 2017-03-23 11:51 | GI Progress Note ---
Assessment/Plan Problems: (1) Iron deficiency ICD Codes: E61.1 - Iron deficiency SNOMED: 89058949 (2) Ileus ICD Codes: K56.7 - Ileus, unspecified SNOMED: 643889925 (3) Abdominal distension ICD Codes: R14.0 - Abdominal distension (gaseous) SNOMED: 55309763 (4) Septic shock ICD Codes: A41.9 - Sepsis, unspecified organism; R65.21 - Severe sepsis with septic shock SNOMED: 59922491 (5) Paraplegia ICD Codes: G82.20 - Paraplegia, unspecified SNOMED: 82525177 (6) Anemia ICD Codes: D64.9 - Anemia, unspecified SNOMED: 802108461 Qualifiers: Qualified Codes: D64.9 - Anemia, unspecified Status: unchanged Status Narrative Discussed with Dr. Thompson. Assessment/Plan CT AP reviewed >> Mildly distended sigmoid without evidence of distal obstruction. Diffusely gas-filled upper limits normal caliber colon and small bowel, without evidence of obstructive pathology. Suspect functional in nature or on the basis of ileus colonic barium enema >> Dilated distal sigmoid, without evidence of distal anatomic obstructive lesion. abdominal distention due to ileus 2/2 septic shock vs colonic ileus S/P COLONOSCOPY SUMMARY FINDINGS: 1. Incomplete colonoscopy examination, only up to mid transverse colon was examined. 2. Internal hemorrhoid. 3. Colonic distention, status post decompression with scope sucking out the air. RECOMMENDATIONS: fu surgical recs >> possible diverting ostomy, see note. rectal tube for colonic decompression resume diet per ST >> LIQUIFIED PUREED, LIKE HONEY THICK SOUP CONSISTENCY. STRICT ASPIRATION/REFLUX PRECAUTIONS WITH 1TO1 FEEDING. ppi fu labs Subjective Subjective limited hungry Objective Last 24 Hour Vital Signs Date Time Temp Pulse Resp B/P Pulse Ox O2 Delivery O2 Flow Rate FiO2 03/23/17 11:36 52 03/23/17 11:25 70 16 45 03/23/17 08:43 66 16 45 03/23/17 08:00 99.3 68 24 120/79 99 Trach Collar 40 03/23/17 08:00 65 03/23/17 07:23 69 16 03/23/17 05:30 50 16 45 03/23/17 04:00 98.1 61 16 132/74 100 Mechanical Ventilator 45 03/23/17 04:00 48 8/2/17 04:00 45 03/23/17 02:58 59 16 45 03/23/17 01:30 58 16 45 03/23/17 00:47 97.9 56 16 139/72 100 Mechanical Ventilator 45 03/23/17 00:00 51 03/23/17 00:00 45 03/22/17 23:22 51 16 45 03/22/17 21:30 51 16 45 03/22/17 20:15 98.0 65 16 115/80 100 Mechanical Ventilator 45 03/22/17 20:00 56 03/22/17 20:00 45 03/22/17 19:19 63 19 45 03/22/17 17:07 55 18 50 03/22/17 16:23 97.0 51 19 96/56 100 Trach Collar 15.0 03/22/17 16:00 48 03/22/17 16:00 45 03/22/17 14:35 61 20 50 03/22/17 12:55 52 18 50 03/22/17 12:16 97.8 90 20 99/50 96 Trach Collar 03/22/17 12:00 46 03/22/17 12:00 45 Intake and Output 03/22/17 03/23/17 19:00 07:00 Intake Total 1965 ml 400 ml Output Total 400 ml 375 ml Balance 1565 ml 25 ml Intake Oral 1810 ml IV Total 100 ml 400 ml Other 55 ml Output Urine Total 300 ml 325 ml Stool Total 100 ml 50 ml Laboratory Tests Test 03/23/17 04:00 White Blood Count 7.4 K/UL (4.8-10.8) Red Blood Count 3.12 M/UL (4.70-6.10) L Hemoglobin 8.0 G/DL (14.2-18.0) L Hematocrit 26.5 % (42.0-52.0) L Mean Corpuscular Volume 85 FL (80-99) Mean Corpuscular Hemoglobin 25.5 PG (27.0-31.0) L Mean Corpuscular Hemoglobin Concent 30.1 G/DL (32.0-36.0) L Red Cell Distribution Width 14.8 % (11.6-14.8) Platelet Count 440 K/UL (150-450) Mean Platelet Volume 4.9 FL (6.5-10.1) L Neutrophils (%) (Auto) 57.7 % (45.0-75.0) Lymphocytes (%) (Auto) 31.5 % (20.0-45.0) Monocytes (%) (Auto) 5.7 % (1.0-10.0) Eosinophils (%) (Auto) 4.1 % (0.0-3.0) H Basophils (%) (Auto) 0.9 % (0.0-2.0) Sodium Level 147 mEQ/L (135-145) H Potassium Level 3.0 mEQ/L (3.4-4.9) L Chloride Level 109 mEQ/L (98-107) H Carbon Dioxide Level 25 mEQ/L (20-30) Anion Gap 13 (5-15) Blood Urea Nitrogen 10 mg/dL (7-23) Creatinine 0.7 mg/dL (0.7-1.2) Estimat Glomerular Filtration Rate > 60 mL/min (>60) Glucose Level 83 mg/dL (74-106) Calcium Level 9.3 mg/dL (8.6-10.2) Phosphorus Level 2.7 mg/dL (2.5-4.8) Magnesium Level 1.6 mg/dL (1.7-2.5) L Total Bilirubin 0.3 mg/dL (0.0-1.2) Aspartate Amino Transf (AST/SGOT) 21 U/L (5-40) Alanine Aminotransferase (ALT/SGPT) 11 U/L (3-41) Alkaline Phosphatase 114 U/L (40-129) Total Protein 7.5 g/dL (6.6-8.7) Albumin 2.9 g/dL (3.5-5.2) L Globulin 4.6 g/dL Albumin/Globulin Ratio 0.6 (1.0-2.7) L Height (Feet): 6 Height (Inches): 4.00 Weight (Pounds): 212 General Appearance: no apparent distress, alert Cardiovascular: normal rate Respiratory/Chest: other - mech vent Abdominal Exam: distended, other Lou Cee N.POliver Mar 23, 2017 11:51
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
[2017-03-23] MEDS: Acetaminophen 650 MG SUPP RECTAL PRN (16:16)
--- NOTE | 2017-03-23 17:33 | Cardiac Electrophysiology PN ---
Assessment/Plan Assessment/Plan 1. Sinus arrest with pauses of more than 3 seconds and pause of 8 seconds.Positional. Likely vagal. Off any sinus claudette blocking agents.No recurrence 2. Ventilator-dependent respiratory failure, status post tracheostomy. 3. Status post septic shock. 4. Dysphagia with history of PEG placement in the past. No eating. 5. Iron deficiency anemia. Getting blood transfusion tonight. 6. Ileus with abdominal distention. S/P decompression colonoscopy by Dr Thompson 03/21/17 GISELA RN Subjective Subjective HR better.No further profound bradycardia reported.Off dialysis as patient will be eating. Plan is to DC after Transfusion. Objective Last 24 Hour Vital Signs Date Time Temp Pulse Resp B/P Pulse Ox O2 Delivery O2 Flow Rate FiO2 03/23/17 16:45 98.6 03/23/17 16:00 97.7 86 17 132/79 100 Mechanical Ventilator 40 03/23/17 16:00 45 03/23/17 16:00 58 03/23/17 14:29 88 20 45 03/23/17 13:04 60 16 03/23/17 12:05 45 03/23/17 12:00 98.6 55 16 153/98 100 Mechanical Ventilator 45 03/23/17 11:36 52 03/23/17 11:25 70 16 45 03/23/17 08:43 66 16 45 03/23/17 08:00 99.3 68 24 120/79 99 Trach Collar 40 03/23/17 08:00 65 03/23/17 08:00 45 03/23/17 07:23 69 16 03/23/17 05:30 50 16 45 03/23/17 04:00 98.1 61 16 132/74 100 Mechanical Ventilator 45 03/23/17 04:00 48 03/23/17 04:00 45 03/23/17 02:58 59 16 45 03/23/17 01:30 58 16 45 03/23/17 00:47 97.9 56 16 139/72 100 Mechanical Ventilator 45 03/23/17 00:00 51 03/23/17 00:00 45 03/22/17 23:22 51 16 45 03/22/17 21:30 51 16 45 03/22/17 20:15 98.0 65 16 115/80 100 Mechanical Ventilator 45 03/22/17 20:00 56 03/22/17 20:00 45 03/22/17 19:19 63 19 45 Intake and Output 03/22/17 03/23/17 19:00 07:00 Intake Total 1965 ml 400 ml Output Total 400 ml 375 ml Balance 1565 ml 25 ml Intake Oral 1810 ml IV Total 100 ml 400 ml Other 55 ml Output Urine Total 300 ml 325 ml Stool Total 100 ml 50 ml Laboratory Tests Test 03/23/17 04:00 White Blood Count 7.4 K/UL (4.8-10.8) Red Blood Count 3.12 M/UL (4.70-6.10) L Hemoglobin 8.0 G/DL (14.2-18.0) L Hematocrit 26.5 % (42.0-52.0) L Mean Corpuscular Volume 85 FL (80-99) Mean Corpuscular Hemoglobin 25.5 PG (27.0-31.0) L Mean Corpuscular Hemoglobin Concent 30.1 G/DL (32.0-36.0) L Red Cell Distribution Width 14.8 % (11.6-14.8) Platelet Count 440 K/UL (150-450) Mean Platelet Volume 4.9 FL (6.5-10.1) L Neutrophils (%) (Auto) 57.7 % (45.0-75.0) Lymphocytes (%) (Auto) 31.5 % (20.0-45.0) Monocytes (%) (Auto) 5.7 % (1.0-10.0) Eosinophils (%) (Auto) 4.1 % (0.0-3.0) H Basophils (%) (Auto) 0.9 % (0.0-2.0) Sodium Level 147 mEQ/L (135-145) H Potassium Level 3.0 mEQ/L (3.4-4.9) L Chloride Level 109 mEQ/L (98-107) H Carbon Dioxide Level 25 mEQ/L (20-30) Anion Gap 13 (5-15) Blood Urea Nitrogen 10 mg/dL (7-23) Creatinine 0.7 mg/dL (0.7-1.2) Estimat Glomerular Filtration Rate > 60 mL/min (>60) Glucose Level 83 mg/dL (74-106) Calcium Level 9.3 mg/dL (8.6-10.2) Phosphorus Level 2.7 mg/dL (2.5-4.8) Magnesium Level 1.6 mg/dL (1.7-2.5) L Total Bilirubin 0.3 mg/dL (0.0-1.2) Aspartate Amino Transf (AST/SGOT) 21 U/L (5-40) Alanine Aminotransferase (ALT/SGPT) 11 U/L (3-41) Alkaline Phosphatase 114 U/L (40-129) Total Protein 7.5 g/dL (6.6-8.7) Albumin 2.9 g/dL (3.5-5.2) L Globulin 4.6 g/dL Albumin/Globulin Ratio 0.6 (1.0-2.7) L Objective HEAD AND NECK: no JVD. Tracheostomy intact LUNGS: Have decreased breath sounds. CARDIOVASCULAR: Shows regular S1 and S2 with no gallop. ABDOMEN: Distended. EXTREMITIES: 2+ pitting edema. ELIF ESCOBAR Mar 23, 2017 17:33
--- NOTE | 2017-03-23 19:11 | General Progress Note ---
Progress Note Progress Note Afebrile, no pain. Some distention persists, no pain some loose BMs. Plan as well outline by Dr. Gilmore in yesterdays note. WAQAS PEREZ Mar 23, 2017 19:11
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
[2017-03-23] MEDS: Dyna-Hex 2% Top Sol 8oz TOPIC SCH (21:00)
[2017-03-23] MEDS ORDERED: Tubing IV Secondary IV ONE (21:29)
[2017-03-23] MEDS ORDERED: Tubing IV Blood Pump IV ONE (21:29)
--- NOTE | 2017-03-26 06:46 | Discharge Summary ---
Discharge Summary Hospital Course Date of Admission Mar 03, 2017 at 01:30 Date of Discharge Mar 23, 2017 at 21:30 Admitting Diagnosis SEPTIC SHOCK, PNEUMONIA HPI Kerwin Quezada is a 56 year old male who was admitted on Mar 03, 2017 at 01:30 for Septic Shock,Pneumonia Hospital Course [id number] Discharge Discharge Disposition Patient was discharged to SNF/Subacute Facility(03) Discharge Diagnoses: Milka Ortega NP Mar 26, 2017 06:46
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
== END 2017-03-23 21:30 | DRG 720 ==
LOC: EDUNIT# 22:33 → EDBD 22:33 → EMR 23:00 → ICU 03-03 01:30 → EDBEDREQ 03-03 01:47 → 2W 03-06 15:19
PROC: 5A1955Z Respiratory Ventilation, Greater than 96 Consecutive Hours (ICD-10-PCS; principal; 2017-03-03)
PROC: 06HM33Z Insertion of Infusion Device into Right Femoral Vein, Percutaneous Approach (ICD-10-PCS; 2017-03-03)
PROC: 02HV33Z Insertion of Infusion Device into Superior Vena Cava, Percutaneous Approach (ICD-10-PCS; 2017-03-07)
PROC: B548ZZA Ultrasonography of Superior Vena Cava, Guidance (ICD-10-PCS; 2017-03-07)
PROC: 0DJD8ZZ Inspection of Lower Intestinal Tract, Via Natural or Artificial Opening Endoscopic (ICD-10-PCS; 2017-03-21)
DX: A41.9 Sepsis, unspecified organism (principal); J96.20 Acute and chronic respiratory failure, unspecified whether with hypoxia or hypercapnia; I46.9 Cardiac arrest, cause unspecified; R65.21 Severe sepsis with septic shock; J18.9 Pneumonia, unspecified organism; N17.9 Acute kidney failure, unspecified; L89.154 Pressure ulcer of sacral region, stage 4; Z99.11 Dependence on respirator [ventilator] status; Z93.0 Tracheostomy status; G82.20 Paraplegia, unspecified; N39.0 Urinary tract infection, site not specified; Z93.1 Gastrostomy status; R47.01 Aphasia; I10 Essential (primary) hypertension; R19.7 Diarrhea, unspecified; K56.7 Ileus, unspecified; D50.9 Iron deficiency anemia, unspecified; B96.20 Unspecified Escherichia coli [E. coli] as the cause of diseases classified elsewhere; K64.8 Other hemorrhoids; I27.2 Other secondary pulmonary hypertension; R13.10 Dysphagia, unspecified; E88.09 Other disorders of plasma-protein metabolism, not elsewhere classified; T14.8 Other injury of unspecified body region; X95.8XXS Assault by other firearm discharge, sequela
CPT/HCPCS: 36415; 36569; 36600; 71010; 74000; 74177; 74230; 74270; 76937; 80048; 80053; 80150; 80202; 81003; 82270; 82378; 82533; 82550; 82553; 82607; 82728; 82746; 82803; 82962; 82977; 83036; 83540; 83550; 83605; 83615; 83735; 83880; 84100; 84443; 84478; 84484; 84550; 85007; 85025; 85044; 85060; 85610; 85651; 85730; 86140; 86850; 86900; 86901; 86920; 87040; 87070; 87081; 87086; 87181; 87205; 87324; 93005; 93306; 93970; 94002; 94003; 94150; 94640; 94664; 94760; J1815; J2405